=== PATIENT | female | born 1950 | race Caucasian/White ===

== ENCOUNTER → 2019-01-04 | Outpatient (CLI) | payer MEDICARE, OTHER ==
--- NOTE | 2019-01-04 16:18 | XR ---
EXAMINATION TYPE: XR chest 2V DATE OF EXAM: 01/04/2019 COMPARISON: NONE HISTORY: COPD TECHNIQUE: Frontal and lateral views of the chest are obtained. FINDINGS: There is no heart failure nor confluent pneumonic infiltrate. Costophrenic angles are marilee r. Bony thorax is intact. Thoracic aorta is atheromatous. There is small linear density at the right lung base that is probably right middle lobe scarring. IMPRESSION: No active cardiopulmonary disease. Normal heart.
== END | disposition home or self-care (01) ==
LOC: RADXRMAIN 15:12
PROVIDERS: ATTEND Family Medicine
DX: Z00.01 Encounter for general adult medical examination with abnormal findings (principal); F17.210 Nicotine dependence, cigarettes, uncomplicated
CPT/HCPCS: 71046

== ENCOUNTER → 2019-02-19 | Outpatient (CLI) | payer MEDICARE, OTHER ==
[2019-02-19 14:37] LABS: African American GFR (CKD) >90 (>60 ml/min/1.73 sqM); Blood Urea Nitrogen 8 mg/dL (7-17); Non-African American GFR(CKD) 78 (>60 ml/min/1.73 sqM)
--- NOTE | 2019-02-19 16:02 | CT ---
EXAMINATION TYPE: CT brain wo/w con DATE OF EXAM: 02/19/2019 COMPARISON: None INDICATION: syncopal episodes, dizziness DLP: 2031.5 mGycm, Automated exposure control for dose reduction was used. CONTRAST: None CT of the brain is performed utilizing 3 mm thick sections through the posterior fossa and 3 mm thick sections through the remaining calvarium. Study is performed within 24 hours of arrival to the hosp [facility]. No abnormal hyperdensity is present to suggest an acute intracranial hemorrhage. No mass lesion is evident. No acute infarcts are evident. Ventricles and sulci are appropriate for the patient age. There is a small retention cyst within the left maxillary sinus. Remaining paranasal sinuses and mast oid air cells are clear. IMPRESSIONS: 1. No acute intracranial processes pre or postcontrast
--- NOTE | 2019-02-19 17:35 | CT ---
EXAMINATION TYPE: CT chest w con DATE OF EXAM: 02/19/2019 COMPARISON: Chest x-ray 01/04/2019 HISTORY: abnormal cxr CT DLP: 409.8 mGycm, Automated exposure control for dose reduction was used. CONTRAST: Performed injected with 100 mL of Isovue 300. TECHNIQUE: Axial images were obtained at 5 mm thick sections. Reconstructed images are reviewed on [place] computer in the coronal plane. FINDINGS: Portion of the thyroid visualized is normal. No suspicious lung nodules or focal infiltrates are present. Emphysematous changes are present. Adjac ent to the major fissure at the right lung base is some linear density which could correlate with ate lectasis or scarring. No enlarged mediastinal or hilar adenopathy is evident. The ascending aorta diameter at the level o f the main pulmonary artery is 3.1 cm. The main pulmonary artery diameter at the bifurcation is 2.6 cm. Moderate coronary artery calcification is present. Limited CT sections are obtained through the upper abdomen. Cholelithiasis is noted. IMPRESSIONS: 1. No suspicious acute changes. Some atelectasis or scarring may be adjacent to the major fissure on the right which could account for the findings on chest x-ray.
== END | disposition home or self-care (01) ==
LOC: RADCTMAIN 13:10
PROVIDERS: ATTEND Family Medicine
DX: R91.8 Other nonspecific abnormal finding of lung field (principal); R55 Syncope and collapse; Z88.0 Allergy status to penicillin
CPT/HCPCS: 82565; 84520; 70470; 71260; 36415; Q9967

== ENCOUNTER 2019-05-16 15:34 | Inpatient (IN) | payer MEDICARE, OTHER ==
[2019-05-16] MEDS ORDERED: ALBUTEROL NEBULIZED 2.5 MG/3 ML INHALATION STA (16:12)
[2019-05-16] MEDS ORDERED: IPRATROPIUM 0.5 MG/2.5 ML NEBU INHALATION STA (16:12)
[2019-05-16] MEDS ORDERED: methylPREDNISolone SOD SUCCI 125 MG/2 ML VIAL IV STA (16:12)
--- NOTE | 2019-05-16 16:41 | ED ---
General Adult HPI - General Chief complaint: Shortness of Breath Stated complaint: SOB/Wheezing Time Seen by Provider: 05/16/19 16:06 Source: patient, RN notes reviewed, old records reviewed Mode of arrival: wheelchair Limitations: no limitations - History of Present Illness Initial comments: 76-year-old female history of COPD presenting for evaluation of cough and dyspnea. Symptoms have been present for approximately 2 weeks. Patient has had some intermittent left-sided chest pain starting approximately one week ago which is associated with cough but pleasant constantly. She is not currently on home oxygen. She states her cough is productive of brown sputum. Denies fever. Denies URI symptoms. Denies central radiating chest pain. - Related Data Allergies Allergy/AdvReac Type Severity Reaction Status Date / Time No Known Allergies Allergy Verified 05/16/19 15:38 Review of Systems ROS Statement: Those systems with pertinent positive or pertinent negative responses have been documented in the HPI. ROS Other: All systems not noted in ROS Statement are negative. Past Medical History Past Medical History: Cancer, COPD, Thyroid Disorder Additional Past Medical History / Comment(s): breast ca History of Any Multi-Drug Resistant Organisms: None Reported Past Surgical History: Appendectomy Additional Past Surgical History / Comment(s): lumpectomy, Past Psychological History: No Psychological Hx Reported Smoking Status: Former smoker Past Alcohol Use History: Occasional Past Drug Use History: None Reported General Exam Limitations: no limitations General appearance: alert, in distress Head exam: Present: atraumatic, normocephalic Eye exam: Present: normal appearance, PERRL ENT exam: Present: mucous membranes dry Neck exam: Present: normal inspection. Absent: tenderness, meningismus Respiratory exam: Present: respiratory distress, wheezes, accessory muscle use, decreased breath sounds, prolonged expiratory Cardiovascular Exam: Present: regular rate, normal rhythm GI/Abdominal exam: Present: soft. Absent: distended, tenderness, guarding Extremities exam: Present: normal inspection, normal capillary refill. Absent: pedal edema Neurological exam: Present: alert, oriented X3, CN II-XII intact. Absent: motor sensory deficit Psychiatric exam: Present: normal affect, normal mood Skin exam: Present: warm, dry, intact. Absent: cyanosis, diaphoretic Course Vital Signs 05/16/19 05/16/19 05/16/19 15:38 16:05 16:24 Temperature 98.5 F Pulse Rate 94 80 Respiratory 22 20 Rate Blood Pressure 131/76 O2 Sat by Pulse 93 L Oximetry 05/16/19 05/16/19 05/16/19 16:37 16:52 17:22 Temperature 98.1 F Pulse Rate 85 89 82 Respiratory 20 Rate Blood Pressure 102/77 O2 Sat by Pulse 93 L Oximetry EKG Findings - EKG Comments: EKG Findings:: EKG: Normal sinus rhythm no ST segment elevation T-wave inversion in the precordial leads, prolonged QT, rate 85, PA interval 152, QRS duration 84, QTC 471 Medical Decision Making - Medical Decision Making 6-year-old female with COPD presenting with 2 weeks of cough and dyspnea, no fever. Cough productive of brown sputum. Chest x-ray negative for focal pneumonia. Mild leukocytosis 11.1, hemoglobin is stable 14.2, normal x-rays, negative BNP, negative troponin, negative influenza. Case is discussed with Dr. Yumi rodarte Except admission. - Lab Data Result diagrams: 05/16/19 16:38 05/16/19 16:38 Lab Results 05/16/19 05/16/19 05/16/19 Range/Units 16:38 16:38 16:38 WBC 11.1 H (3.8-10.6) k/uL RBC 4.26 (3.80-5.40) m/uL Hgb 14.2 (11.4-16.0) gm/dL Hct 43.8 (34.0-46.0) % MCV 102.8 H (80.0-100.0) fL MCH 33.2 (25.0-35.0) pg MCHC 32.3 (31.0-37.0) g/dL RDW 13.1 (11.5-15.5) % Plt Count 439 (150-450) k/uL Neutrophils % 65 % Lymphocytes % 18 % Monocytes % 7 % Eosinophils % 8 % Basophils % 0 % Neutrophils # 7.2 (1.3-7.7) k/uL Lymphocytes # 2.0 (1.0-4.8) k/uL Monocytes # 0.7 (0-1.0) k/uL Eosinophils # 0.9 H (0-0.7) k/uL Basophils # 0.0 (0-0.2) k/uL Macrocytosis Slight PT 9.9 (9.0-12.0) sec INR 0.9 (<1.2) APTT 23.4 (22.0-30.0) sec Sodium 137 (137-145) mmol/L Potassium 4.5 (3.5-5.1) mmol/L Chloride 102 (98-107) mmol/L Carbon Dioxide 29 (22-30) mmol/L Anion Gap 6 mmol/L BUN 9 (7-17) mg/dL Creatinine 0.73 (0.52-1.04) mg/dL Est GFR (CKD-EPI)AfAm >90 (>60 ml/min/1.73 sqM) Est GFR (CKD-EPI)NonAf 84 (>60 ml/min/1.73 sqM) Glucose 109 H (74-99) mg/dL Plasma Lactic Acid Zahng (0.7-2.0) mmol/L Calcium 10.4 H (8.4-10.2) mg/dL Magnesium 1.9 (1.6-2.3) mg/dL Total Bilirubin 0.4 (0.2-1.3) mg/dL AST 26 (14-36) U/L ALT 16 (4-34) U/L Alkaline Phosphatase 79 (38-126) U/L Troponin I (0.000-0.034) ng/mL NT-Pro-B Natriuret Pep pg/mL Total Protein 7.3 (6.3-8.2) g/dL Albumin 4.3 (3.5-5.0) g/dL Influenza Type A RNA (Not Detectd) Influenza Type B (PCR) (Not Detectd) 05/16/19 05/16/19 05/16/19 Range/Units 16:38 16:38 16:38 WBC (3.8-10.6) k/uL RBC (3.80-5.40) m/uL Hgb (11.4-16.0) gm/dL Hct (34.0-46.0) % MCV (80.0-100.0) fL MCH (25.0-35.0) pg MCHC (31.0-37.0) g/dL RDW (11.5-15.5) % Plt Count (150-450) k/uL Neutrophils % % Lymphocytes % % Monocytes % % Eosinophils % % Basophils % % Neutrophils # (1.3-7.7) k/uL Lymphocytes # (1.0-4.8) k/uL Monocytes # (0-1.0) k/uL Eosinophils # (0-0.7) k/uL Basophils # (0-0.2) k/uL Macrocytosis PT (9.0-12.0) sec INR (<1.2) APTT (22.0-30.0) sec Sodium (137-145) mmol/L Potassium (3.5-5.1) mmol/L Chloride (98-107) mmol/L Carbon Dioxide (22-30) mmol/L Anion Gap mmol/L BUN (7-17) mg/dL Creatinine (0.52-1.04) mg/dL Est GFR (CKD-EPI)AfAm (>60 ml/min/1.73 sqM) Est GFR (CKD-EPI)NonAf (>60 ml/min/1.73 sqM) Glucose (74-99) mg/dL Plasma Lactic Acid Zhang 1.4 (0.7-2.0) mmol/L Calcium (8.4-10.2) mg/dL Magnesium (1.6-2.3) mg/dL Total Bilirubin (0.2-1.3) mg/dL AST (14-36) U/L ALT (4-34) U/L Alkaline Phosphatase (38-126) U/L Troponin I <0.012 (0.000-0.034) ng/mL NT-Pro-B Natriuret Pep 100 pg/mL Total Protein (6.3-8.2) g/dL Albumin (3.5-5.0) g/dL Influenza Type A RNA (Not Detectd) Influenza Type B (PCR) (Not Detectd) 05/16/19 Range/Units 16:44 WBC (3.8-10.6) k/uL RBC (3.80-5.40) m/uL Hgb (11.4-16.0) gm/dL Hct (34.0-46.0) % MCV (80.0-100.0) fL MCH (25.0-35.0) pg MCHC (31.0-37.0) g/dL RDW (11.5-15.5) % Plt Count (150-450) k/uL Neutrophils % % Lymphocytes % % Monocytes % % Eosinophils % % Basophils % % Neutrophils # (1.3-7.7) k/uL Lymphocytes # (1.0-4.8) k/uL Monocytes # (0-1.0) k/uL Eosinophils # (0-0.7) k/uL Basophils # (0-0.2) k/uL Macrocytosis PT (9.0-12.0) sec INR (<1.2) APTT (22.0-30.0) sec Sodium (137-145) mmol/L Potassium (3.5-5.1) mmol/L Chloride (98-107) mmol/L Carbon Dioxide (22-30) mmol/L Anion Gap mmol/L BUN (7-17) mg/dL Creatinine (0.52-1.04) mg/dL Est GFR (CKD-EPI)AfAm (>60 ml/min/1.73 sqM) Est GFR (CKD-EPI)NonAf (>60 ml/min/1.73 sqM) Glucose (74-99) mg/dL Plasma Lactic Acid Zhang (0.7-2.0) mmol/L Calcium (8.4-10.2) mg/dL Magnesium (1.6-2.3) mg/dL Total Bilirubin (0.2-1.3) mg/dL AST (14-36) U/L ALT (4-34) U/L Alkaline Phosphatase (38-126) U/L Troponin I (0.000-0.034) ng/mL NT-Pro-B Natriuret Pep pg/mL Total Protein (6.3-8.2) g/dL Albumin (3.5-5.0) g/dL Influenza Type A RNA Not Detected (Not Detectd) Influenza Type B (PCR) Not Detected (Not Detectd) Critical Care Time Critical Care Time: Yes Total Critical Care Time: 35 Disposition Clinical Impression: Acute exacerbation of chronic obstructive pulmonary disease Disposition: ADMITTED IP TO THIS [facility] Condition: Stable Is patient prescribed a controlled substance at d/c from ED?: No Referrals: Deshaun Bolanos DO [Primary Care Provider] - 1-2 days Decision to Admit Reason: Admit from EC Decision Date: 05/16/19 Decision Time: 17:35
[2019-05-16 16:52] LABS: Basophils % (A) 0 %; Eosinophils # (A) 0.9 k/uL (0-0.7); Eosinophils % (A) 8 %; HCT 43.8 % (34.0-46.0); HGB 14.2 gm/dL (11.4-16.0); Lymphocytes % (A) 18 %; MCH 33.2 pg (25.0-35.0); MCHC 32.3 g/dL (31.0-37.0); MCV 102.8 fL (80.0-100.0); Macrocytosis Slight; Mean Platelet Volume 7.7; Monocytes # (A) 0.7 k/uL (0-1.0); Monocytes % (A) 7 %; Neutrophils # (A) 7.2 k/uL (1.3-7.7); Neutrophils % (A) 65 %; Platelet Count 439 k/uL (150-450); RBC 4.26 m/uL (3.80-5.40); RDW 13.1 % (11.5-15.5); WBC 11.1 k/uL (3.8-10.6)
[2019-05-16 17:01] LABS: INR 0.9 (<1.2); Partial Thromboplastin Time 23.4 sec (22.0-30.0); Prothrombin Time 9.9 sec (9.0-12.0)
[2019-05-16 17:02] LABS: ALT 16 U/L (4-34); AST 26 U/L (14-36); African American GFR (CKD) >90 (>60 ml/min/1.73 sqM); Albumin 4.3 g/dL (3.5-5.0); Alkaline Phosphatase 79 U/L (38-126); Anion Gap 6 mmol/L; Blood Urea Nitrogen 9 mg/dL (7-17); Calcium 10.4 mg/dL (8.4-10.2); Carbon Dioxide 29 mmol/L (22-30); Chloride 102 mmol/L (98-107); Glucose 109 mg/dL (74-99); Magnesium 1.9 mg/dL (1.6-2.3); Non-African American GFR(CKD) 84 (>60 ml/min/1.73 sqM); Potassium 4.5 mmol/L (3.5-5.1); Sodium 137 mmol/L (137-145); Total Bilirubin 0.4 mg/dL (0.2-1.3); Total Protein 7.3 g/dL (6.3-8.2)
--- NOTE | 2019-05-16 17:17 | XR ---
EXAMINATION TYPE: XR chest 2V DATE OF EXAM: 05/16/2019 COMPARISON: 01/04/2019 TECHNIQUE: PA and lateral views submitted. HISTORY: Shortness of breath FINDINGS: The lungs are clear and there is no pneumothorax, pleural effusion, or focal pneumonia. Hyperinflat ion suggests COPD. Hypertrophic and degenerative change of the spine. Biapical pleural thickening. At herosclerotic change aorta. IMPRESSION: 1. Correlate for COPD..
[2019-05-16] MEDS: AZITHROMYCIN 500 MG TAB PO SCH (17:46)
[2019-05-16] MEDS: NICOTINE 21MG/24HR PATCH TRANSDERM SCH (17:46)
[2019-05-16] MEDS ORDERED: IBUPROFEN 400 MG TAB PO STA (18:10)
[2019-05-16] MEDS: IPRATROPIUM-ALBUTEROL 3 ML NEB INHALATION PRN (19:20)
[2019-05-16] MEDS ORDERED: ACETAMINOPHEN PO PRN (20:43)
[2019-05-16] MEDS ORDERED: DIPHENHYDRAMINE PO PRN (20:43)
[2019-05-16 21:50] LABS: Glucose,Whole Blood 234 mg/dL (75-99)
[2019-05-16] MEDS: ATORVASTATIN 20 MG TAB PO SCH (21:57)
[2019-05-16] MEDS: BENZONATATE 100 MG CAP PO PRN (21:57)
[2019-05-16] MEDS: guaiFENesin 600 MG TABLET.ER PO SCH (21:57)
[2019-05-16] MEDS: DULoxetine HCL 60 MG CAPSULE.DR PO SCH (21:57)
[2019-05-16] MEDS: INSULIN ASPART (NovoLOG) 100 UNIT/ML VIAL SQ SCH (21:58)
[2019-05-16] MEDS: LETROZOLE 2.5 MG TAB PO SCH (21:58)
[2019-05-16] MEDS: IPRATROPIUM-ALBUTEROL 3 ML NEB INHALATION SCH (22:04)
[2019-05-16] MEDS: ALPRAZolam 0.25 MG TAB PO PRN (23:08)
[2019-05-16] MEDS: methylPREDNISolone SOD SUCCI 125 MG/2 ML VIAL IV SCH (23:08)
[2019-05-17] MEDS: methylPREDNISolone SOD SUCCI 125 MG/2 ML VIAL IV SCH ×4 (05:47→23:32)
[2019-05-17] MEDS: LEVOTHYROXINE 75 MCG TAB PO SCH (05:48)
[2019-05-17 07:02] LABS: Glucose,Whole Blood 145 mg/dL (75-99)
[2019-05-17] MEDS: IPRATROPIUM-ALBUTEROL 3 ML NEB INHALATION SCH ×4 (07:57→20:07)
[2019-05-17] MEDS: INSULIN ASPART (NovoLOG) 100 UNIT/ML VIAL SQ SCH ×4 (08:20→20:26)
[2019-05-17] MEDS: NICOTINE 21MG/24HR PATCH TRANSDERM SCH (08:21)
[2019-05-17] MEDS: guaiFENesin 600 MG TABLET.ER PO SCH ×2 (08:22→20:26)
[2019-05-17] MEDS: DULoxetine HCL 60 MG CAPSULE.DR PO SCH (08:22)
[2019-05-17] MEDS: ATORVASTATIN 20 MG TAB PO SCH (08:22)
[2019-05-17] MEDS: LETROZOLE 2.5 MG TAB PO SCH (08:23)
[2019-05-17] MEDS ORDERED: ACETAMINOPHEN TAB 325 MG TAB PO PRN (08:30)
[2019-05-17] MEDS: BENZONATATE 100 MG CAP PO PRN ×2 (08:34→20:26)
--- NOTE | 2019-05-17 11:15 | P.HPIM ---
History of Present Illness H&P Date: 05/17/19 This is a 76-year-old patient with a history of COPD who presented to the emergency room with evaluation of cough and dyspnea. The symptoms started approximately 2 weeks ago. Patient has had intermittent left-sided chest pain starting approximately 1 week ago that was associated with a cough and constant. Patient does not use home oxygen. Patient states that her cough is productive with brown sputum. Denies any fever. Denies any nasal congestion or upper respiratory symptoms. Denies any central radiating chest pain. Patient sees Dr. Bishop every 6 months. Her last visit was approximately 4 months ago. She sees her primary care doctor every 3-4 months. Patient denies any recent trave l. She does not use a CPAP machine at home. She does have intermittent swelling to the left lower extremity. No history of blood clots. Patient is a 60+ year smoker of at least one pack a day. She has recently been attempting to quit and only smoking 6 cigarettes a day. Patient states her last hospitalization was greater than 10 years ago. At this time patient is resting comfortably in bed. Continues to have shortness of breath with exertion and conversation. Patient also complains of cramping to bilateral lower extremities. Denies any chest pain at this time. Patient has a positive productive cough. She has been afebrile. Influenza swab a and B was negative. RSV was also negative. WC 11.1, hemoglobin 14.2, potassium 4.5, BUN 9 creatinine 0.73, lactic acid 1.4. Review of Systems Review Of Systems: Constitutional: No fever, no chills, no night sweats. No weight change. Report weakness and fatigue no lethargy. No daytime sleepiness. EENT: No headache. No blurred vision or double vision, no loss of vision. No loss of Hearing, no ringing in the ears, no dizziness. No nasal drainage or congestion. No epistaxis. No sore throat. Lungs: Report shortness of breath and cough, report sputum production. Reports wheezing. Cardiovascular: Denies at this time reports prior to admission chest pain, reports intermittently left lower extremity edema. No palpitations. No paroxysmal nocturnal dyspnea. No orthopnea. No lightheadedness or dizziness. No syncopal episodes. Abdominal: no abdominal discomfort. No nausea, vomiting. no diarrhea. No constipation. No bloody or tarry stools. no loss of appetite. Genitourinary: No dysuria, increased frequency, urgency. No urinary retention. Musculoskeletal: No myalgias. No muscle weakness, no gait dysfunction, no frequent falls. No back pain. No neck pain. Reports bilateral leg cramping Integumentary: No wounds, no lesions. No rash or pruritus. No unusual bruising. No change in hair or nails. Neurologic: No aphasia. No facial droop. No change in mentation. No head injury. No headache. No paralysis. No paresthesia. Psychiatric: No depression. No anxiety. No mood swings. Endocrine: No abnormal blood sugars. No weight change. No excessive sweating or thirst. Past Medical History Past Medical History: Cancer, COPD, Thyroid Disorder Additional Past Medical History / Comment(s): breast ca History of Any Multi-Drug Resistant Organisms: None Reported Past Surgical History: Appendectomy Additional Past Surgical History / Comment(s): lumpectomy, Past Psychological History: No Psychological Hx Reported Smoking Status: Current some day smoker Past Alcohol Use History: Occasional Past Drug Use History: None Reported - Past Family History Mother Family Medical History: Coronary Artery Disease (CAD) Father Family Medical History: Coronary Artery Disease (CAD) Additional Family Medical History / Comment(s): 2 sisters one with COPD the other one healthy. No children. Medications and Allergies Home Medications Medication Instructions Recorded Confirmed Type Acetaminophen/Diphenhydramine 2 tab PO HS PRN 05/16/19 05/16/19 History [Tylenol PM 500-25mg] Albuterol Sulfate [Ventolin HFA] 2 puff INHALATION Q6H PRN 05/16/19 05/16/19 History Ascorbic Acid [Vitamin C] 1,000 mg PO DAILY 05/16/19 05/16/19 History Atorvastatin [Lipitor] 20 mg PO DAILY 05/16/19 05/16/19 History Budesonide/Formoterol Fumarate 2 puff INHALATION BID 05/16/19 05/16/19 History [Symbicort 160-4.5 Mcg Inhaler] Calcium Carbonate/Vitamin D3 1 tab PO DAILY 05/16/19 05/16/19 History [Calcium 600-Vit D3 800 Caplet] DULoxetine HCL [Cymbalta] 60 mg PO DAILY 05/16/19 05/16/19 History Letrozole [Femara] 2.5 mg PO DAILY 05/16/19 05/16/19 History Levothyroxine Sodium [Synthroid] 75 mcg PO DAILY 05/16/19 05/16/19 History Nicotine 21Mg/24Hr Patch [Habitrol] 1 patch TRANSDERM DAILY 05/16/19 05/16/19 History Sulfamethoxazole/Trimethoprim 1 tab PO BID 05/16/19 05/16/19 History [Sulfamethoxazole-Tmp Ds Tablet] Ubidecarenone [Co Q-10] 200 mg PO DAILY 05/16/19 05/16/19 History Allergies Allergy/AdvReac Type Severity Reaction Status Date / Time No Known Allergies Allergy Verified 05/16/19 19:12 Physical Exam Vitals: Vital Signs Temp Pulse Pulse Resp BP BP Pulse Ox 05/17/19 08:10 92 05/17/19 07:57 90 05/17/19 04:47 98.5 F 84 20 120/71 91 L 05/16/19 22:16 88 05/16/19 22:05 88 05/16/19 21:22 97.8 F 86 18 114/56 93 L 05/16/19 19:20 88 05/16/19 17:22 98.1 F 82 20 102/77 93 L 05/16/19 16:52 89 05/16/19 16:37 85 05/16/19 16:24 80 05/16/19 16:05 20 05/16/19 15:38 98.5 F 94 22 131/76 93 L Intake and Output 05/16/19 05/17/19 05/17/19 22:59 06:59 14:59 Intake Total 50 Balance 50 Intake: Intake, IV Titration 50 Amount cefTRIAXone 1 gm In 50 Sodium Chloride 0.9% 50 ml @ 100 mls/hr IVPB Q24H [facility] Rx#:[id number] Other: Voiding Method Toilet # Voids 1 1 Weight 71.214 kg General Appearance: Alert, cooperative, no distress, appears stated age. Neck HEENT: Supple, no lymphadenopathy, no thyroid enlargement, no carotid bruits. Lungs: Expiratory wheezes, decreased air sounds and prolonged expiratory, mild distress with conversation Chest Wall: Chest wall normal expansion with deep inspiration no tenderness and no deformity was found on exam, no costochondral pain or discomfort. Heart: Regular rate and rhythm, S1, S2 normal, no murmur, rub or gallop. Back: Symmetric, no curvature, ROM normal, no CVA tenderness. Abdomen: Soft, non-tender, no rebound or rigidity, no hepatosplenomegaly. Extremities: Extremities normal, atraumatic, no cyanosis or edema. Pulses: 2+ and symmetric. Skin: Skin color, texture, tugor normal, no rashes or lesions. Neurologic: Alert oriented x3 cranial nerves II through XII intact, no motor deficit, no abnormal balance or gait Results CBC & Chem 7: 05/16/19 16:38 05/16/19 16:38 Labs: Abnormal Lab Results - Last 24 Hours (Table) 05/16/19 05/16/19 05/16/19 Range/Units 16:38 16:38 21:47 WBC 11.1 H (3.8-10.6) k/uL MCV 102.8 H (80.0-100.0) fL Eosinophils # 0.9 H (0-0.7) k/uL Glucose 109 H (74-99) mg/dL POC Glucose (mg/dL) 234 H (75-99) mg/dL Calcium 10.4 H (8.4-10.2) mg/dL 05/17/19 Range/Units 07:01 WBC (3.8-10.6) k/uL MCV (80.0-100.0) fL Eosinophils # (0-0.7) k/uL Glucose (74-99) mg/dL POC Glucose (mg/dL) 145 H (75-99) mg/dL Calcium (8.4-10.2) mg/dL Thrombosis Risk Factor Assmnt - Choose All That Apply Any of the Below Risk Factors Present?: Yes Each Factor Represents 1 point: Abnormal pulmonary function (COPD) Other Risk Factors: Yes Each Risk Factor Represents 2 Points: Age 61-74 years Other congenital or acquired thrombophilia - If yes, enter type in comment: No Thrombosis Risk Factor Assessment Total Risk Factor Score: 3 Thrombosis Risk Factor Assessment Level: Moderate Risk Assessment and Plan Plan: 1. Acute COPD exacerbation with no recent travel and no visitors except for a niece who brought her to the hospital. Influenza a and B negative. Solu-Medrol 60 mg IV every 6 hours, azithromycin 500 mg by mouth daily, Tessalon Perles 200 mg by mouth 3 times a day, Rocephin 1 g IV piggyback daily, Mucinex 600 mg by mouth every 12 hours. Continue with DuoNeb. Consult pulmonology. Repeat chest x-ray 2. Hypothyroidism. Levothyroxine 75 MCG's by mouth daily 3. History of breast CA. femara 2.5 mg daily 4. Nicotine dependence. Nicotine patch 21 mg daily 24 hours daily 5. Depression continue Cymbalta 60 mg by mouth daily, Xanax 0.25 mg by mouth at bedtime 6. Hyperlipidemia. Continue with atorvastatin 20 mg by mouth daily GI prophylaxis: Protonix DT prophylaxis: Upper and subcu Discharge plan: Minimum of 2 nights day Impression and plan of care have been directed as dictated by the signing physician. Gracia Klein nurse practitioner acting as scribe for signing physician.
[2019-05-17 11:37] LABS: Glucose,Whole Blood 176 mg/dL (75-99)
--- NOTE | 2019-05-17 15:30 | XR ---
EXAMINATION TYPE: XR chest 2V DATE OF EXAM: 05/17/2019 COMPARISON: 05/16/2019 HISTORY: Shortness of breath TECHNIQUE: Frontal and lateral views of the chest are obtained. FINDINGS: Chronic interstitial prominence is unchanged from the prior. Pulmonary hyperinflation relat ing to underlying COPD. Slight elevation left hemidiaphragm as seen on the prior. There is no focal a ir space opacity, pleural effusion, or pneumothorax seen. The cardiac silhouette size is within norm al limits. The osseous structures are intact. IMPRESSION: Chronic interstitial prominence is present that could be related to underlying interstit ial lung disease or chronic bronchitis/reactive airway disease given underlying COPD.
[2019-05-17 17:02] LABS: Glucose,Whole Blood 126 mg/dL (75-99)
--- NOTE | 2019-05-17 17:07 | P.CNPUL ---
History of Present Illness Consult date: 05/17/19 Reason for consult: dyspnea, COPD History of present illness: 76-year-old here patient with known history of COPD with a baseline FEV1 of 33% of predicted has been followed up on outpatient basis for office. The patient is limited on Symbicort. The patient is a chronic smoker and recently she got on her smoking to 6-10 cigarettes on a daily basis. She is not oxygen dependent. The patient had some increased shortness of breath along with congestion and cough and wheezing. She is already feeling better. She has started Bactrim on outpatient basis without any major improvement. No angina. No palpitation. No swelling lower extremities. What second 11. Lactic acid level is at 1.4. Influenza screen is negative. RSV screen is also negative. No hemoptysis no pleurisy. No other complaints otherwise for now. Clinically improving. She is on Zithromax and Rocephin. She is on DuoNeb nebulized treatment [id number]. She is also on IV Solu-Medrol. Review of Systems Constitutional: Reports as per HPI Eyes: denies as per HPI, denies blurred vision, denies bulging eye, denies decreased vision, denies diplopia, denies discharge, denies dry eye, denies irritation, denies itching, denies pain, denies photophobia, denies loss of peripheral vision, denies loss of vision, denies tunnel vision/blind spots Ears: deny: decreased hearing, ear discharge, earache, tinnitus Ears, nose, mouth and throat: Denies headache, Denies sore throat Breasts: absent: as per HPI, change in shape, gynecomastia, masses, nipple discharge, pain, skin changes, swelling Cardiovascular: Reports decreased exercise tolerance, Reports dyspnea on exertion Respiratory: Reports cough, Reports dyspnea, Reports wheezing Gastrointestinal: Reports as per HPI Genitourinary: Reports as per HPI Menstruation: Reports as per HPI Musculoskeletal: Reports as per HPI Musculoskeletal: absent: ankle pain, ankle stiffness, ankle swelling, as per HPI, elbow pain, elbow stiffness, elbow swelling, foot pain, foot stiffness, foot swelling, hand pain, hand stiffness, hand swelling, hip pain, hip stiffness, hip swelling, knee pain, knee stiffness, knee swelling, shoulder pain, shoulder stiffness, shoulder swelling, wrist pain, wrist stiffness, wrist swelling Integumentary: Reports as per HPI Neurological: Reports as per HPI Psychiatric: Reports as per HPI Endocrine: Reports as per HPI Hematologic/Lymphatic: Reports as per HPI Allergic/Immunologic: Reports as per HPI Past Medical History Past Medical History: Cancer, COPD, Thyroid Disorder Additional Past Medical History / Comment(s): History of breast cancer, COPD, hypothyroidism, hyperlipidemia, chronic anxiety and depression History of Any Multi-Drug Resistant Organisms: None Reported Past Surgical History: Appendectomy Additional Past Surgical History / Comment(s): lumpectomy, Past Psychological History: No Psychological Hx Reported Smoking Status: Current some day smoker Past Alcohol Use History: Occasional Past Drug Use History: None Reported - Past Family History Mother Family Medical History: Coronary Artery Disease (CAD) Father Family Medical History: Coronary Artery Disease (CAD) Additional Family Medical History / Comment(s): 2 sisters one with COPD the other one healthy. No children. Medications and Allergies Home Medications Medication Instructions Recorded Confirmed Type Acetaminophen/Diphenhydramine 2 tab PO HS PRN 05/16/19 05/16/19 History [Tylenol PM 500-25mg] Albuterol Sulfate [Ventolin HFA] 2 puff INHALATION Q6H PRN 05/16/19 05/16/19 History Ascorbic Acid [Vitamin C] 1,000 mg PO DAILY 05/16/19 05/16/19 History Atorvastatin [Lipitor] 20 mg PO DAILY 05/16/19 05/16/19 History Budesonide/Formoterol Fumarate 2 puff INHALATION BID 05/16/19 05/16/19 History [Symbicort 160-4.5 Mcg Inhaler] Calcium Carbonate/Vitamin D3 1 tab PO DAILY 05/16/19 05/16/19 History [Calcium 600-Vit D3 800 Caplet] DULoxetine HCL [Cymbalta] 60 mg PO DAILY 05/16/19 05/16/19 History Letrozole [Femara] 2.5 mg PO DAILY 05/16/19 05/16/19 History Levothyroxine Sodium [Synthroid] 75 mcg PO DAILY 05/16/19 05/16/19 History Nicotine 21Mg/24Hr Patch [Habitrol] 1 patch TRANSDERM DAILY 05/16/19 05/16/19 History Sulfamethoxazole/Trimethoprim 1 tab PO BID 05/16/19 05/16/19 History [Sulfamethoxazole-Tmp Ds Tablet] Ubidecarenone [Co Q-10] 200 mg PO DAILY 05/16/19 05/16/19 History Allergies Allergy/AdvReac Type Severity Reaction Status Date / Time No Known Allergies Allergy Verified 05/16/19 19:12 Physical Exam Vitals: Vital Signs Temp Pulse Pulse Resp BP BP Pulse Ox 05/17/19 15:52 82 05/17/19 15:40 80 05/17/19 12:18 92 05/17/19 12:04 90 05/17/19 11:30 97.7 F 91 20 117/59 86 L 05/17/19 08:10 92 05/17/19 07:57 90 05/17/19 04:47 98.5 F 84 20 120/71 91 L 05/16/19 22:16 88 05/16/19 22:05 88 05/16/19 21:22 97.8 F 86 18 114/56 93 L 05/16/19 19:20 88 05/16/19 17:22 98.1 F 82 20 102/77 93 L Intake and Output 05/17/19 05/17/19 05/17/19 06:59 14:59 22:59 Other: Voiding Method Toilet Toilet # Voids 1 2 The patient appeared well nourished and normally developed. Vital signs as documented. Head exam is unremarkable. No scleral icterus or corneal arcus noted. Neck is without jugular venous distension, thyromegaly, or carotid bruits. Carotid upstrokes are brisk bilaterally. Lung sounds are diminished bilaterally along with some few scattered external wheeze Cardiac exam reveals the PMI to be normally sized and situated. Rhythm is regular. First and second heart sounds normal. No murmurs, rubs or gallops. Abdominal exam reveals normal bowel sounds, no masses, no organomegaly and no aortic enlargement. Extremities are nonedematous and both femoral and pedal pulses are normal.Examination of the skin revealed no evidence of significant rashes, suspicious appearing nevi or other concerning lesions. Neurologically awake and alert and there is no focal neurological deficit Results - Laboratory Findings CBC and BMP: 05/16/19 16:38 05/16/19 16:38 PT/INR, D-dimer PT 9.9 sec (9.0-12.0) 05/16/19 16:38 INR 0.9 (<1.2) 05/16/19 16:38 Abnormal lab findings: Abnormal Labs 05/16/19 05/16/19 05/16/19 16:38 16:38 21:47 WBC 11.1 H MCV 102.8 H Eosinophils # 0.9 H Glucose 109 H POC Glucose (mg/dL) 234 H Calcium 10.4 H 05/17/19 05/17/19 05/17/19 07:01 11:35 17:00 WBC MCV Eosinophils # Glucose POC Glucose (mg/dL) 145 H 176 H 126 H Calcium - Diagnostic Findings Chest x-ray: image reviewed Assessment and Plan Plan: 1 acute COPD exacerbation with secondary shortness of breath. Influenza screen is negative. Chest x-ray is within normal limits and there is no evidence of any acute pneumonia. Clinically improving. 2 chronic smoking 3 history of breast cancer with lumpectomy currently off of Merrem 4 hypothyroidism 5 hyperlipidemia 6 anxiety/depression maintain and accommodation of Cymbalta and Xanax Plan Smoking cessation counseling was done Fully agree on the current treatment which includes accommodation bronchodilators, steroids and antibiotics We'll continue to follow. This will likely be a short admission for this patient.
[2019-05-17] MEDS: AZITHROMYCIN 500 MG TAB PO SCH (18:39)
[2019-05-17] MEDS: PANTOPRAZOLE 40 MG TABLET PO SCH (18:39)
[2019-05-17 19:43] LABS: Glucose,Whole Blood 271 mg/dL (75-99)
[2019-05-17] MEDS: HEPARIN SODIUM,PORCINE 5,000 UNIT/ML 1 ML VIAL SQ SCH (20:26)
[2019-05-17] MEDS: ALPRAZolam 0.25 MG TAB PO PRN (21:19)
[2019-05-18] MEDS: IPRATROPIUM-ALBUTEROL 3 ML NEB INHALATION PRN ×2 (04:43→17:05)
[2019-05-18] MEDS: methylPREDNISolone SOD SUCCI 125 MG/2 ML VIAL IV SCH ×3 (05:47→23:45)
[2019-05-18] MEDS: LEVOTHYROXINE 75 MCG TAB PO SCH (05:47)
[2019-05-18 06:53] LABS: Glucose,Whole Blood 150 mg/dL (75-99)
[2019-05-18 07:14] LABS: Calcium 10.6 mg/dL (8.4-10.2); Potassium 5.3 mmol/L (3.5-5.1)
[2019-05-18 08:06] LABS: Basophils % (A) 0 %; Eosinophils % (A) 0 %; HCT 42.6 % (34.0-46.0); HGB 13.9 gm/dL (11.4-16.0); Lymphocytes # (A) 1.1 k/uL (1.0-4.8); Lymphocytes % (A) 4 %; MCH 33.4 pg (25.0-35.0); MCHC 32.6 g/dL (31.0-37.0); MCV 102.6 fL (80.0-100.0); Macrocytosis Slight; Mean Platelet Volume 8.5; Monocytes # (A) 0.7 k/uL (0-1.0); Monocytes % (A) 3 %; Neutrophils # (A) 24.7 k/uL (1.3-7.7); Neutrophils % (A) 93 %; Platelet Count 495 k/uL (150-450); RBC 4.15 m/uL (3.80-5.40); RDW 13.2 % (11.5-15.5); WBC 26.5 k/uL (3.8-10.6)
[2019-05-18] MEDS: INSULIN ASPART (NovoLOG) 100 UNIT/ML VIAL SQ SCH ×4 (08:32→20:23)
[2019-05-18] MEDS: HEPARIN SODIUM,PORCINE 5,000 UNIT/ML 1 ML VIAL SQ SCH ×2 (08:33→20:23)
[2019-05-18] MEDS: PANTOPRAZOLE 40 MG TABLET PO SCH ×2 (08:35→17:29)
[2019-05-18] MEDS: LETROZOLE 2.5 MG TAB PO SCH (08:35)
[2019-05-18] MEDS: guaiFENesin 600 MG TABLET.ER PO SCH ×2 (08:35→20:23)
[2019-05-18] MEDS: ATORVASTATIN 20 MG TAB PO SCH (08:35)
[2019-05-18] MEDS: DULoxetine HCL 60 MG CAPSULE.DR PO SCH (08:35)
[2019-05-18] MEDS: NICOTINE 21MG/24HR PATCH TRANSDERM SCH (08:36)
[2019-05-18] MEDS: BENZONATATE 100 MG CAP PO PRN (08:49)
[2019-05-18] MEDS: IPRATROPIUM-ALBUTEROL 3 ML NEB INHALATION SCH ×4 (09:05→20:43)
--- NOTE | 2019-05-18 10:55 | P.PN ---
Subjective Progress Note Date: 05/18/19 Principal diagnosis: Acute exacerbation of chronic obstructive pulmonary disease 76-year-old here patient with known history of COPD with a baseline FEV1 of 33% of predicted has been followed up on outpatient basis for office. The patient is limited on Symbicort. The patient is a chronic smoker and recently she got on her smoking to 6-10 cigarettes on a daily basis. She is not oxygen dependent. The patient had some increased shortness of breath along with congestion and cough and wheezing. She is already feeling better. She has started Bactrim on outpatient basis without any major improvement. No angina. No palpitation. No swelling lower extremities. What second 11. Lactic acid level is at 1.4. Influenza screen is negative. RSV screen is also negative. No hemoptysis no pleurisy. No other complaints otherwise for now. Clinically improving. She is on Zithromax and Rocephin. She is on DuoNeb nebulized treatment [id number]. She is also on IV Solu-Medrol. The patient is seen today 05/18/2019 in follow-up on the regular medical floor. She is currently resting comfortably in bed. Awake and alert in no acute distress. Maintaining O2 saturations in the 90s on 4 L/m per nasal cannula. She has been afebrile. Blood culture reveals no growth to date. White count 26.5. Hemoglobin 13.9. Sodium 132. Potassium 5.3. Creatinine 0.88. She is continued on DuoNeb inhalations, IV Solu-Medrol, antibiotics in the form of ceftriaxone and azithromycin. NicoDerm patch in place. Objective - Vital Signs Vital signs: Vital Signs Temp 97.9 F 05/18/19 04:22 Pulse 79 05/18/19 09:23 Resp 19 05/18/19 04:22 BP 130/68 05/18/19 04:22 Pulse Ox 90 L 05/18/19 09:06 Intake & Output 05/17/19 05/18/19 05/18/19 18:59 06:59 18:59 Intake Total 50 Balance 50 Intake: Intake, IV Titration 50 Amount cefTRIAXone 1 gm In 50 Sodium Chloride 0.9% 50 ml @ 100 mls/hr IVPB Q24H [facility] Rx#:[id number] Other: Voiding Method Toilet Toilet # Voids 2 1 - Exam GENERAL EXAM: Alert, pleasant 69-year-old female patient, on 4 L nasal cannula, comfortable in no apparent distress. HEAD: Normocephalic. EYES: Normal reaction of pupils, equal size. NOSE: Clear with pink turbinates. THROAT: No erythema or exudates. NECK: No masses, no JVD. CHEST: No chest wall deformity. LUNGS: Equal air entry with bilateral end expiratory wheeze, diminished. CVS: S1 and S2 normal with no audible murmur, regular rhythm. ABDOMEN: No hepatosplenomegaly, normal bowel sounds, no guarding or rigidity. SPINE: No scoliosis or deformity SKIN: No rashes CENTRAL NERVOUS SYSTEM: No focal deficits, tone is normal in all 4 extremities. EXTREMITIES: There is no peripheral edema. No clubbing, no cyanosis. Peripheral pulses are intact. - Labs CBC & Chem 7: 05/18/19 06:30 05/18/19 06:29 Labs: Abnormal Lab Results - Last 24 Hours (Table) 05/17/19 05/17/19 05/17/19 Range/Units 11:35 17:00 19:41 WBC (3.8-10.6) k/uL MCV (80.0-100.0) fL Plt Count (150-450) k/uL Neutrophils # (1.3-7.7) k/uL Sodium (137-145) mmol/L Potassium (3.5-5.1) mmol/L BUN (7-17) mg/dL Glucose (74-99) mg/dL POC Glucose (mg/dL) 176 H 126 H 271 H (75-99) mg/dL Calcium (8.4-10.2) mg/dL 05/18/19 05/18/19 05/18/19 Range/Units 06:29 06:30 06:51 WBC 26.5 H (3.8-10.6) k/uL MCV 102.6 H (80.0-100.0) fL Plt Count 495 H (150-450) k/uL Neutrophils # 24.7 H (1.3-7.7) k/uL Sodium 132 L (137-145) mmol/L Potassium 5.3 H (3.5-5.1) mmol/L BUN 20 H (7-17) mg/dL Glucose 150 H (74-99) mg/dL POC Glucose (mg/dL) 150 H (75-99) mg/dL Calcium 10.6 H (8.4-10.2) mg/dL Microbiology - Last 24 Hours (Table) 05/16/19 16:38 Blood Culture - Preliminary Blood No Growth after 24 hours Assessment and Plan Assessment: 1 acute COPD exacerbation with secondary shortness of breath. Influenza screen is negative. Chest x-ray is within normal limits and there is no evidence of any acute pneumonia. Clinically improving. 2 chronic smoking 3 history of breast cancer with lumpectomy currently off of Merrem 4 hypothyroidism 5 hyperlipidemia 6 anxiety/depression maintain and accommodation of Cymbalta and Xanax Plan: Seen and evaluated by Dr. Mann. Continue current medications Add Symbicort Again educated regarding the importance of complete smoking cessation Continue NicoDerm Titrate down the FiO2 as tolerated Probable discharge in the a.m. I, the cosigning physician, performed a history & physical examination of the patient. Lungs sounds with end expiratory wheeze, diminished. Maintaining good O2 saturations in the 90s on 4 L/m per nasal cannula. I discussed the assessment and plan of care with my nurse practitioner, Helen Gusman. I attest to the above note as dictated by her.
[2019-05-18 11:10] LABS: Glucose,Whole Blood 150 mg/dL (75-99)
--- NOTE | 2019-05-18 11:23 | P.PN ---
Subjective Progress Note Date: 05/18/19 This is a 76-year-old patient with a history of COPD who presented to the emergency room with evaluation of cough and dyspnea. The symptoms started approximately 2 weeks ago. Patient has had intermittent left-sided chest pain starting approximately 1 week ago that was associated with a cough and constant. Patient does not use home oxygen. Patient states that her cough is productive with brown sputum. Denies any fever. Denies any nasal congestion or upper respiratory symptoms. Denies any central radiating chest pain. Patient sees Dr. Bishop every 6 months. Her last visit was approximately 4 months ago. She sees her primary care doctor every 3-4 months. Patient denies any recent travel. She does not use a CPAP machine at home. She does have intermittent swelling to the left lower extremity. No history of blood clots. Patient is a 60+ year smoker of at least one pack a day. She has recently been attempting to quit and only smoking 6 cigarettes a day. Patient states her last hospi talization was greater than 10 years ago. At this time patient is resting comfortably in bed. Continues to have shortness of breath with exertion and conversation. Patient also complains of cramping to bilateral lower extremities. Denies any chest pain at this time. Patient has a positive productive cough. She has been afebrile. Influenza swab a and B was negative. RSV was also negative. WC 11.1, hemoglobin 14.2, potassium 4.5, BUN 9 creatinine 0.73, lactic acid 1.4. 05/17: She is currently resting in bed with complaints of a headache. We will treat her headache with Fioricet. Awake and alert in no acute distress. Patient states her breathing has improved however she continues to have wheezes. Maintaining O2 saturations in the 90s on 4 L/m per nasal cannula. She has been afebrile. Blood culture reveals no growth to date. White count 26.5. Hemoglobin 13.9. Sodium 132. Potassium 5.3. Creatinine 0.88. NicoDerm patch in place. Patient is anxious to go home. Review Of Systems: Constitutional: No fever, no chills, no night sweats. No weight change. Report weakness and fatigue no lethargy. No daytime sleepiness. EENT: No headache. No blurred vision or double vision, no loss of vision. No loss of Hearing, no ringing in the ears, no dizziness. No nasal drainage or congestion. No epistaxis. No sore throat. Lungs: Report shortness of breath and cough, report sputum production. Reports wheezing. Cardiovascular: Denies at this time reports prior to admission chest pain, reports intermittently left lower extremity edema. No palpitations. No paroxysmal nocturnal dyspnea. No orthopnea. No lightheadedness or dizziness. No syncopal episodes. Abdominal: no abdominal discomfort. No nausea, vomiting. no diarrhea. No constipation. No bloody or tarry stools. no loss of appetite. Genitourinary: No dysuria, increased frequency, urgency. No urinary retention. Musculoskeletal: No myalgias. No muscle weakness, no gait dysfunction, no frequent falls. No back pain. No neck pain. Reports bilateral leg cramping Integumentary: No wounds, no lesions. No rash or pruritus. No unusual bruising. No change in hair or nails. Neurologic: No aphasia. No facial droop. No change in mentation. No head injury. No headache. No paralysis. No paresthesia. Psychiatric: No depression. No anxiety. No mood swings. Endocrine: No abnormal blood sugars. No weight change. No excessive sweating or thirst. Objective - Vital Signs Vital signs: Vital Signs Temp 97.9 F 05/18/19 04:22 Pulse 79 05/18/19 09:23 Resp 19 05/18/19 04:22 BP 130/68 05/18/19 04:22 Pulse Ox 90 L 05/18/19 09:06 Intake & Output 05/17/19 05/18/19 05/18/19 18:59 06:59 18:59 Intake Total 50 Balance 50 Intake: Intake, IV Titration 50 Amount cefTRIAXone 1 gm In 50 Sodium Chloride 0.9% 50 ml @ 100 mls/hr IVPB Q24H [facility] Rx#:[id number] Other: Voiding Method Toilet Toilet # Voids 2 1 - Exam General Appearance: Alert, cooperative, no distress, appears stated age. Neck HEENT: Supple, no lymphadenopathy, no thyroid enlargement, no carotid bruits. Lungs: Expiratory wheezes improved, decreased air sounds and prolonged expiratory, mild distress with conversation Chest Wall: Chest wall normal expansion with deep inspiration no tenderness and no deformity was found on exam, no costochondral pain or discomfort. Heart: Regular rate and rhythm, S1, S2 normal, no murmur, rub or gallop. Back: Symmetric, no curvature, ROM normal, no CVA tenderness. Abdomen: Soft, non-tender, no rebound or rigidity, no hepatosplenomegaly. Extremities: Extremities normal, atraumatic, no cyanosis or edema. Pulses: 2+ and symmetric. Skin: Skin color, texture, tugor normal, no rashes or lesions. Neurologic: Alert oriented x3 cranial nerves II through XII intact, no motor deficit, no abnormal balance or gait - Labs CBC & Chem 7: 05/18/19 06:30 05/18/19 06:29 Labs: Abnormal Lab Results - Last 24 Hours (Table) 05/17/19 05/17/19 05/17/19 Range/Units 11:35 17:00 19:41 WBC (3.8-10.6) k/uL MCV (80.0-100.0) fL Plt Count (150-450) k/uL Neutrophils # (1.3-7.7) k/uL Sodium (137-145) mmol/L Potassium (3.5-5.1) mmol/L BUN (7-17) mg/dL Glucose (74-99) mg/dL POC Glucose (mg/dL) 176 H 126 H 271 H (75-99) mg/dL Calcium (8.4-10.2) mg/dL 05/18/19 05/18/19 05/18/19 Range/Units 06:29 06:30 06:51 WBC 26.5 H (3.8-10.6) k/uL MCV 102.6 H (80.0-100.0) fL Plt Count 495 H (150-450) k/uL Neutrophils # 24.7 H (1.3-7.7) k/uL Sodium 132 L (137-145) mmol/L Potassium 5.3 H (3.5-5.1) mmol/L BUN 20 H (7-17) mg/dL Glucose 150 H (74-99) mg/dL POC Glucose (mg/dL) 150 H (75-99) mg/dL Calcium 10.6 H (8.4-10.2) mg/dL 05/18/19 Range/Units 11:08 WBC (3.8-10.6) k/uL MCV (80.0-100.0) fL Plt Count (150-450) k/uL Neutrophils # (1.3-7.7) k/uL Sodium (137-145) mmol/L Potassium (3.5-5.1) mmol/L BUN (7-17) mg/dL Glucose (74-99) mg/dL POC Glucose (mg/dL) 150 H (75-99) mg/dL Calcium (8.4-10.2) mg/dL Microbiology - Last 24 Hours (Table) 05/16/19 16:38 Blood Culture - Preliminary Blood No Growth after 24 hours Assessment and Plan Plan: 1. Acute COPD exacerbation with no recent travel and no visitors except for a niece who brought her to the hospital. Influenza a and B negative. Solu-Medrol 60 mg IV every 8 hours, azithromycin 500 mg by mouth daily, Tessalon Perles 200 mg by mouth 3 times a day, Rocephin 1 g IV piggyback daily, Mucinex 600 mg by mouth every 12 hours. Continue with DuoNeb. Consult pulmonology. Repeat chest x-ray 2. Hypothyroidism. Levothyroxine 75 MCG's by mouth daily 3. History of breast CA. femara 2.5 mg daily 4. Nicotine dependence. Nicotine patch 21 mg daily 24 hours daily 5. Depression continue Cymbalta 60 mg by mouth daily, Xanax 0.25 mg by mouth at bedtime 6. Hyperlipidemia. Continue with atorvastatin 20 mg by mouth daily 7. Headache. Fioricet GI prophylaxis: Protonix DT prophylaxis: Heparin subcu Discharge plan: Minimum of 2 nights day, possible discharge Sunday or Sunday Impression and plan of care have been directed as dictated by the signing physician. Gracia Klein nurse practitioner acting as scribe for signing physician.
[2019-05-18] MEDS: BUTALB/APAP/CAFF 50-325-40MG TAB PO PRN ×2 (12:48→20:23)
[2019-05-18 17:07] LABS: Glucose,Whole Blood 149 mg/dL (75-99)
[2019-05-18] MEDS: AZITHROMYCIN 500 MG TAB PO SCH (17:29)
[2019-05-18] MEDS: ALPRAZolam 0.25 MG TAB PO PRN (20:22)
[2019-05-18 20:48] LABS: Glucose,Whole Blood 151 mg/dL (75-99)
[2019-05-19] MEDS: IPRATROPIUM-ALBUTEROL 3 ML NEB INHALATION PRN ×3 (00:07→23:34)
[2019-05-19] MEDS: LEVOTHYROXINE 75 MCG TAB PO SCH (06:22)
[2019-05-19 06:55] LABS: Glucose,Whole Blood 144 mg/dL (75-99)
[2019-05-19] MEDS: INSULIN ASPART (NovoLOG) 100 UNIT/ML VIAL SQ SCH ×4 (07:43→20:16)
[2019-05-19] MEDS: BENZONATATE 100 MG CAP PO PRN (07:57)
[2019-05-19] MEDS: PANTOPRAZOLE 40 MG TABLET PO SCH ×2 (07:59→17:49)
[2019-05-19] MEDS: HEPARIN SODIUM,PORCINE 5,000 UNIT/ML 1 ML VIAL SQ SCH ×2 (08:00→20:15)
[2019-05-19] MEDS: guaiFENesin 600 MG TABLET.ER PO SCH ×2 (08:00→20:15)
[2019-05-19] MEDS: DULoxetine HCL 60 MG CAPSULE.DR PO SCH (08:00)
[2019-05-19] MEDS: NICOTINE 21MG/24HR PATCH TRANSDERM SCH (08:01)
[2019-05-19] MEDS: methylPREDNISolone SOD SUCCI 125 MG/2 ML VIAL IV SCH (08:15)
[2019-05-19] MEDS: LETROZOLE 2.5 MG TAB PO SCH (08:16)
[2019-05-19] MEDS: BUTALB/APAP/CAFF 50-325-40MG TAB PO PRN (08:16)
[2019-05-19] MEDS: IPRATROPIUM-ALBUTEROL 3 ML NEB INHALATION SCH ×4 (08:29→19:32)
[2019-05-19 11:07] LABS: Glucose,Whole Blood 126 mg/dL (75-99)
--- NOTE | 2019-05-19 11:16 | P.PN ---
Subjective Progress Note Date: 05/19/19 Principal diagnosis: Acute exacerbation of chronic obstructive pulmonary disease 76-year-old here patient with known history of COPD with a baseline FEV1 of 33% of predicted has been followed up on outpatient basis for office. The patient is limited on Symbicort. The patient is a chronic smoker and recently she got on her smoking to 6-10 cigarettes on a daily basis. She is not oxygen dependent. The patient had some increased shortness of breath along with congestion and cough and wheezing. She is already feeling better. She has started Bactrim on outpatient basis without any major improvement. No angina. No palpitation. No swelling lower extremities. What second 11. Lactic acid level is at 1.4. Influenza screen is negative. RSV screen is also negative. No hemoptysis no pleurisy. No other complaints otherwise for now. Clinically improving. She is on Zithromax and Rocephin. She is on DuoNeb nebulized treatment [id number]. She is also on IV Solu-Medrol. The patient is seen today 05/18/2019 in follow-up on the regular medical floor. She is currently resting comfortably in bed. Awake and alert in no acute distress. Maintaining O2 saturations in the 90s on 4 L/m per nasal cannula. She has been afebrile. Blood culture reveals no growth to date. White count 26.5. Hemoglobin 13.9. Sodium 132. Potassium 5.3. Creatinine 0.88. She is continued on DuoNeb inhalations, IV Solu-Medrol, antibiotics in the form of ceftriaxone and azithromycin. NicoDerm patch in place. the patient is seen today 05/19/2019 in follow-up on the regular medical floor. She is currently sitting up in bed. Awake and alert in no acute distress.she did desaturate into the 80s on room air with minimal activity. Currently maintaining O2 saturations in the 90s on 4 Lper minute per nasal cannula. She's a afebrile. Blood cultures reveal no growth. Blood glucose 126. She is continued on DuoNeb inhalations, IV Solu-Medrol, Mucinex,antibiotics in the form of ceftriaxone and azithromycin. NicoDerm patch in place. Objective - Vital Signs Vital signs: Vital Signs Temp 97.8 F 05/19/19 05:00 Pulse 90 03/16/20 09:46 Resp 20 05/19/19 05:00 BP 125/74 05/19/19 05:00 Pulse Ox 93 L 05/19/19 09:46 Intake & Output 05/18/19 05/19/19 05/19/19 18:59 06:59 18:59 Intake Total 590 Balance 590 Intake: Oral 590 Other: Voiding Method Toilet Bedside Commode Bedside Commode # Voids 3 1 - Exam GENERAL EXAM: Alert, pleasant 69-year-old female patient, on 4 L nasal cannula, comfortable in no apparent distress. HEAD: Normocephalic. EYES: Normal reaction of pupils, equal size. NOSE: Clear with pink turbinates. THROAT: No erythema or exudates. NECK: No masses, no JVD. CHEST: No chest wall deformity. LUNGS: Equal air entry with bilateral end expiratory wheeze, diminished. CVS: S1 and S2 normal with no audible murmur, regular rhythm. ABDOMEN: No hepatosplenomegaly, normal bowel sounds, no guarding or rigidity. SPINE: No scoliosis or deformity SKIN: No rashes CENTRAL NERVOUS SYSTEM: No focal deficits, tone is normal in all 4 extremities. EXTREMITIES: There is no peripheral edema. No clubbing, no cyanosis. Peripheral pulses are intact. - Labs CBC & Chem 7: 05/18/19 06:30 05/18/19 06:29 Labs: Abnormal Lab Results - Last 24 Hours (Table) 05/18/19 05/18/19 05/18/19 Range/Units 11:08 17:06 20:12 POC Glucose (mg/dL) 150 H 149 H 151 H (75-99) mg/dL 05/19/19 05/19/19 Range/Units 06:53 11:05 POC Glucose (mg/dL) 144 H 126 H (75-99) mg/dL Microbiology - Last 24 Hours (Table) 05/16/19 16:38 Blood Culture - Preliminary Blood No Growth after 48 hours Assessment and Plan Assessment: 1 acute COPD exacerbation with secondary shortness of breath. Influenza screen is negative. Chest x-ray is within normal limits and there is no evidence of any acute pneumonia. Clinically improving. 2 chronic smoking 3 history of breast cancer with lumpectomy currently off of Merrem 4 hypothyroidism 5 hyperlipidemia 6 anxiety/depression maintain and accommodation of Cymbalta and Xanax Plan: Seen and evaluated by Dr. Coy. Continue current medications Again educated regarding the importance of complete smoking cessation Continue NicoDerm Possible need for home oxygen Probable discharge in the a.m. I, the cosigning physician, performed a history & physical examination of the patient. Lungs sounds with end expiratory wheeze, diminished. Maintaining good O2 saturations in the 90s on 4 L/m per nasal cannula. I discussed the assessment and plan of care with my nurse practitioner, Helen Gusman. I attest to the above note as dictated by her.
--- NOTE | 2019-05-19 13:24 | P.PN ---
Subjective Progress Note Date: 05/19/19 This is a 76-year-old patient with a history of COPD who presented to the emergency room with evaluation of cough and dyspnea. The symptoms started approximately 2 weeks ago. Patient has had intermittent left-sided chest pain starting approximately 1 week ago that was associated with a cough and constant. Patient does not use home oxygen. Patient states that her cough is productive with brown sputum. Denies any fever. Denies any nasal congestion or upper respiratory symptoms. Denies any central radiating chest pain. Patient sees Dr. Bishop every 6 months. Her last visit was approximately 4 months ago. She sees her primary care doctor every 3-4 months. Patient denies any recent travel. She does not use a CPAP machine at home. She does have intermittent swelling to the left lower extremity. No history of blood clots. Patient is a 60+ year smoker of at least one pack a day. She has recently been attempting to quit and only smoking 6 cigarettes a day. Patient states her last hosp italization was greater than 10 years ago. At this time patient is resting comfortably in bed. Continues to have shortness of breath with exertion and conversation. Patient also complains of cramping to bilateral lower extremities. Denies any chest pain at this time. Patient has a positive productive cough. She has been afebrile. Influenza swab a and B was negative. RSV was also negative. WC 11.1, hemoglobin 14.2, potassium 4.5, BUN 9 creatinine 0.73, lactic acid 1.4. 05/17: She is currently resting in bed with complaints of a headache. We will treat her headache with Fioricet. Awake and alert in no acute distress. Patient states her breathing has improved however she continues to have wheezes. Maintaining O2 saturations in the 90s on 4 L/m per nasal cannula. She has been afebrile. Blood culture reveals no growth to date. White count 26.5. Hemoglobin 13.9. Sodium 132. Potassium 5.3. Creatinine 0.88. NicoDerm patch in place. Patient is anxious to go home. 05/18: Patient has been afebrile, heart rate 95, blood pressure 125/74, pulse ox 95% on 4 L nasal cannula. Blood culture no growth at 48 hours. Capillary blood glucose running between 144 and 151. Patient had a drop in her pulse ox done a symptom percent on room air at rest. Oxygen will be necessary for home in protective services case worker will arrange prior to discharge. Patient is currently on Solu-Medrol 60 mg every 6 hours and we will transition her to oral prednisone with anticipation of discharge home tomorrow. The patient will need prescriptions for her nebulizer. Review Of Systems: Constitutional: No fever, no chills, no night sweats. No weight change. Report weakness and fatigue no lethargy. No daytime sleepiness. EENT: No headache. no dizziness. No nasal drainage or congestion. No epistaxis. No sore throat. Lungs: Report shortness of breath and cough, report sputum production. Reports wheezing. Cardiovascular: Denies at this time reports prior to admission chest pain, reports intermittently left lower extremity edema. No palpitations. No paroxysmal nocturnal dyspnea. No orthopnea. No lightheadedness or dizziness. No syncopal episodes. Abdominal: no abdominal discomfort. No nausea, vomiting. no diarrhea. No constipation. No bloody or tarry stools. no loss of appetite. Genitourinary: No dysuria, increased frequency, urgency. No urinary retention. Musculoskeletal: No myalgias. No muscle weakness, no gait dysfunction, no frequent falls. No back pain. No neck pain. Integumentary: No wounds, no lesions. No rash or pruritus. No unusual bruising. No change in hair or nails. Neurologic: No aphasia. No facial droop. No change in mentation. No head injury. No headache. No paralysis. No paresthesia. Psychiatric: No depression. No anxiety. No mood swings. Endocrine: No abnormal blood sugars. No weight change. No excessive sweating or thirst. Objective - Vital Signs Vital signs: Vital Signs Temp 97.8 F 05/19/19 05:00 Pulse 96 05/19/19 08:42 Resp 20 05/19/19 05:00 BP 125/74 05/19/19 05:00 Pulse Ox 95 05/19/19 05:00 Intake & Output 05/18/19 05/19/19 05/19/19 18:59 06:59 18:59 Intake Total 590 Balance 590 Intake: Oral 590 Other: Voiding Method Toilet Bedside Commode # Voids 3 1 - Exam General Appearance: Alert, cooperative, no distress, appears stated age. Patient is resting comfortably in bed. Neck HEENT: Supple, no lymphadenopathy, no thyroid enlargement, no carotid bruits. Lungs: Expiratory wheezes improved, decreased air sounds and prolonged expiratory, mild distress with conversation Chest Wall: Chest wall normal expansion with deep inspiration no tenderness and no deformity was found on exam, no costochondral pain or discomfort. Heart: Regular rate and rhythm, S1, S2 normal, no murmur, rub or gallop. Back: Symmetric, no curvature, ROM normal, no CVA tenderness. Abdomen: Soft, non-tender, no rebound or rigidity, no hepatosplenomegaly. Extremities: Extremities normal, atraumatic, no cyanosis or edema. Pulses: 2+ and symmetric. Skin: Skin color, texture, tugor normal, no rashes or lesions. Neurologic: Alert oriented x3 cranial nerves II through XII intact, no motor deficit, no abnormal balance or gait - Labs CBC & Chem 7: 05/18/19 06:30 05/18/19 06:29 Labs: Abnormal Lab Results - Last 24 Hours (Table) 05/18/19 05/18/19 05/18/19 Range/Units 11:08 17:06 20:12 POC Glucose (mg/dL) 150 H 149 H 151 H (75-99) mg/dL 05/19/19 Range/Units 06:53 POC Glucose (mg/dL) 144 H (75-99) mg/dL Microbiology - Last 24 Hours (Table) 05/16/19 16:38 Blood Culture - Preliminary Blood No Growth after 48 hours Assessment and Plan Plan: 1. Acute COPD exacerbation. Solu-Medrol will be transitioned to oral prednisone. Continue DuoNeb treatments 4 times daily and as needed, azithromycin 500 mg daily, Tessalon Perles, Pulmicort 1 mg twice daily, Perforomist twice daily, Mucinex twice daily. However medicine consult appreciated. Patient will have follow-up with Dr. Valdez as an outpatient. 2. Hypothyroidism. Levothyroxine 75 MCG's by mouth daily 3. History of breast CA. femara 2.5 mg daily 4. Nicotine dependence. Nicotine patch 21 mg daily 24 hours daily 5. Depression continue Cymbalta 60 mg by mouth daily, Xanax 0.25 mg by mouth at bedtime 6. Hyperlipidemia. Continue with atorvastatin 20 mg by mouth daily 7. Headache. Fioricet 8. Chronic hypoxic respiratory failure requiring home oxygen. Pulse ox 97% on room air at rest. zone manager to make arrangements for home oxygen prior to discharge. GI prophylaxis: Protonix DT prophylaxis: Heparin subcu Discharge plan: Home tomorrow Impression and plan of care have been directed as dictated by the signing physician. Fanny Chen nurse practitioner acting as scribe for signing physician.
[2019-05-19 17:11] LABS: Glucose,Whole Blood 191 mg/dL (75-99)
[2019-05-19] MEDS: AZITHROMYCIN 500 MG TAB PO SCH (17:49)
[2019-05-19] MEDS: BUDESONIDE 1 MG/2 ML NEBU INHALATION SCH (19:32)
[2019-05-19] MEDS: FORMOTEROL FUMARATE 20 MCG/2 ML NEBU INHALATION SCH (19:32)
[2019-05-19 20:07] LABS: Glucose,Whole Blood 102 mg/dL (75-99)
[2019-05-19] MEDS: ALPRAZolam 0.25 MG TAB PO PRN (23:37)
[2019-05-20] MEDS: IPRATROPIUM-ALBUTEROL 3 ML NEB INHALATION PRN ×2 (03:15→23:58)
[2019-05-20] MEDS: LEVOTHYROXINE 75 MCG TAB PO SCH (06:08)
[2019-05-20 06:55] LABS: Glucose,Whole Blood 95 mg/dL (75-99)
[2019-05-20] MEDS: INSULIN ASPART (NovoLOG) 100 UNIT/ML VIAL SQ SCH ×4 (07:17→20:47)
[2019-05-20] MEDS: BUDESONIDE 1 MG/2 ML NEBU INHALATION SCH ×2 (08:36→19:31)
[2019-05-20] MEDS: IPRATROPIUM-ALBUTEROL 3 ML NEB INHALATION SCH ×4 (08:36→19:33)
[2019-05-20] MEDS: FORMOTEROL FUMARATE 20 MCG/2 ML NEBU INHALATION SCH ×2 (08:36→19:31)
[2019-05-20] MEDS: guaiFENesin 600 MG TABLET.ER PO SCH ×2 (08:47→20:47)
[2019-05-20] MEDS: NICOTINE 21MG/24HR PATCH TRANSDERM SCH (08:47)
[2019-05-20] MEDS: ATORVASTATIN 20 MG TAB PO SCH (08:47)
[2019-05-20] MEDS: HEPARIN SODIUM,PORCINE 5,000 UNIT/ML 1 ML VIAL SQ SCH ×2 (08:47→20:47)
[2019-05-20] MEDS: predniSONE 20 MG TAB PO SCH (08:47)
[2019-05-20] MEDS: DULoxetine HCL 60 MG CAPSULE.DR PO SCH (08:47)
[2019-05-20] MEDS: PANTOPRAZOLE 40 MG TABLET PO SCH ×2 (08:47→16:56)
[2019-05-20] MEDS: LETROZOLE 2.5 MG TAB PO SCH (08:48)
--- NOTE | 2019-05-20 10:17 | XR ---
EXAMINATION TYPE: XR chest 2V DATE OF EXAM: 05/20/2019 COMPARISON: 05/17/19 HISTORY: Cough TECHNIQUE: Frontal and lateral views of the chest are obtained. FINDINGS: There is no focal air space opacity, pleural effusion, or pneumothorax seen. Pulmonary hyp erinflation of COPD. The cardiac silhouette size is within normal limits. The osseous structures ar e intact. Left axillary surgical clips. There is diffuse osseous demineralization. IMPRESSION: No acute cardiopulmonary process.
[2019-05-20 11:24] LABS: Glucose,Whole Blood 109 mg/dL (75-99)
--- NOTE | 2019-05-20 15:17 | P.PN ---
Subjective Progress Note Date: 05/20/19 This is a 76-year-old patient with a history of COPD who presented to the emergency room with evaluation of cough and dyspnea. The symptoms started approximately 2 weeks ago. Patient has had intermittent left-sided chest pain starting approximately 1 week ago that was associated with a cough and constant. Patient does not use home oxygen. Patient states that her cough is productive with brown sputum. Denies any fever. Denies any nasal congestion or upper respiratory symptoms. Denies any central radiating chest pain. Patient sees Dr. Bishop every 6 months. Her last visit was approximately 4 months ago. She sees her primary care doctor every 3-4 months. Patient denies any recent travel. She does not use a CPAP machine at home. She does have intermittent swelling to the left lower extremity. No history of blood clots. Patient is a 60+ year smoker of at least one pack a day. She has recently been attempting to quit and only smoking 6 cigarettes a day. Patient states her last hosp italization was greater than 10 years ago. At this time patient is resting comfortably in bed. Continues to have shortness of breath with exertion and conversation. Patient also complains of cramping to bilateral lower extremities. Denies any chest pain at this time. Patient has a positive productive cough. She has been afebrile. Influenza swab a and B was negative. RSV was also negative. WC 11.1, hemoglobin 14.2, potassium 4.5, BUN 9 creatinine 0.73, lactic acid 1.4. 05/17: She is currently resting in bed with complaints of a headache. We will treat her headache with Fioricet. Awake and alert in no acute distress. Patient states her breathing has improved however she continues to have wheezes. Maintaining O2 saturations in the 90s on 4 L/m per nasal cannula. She has been afebrile. Blood culture reveals no growth to date. White count 26.5. Hemoglobin 13.9. Sodium 132. Potassium 5.3. Creatinine 0.88. NicoDerm patch in place. Patient is anxious to go home. 05/18: Patient has been afebrile, heart rate 95, blood pressure 125/74, pulse ox 95% on 4 L nasal cannula. Blood culture no growth at 48 hours. Capillary blood glucose running between 144 and 151. Patient had a drop in her pulse ox done a symptom percent on room air at rest. Oxygen will be necessary for home in case management social worker will arrange prior to discharge. Patient is currently on Solu-Medrol 60 mg every 6 hours and we will transition her to oral prednisone with anticipation of discharge home tomorrow. The patient will need prescriptions for her nebulizer. 05/19: Patient continues to have some difficulty breathing requiring 4 and half liters nasal cannula. Previously, patient was not on oxygen. We will add incentive spirometry and flutter valve as well. Repeat chest x-ray has been ordered. Patient has been afebrile, heart rate 100, blood pressure 145/78, pulse ox 93% on 4 and half liters nasal cannula. Review Of Systems: Constitutional: No fever, no chills, no night sweats. No weight change. Report weakness and fatigue no lethargy. No daytime sleepiness. EENT: No headache. no dizziness. No nasal drainage or congestion. No epistaxis. No sore throat. Lungs: Report shortness of breath and cough, report sputum production. Reports wheezing. Cardiovascular: Denies at this time reports prior to admission chest pain, reports intermittently left lower extremity edema. No palpitations. No paroxysmal nocturnal dyspnea. No orthopnea. No lightheadedness or dizziness. No syncopal episodes. Abdominal: no abdominal discomfort. No nausea, vomiting. no diarrhea. No constipation. No bloody or tarry stools. no loss of appetite. Genitourinary: No dysuria, increased frequency, urgency. No urinary retention. Musculoskeletal: No myalgias. No muscle weakness, no gait dysfunction, no frequent falls. No back pain. No neck pain. Integumentary: No wounds, no lesions. No rash or pruritus. No unusual bruising. No change in hair or nails. Neurologic: No aphasia. No facial droop. No change in mentation. No head injury. No headache. No paralysis. Psychiatric: No depression. No anxiety. No mood swings. Endocrine: No abnormal blood sugars. No weight change. No excessive sweating or thirst. Objective - Vital Signs Vital signs: Vital Signs Temp 97.2 F L 05/20/19 04:57 Pulse 95 05/20/19 04:57 Resp 20 05/20/19 04:57 BP 119/70 05/20/19 04:57 Pulse Ox 92 L 05/20/19 04:57 Intake & Output 05/19/19 05/20/19 05/20/19 18:59 06:59 18:59 Intake Total 170 Balance 170 Intake: Intake, IV Titration 50 Amount cefTRIAXone 1 gm In 50 Sodium Chloride 0.9% 50 ml @ 100 mls/hr IVPB Q24H [facility] Rx#:[id number] Oral 120 Other: Voiding Method Bedside Commode Bedside Commode # Voids 2 - Exam General Appearance: Alert, cooperative, no distress, appears stated age. Patient is resting in bed. Neck HEENT: Supple, no lymphadenopathy, no thyroid enlargement, no carotid bruits. Lungs: Expiratory wheezes improved, decreased air sounds and prolonged expiratory, mild distress with conversation Chest Wall: Chest wall normal expansion with deep inspiration no tenderness and no deformity was found on exam, no costochondral pain or discomfort. Heart: Regular rate and rhythm, S1, S2 normal, no murmur, rub or gallop. Abdomen: Soft, non-tender, no rebound or rigidity, no hepatosplenomegaly. Extremities: Extremities normal, atraumatic, no cyanosis or edema. Pulses: 2+ and symmetric. Skin: Skin color, texture, tugor normal, no rashes or lesions. Neurologic: Alert oriented x3 cranial nerves II through XII intact, no motor deficit, no abnormal balance or gait - Labs CBC & Chem 7: 05/18/19 06:30 05/18/19 06:29 Labs: Abnormal Lab Results - Last 24 Hours (Table) 05/19/19 05/19/19 05/19/19 Range/Units 11:05 17:09 20:05 POC Glucose (mg/dL) 126 H 191 H 102 H (75-99) mg/dL Microbiology - Last 24 Hours (Table) 05/16/19 16:38 Blood Culture - Preliminary Blood No Growth after 72 hours Assessment and Plan Plan: 1. Acute COPD exacerbation. Continue oral prednisone. Continue DuoNeb treatments 4 times daily and as needed, azithromycin 500 mg daily, Tessalon Perles, Pulmicort 1 mg twice daily, Perforomist twice daily, Mucinex twice daily. Flutter valve, incentive spirometry and repeat chest x-ray ordered. Artemio españa will have follow-up with Dr. Bishop as an outpatient. 2. Hypothyroidism. Levothyroxine 75 MCG's by mouth daily 3. History of breast CA. femara 2.5 mg daily 4. Nicotine dependence. Nicotine patch 21 mg daily 24 hours daily 5. Depression continue Cymbalta 60 mg by mouth daily, Xanax 0.25 mg by mouth at bedtime 6. Hyperlipidemia. Continue with atorvastatin 20 mg by mouth daily 7. Headache. Fioricet 8. Chronic hypoxic respiratory failure requiring home oxygen. Pulse ox 87% on room air at rest. supply chain logistics manager to make arrangements for home oxygen prior to discharge. GI prophylaxis: Protonix DT prophylaxis: Heparin subcu Discharge plan: Home tomorrow Impression and plan of care have been directed as dictated by the signing physician. Fanny Chen nurse practitioner acting as scribe for signing physician.
[2019-05-20] MEDS: AZITHROMYCIN 500 MG TAB PO SCH (16:56)
[2019-05-20 17:17] LABS: Glucose,Whole Blood 146 mg/dL (75-99)
[2019-05-20 19:56] LABS: Glucose,Whole Blood 160 mg/dL (75-99)
[2019-05-21] MEDS: IPRATROPIUM-ALBUTEROL 3 ML NEB INHALATION PRN (04:22)
[2019-05-21] MEDS: LEVOTHYROXINE 75 MCG TAB PO SCH (06:22)
[2019-05-21 06:55] LABS: Glucose,Whole Blood 94 mg/dL (75-99)
[2019-05-21] MEDS: INSULIN ASPART (NovoLOG) 100 UNIT/ML VIAL SQ SCH ×2 (07:48→12:42)
[2019-05-21 08:03] LABS: HCT 41.5 % (34.0-46.0); HGB 13.6 gm/dL (11.4-16.0); MCH 33.9 pg (25.0-35.0); MCHC 32.7 g/dL (31.0-37.0); MCV 103.6 fL (80.0-100.0); Macrocytosis Slight; Mean Platelet Volume 7.9; Platelet Count 376 k/uL (150-450); RBC 4.01 m/uL (3.80-5.40); RDW 13.1 % (11.5-15.5); WBC 13.2 k/uL (3.8-10.6)
[2019-05-21 08:21] LABS: Calcium 9.8 mg/dL (8.4-10.2); Potassium 4.1 mmol/L (3.5-5.1)
[2019-05-21] MEDS: IPRATROPIUM-ALBUTEROL 3 ML NEB INHALATION SCH ×2 (08:23→11:57)
[2019-05-21] MEDS: FORMOTEROL FUMARATE 20 MCG/2 ML NEBU INHALATION SCH (08:23)
[2019-05-21] MEDS: BUDESONIDE 1 MG/2 ML NEBU INHALATION SCH (08:23)
[2019-05-21] MEDS: NICOTINE 21MG/24HR PATCH TRANSDERM SCH (09:18)
[2019-05-21] MEDS: LETROZOLE 2.5 MG TAB PO SCH (09:19)
[2019-05-21] MEDS: PANTOPRAZOLE 40 MG TABLET PO SCH (09:19)
[2019-05-21] MEDS: DULoxetine HCL 60 MG CAPSULE.DR PO SCH (09:20)
[2019-05-21] MEDS: HEPARIN SODIUM,PORCINE 5,000 UNIT/ML 1 ML VIAL SQ SCH (09:20)
[2019-05-21] MEDS: guaiFENesin 600 MG TABLET.ER PO SCH (09:20)
[2019-05-21] MEDS: predniSONE 20 MG TAB PO SCH (09:20)
[2019-05-21] MEDS: ATORVASTATIN 20 MG TAB PO SCH (09:20)
[2019-05-21 11:39] LABS: Glucose,Whole Blood 109 mg/dL (75-99)
[2019-05-21 12:02] VITALS: BP 130/72; RESP 17; TEMP 98.7
[2019-05-21 13:13] VITALS: PULSE 96
--- NOTE | 2019-05-21 14:01 | P.DS ---
Providers Date of admission: 05/16/19 17:31 Expected date of discharge: 05/21/19 Attending physician: Laura Rivera Consults: 05/16/19 17:31 Consult Physician Routine Consulting Provider: Aroldo Bishop Consult Reason/Comments: COPD Do you want consulting provider notified?: Yes 05/17/19 11:53 Consult Physician Routine Consulting Provider: Negrita Mann Consult Reason/Comments: COPD Do you want consulting provider notified?: Yes Primary care physician: [place] Hospital Course: This is a 76-year-old patient with a history of COPD who presented to the emergency room with evaluation of cough and dyspnea. The symptoms started approximately 2 weeks ago. Patient has had intermittent left-sided chest pain starting approximately 1 week ago that was associated with a cough and constant. Patient does not use home oxygen. Patient states that her cough is productive with brown sputum. Denies any fever. Denies any nasal congestion or upper respiratory symptoms. Denies any central radiating chest pain. Patient sees Dr. Bishop every 6 months. Her last visit was approximately 4 months ago. She sees her primary care doctor every 3-4 months. Patient denies any recent travel. She does not use a CPAP machine at home. She does have intermittent swelling to the left lower extremity. No history of blood clots. Patient is a 60+ year smoker of at least one pack a day. She has recently been attempting to quit and only smoking 6 cigarettes a day. Patient states her last hospitalization was greater than 10 years ago. At this time patient is resting comfortably in bed. Continues to have shortness of breath with exertion and conversation. Patient also complains of cramping to bilateral lower extremities. Denies any chest pain at this time. Patient has a positive productive cough. She has been afebrile. Influenza swab a and B was negative. RSV was also negative. WC 11.1, hemoglobin 14.2, potassium 4.5, BUN 9 creatinine 0.73, lactic acid 1.4. 05/17: She is currently resting in bed with complaints of a headache. We will treat her headache with Fioricet. Awake and alert in no acute distress. Patient states her breathing has improved however she continues to have wheezes. Maintaining O2 saturations in the 90s on 4 L/m per nasal cannula. She has been afebrile. Blood culture reveals no growth to date. White count 26.5. Hemoglo bin 13.9. Sodium 132. Potassium 5.3. Creatinine 0.88. NicoDerm patch in place. Patient is anxious to go home. 05/18: Patient has been afebrile, heart rate 95, blood pressure 125/74, pulse ox 95% on 4 L nasal cannula. Blood culture no growth at 48 hours. Capillary blood glucose running between 144 and 151. Patient had a drop in her pulse ox done a symptom percent on room air at rest. Oxygen will be necessary for home in watch case polisher will arrange prior to discharge. Patient is currently on Solu-Medrol 60 mg every 6 hours and we will transition her to oral prednisone with anticipation of discharge home tomorrow. The patient will need prescriptions for her nebulizer. 05/19: Patient continues to have some difficulty breathing requiring 4 and half liters nasal cannula. Previously, patient was not on oxygen. We will add incentive spirometry and flutter valve as well. Repeat chest x-ray has been ordered. Patient has been afebrile, heart rate 100, blood pressure 145/78, pulse ox 93% on 4 and half liters nasal cannula. 05/20: Patient is afebrile, heart rate 83, blood pressure 113/70, pulse ox 94% on 2 L nasal cannula. Repeat blood work reveals W BC 13.2, sodium 134, sodium 4.1, chloride 98, CO2 32, BUN 23, creatinine 0.9. Blood sugars running between 87 and 160. Repeat chest x-ray shows no acute pulmonary process. Today lungs are clear to auscultation. Breathing status is stable. Patient will be discharged home today in stable condition. Discharge diagnoses: 1. Acute COPD exacerbation 2. Hypothyroidism. 3. History of breast CA. 4. Nicotine dependence. 5. Recurrent depression 6. Hyperlipidemia. 7. Headache. 8. Chronic hypoxic respiratory failure requiring home oxygen. Pulse ox 87% on room air at rest. manager intermediate made arrangements for home oxygen. Discharge plan: Home Impression and plan of care have been directed as dictated by the signing physician. Fanny Chen nurse practitioner acting as scribe for signing physician. Patient Condition at Discharge: Good Plan - Discharge Summary Discharge Rx Participant: Yes New Discharge Prescriptions: New Ipratropium-Albuterol Nebulize [Duoneb 0.5 mg-3 mg/3 ml Soln] 3 ml INHALATION RT-QID #120 ml Cephalexin [Keflex] 500 mg PO Q8HR 5 Days #15 cap guaiFENesin [Mucinex] 600 mg PO Q12HR tablet.er predniSONE 0 mg PO DIRECTED #63 tab Pantoprazole [Protonix] 40 mg PO AC-BRKFST #30 tablet. Budesonide [Pulmicort] 1 mg INHALATION RT-BID #60 dose Benzonatate [Tessalon Perles] 200 mg PO TID PRN #30 cap PRN Reason: Cough Continue Ascorbic Acid [Vitamin C] 1,000 mg PO DAILY Acetaminophen/Diphenhydramine [Tylenol PM 500-25mg] 2 tab PO HS PRN PRN Reason: Pain Calcium Carbonate/Vitamin D3 [Calcium 600-Vit D3 800 Caplet] 1 tab PO DAILY DULoxetine HCL [Cymbalta] 60 mg PO DAILY Atorvastatin [Lipitor] 20 mg PO DAILY Levothyroxine Sodium [Synthroid] 75 mcg PO DAILY Letrozole [Femara] 2.5 mg PO DAILY Albuterol Sulfate [Ventolin HFA] 2 puff INHALATION Q6H PRN PRN Reason: Shortness Of Breath Budesonide/Formoterol Fumarate [Symbicort 160-4.5 Mcg Inhaler] 2 puff INHALATION BID Nicotine 21Mg/24Hr Patch [Habitrol] 1 patch TRANSDERM DAILY Ubidecarenone [Co Q-10] 200 mg PO DAILY Discontinued Sulfamethoxazole/Trimethoprim [Sulfamethoxazole-Tmp Ds Tablet] 1 tab PO BID Discharge Medication List Acetaminophen/Diphenhydramine [Tylenol PM 500-25mg] 2 tab PO HS PRN 05/16/19 [History] Albuterol Sulfate [Ventolin HFA] 2 puff INHALATION Q6H PRN 05/16/19 [History] Ascorbic Acid [Vitamin C] 1,000 mg PO DAILY 05/16/19 [History] Atorvastatin [Lipitor] 20 mg PO DAILY 05/16/19 [History] Budesonide/Formoterol Fumarate [Symbicort 160-4.5 Mcg Inhaler] 2 puff INHALATION BID 05/16/19 [History] Calcium Carbonate/Vitamin D3 [Calcium 600-Vit D3 800 Caplet] 1 tab PO DAILY 05/16/19 [History] DULoxetine HCL [Cymbalta] 60 mg PO DAILY 05/16/19 [History] Letrozole [Femara] 2.5 mg PO DAILY 05/16/19 [History] Levothyroxine Sodium [Synthroid] 75 mcg PO DAILY 05/16/19 [History] Nicotine 21Mg/24Hr Patch [Habitrol] 1 patch TRANSDERM DAILY 05/16/19 [History] Ubidecarenone [Co Q-10] 200 mg PO DAILY 05/16/19 [History] Benzonatate [Tessalon Perles] 200 mg PO TID PRN #30 cap 05/21/19 [Rx] Budesonide [Pulmicort] 1 mg INHALATION RT-BID #60 dose 05/21/19 [Rx] Cephalexin [Keflex] 500 mg PO Q8HR 5 Days #15 cap 05/21/19 [Rx] Ipratropium-Albuterol Nebulize [Duoneb 0.5 mg-3 mg/3 ml Soln] 3 ml INHALATION RT-QID #120 ml 05/21/19 [Rx] Pantoprazole [Protonix] 40 mg PO AC-BRKFST #30 tablet.dr 05/21/19 [Rx] guaiFENesin [Mucinex] 600 mg PO Q12HR tablet.er 05/21/19 [Rx] predniSONE 0 mg PO DIRECTED #63 tab 05/21/19 [Rx] Follow up Appointment(s)/Referral(s): Aroldo Bishop DO [Doctor of Osteopathic Medicine] - 06/06/19 10:00 am Deshaun Bolanos DO [Primary Care Provider] - 1 Week (office is closed ,patient will have to call and schedule own appt.) Patient Instructions/Handouts: Cephalexin (By mouth), Benzonatate (By mouth), Prednisone (By mouth), Ipratropium/Albuterol (By breathing), Pantoprazole (By mouth), Budesonide (By mouth), How to Stop Smoking (DC), Using Oxygen at Home (DC), COPD (Chronic Obstructive Pulmonary Disease) (DC) Activity/Diet/Wound Care/Special Instructions: Activity as tolerated. Discharge Disposition: HOME SELF-CARE
== END 2019-05-21 16:00 | disposition home or self-care (01) | DRG 191 ==
LOC: EC 15:34 → 5NMEDONC 17:31
PROVIDERS: ADMIT Family Medicine; ATTEND Family Medicine
DX: J44.1 Chronic obstructive pulmonary disease with (acute) exacerbation (principal); J96.11 Chronic respiratory failure with hypoxia; F33.9 Major depressive disorder, recurrent, unspecified; F41.9 Anxiety disorder, unspecified; F17.210 Nicotine dependence, cigarettes, uncomplicated; E78.5 Hyperlipidemia, unspecified; E03.9 Hypothyroidism, unspecified; R51 Headache; Z79.51 Long term (current) use of inhaled steroids; Z79.890 Hormone replacement therapy; Z79.899 Other long term (current) drug therapy; Z82.49 Family history of ischemic heart disease and other diseases of the circulatory system; Z82.5 Family history of asthma and other chronic lower respiratory diseases; Z85.3 Personal history of malignant neoplasm of breast; Z99.81 Dependence on supplemental oxygen; Z90.49 Acquired absence of other specified parts of digestive tract; Z98.890 Other specified postprocedural states
CPT/HCPCS: 36415; 71046; 80048; 80053; 83605; 83735; 83880; 84484; 85025; 85027; 85610; 85730; 87040; 87502; 87634; 93005; 94640; 94667; 94760; 96374; 99291

== ENCOUNTER 2019-08-24 20:57 | Inpatient (IN) | payer MEDICARE, OTHER ==
[2019-08-24] MEDS ORDERED: DEXAMETHASONE SOD PHOSPHATE 10 MG/ML 1 ML VIAL IV STA (21:20)
[2019-08-24] MEDS ORDERED: ALBUTEROL NEBULIZED 2.5 MG/3 ML INHALATION STA (21:20)
[2019-08-24] MEDS ORDERED: IPRATROPIUM 0.5 MG/2.5 ML NEBU INHALATION STA (21:20)
[2019-08-24] MEDS ORDERED: SODIUM CHLORIDE 0.9% 500 ML 500 ML IV STA (21:21)
--- NOTE | 2019-08-24 21:23 | ED ---
General Adult HPI - General Chief complaint: Shortness of Breath Stated complaint: TISH Time Seen by Provider: 08/24/19 21:13 Source: patient Mode of arrival: ambulatory Limitations: no limitations - History of Present Illness Initial comments: Dictation was produced using [employer] dictation software. please excuse any grammatical, word or spelling errors. This patient was cared for during a federal and state declared state of emergency secondary to Covid 19 Chief Complaint: 69-year-old female past medical history of COPD presents with dyspnea History of Present Illness: Patient's 69-year-old female she has past medical history of COPD over the last few days patient has been having worsening shortness of breath. Patient continues to smoke. She is accompanied today by her family member who reports that patient is short of breath. Patient was 2 L of nasal cannula oxygen at home on a regular basis. She does have a pulmonolog ist. Patient takes multiple respiratory medications. States she's been taking his medications with no significant relief. She denies any fever, chills or night sweats. She does have a cough that is nonproductive of sputum. The ROS documented in this emergency department record has been reviewed and confirmed by me. Those systems with pertinent positive or negative responses have been documented in the HPI. All other systems are other negative and/or noncontributory. PHYSICAL EXAM: General Impression: Alert and oriented x3, not in acute distress HEENT: Normocephalic atraumatic, extra-ocular movements intact, pupils equal and reactive to light bilaterally, mucous membranes moist. Cardiovascular: Heart regular rate and rhythm Chest: Able to complete full sentences, no retractions, no tachypnea, diffuse wheezing to auscultation of the lungs Abdomen: abdomen soft, non-tender, non-distended, no organomegaly Musculoskeletal: Pulses present and equal in all extremities, no peripheral edema Motor: no focal deficits noted Neurological: CN II-XII grossly intact, no focal motor or sensory deficits noted Skin: Intact with no visualized rashes Psych: Normal affect and mood ED course: 69-year-old female clinical presentation consistent with COPD exacerbation. As upon arrival shows 91% on room air. Patient wears 2 L is a cannula normally at home. Rest of vital signs are within acceptable limits. Laboratory evaluation obtained. Mild leukocytosis 11.3, metabolic panel is within acceptable limits. Patient given Decadron and breathing treatment. Patient still grossly wheezing even after breathing treatment.. She still a little tachypneic and retracting slightly. Patient did not fill comfortable given her current clinical condition. [facility] treatments and pulmonary consultation. EKG interpretation: Ventricular rate 82, normal sinus rhythm,. 146, QRS 86, QTC 422. No CO prolongation, no QTC prolongation, no ST or T-wave changes noted. EKG compared to 05/16/2019 showing no changes. Overall, this EKG is unremarkable - Related Data Home Medications Medication Instructions Recorded Confirmed Acetaminophen/Diphenhydramine 2 tab PO HS PRN 05/16/19 05/16/19 [Tylenol PM 500-25mg] Albuterol Sulfate [Ventolin HFA] 2 puff INHALATION Q6H PRN 05/16/19 05/16/19 Ascorbic Acid [Vitamin C] 1,000 mg PO DAILY 05/16/19 05/16/19 Atorvastatin [Lipitor] 20 mg PO DAILY 05/16/19 05/16/19 Budesonide/Formoterol Fumarate 2 puff INHALATION BID 05/16/19 05/16/19 [Symbicort 160-4.5 Mcg Inhaler] Calcium Carbonate/Vitamin D3 1 tab PO DAILY 05/16/19 05/16/19 [Calcium 600-Vit D3 800 Caplet] DULoxetine HCL [Cymbalta] 60 mg PO DAILY 05/16/19 05/16/19 Letrozole [Femara] 2.5 mg PO DAILY 05/16/19 05/16/19 Levothyroxine Sodium [Synthroid] 75 mcg PO DAILY 05/16/19 05/16/19 Nicotine 21Mg/24Hr Patch [Habitrol] 1 patch TRANSDERM DAILY 05/16/19 05/16/19 Ubidecarenone [Co Q-10] 200 mg PO DAILY 05/16/19 05/16/19 Previous Rx's Medication Instructions Recorded Benzonatate [Tessalon Perles] 200 mg PO TID PRN #30 cap 05/21/19 Budesonide [Pulmicort] 1 mg INHALATION RT-BID #60 dose 05/21/19 Cephalexin [Keflex] 500 mg PO Q8HR 5 Days #15 cap 05/21/19 Ipratropium-Albuterol Nebulize 3 ml INHALATION RT-QID #120 ml 05/21/19 [Duoneb 0.5 mg-3 mg/3 ml Soln] Pantoprazole [Protonix] 40 mg PO AC-BRKFST #30 tablet. 05/21/19 guaiFENesin [Mucinex] 600 mg PO Q12HR tablet.er 05/21/19 predniSONE 0 mg PO DIRECTED #63 tab 05/21/19 Allergies Allergy/AdvReac Type Severity Reaction Status Date / Time No Known Allergies Allergy Verified 08/24/19 21:11 Review of Systems ROS Statement: Those systems with pertinent positive or pertinent negative responses have been documented in the HPI. ROS Other: All systems not noted in ROS Statement are negative. Past Medical History Past Medical History: Cancer, COPD, Thyroid Disorder Additional Past Medical History / Comment(s): History of breast cancer, COPD, hypothyroidism, hyperlipidemia, chronic anxiety and depression History of Any Multi-Drug Resistant Organisms: None Reported Past Surgical History: Appendectomy Additional Past Surgical History / Comment(s): lumpectomy, Past Psychological History: No Psychological Hx Reported Smoking Status: Current some day smoker Past Alcohol Use History: Occasional Past Drug Use History: None Reported - Past Family History Mother Family Medical History: Coronary Artery Disease (CAD) Father Family Medical History: Coronary Artery Disease (CAD) Additional Family Medical History / Comment(s): 2 sisters one with COPD the other one healthy. No children. General Exam Limitations: no limitations Course Vital Signs 08/24/19 08/24/19 08/24/19 21:07 21:33 21:37 Temperature 98.2 F Pulse Rate 72 84 Respiratory 22 24 Rate Blood Pressure 136/85 O2 Sat by Pulse 91 L Oximetry 08/24/19 08/24/19 22:10 22:31 Temperature Pulse Rate 86 81 Respiratory 20 Rate Blood Pressure 131/76 O2 Sat by Pulse 98 Oximetry Medical Decision Making - Lab Data Result diagrams: 08/24/19 21:45 08/24/19 21:45 Lab Results 08/24/19 08/24/19 Range/Units 21:45 21:45 WBC 11.3 H (3.8-10.6) k/uL RBC 3.78 L (3.80-5.40) m/uL Hgb 13.0 (11.4-16.0) gm/dL Hct 39.4 (34.0-46.0) % MCV 104.2 H (80.0-100.0) fL MCH 34.4 (25.0-35.0) pg MCHC 33.0 (31.0-37.0) g/dL RDW 14.0 (11.5-15.5) % Plt Count 344 (150-450) k/uL Neutrophils % 52 % Lymphocytes % 32 % Monocytes % 7 % Eosinophils % 5 % Basophils % 0 % Neutrophils # 5.9 (1.3-7.7) k/uL Lymphocytes # 3.6 (1.0-4.8) k/uL Monocytes # 0.8 (0-1.0) k/uL Eosinophils # 0.6 (0-0.7) k/uL Basophils # 0.1 (0-0.2) k/uL Macrocytosis Slight Sodium 135 L (137-145) mmol/L Potassium 4.1 (3.5-5.1) mmol/L Chloride 101 (98-107) mmol/L Carbon Dioxide 27 (22-30) mmol/L Anion Gap 7 mmol/L BUN 13 (7-17) mg/dL Creatinine 1.16 H (0.52-1.04) mg/dL Est GFR (CKD-EPI)AfAm 55 (>60 ml/min/1.73 sqM) Est GFR (CKD-EPI)NonAf 48 (>60 ml/min/1.73 sqM) Glucose 111 H (74-99) mg/dL Calcium 11.0 H (8.4-10.2) mg/dL Disposition Clinical Impression: COPD exacerbation Disposition: ADMITTED IP TO THIS HOSP Condition: Fair Referrals: Deshaun Bolanos DO [Primary Care Provider] - 1-2 days Decision Time: 22:51
[2019-08-24 21:52] LABS: Basophils # (A) 0.1 k/uL (0-0.2); Basophils % (A) 0 %; Eosinophils # (A) 0.6 k/uL (0-0.7); Eosinophils % (A) 5 %; HCT 39.4 % (34.0-46.0); Lymphocytes # (A) 3.6 k/uL (1.0-4.8); Lymphocytes % (A) 32 %; MCH 34.4 pg (25.0-35.0); MCV 104.2 fL (80.0-100.0); Macrocytosis Slight; Mean Platelet Volume 7.8; Monocytes # (A) 0.8 k/uL (0-1.0); Monocytes % (A) 7 %; Neutrophils # (A) 5.9 k/uL (1.3-7.7); Neutrophils % (A) 52 %; Platelet Count 344 k/uL (150-450); RBC 3.78 m/uL (3.80-5.40); WBC 11.3 k/uL (3.8-10.6)
[2019-08-24 22:16] LABS: Potassium 4.1 mmol/L (3.5-5.1)
--- NOTE | 2019-08-24 22:28 | XR ---
EXAMINATION TYPE: XR chest 2V DATE OF EXAM: 08/24/2019 COMPARISON: 05/20/2019 HISTORY: Short of breath TECHNIQUE: 2 views FINDINGS: Heart is normal. Lungs are clear of consolidation. There are no hilar masses. Thoracic aort a is atheromatous. Bony thorax shows some osteopenia. IMPRESSION: No active cardiopulmonary disease. No change.
[2019-08-24] MEDS ORDERED: AZITHROMYCIN 500 MG in SODIUM CHLORIDE 0.9% 250 ML IVPB STA (22:42)
[2019-08-24] MEDS ORDERED: BENZONATATE 100 MG CAP PO PRN (23:00)
[2019-08-24] MEDS ORDERED: ACETAMINOPHEN PO PRN (23:00)
[2019-08-24] MEDS ORDERED: DIPHENHYDRAMINE PO PRN (23:00)
[2019-08-25] MEDS ORDERED: IPRATROPIUM 0.5 MG/2.5 ML NEBU INHALATION ONE (00:03)
[2019-08-25] MEDS: ALBUTEROL NEBULIZED 2.5 MG/3 ML INHALATION PRN (04:58)
[2019-08-25] MEDS ORDERED: IPRATROPIUM-ALBUTEROL 3 ML NEB INHALATION SCH (08:00)
[2019-08-25] MEDS: IPRATROPIUM-ALBUTEROL 3 ML NEB INHALATION SCH ×4 (08:29→19:33)
[2019-08-25] MEDS: BUDESONIDE 1 MG/2 ML NEBU INHALATION SCH ×2 (08:29→19:33)
[2019-08-25] MEDS: SYMBICORT 160-4.5 MCG INHALER INHALATION SCH ×2 (08:29→19:34)
[2019-08-25] MEDS: guaiFENesin 600 MG TABLET.ER PO SCH ×2 (08:42→20:03)
[2019-08-25] MEDS: PANTOPRAZOLE 40 MG TABLET PO SCH (08:42)
[2019-08-25] MEDS: ASCORBIC ACID 500 MG TAB PO SCH (08:42)
[2019-08-25] MEDS: ATORVASTATIN 20 MG TAB PO SCH (08:42)
[2019-08-25] MEDS: CEPHALEXIN 500 MG CAP PO SCH ×3 (08:42→20:10)
[2019-08-25] MEDS: CALCIUM CARB-VIT D 500MG-200UN 1 EACH TAB PO SCH (08:42)
[2019-08-25] MEDS: DULoxetine HCL 60 MG CAPSULE.DR PO SCH (08:42)
[2019-08-25] MEDS: LEVOTHYROXINE 75 MCG TAB PO SCH (08:42)
[2019-08-25] MEDS: NICOTINE 21MG/24HR PATCH TRANSDERM SCH (08:45)
[2019-08-25] MEDS ORDERED: predniSONE 20 MG TAB PO SCH (09:00)
[2019-08-25] MEDS: LETROZOLE 2.5 MG TAB PO SCH (10:42)
[2019-08-25] MEDS: AZITHROMYCIN 500 MG TAB PO SCH (10:42)
[2019-08-25] MEDS: methylPREDNISolone SOD SUCCI 125 MG/2 ML VIAL IV SCH ×3 (10:46→23:34)
--- NOTE | 2019-08-25 11:47 | P.HPIM ---
History of Present Illness H&P Date: 08/25/19 Chief Complaint: Difficulty breathing This is a 69-year-old female patient of Dr. Bolanos and Dr. Summers with past medical history significant for COPD, chronic hypoxic respiratory failure with home O2 at 2L n/c, hypothyroidism, breast cancer status post lumpectomy, active tobacco use and dependence. Patient presented to the hospital with complaint of difficulty breathing for the past couple days, gradually worsening. She also has a cough but nonproductive. She came into [facility] emergency center for evaluation. She was afebrile, heart rate 72, blood pressure 136/85, pulse ox 91% on room air. WBC 11.3, hemoglobin 13. Sodium 135, creatinine 1.16, blood sugar 111. Calcium 11. EKG is normal sinus rhythm. Chest x-ray shows no active cardiac pulmonary disease. Patient was started on IV steroids, nebulizer treatments and azithromycin. She is status post 500 ML's of normal saline bolus. The patient continued to have difficulty breathing with tachypnea despite treatment and was placed on the observation unit and consult requested with pulmonary medicine. Review of Systems Constitutional: No fever, no chills, no night sweats. No weight change. Reports weakness, fatigue or lethargy. No daytime sleepiness. EENT: No headache. No blurred vision or double vision, no loss of vision. No loss of Hearing, no ringing in the ears, no dizziness. No nasal drainage or congestion. No epistaxis. No sore throat. Lungs: Reports reports shortness of breath, cough, no sputum production. Reports wheezing. Cardiovascular: No chest pain, no lower extremity edema. No palpitations. No paroxysmal nocturnal dyspnea. No orthopnea. No lightheadedness or dizziness. No syncopal episodes. Abdominal: No abdominal pain. No nausea, vomiting. No diarrhea. No constipation. No bloody or tarry stools.. No loss of appetite. Genitourinary: No dysuria, increased frequency, urgency. No urinary retention. Musculoskeletal: No myalgias. No muscle weakness, no gait dysfunction, no frequent falls. No back pain. No neck pain. Integumentary: No wounds, no lesions. No rash or pruritus. No unusual bruisi ng. Neurologic: No aphasia. No facial droop. No change in mentation. No head injury. No headache. No paralysis. No paresthesia. Psychiatric: No depression. No anxiety. No mood swings. Endocrine: No abnormal blood sugars. No weight change. No excessive sweating or thirst. Physical Examination Gen: This is a 69-year-old female. Patient is resting in bed at the time of evaluation appears to be comfortable and in no acute distress. HEENT: Head is atraumatic, normocephalic. Pupils equal, round. Sclerae is anicteric. NECK: Supple. No JVD. No lymphadenopathy. No thyromegaly. LUNGS: Diminished bilaterally with few scattered wheezes. No intercostal ret ractions. No accessory muscle usage. HEART: Regular rate and rhythm. No murmur. ABDOMEN: Soft. Bowel sounds are present. No masses. No tenderness. EXTREMITIES: No pedal edema. No calf tenderness. Dorsalis pedis +2 bilaterally. NEUROLOGICAL: Patient is awake, alert and oriented x3. Cranial nerves 2 through 12 are grossly intact. Assessment and Plan 1. Acute COPD exacerbation. Continue DuoNeb treatments 4 times daily and albuterol as needed, Solu-Medrol 60 mg IV every 6 hours, Pulmicort 1 mg twice daily, oxygen at 2 L nasal cannula, Tessalon Perles, azithromycin. Consult with pulmonary medicine.. 2. Chronic hypoxic respiratory failure on home O2 at 2 L nasal cannula. 3. Hypothyroidism. Continue levothyroxine 75 g daily. 4. Hyperlipidemia. Continue Lipitor 20 mg daily. 5. History of breast cancer status post lumpectomy. Continue Femara 2.5 mg daily. 6. Tobacco use and dependence. Continue nicotine patch. 7. Recurrent depression. Continue Cymbalta 60 mg daily. 8. GI prophylaxis. Protonix. 9. DVT prophylaxis. Lovenox daily subcu. 10. COVID-19 report is pending. Patient will be admitted to the hospital for a minimum of 2 night stay. Discharge plan: Most likely return home. Impression and plan of care have been directed as dictated by the signing physician. Fanny Chen nurse practitioner acting as scribe for signing susu jackson. Past Medical History Past Medical History: Cancer, COPD, Thyroid Disorder Additional Past Medical History / Comment(s): History of breast cancer, COPD, hypothyroidism, hyperlipidemia, chronic anxiety and depression History of Any Multi-Drug Resistant Organisms: None Reported Past Surgical History: Appendectomy Additional Past Surgical History / Comment(s): lumpectomy, Past Anesthesia/Blood Transfusion Reactions: No Reported Reaction Past Psychological History: Anxiety, Depression Smoking Status: Former smoker Past Alcohol Use History: Occasional Past Drug Use History: None Reported Additional Drug Use History / Comment(s): patient states stop smoking for about 50 days - Past Family History Mother Family Medical History: Coronary Artery Disease (CAD) Father Family Medical History: Coronary Artery Disease (CAD) Additional Family Medical History / Comment(s): 2 sisters one with COPD the other one healthy. No children. Medications and Allergies Home Medications Medication Instructions Recorded Confirmed Type Albuterol Sulfate [Ventolin HFA] 2 puff INHALATION Q4H PRN 05/16/19 08/25/19 History Ascorbic Acid [Vitamin C] 1,000 mg PO DAILY 05/16/19 08/25/19 History Atorvastatin [Lipitor] 20 mg PO DAILY 05/16/19 08/25/19 History Budesonide/Formoterol Fumarate 2 puff INHALATION BID 05/16/19 08/25/19 History [Symbicort 160-4.5 Mcg Inhaler] DULoxetine HCL [Cymbalta] 60 mg PO DAILY 05/16/19 08/25/19 History Letrozole [Femara] 2.5 mg PO DAILY 05/16/19 08/25/19 History Levothyroxine Sodium [Synthroid] 75 mcg PO DAILY 05/16/19 08/25/19 History Budesonide [Pulmicort] 1 mg INHALATION RT-BID #60 dose 05/21/19 08/25/19 Rx Ipratropium-Albuterol Nebulize 3 ml INHALATION RT-QID #120 ml 05/21/19 08/25/19 Rx [Duoneb 0.5 mg-3 mg/3 ml Soln] Cholecalciferol [Vitamin D3 (25 1,000 unit PO DAILY 08/25/19 08/25/19 History Mcg = 1000 Iu)] Melatonin 5 mg PO HS PRN 08/25/19 08/25/19 History Allergies Allergy/AdvReac Type Severity Reaction Status Date / Time No Known Allergies Allergy Verified 08/25/19 07:49 Physical Exam Vitals: Vital Signs Temp Pulse Pulse Resp BP BP Pulse Ox 08/25/19 08:46 86 08/25/19 08:30 86 08/25/19 08:00 98.0 F 84 20 133/62 90 L 08/25/19 05:09 88 08/25/19 04:58 84 08/25/19 04:39 96.5 F L 83 16 101/70 96 08/25/19 00:03 20 08/24/19 23:24 97.7 F 81 16 102/71 95 08/24/19 23:04 79 22 116/77 95 08/24/19 22:31 81 20 131/76 98 08/24/19 22:10 86 08/24/19 21:37 84 08/24/19 21:33 24 08/24/19 21:07 98.2 F 72 22 136/85 91 L Intake and Output 08/24/19 08/25/19 08/25/19 22:59 06:59 14:59 Intake Total 100 Balance 100 Intake: Oral 100 Other: Voiding Method Toilet Toilet Weight 72.575 kg 72.575 kg Results CBC & Chem 7: 08/24/19 21:45 08/24/19 21:45 Labs: Abnormal Lab Results - Last 24 Hours (Table) 08/24/19 08/24/19 Range/Units 21:45 21:45 WBC 11.3 H (3.8-10.6) k/uL RBC 3.78 L (3.80-5.40) m/uL MCV 104.2 H (80.0-100.0) fL Sodium 135 L (137-145) mmol/L Creatinine 1.16 H (0.52-1.04) mg/dL Glucose 111 H (74-99) mg/dL Calcium 11.0 H (8.4-10.2) mg/dL Thrombosis Risk Factor Assmnt - Choose All That Apply Each Risk Factor Represents 2 Points: Age 61-74 years Thrombosis Risk Factor Assessment Total Risk Factor Score: 2 Thrombosis Risk Factor Assessment Level: Low Risk
[2019-08-25 11:48] LABS: Glucose,Whole Blood 148 mg/dL (75-99)
[2019-08-25] MEDS: INSULIN ASPART (NovoLOG) 100 UNIT/ML VIAL SQ SCH ×3 (13:03→20:08)
--- NOTE | 2019-08-25 13:34 | P.CNPUL ---
History of Present Illness Consult date: 08/25/19 Reason for consult: dyspnea, COPD History of present illness: 69-year-old female patient with known history of advanced COPD comes in for 40 worsening shortness of breath. The patient has oxygen dependent COPD and she's been maintained on Symbicort on outpatient basis. Her last hospitalization was in May 2023 she came in with an acute COPD exacerbation treated and she was discharged home on Symbicort maintenance. She also has an albuterol nebulizer at home. She was smoking around half pack of cigarettes a day. She comes in with worsening shortness of breath and her symptoms were typical of an acute COPD exacerbation. She had a cough that was nonproductive. No fever. No chills. She was started on bronchodilators and I started on IV Solu-Medrol today. No hemoptysis for now. Her calcium level was 11.0 and this was noted to be elevated persistently and we'll investigate this further. She has previous history of breast cancer postlumpectomy lymph node dissection followed by radiation therapy and the patient is currently on Femara Review of Systems Constitutional: Reports as per HPI Eyes: denies as per HPI, denies blurred vision, denies bulging eye, denies decreased vision, denies diplopia, denies discharge, denies dry eye, denies irritation, denies itching, denies pain, denies photophobia, denies loss of peripheral vision, denies loss of vision, denies tunnel vision/blind spots Ears: deny: decreased hearing, ear discharge, earache, tinnitus Ears, nose, mouth and throat: Denies headache, Denies sore throat Breasts: absent: as per HPI, change in shape, gynecomastia, masses, nipple discharge, pain, skin changes, swelling Cardiovascular: Reports decreased exercise tolerance, Reports dyspnea on exertion Respiratory: Reports cough, Reports dyspnea, Reports wheezing Gastrointestinal: Reports as per HPI Genitourinary: Reports as per HPI Menstruation: Reports as per HPI Musculoskeletal: Reports as per HPI Musculoskeletal: absent: ankle pain, ankle stiffness, ankle swelling, as per HPI, elbow pain, elbow stiffness, elbow swelling, foot pain, foot stiffness, foot swelling, hand pain, hand stiffness, hand swelling, hip pain, hip stiffness, hip swelling, knee pain, knee stiffness, knee swelling, shoulder pain, shoulder stiffness, shoulder swelling, wrist pain, wrist stiffness, wrist swelling Integumentary: Reports as per HPI Neurological: Reports as per HPI Psychiatric: Reports as per HPI Endocrine: Reports as per HPI Hematologic/Lymphatic: Reports as per HPI Allergic/Immunologic: Reports as per HPI Past Medical History Past Medical History: Cancer, COPD, Thyroid Disorder Additional Past Medical History / Comment(s): History of breast cancer, COPD, hypothyroidism, hyperlipidemia, chronic anxiety and depression History of Any Multi-Drug Resistant Organisms: None Reported Past Surgical History: Appendectomy Additional Past Surgical History / Comment(s): lumpectomy, Past Anesthesia/Blood Transfusion Reactions: No Reported Reaction Past Psychological History: Anxiety, Depression Smoking Status: Former smoker Past Alcohol Use History: Occasional Past Drug Use History: None Reported Additional Drug Use History / Comment(s): patient states stop smoking for about 50 days - Past Family History Mother Family Medical History: Coronary Artery Disease (CAD) Father Family Medical History: Coronary Artery Disease (CAD) Additional Family Medical History / Comment(s): 2 sisters one with COPD the other one healthy. No children. Medications and Allergies Home Medications Medication Instructions Recorded Confirmed Type Albuterol Sulfate [Ventolin HFA] 2 puff INHALATION Q4H PRN 05/16/19 08/25/19 History Ascorbic Acid [Vitamin C] 1,000 mg PO DAILY 05/16/19 08/25/19 History Atorvastatin [Lipitor] 20 mg PO DAILY 05/16/19 08/25/19 History Budesonide/Formoterol Fumarate 2 puff INHALATION BID 05/16/19 08/25/19 History [Symbicort 160-4.5 Mcg Inhaler] DULoxetine HCL [Cymbalta] 60 mg PO DAILY 05/16/19 08/25/19 History Letrozole [Femara] 2.5 mg PO DAILY 05/16/19 08/25/19 History Levothyroxine Sodium [Synthroid] 75 mcg PO DAILY 05/16/19 08/25/19 History Budesonide [Pulmicort] 1 mg INHALATION RT-BID #60 dose 05/21/19 08/25/19 Rx Ipratropium-Albuterol Nebulize 3 ml INHALATION RT-QID #120 ml 05/21/19 08/25/19 Rx [Duoneb 0.5 mg-3 mg/3 ml Soln] Cholecalciferol [Vitamin D3 (25 1,000 unit PO DAILY 08/25/19 08/25/19 History Mcg = 1000 Iu)] Melatonin 5 mg PO HS PRN 08/25/19 08/25/19 History Allergies Allergy/AdvReac Type Severity Reaction Status Date / Time No Known Allergies Allergy Verified 08/25/19 07:49 Physical Exam Vitals: Vital Signs Temp Pulse Pulse Resp BP BP Pulse Ox 08/25/19 11:38 88 08/25/19 11:25 84 08/25/19 08:46 86 08/25/19 08:30 86 08/25/19 08:00 98.0 F 84 20 133/62 90 L 08/25/19 05:09 88 08/25/19 04:58 84 08/25/19 04:39 96.5 F L 83 16 101/70 96 08/25/19 00:03 20 08/24/19 23:24 97.7 F 81 16 102/71 95 08/24/19 23:04 79 22 116/77 95 08/24/19 22:31 81 20 131/76 98 08/24/19 22:10 86 08/24/19 21:37 84 08/24/19 21:33 24 08/24/19 21:07 98.2 F 72 22 136/85 91 L Intake and Output 08/24/19 08/25/19 08/25/19 22:59 06:59 14:59 Intake Total 100 Balance 100 Intake: Oral 100 Other: Voiding Method Toilet Toilet Weight 72.575 kg 72.575 kg The patient appeared well nourished and normally developed. Vital signs as documented. Head exam is unremarkable. No scleral icterus or corneal arcus noted. Neck is without jugular venous distension, thyromegaly, or carotid bruits. Carotid upstrokes are brisk bilaterally. Lung sounds are diminished bilaterally along with some few scattered external wheeze Cardiac exam reveals the PMI to be normally sized and situated. Rhythm is regular. First and second heart sounds normal. No murmurs, rubs or gallops. Abdominal exam reveals normal bowel sounds, no masses, no organomegaly and no aortic enlargement. Extremities are nonedematous and both femoral and pedal pulses are normal.Examination of the skin revealed no evidence of significant rashes, suspicious appearing nevi or other concerning lesions. Neurologically awake and alert and there is no focal neurological deficit Results - Laboratory Findings CBC and BMP: 08/24/19 21:45 08/24/19 21:45 Abnormal lab findings: Abnormal Labs 08/24/19 08/24/19 08/25/19 21:45 21:45 11:46 WBC 11.3 H RBC 3.78 L MCV 104.2 H Sodium 135 L Creatinine 1.16 H Glucose 111 H POC Glucose (mg/dL) 148 H Calcium 11.0 H - Diagnostic Findings Chest x-ray: image reviewed Assessment and Plan Plan: 1 acute COPD exacerbation with secondary shortness of breath. Chest x-ray is within normal limits and there is no evidence of any acute pneumonia. Clinically improving. 2 chronic smoking 3 history of breast cancer with lumpectomy currently on Femara 4 hypothyroidism 5 hyperlipidemia 6 anxiety/depression maintain and accommodation of Cymbalta and Xanax 7 hypercalcemia Plan Smoking cessation counseling DuoNeb nebulized treatment 4 times a day and when necessary. IV Solu-Medrol Oral Zithromax Continue Symbicort on outpatient basis and consider the addition of Spiriva Check intact PTH and monitor the calcium level We'll continue to follow
[2019-08-25 16:56] LABS: Glucose,Whole Blood 219 mg/dL (75-99)
[2019-08-25 19:59] LABS: Glucose,Whole Blood 188 mg/dL (75-99)
[2019-08-25] MEDS: ACETAMINOPHEN TAB 500 MG TAB PO PRN (20:01)
[2019-08-26] MEDS: methylPREDNISolone SOD SUCCI 125 MG/2 ML VIAL IV SCH ×4 (05:54→23:33)
[2019-08-26 06:00] LABS: Glucose,Whole Blood 139 mg/dL (75-99)
[2019-08-26] MEDS: INSULIN ASPART (NovoLOG) 100 UNIT/ML VIAL SQ SCH ×4 (07:26→20:54)
[2019-08-26] MEDS: IPRATROPIUM-ALBUTEROL 3 ML NEB INHALATION SCH ×4 (07:30→19:04)
[2019-08-26] MEDS: BUDESONIDE 1 MG/2 ML NEBU INHALATION SCH ×2 (07:30→19:07)
[2019-08-26] MEDS: SYMBICORT 160-4.5 MCG INHALER INHALATION SCH ×2 (07:33→19:05)
--- NOTE | 2019-08-26 07:56 | P.PN ---
Subjective Progress Note Date: 08/26/19 This is a 69-year-old female patient of Dr. Bolanos and Dr. Summers with past medical history significant for COPD, chronic hypoxic respiratory failure with home O2 at 2L n/c, hypothyroidism, breast cancer status post lumpectomy, active tobacco use and dependence. Patient presented to the hosp ital with complaint of difficulty breathing for the past couple days, gradually worsening. She also has a cough but nonproductive. She came into [facility] emergency center for evaluation. She was afebrile, heart rate 72, blood pressure 136/85, pulse ox 91% on room air. WBC 11.3, hemoglobin 13. Sodium 135, creatinine 1.16, blood sugar 111. Calcium 11. EKG is normal sinus rhythm. Chest x-ray shows no active cardiac pulmonary disease. Patient was started on IV steroids, nebulizer treatments and azithromycin. She is status post 500 ML's of normal saline bolus. The patient continued to have difficulty breathing with tachypnea despite treatment and was placed on the observation unit and consult requested with pulmonary medicine. 08/25: Patient continues to have significant difficulty breathing wheezing and tightness. Patient complains of headache and Fioricet will be added. Patient has been seen by Dr. Mann. Patient is continued on IV Solu-Medrol 60 mg sergio ry 6 hours, no change in medications today. Patient is still waiting for bed on the inpatient side. Afebrile, heart rate 84, blood pressure 124/63, pulse ox 95% on 3 L nasal cannula. Blood sugars are running between 139 and 188. Review of Systems Constitutional: No fever, no chills, no night sweats. No weight change. Reports weakness, fatigue or lethargy. No daytime sleepiness. EENT: No headache. No blurred vision or double vision, no loss of vision. No loss of Hearing, no ringing in the ears, no dizziness. No nasal drainage or congestion. No epistaxis. No sore throat. Lungs: Reports reports shortness of breath, cough, no sputum production. Reports wheezing. Cardiovascular: No chest pain, no lower extremity edema. No palpitations. No paroxysmal nocturnal dyspnea. No orthopnea. No lightheadedness or dizziness. No syncopal episodes. Abdominal: No abdominal pain. No nausea, vomiting. No diarrhea. No constipation. No bloody or tarry stools.. No loss of appetite. Genitourinary: No dysuria, increased frequency, urgency. No urinary retention. Musculoskeletal: No myalgias. No muscle weakness, no gait dysfunction, no frequent falls. No back pain. No neck pain. Integumentary: No wounds, no lesions. No rash or pruritus. No unusual bruis ing. Neurologic: No aphasia. No facial droop. No change in mentation. No head injury. No headache. No paralysis. No paresthesia. Psychiatric: No depression. No anxiety. No mood swings. Endocrine: No abnormal blood sugars. No weight change. No excessive sweating or thirst. Physical Examination Gen: This is a 69-year-old female. Patient is resting in bed. HEENT: Head is atraumatic, normocephalic. Pupils equal, round. Sclerae is anicteric. NECK: Supple. No JVD. No lymphadenopathy. No thyromegaly. LUNGS: Diminished bilaterally with scattered expiratory wheezes. Mild intercostal retractions. Mild accessory muscle usage. HEART: Regular rate and rhythm. No murmur. ABDOMEN: Soft. Bowel sounds are present. No masses. No tenderness. EXTREMITIES: No pedal edema. No calf tenderness. Dorsalis pedis +2 bilaterally. NEUROLOGICAL: Patient is awake, alert and oriented x3. Cranial nerves 2 through 12 are grossly intact. Assessment and Plan 1. Acute COPD exacerbation. Continue DuoNeb treatments 4 times daily and albuterol as needed, Solu-Medrol 60 mg IV every 6 hours-no change, Pulmicort 1 mg twice daily, oxygen at 2 L nasal cannula, Tessalon Perles, azithromycin. Consult with pulmonary medicine.. 2. Chronic hypoxic respiratory failure on home O2 at 2 L nasal cannula. 3. Hypothyroidism. Continue levothyroxine 75 g daily. 4. Hyperlipidemia. Continue Lipitor 20 mg daily. 5. History of breast cancer status post lumpectomy. Continue Femara 2.5 mg daily. 6. Tobacco use and dependence. Continue nicotine patch. 7. Recurrent depression. Continue Cymbalta 60 mg daily. 8. GI prophylaxis. Protonix. 9. DVT prophylaxis. Lovenox daily subcu. 10. COVID-19 infection not present. 11. Hyperglycemia secondary to steroids. Continue NovoLog scale. Discharge plan: Most likely return home on . Impression and plan of care have been directed as dictated by the signing physician. Fanny Chen nurse practitioner acting as scribe for signing physician. Objective - Vital Signs Vital signs: Vital Signs Temp 98.5 F 08/26/19 04:33 Pulse 84 08/26/19 07:44 Resp 16 08/26/19 04:33 BP 128/70 08/26/19 04:33 Pulse Ox 93 L 08/26/19 04:33 Intake & Output 08/25/19 08/26/19 08/26/19 18:59 06:59 18:59 Intake Total 322 500 236 Balance 322 500 236 Intake: Oral 322 500 236 Other: Voiding Method Toilet Toilet # Voids 1 - Labs CBC & Chem 7: 08/24/19 21:45 08/24/19 21:45 Labs: Abnormal Lab Results - Last 24 Hours (Table) 08/25/19 08/25/19 08/25/19 Range/Units 11:46 16:52 19:57 POC Glucose (mg/dL) 148 H 219 H 188 H (75-99) mg/dL 08/26/19 Range/Units 05:59 POC Glucose (mg/dL) 139 H (75-99) mg/dL
[2019-08-26] MEDS: ATORVASTATIN 20 MG TAB PO SCH (09:00)
[2019-08-26] MEDS: LEVOTHYROXINE 75 MCG TAB PO SCH (09:00)
[2019-08-26] MEDS: PANTOPRAZOLE 40 MG TABLET PO SCH (09:00)
[2019-08-26] MEDS: CALCIUM CARB-VIT D 500MG-200UN 1 EACH TAB PO SCH (09:00)
[2019-08-26] MEDS: guaiFENesin 600 MG TABLET.ER PO SCH ×2 (09:00→20:54)
[2019-08-26] MEDS: ENOXAPARIN 40 MG/0.4 ML SYRINGE SQ SCH (09:00)
[2019-08-26] MEDS: ASCORBIC ACID 500 MG TAB PO SCH (09:00)
[2019-08-26] MEDS: DULoxetine HCL 60 MG CAPSULE.DR PO SCH (09:00)
[2019-08-26] MEDS: LETROZOLE 2.5 MG TAB PO SCH (09:01)
[2019-08-26] MEDS: AZITHROMYCIN 500 MG TAB PO SCH (09:01)
[2019-08-26] MEDS: NICOTINE 21MG/24HR PATCH TRANSDERM SCH (09:01)
[2019-08-26] MEDS: CEPHALEXIN 500 MG CAP PO SCH ×2 (09:28→20:54)
[2019-08-26] MEDS: BUTALB/APAP/CAFF 50-325-40MG TAB PO PRN (10:41)
--- NOTE | 2019-08-26 11:12 | P.PN ---
Subjective Progress Note Date: 08/26/19 On today's evaluation of 08/25/2019, the patient continues to progress bronchospastic and wheezy and short of breath. Limited improvement compared to yesterday. No hemoptysis. No pleurisy. She remains on IV Solu-Medrol pH is on Symbicort and she is also on DuoNeb the right [id number]. Coronavirus PCR came back negative. The patient also had a suppressed intact PTH and the calcium level was at 11. This is to be monitored very closely for any skeletal results of calcium especially with her history of breast cancer. She is on IV Solu Medrol for now. Objective - Vital Signs Vital signs: Vital Signs Temp 97.5 F L 08/26/19 08:00 Pulse 84 08/26/19 08:00 Resp 18 08/26/19 08:00 BP 124/63 08/26/19 08:00 Pulse Ox 95 08/26/19 08:00 Intake & Output 08/25/19 08/26/19 08/26/19 18:59 06:59 18:59 Intake Total 322 500 236 Balance 322 500 236 Intake: Oral 322 500 236 Other: Voiding Method Toilet Toilet Toilet # Voids 1 1 - Exam The patient appeared well nourished and normally developed. Vital signs as documented. Head exam is unremarkable. No scleral icterus or corneal arcus noted. Neck is without jugular venous distension, thyromegaly, or carotid bruits. Carotid upstrokes are brisk bilaterally. Lung sounds are diminished bilaterally along with some few scattered external wheeze Cardiac exam reveals the PMI to be normally sized and situated. Rhythm is regular. First and second heart sounds normal. No murmurs, rubs or gallops. Abdominal exam reveals normal bowel sounds, no masses, no organomegaly and no aortic enlargement. Extremities are nonedematous and both femoral and pedal pulses are normal.Examination of the skin revealed no evidence of significant rashes, suspicious appearing nevi or other concerning lesions. Neurologically awake and alert and there is no focal neurological deficit - Labs CBC & Chem 7: 08/24/19 21:45 08/24/19 21:45 Labs: Abnormal Lab Results - Last 24 Hours (Table) 08/25/19 08/25/19 08/25/19 Range/Units 11:46 16:52 19:57 POC Glucose (mg/dL) 148 H 219 H 188 H (75-99) mg/dL 08/26/19 Range/Units 05:59 POC Glucose (mg/dL) 139 H (75-99) mg/dL Assessment and Plan Plan: 1 acute COPD exacerbation with secondary shortness of breath. Chest x-ray is within normal limits and there is no evidence of any acute pneumonia. Limited improvement compared to yesterday. Still bronchospastic and wheezy on today's evaluation. 2 chronic smoking 3 history of breast cancer with lumpectomy currently on Femara 4 hypothyroidism 5 hyperlipidemia 6 anxiety/depression maintain and accommodation of Cymbalta and Xanax 7 hypercalcemia, intact PTH is low, consider skeletal metastases. Plan Smoking cessation counseling DuoNeb nebulized treatment 4 times a day and when necessary. IV Solu-Medrol Oral Zithromax Continue Symbicort on outpatient basis and consider the addition of Spiriva Monitor the calcium level We'll continue to follow
[2019-08-26 11:39] LABS: Glucose,Whole Blood 151 mg/dL (75-99)
[2019-08-26 17:12] LABS: Glucose,Whole Blood 162 mg/dL (75-99)
[2019-08-26] MEDS: ACETAMINOPHEN TAB 500 MG TAB PO PRN (19:56)
[2019-08-26 20:36] LABS: Glucose,Whole Blood 193 mg/dL (75-99)
[2019-08-26] MEDS: NYSTATIN 100,000 UNIT/ML SUSP 500,000 UNIT/5 ML CUP PO SCH (20:57)
[2019-08-27] MEDS: methylPREDNISolone SOD SUCCI 125 MG/2 ML VIAL IV SCH ×4 (05:18→19:31)
[2019-08-27 06:20] LABS: Glucose,Whole Blood 137 mg/dL (75-99)
[2019-08-27] MEDS: guaiFENesin 600 MG TABLET.ER PO SCH ×2 (07:50→21:42)
[2019-08-27] MEDS: LEVOTHYROXINE 75 MCG TAB PO SCH ×2 (07:50→07:57)
[2019-08-27] MEDS: DULoxetine HCL 60 MG CAPSULE.DR PO SCH (07:50)
[2019-08-27] MEDS: ATORVASTATIN 20 MG TAB PO SCH (07:50)
[2019-08-27] MEDS: CALCIUM CARB-VIT D 500MG-200UN 1 EACH TAB PO SCH (07:50)
[2019-08-27] MEDS: NICOTINE 21MG/24HR PATCH TRANSDERM SCH (07:51)
[2019-08-27] MEDS: ENOXAPARIN 40 MG/0.4 ML SYRINGE SQ SCH (07:51)
[2019-08-27] MEDS: INSULIN ASPART (NovoLOG) 100 UNIT/ML VIAL SQ SCH ×4 (07:51→21:49)
[2019-08-27] MEDS: PANTOPRAZOLE 40 MG TABLET PO SCH (07:52)
[2019-08-27] MEDS: AZITHROMYCIN 500 MG TAB PO SCH (07:52)
[2019-08-27] MEDS: ASCORBIC ACID 500 MG TAB PO SCH (07:53)
[2019-08-27] MEDS: CEPHALEXIN 500 MG CAP PO SCH ×2 (07:53→21:42)
[2019-08-27] MEDS: LETROZOLE 2.5 MG TAB PO SCH (07:54)
[2019-08-27] MEDS: NYSTATIN 100,000 UNIT/ML SUSP 500,000 UNIT/5 ML CUP PO SCH ×4 (09:03→21:42)
[2019-08-27] MEDS: BUDESONIDE 1 MG/2 ML NEBU INHALATION SCH ×2 (10:51→19:26)
[2019-08-27] MEDS: IPRATROPIUM-ALBUTEROL 3 ML NEB INHALATION SCH ×4 (10:52→19:26)
--- NOTE | 2019-08-27 11:25 | P.PN ---
Subjective Progress Note Date: 08/27/19 This is a 69-year-old female patient of Dr. Bolanos and Dr. Summers with past medical history significant for COPD, chronic hypoxic respiratory failure with home O2 at 2L n/c, hypothyroidism, breast cancer status post lumpectomy, active tobacco use and dependence. Patient presented to the hosp ital with complaint of difficulty breathing for the past couple days, gradually worsening. She also has a cough but nonproductive. She came into [facility] emergency center for evaluation. She was afebrile, heart rate 72, blood pressure 136/85, pulse ox 91% on room air. WBC 11.3, hemoglobin 13. Sodium 135, creatinine 1.16, blood sugar 111. Calcium 11. EKG is normal sinus rhythm. Chest x-ray shows no active cardiac pulmonary disease. Patient was started on IV steroids, nebulizer treatments and azithromycin. She is status post 500 ML's of normal saline bolus. The patient continued to have difficulty breathing with tachypnea despite treatment and was placed on the observation unit and consult requested with pulmonary medicine. 08/25: Patient continues to have significant difficulty breathing wheezing and tightness. Patient complains of headache and Fioricet will be added. Patient has been seen by Dr. Mann. Patient is continued on IV Solu-Medrol 60 mg sergio ry 6 hours, no change in medications today. Patient is still waiting for bed on the inpatient side. Afebrile, heart rate 84, blood pressure 124/63, pulse ox 95% on 3 L nasal cannula. Blood sugars are running between 139 and 188. 08/26: Patient continues to have significant wheezing and no change will be made to Solu-Medrol. She is continued on 60 mg IV every 6 hours. Nystatin was added last night for thrush. She has been afebrile, heart rate 81, blood pressure 113/72, pulse ox 95% on 2 L. Continue same medications for now. Possible discharge by or Sunday of this week. Review of Systems Constitutional: No fever, no chills, no night sweats. No weight change. Reports weakness, fatigue or lethargy. No daytime sleepiness. EENT: No headache. No blurred vision or double vision, no loss of vision. No loss of Hearing, no ringing in the ears, no dizziness. No nasal drainage or congestion. No epistaxis. No sore throat. Lungs: Reports reports shortness of breath, cough, no sputum production. Reports wheezing continues. Cardiovascular: No chest pain, no lower extremity edema. No palpitations. No paroxysmal nocturnal dyspnea. No orthopnea. No lightheadedness or dizziness. No syncopal episodes. Abdominal: No abdominal pain. No nausea, vomiting. No diarrhea. No constipation. No bloody or tarry stools.. No loss of appetite. Genitourinary: No dysuria, increased frequency, urgency. No urinary retention. Musculoskeletal: No myalgias. No muscle weakness, no gait dysfunction, no frequent falls. No back pain. No neck pain. Integumentary: No wounds, no lesions. No rash or pruritus. No unusual bruising. Neurologic: No aphasia. No facial droop. No change in mentation. No head injury. No headache. No paralysis. No paresthesia. Psychiatric: No depression. No anxiety. No mood swings. Endocrine: No abnormal blood sugars. No weight change. No excessive sweating or thirst. Physical Examination Gen: This is a 69-year-old female. Patient is resting in bed and appears comfortable at rest. HEENT: Head is atraumatic, normocephalic. Pupils equal, round. Sclerae is anicteric. NECK: Supple. No JVD. No lymphadenopathy. No thyromegaly. LUNGS: Diminished bilaterally with scattered expiratory wheezes. Mild intercostal retractions. Mild accessory muscle usage. HEART: Regular rate and rhythm. No murmur. ABDOMEN: Soft. Bowel sounds are present. No masses. No tenderness. EXTREMITIES: No pedal edema. No calf tenderness. Dorsalis pedis +2 bilaterally. NEUROLOGICAL: Patient is awake, alert and oriented x3. Cranial nerves 2 through 12 are grossly intact. Assessment and Plan 1. Acute COPD exacerbation. Continue DuoNeb treatments 4 times daily and albut trey as needed, Solu-Medrol 60 mg IV every 6 hours-no change, Pulmicort 1 mg twice daily, oxygen at 2 L nasal cannula, Tessalon Perles, azithromycin. Consult with pulmonary medicine appreciated 2. Chronic hypoxic respiratory failure on home O2 at 2 L nasal cannula. 3. Hypothyroidism. Continue levothyroxine 75 g daily. 4. Hyperlipidemia. Continue Lipitor 20 mg daily. 5. History of breast cancer status post lumpectomy. Continue Femara 2.5 mg daily. 6. Tobacco use and dependence. Continue nicotine patch. 7. Recurrent depression. Continue Cymbalta 60 mg daily. 8. GI prophylaxis. Protonix. 9. DVT prophylaxis. Lovenox daily subcu. 10. COVID-19 infection not present. 11. Hyperglycemia secondary to steroids. Continue NovoLog scale. Discharge plan: Most likely return home on . Impression and plan of care have been directed as dictated by the signing physician. Fanny Chen nurse practitioner acting as scribe for signing physician. Objective - Vital Signs Vital signs: Vital Signs Temp 98.4 F 08/27/19 03:59 Pulse 81 08/27/19 03:59 Resp 18 08/27/19 03:59 BP 113/72 08/27/19 03:59 Pulse Ox 96 08/27/19 03:59 Intake & Output 08/26/19 08/27/19 08/27/19 18:59 06:59 18:59 Intake Total 458 Balance 458 Intake: Oral 458 Other: Voiding Method Toilet Toilet # Voids 1 2 - Labs CBC & Chem 7: 08/24/19 21:45 08/24/19 21:45 Labs: Abnormal Lab Results - Last 24 Hours (Table) 08/26/19 08/26/19 08/26/19 Range/Units 11:37 16:56 20:35 POC Glucose (mg/dL) 151 H 162 H 193 H (75-99) mg/dL 08/27/19 Range/Units 06:17 POC Glucose (mg/dL) 137 H (75-99) mg/dL
[2019-08-27] MEDS: SYMBICORT 160-4.5 MCG INHALER INHALATION SCH (11:46)
--- NOTE | 2019-08-27 11:50 | P.PN ---
Subjective Progress Note Date: 08/27/19 Principal diagnosis: Shortness of breath On today's evaluation of 08/25/2019, the patient continues to progress bronchospastic and wheezy and short of breath. Limited improvement compared to yesterday. No hemoptysis. No pleurisy. She remains on IV Solu-Medrol pH is on Symbicort and she is also on DuoNeb the right [id number]. Coronavirus PCR came back negative. The patient also had a suppressed intact PTH and the calcium level was at 11. This is to be monitored very closely for any skeletal results of calcium especially with her history of breast cancer. She is on IV Solu Medrol for now. On 08/27/2019 patient seen in follow-up on observation unit, she is awake and alert, she states her breathing has not gotten better however has not worsened either, still significantly bronchospastic on today's exam, although seems to be somewhat improved. Patient remains on 2 L of oxygen, pulse ox is 95%, she is afebrile, hemodynamically she stable, lung sounds reveal diffuse wheezes bilaterally. Patient remains on azithromycin, breathing treatments, Pulmicort, Perforomist, and IV steroids. Slowly improving Objective - Vital Signs Vital signs: Vital Signs Temp 97.5 F L 08/27/19 07:50 Pulse 88 08/27/19 11:26 Resp 16 08/27/19 07:50 BP 148/72 08/27/19 07:50 Pulse Ox 95 08/27/19 07:50 Intake & Output 08/26/19 08/27/19 08/27/19 18:59 06:59 18:59 Intake Total 458 Balance 458 Intake: Oral 458 Other: Voiding Method Toilet Toilet Toilet # Voids 1 2 1 - Exam GENERAL EXAM: Alert, very pleasant, 69-year-old white female, on 2 L of oxygen and the pulse ox of 95% comfortable in no apparent distress. HEAD: Normocephalic/atraumatic. EYES: Normal reaction of pupils, equal size. Conjunctiva pink, sclera white. NOSE: Clear with pink turbinates. THROAT: No erythema or exudates. NECK: No masses, no JVD, no thyroid enlargement, no adenopathy. CHEST: No chest wall deformity. Symmetrical expansion. LUNGS: Equal air entry with diffuse wheezes CVS: Regular rate and rhythm, normal S1 and S2, no gallops, no murmurs, no rubs ABDOMEN: Soft, nontender. No hepatosplenomegaly, normal bowel sounds, no guar ding or rigidity. EXTREMITIES: No clubbing, no edema, no cyanosis, 2+ pulses and upper and lower extremities. MUSCULOSKELETAL: Muscle strength and tone normal. SPINE: No scoliosis or deformity SKIN: No rashes CENTRAL NERVOUS SYSTEM: Alert and oriented -3. No focal deficits, tone is normal in all 4 extremities. PSYCHIATRIC: Alert and oriented -3. Appropriate affect. Intact judgment and insight. - Labs CBC & Chem 7: 08/24/19 21:45 08/24/19 21:45 Labs: Abnormal Lab Results - Last 24 Hours (Table) 08/26/19 08/26/19 08/27/19 Range/Units 16:56 20:35 06:17 POC Glucose (mg/dL) 162 H 193 H 137 H (75-99) mg/dL Assessment and Plan Plan: Assessment: 1 acute COPD exacerbation with secondary shortness of breath. Chest x-ray is within normal limits and there is no evidence of any acute pneumonia. Limited improvement compared to yesterday. Still bronchospastic and wheezy on today's evaluation. 2 chronic smoking 3 history of breast cancer with lumpectomy currently on Femara 4 hypothyroidism 5 hyperlipidemia 6 anxiety/depression maintain and accommodation of Cymbalta and Xanax 7 hypercalcemia, intact PTH is low, consider skeletal metastases. Plan: Continue current medical treatment, same dose IV steroids, nebulized bronchodilator's, azithromycin, Pulmicort and Perforomist, slowly improving, still quite bronchospastic, not quite back to baseline, continue medical treatment, will reevaluate in another 24 hours I performed a history & physical examination of the patient and discussed their management with my nurse practitioner, Azra Cullen. I reviewed the nurse practitioner's note and agree with the documented findings and plan of care. Lung sounds are positive for diffuse wheezes throughout the lung macias. The findings and the impression was discussed with the patient. I attest to the documentation by the nurse practitioner. Time with Patient: Less than 30
[2019-08-27 12:47] LABS: Glucose,Whole Blood 175 mg/dL (75-99)
[2019-08-27 18:09] LABS: Glucose,Whole Blood 138 mg/dL (75-99)
[2019-08-27] MEDS: FORMOTEROL FUMARATE 20 MCG/2 ML NEBU INHALATION SCH (19:26)
[2019-08-27 20:31] LABS: Glucose,Whole Blood 251 mg/dL (75-99)
[2019-08-27 21:47] LABS: Glucose,Whole Blood 226 mg/dL (75-99)
[2019-08-27] MEDS: ALBUTEROL NEBULIZED 2.5 MG/3 ML INHALATION PRN (22:21)
[2019-08-28] MEDS: methylPREDNISolone SOD SUCCI 125 MG/2 ML VIAL IV SCH ×5 (00:52→23:57)
[2019-08-28] MEDS: IPRATROPIUM-ALBUTEROL 3 ML NEB INHALATION SCH ×5 (03:41→19:31)
[2019-08-28] MEDS: LEVOTHYROXINE 75 MCG TAB PO SCH (06:43)
[2019-08-28] MEDS: PANTOPRAZOLE 40 MG TABLET PO SCH (06:43)
[2019-08-28 06:44] LABS: Glucose,Whole Blood 145 mg/dL (75-99)
[2019-08-28] MEDS: INSULIN ASPART (NovoLOG) 100 UNIT/ML VIAL SQ SCH ×4 (06:59→20:45)
[2019-08-28] MEDS: BUDESONIDE 1 MG/2 ML NEBU INHALATION SCH ×2 (07:14→19:31)
[2019-08-28] MEDS: FORMOTEROL FUMARATE 20 MCG/2 ML NEBU INHALATION SCH ×2 (07:14→19:31)
[2019-08-28 09:01] LABS: HCT 36.3 % (34.0-46.0); MCH 34.8 pg (25.0-35.0); MCV 105.5 fL (80.0-100.0); Macrocytosis Moderate; Platelet Count 332 k/uL (150-450); RBC 3.44 m/uL (3.80-5.40); RDW 14.1 % (11.5-15.5); WBC 16.4 k/uL (3.8-10.6)
[2019-08-28 09:23] LABS: Albumin 4.3 g/dL (3.5-5.0); Calcium 10.3 mg/dL (8.4-10.2); Potassium 4.4 mmol/L (3.5-5.1); Total Bilirubin 0.6 mg/dL (0.2-1.3); Total Protein 7.2 g/dL (6.3-8.2)
[2019-08-28] MEDS: ATORVASTATIN 20 MG TAB PO SCH (09:41)
[2019-08-28] MEDS: ASCORBIC ACID 500 MG TAB PO SCH (09:41)
[2019-08-28] MEDS: guaiFENesin 600 MG TABLET.ER PO SCH ×2 (09:42→20:45)
[2019-08-28] MEDS: AZITHROMYCIN 500 MG TAB PO SCH (09:42)
[2019-08-28] MEDS: CALCIUM CARB-VIT D 500MG-200UN 1 EACH TAB PO SCH (09:43)
[2019-08-28] MEDS: CEPHALEXIN 500 MG CAP PO SCH ×2 (09:43→20:45)
[2019-08-28] MEDS: DULoxetine HCL 60 MG CAPSULE.DR PO SCH (09:44)
[2019-08-28] MEDS: NYSTATIN 100,000 UNIT/ML SUSP 500,000 UNIT/5 ML CUP PO SCH ×4 (09:44→22:38)
[2019-08-28] MEDS: LETROZOLE 2.5 MG TAB PO SCH (09:45)
[2019-08-28] MEDS: ENOXAPARIN 40 MG/0.4 ML SYRINGE SQ SCH (09:46)
[2019-08-28] MEDS: NICOTINE 21MG/24HR PATCH TRANSDERM SCH (09:56)
--- NOTE | 2019-08-28 12:00 | P.PN ---
Subjective Progress Note Date: 08/28/19 Principal diagnosis: Shortness of breath On today's evaluation of 08/25/2019, the patient continues to progress bronchospastic and wheezy and short of breath. Limited improvement compared to yesterday. No hemoptysis. No pleurisy. She remains on IV Solu-Medrol pH is on Symbicort and she is also on DuoNeb the right [id number]. Coronavirus PCR came back negative. The patient also had a suppressed intact PTH and the calcium level was at 11. This is to be monitored very closely for any skeletal results of calcium especially with her history of breast cancer. She is on IV Solu Medrol for now. On 08/27/2019 patient seen in follow-up on observation unit, she is awake and alert, she states her breathing has not gotten better however has not worsened either, still significantly bronchospastic on today's exam, although seems to be somewhat improved. Patient remains on 2 L of oxygen, pulse ox is 95%, she is afebrile, hemodynamically she stable, lung sounds reveal diffuse wheezes bilaterally. Patient remains on azithromycin, breathing treatments, Pulmicort, Perforomist, and IV steroids. Slowly improving On 08/28/2019 patient seen in follow-up on pediatric unit. She is still quite bronchospastic, occasionally she is able to bring up very small amount of sputum. She is on 2 L of oxygen with pulse ox of 93%, she is been afebrile. Hemodynamically she is stable, CTA chest has been ordered to rule out possibility of pulmonary embolism, she remains on IV steroids, breathing treatment, azithromycin, and despite medical treatment patient is slow to impr ove. Objective - Vital Signs Vital signs: Vital Signs Temp 97.9 F 08/28/19 07:00 Pulse 88 08/28/19 10:56 Resp 20 08/28/19 07:00 BP 136/74 08/28/19 07:00 Pulse Ox 93 L 08/28/19 07:00 Intake & Output 08/27/19 08/28/19 08/28/19 18:59 06:59 18:59 Intake Total 600 1200 Balance 600 1200 Intake: Oral 600 1200 Other: Voiding Method Toilet Toilet # Voids 1 2 - Exam GENERAL EXAM: Alert, very pleasant, 69-year-old white female, on 2 L of oxygen and the pulse ox of 95% comfortable in no apparent distress. HEAD: Normocephalic/atraumatic. EYES: Normal reaction of pupils, equal size. Conjunctiva pink, sclera white. NOSE: Clear with pink turbinates. THROAT: No erythema or exudates. NECK: No masses, no JVD, no thyroid enlargement, no adenopathy. CHEST: No chest wall deformity. Symmetrical expansion. LUNGS: Equal air entry with diffuse wheezes CVS: Regular rate and rhythm, normal S1 and S2, no gallops, no murmurs, no rubs ABDOMEN: Soft, nontender. No hepatosplenomegaly, normal bowel sounds, no guarding or rigidity. EXTREMITIES: No clubbing, no edema, no cyanosis, 2+ pulses and upper and lower extremities. MUSCULOSKELETAL: Muscle strength and tone normal. SPINE: No scoliosis or deformity SKIN: No rashes CENTRAL NERVOUS SYSTEM: Alert and oriented -3. No focal deficits, tone is normal in all 4 extremities. PSYCHIATRIC: Alert and oriented -3. Appropriate affect. Intact judgment and insight. - Labs CBC & Chem 7: 08/28/19 08:46 08/28/19 08:46 Labs: Abnormal Lab Results - Last 24 Hours (Table) 08/27/19 08/27/19 08/27/19 Range/Units 12:38 18:07 20:28 WBC (3.8-10.6) k/uL RBC (3.80-5.40) m/uL MCV (80.0-100.0) fL Sodium (137-145) mmol/L Chloride (98-107) mmol/L BUN (7-17) mg/dL Glucose (74-99) mg/dL POC Glucose (mg/dL) 175 H 138 H 251 H (75-99) mg/dL Calcium (8.4-10.2) mg/dL AST (14-36) U/L ALT (4-34) U/L 08/27/19 08/28/19 08/28/19 Range/Units 21:46 06:42 08:46 WBC 16.4 H (3.8-10.6) k/uL RBC 3.44 L (3.80-5.40) m/uL MCV 105.5 H (80.0-100.0) fL Sodium (137-145) mmol/L Chloride (98-107) mmol/L BUN (7-17) mg/dL Glucose (74-99) mg/dL POC Glucose (mg/dL) 226 H 145 H (75-99) mg/dL Calcium (8.4-10.2) mg/dL AST (14-36) U/L ALT (4-34) U/L // Range/Units 08:46 WBC (3.8-10.6) k/uL RBC (3.80-5.40) m/uL MCV (80.0-100.0) fL Sodium 133 L (137-145) mmol/L Chloride 96 L (98-107) mmol/L BUN 18 H (7-17) mg/dL Glucose 138 H (74-99) mg/dL POC Glucose (mg/dL) (75-99) mg/dL Calcium 10.3 H (8.4-10.2) mg/dL AST 51 H (14-36) U/L ALT 38 H (4-34) U/L Assessment and Plan Plan: Assessment: 1 acute COPD exacerbation with secondary shortness of breath. Chest x-ray is within normal limits and there is no evidence of any acute pneumonia. Limited improvement compared to yesterday. Still bronchospastic and wheezy on today's evaluation. 2 chronic smoking 3 history of breast cancer with lumpectomy currently on Femara 4 hypothyroidism 5 hyperlipidemia 6 anxiety/depression maintain and accommodation of Cymbalta and Xanax 7 hypercalcemia, intact PTH is low, consider skeletal metastases. Plan: Patient is going for CTA chest to rule out possibility of a pulmonary embolism, we'll review, she remains quite bronchospastic, she states she is not able to bring up much sputum. Continue current medical treatment, IV steroids and antibiotics, breathing treatments, may consider possibility of bronchoscopy with BAL tomorrow after we review the results of the CTA chest. Keep nothing by mouth after midnight I performed a history & physical examination of the patient and discussed their management with my nurse practitioner, Azra Cullen. I reviewed the nurse practitioner's note and agree with the documented findings and plan of care. Lung sounds are positive for diffuse wheezes throughout the lung macias. The findings and the impression was discussed with the patient. I attest to the documentation by the nurse practitioner. Time with Patient: Less than 30
[2019-08-28 12:14] LABS: Glucose,Whole Blood 138 mg/dL (75-99)
--- NOTE | 2019-08-28 12:37 | P.PN ---
Subjective Progress Note Date: 08/28/19 This is a 69-year-old female patient of Dr. Bolanos and Dr. Summers with past medical history significant for COPD, chronic hypoxic respiratory failure with home O2 at 2L n/c, hypothyroidism, breast cancer status post lumpectomy, active tobacco use and dependence. Patient presented to the hosp ital with complaint of difficulty breathing for the past couple days, gradually worsening. She also has a cough but nonproductive. She came into [facility] emergency center for evaluation. She was afebrile, heart rate 72, blood pressure 136/85, pulse ox 91% on room air. WBC 11.3, hemoglobin 13. Sodium 135, creatinine 1.16, blood sugar 111. Calcium 11. EKG is normal sinus rhythm. Chest x-ray shows no active cardiac pulmonary disease. Patient was started on IV steroids, nebulizer treatments and azithromycin. She is status post 500 ML's of normal saline bolus. The patient continued to have difficulty breathing with tachypnea despite treatment and was placed on the observation unit and consult requested with pulmonary medicine. 08/25: Patient continues to have significant difficulty breathing wheezing and tightness. Patient complains of headache and Fioricet will be added. Patient has been seen by Dr. Mann. Patient is continued on IV Solu-Medrol 60 mg sergio ry 6 hours, no change in medications today. Patient is still waiting for bed on the inpatient side. Afebrile, heart rate 84, blood pressure 124/63, pulse ox 95% on 3 L nasal cannula. Blood sugars are running between 139 and 188. 08/26: Patient continues to have significant wheezing and no change will be made to Solu-Medrol. She is continued on 60 mg IV every 6 hours. Nystatin was added last night for thrush. She has been afebrile, heart rate 81, blood pressure 113/72, pulse ox 95% on 2 L. Continue same medications for now. Possible discharge by or Sunday of this week. 08/27: Patient is seen today on the pediatric unit. She continues to have significant wheezing and difficulty breathing. She has not had any significant improvement since admission. CTA of the chest will be ordered to rule out pulmonary embolism. Discussed with Dr. Mann for possible bronchoscopy. P atient's had difficulty with IV access and a midline has been ordered. Patient has been afebrile, heart rate 86, blood pressure 136/74, pulse ox 93% on 2 L nasal cannula. Repeat blood work, WBC 16.4, BUN 18 and creatinine 0.94, sodium 133. Blood sugars running between 138 and 226. AST 51, ALT 58. Review of Systems Constitutional: No fever, no chills, no night sweats. No weight change. Reports weakness, fatigue or lethargy. No daytime sleepiness. EENT: No headache. No blurred vision or double vision, no loss of vision. No loss of Hearing, no ringing in the ears, no dizziness. No nasal drainage or congestion. No epistaxis. No sore throat. Lungs: Reports reports shortness of breath unchanged, reports cough, no sputum production. Reports wheezing continues. Cardiovascular: No chest pain, no lower extremity edema. No palpitations. No paroxysmal nocturnal dyspnea. No orthopnea. No lightheadedness or dizziness. No syncopal episodes. Abdominal: No abdominal pain. No nausea, vomiting. No diarrhea. No constipation. No bloody or tarry stools.. No loss of appetite. Genitourinary: No dysuria, increased frequency, urgency. No urinary retention. Musculoskeletal: No myalgias. No muscle weakness, no gait dysfunction, no frequent falls. No back pain. No neck pain. Integumentary: No wounds, no lesions. No rash or pruritus. No unusual bruisin g. Neurologic: No aphasia. No facial droop. No change in mentation. No head injury. No headache. No paralysis. No paresthesia. Psychiatric: No depression. No anxiety. No mood swings. Endocrine: No abnormal blood sugars. No weight change. No excessive sweating or thirst. Physical Examination Gen: This is a 69-year-old female. Patient is resting in bed and appears to be dyspneic with audible wheezing. HEENT: Head is atraumatic, normocephalic. Pupils equal, round. Sclerae is anicteric. NECK: Supple. No JVD. No lymphadenopathy. No thyromegaly. LUNGS: Diminished bilaterally with scattered expiratory wheezes. Mild intercostal retractions. Mild accessory muscle usage. HEART: Regular rate and rhythm. No murmur. ABDOMEN: Soft. Bowel sounds are present. No masses. No tenderness. EXTREMITIES: No pedal edema. No calf tenderness. Dorsalis pedis +2 bilaterally. NEUROLOGICAL: Patient is awake, alert and oriented x3. Cranial nerves 2 through 12 are grossly intact. Assessment and Plan 1. Acute COPD exacerbation. Continue DuoNeb treatments 4 times daily and albuterol as needed, Solu-Medrol 60 mg IV every 6 hours-no change, Pulmicort 1 mg twice daily, oxygen at 2 L nasal cannula, Tessalon Perles, azithromycin. Consult with pulmonary medicine appreciated. CTA of the chest to rule out pulmonary embolism. Possible bronchoscopy tomorrow. Patient to be transferred to the cardiac stepdown unit. 2. Chronic hypoxic respiratory failure on home O2 at 2 L nasal cannula. 3. Hypothyroidism. Continue levothyroxine 75 g daily. 4. Hyperlipidemia. Continue Lipitor 20 mg daily. 5. History of breast cancer status post lumpectomy. Continue Femara 2.5 mg daily. 6. Tobacco use and dependence. Continue nicotine patch. 7. Recurrent depression. Continue Cymbalta 60 mg daily. 8. GI prophylaxis. Protonix. 9. DVT prophylaxis. Lovenox daily subcu. 10. COVID-19 infection not present. 11. Hyperglycemia secondary to steroids. Continue NovoLog scale. Discharge plan: Most likely return home on the weekend. Impression and plan of care have been directed as dictated by the signing physician. Fanny Chen nurse practitioner acting as scribe for signing physician. Objective - Vital Signs Vital signs: Vital Signs Temp 98.2 F 08/28/19 00:45 Pulse 84 08/28/19 07:38 Resp 20 08/27/19 22:32 BP 105/73 08/28/19 00:45 Pulse Ox 95 08/28/19 00:45 Intake & Output 08/27/19 08/28/19 08/28/19 18:59 06:59 18:59 Intake Total 600 1200 Balance 600 1200 Intake: Oral 600 1200 Other: Voiding Method Toilet Toilet # Voids 1 2 - Labs CBC & Chem 7: 08/28/19 08:46 08/28/19 08:46 Labs: Abnormal Lab Results - Last 24 Hours (Table) 08/27/19 08/27/19 08/27/19 Range/Units 12:38 18:07 20:28 POC Glucose (mg/dL) 175 H 138 H 251 H (75-99) mg/dL 08/27/19 08/28/19 Range/Units 21:46 06:42 POC Glucose (mg/dL) 226 H 145 H (75-99) mg/dL
--- NOTE | 2019-08-28 13:12 | CT ---
EXAMINATION TYPE: CT angio chest DATE OF EXAM: 08/28/2019 COMPARISON: CT chest February 19, 2019 HISTORY: cough, congestion, TISH, r/o PE CT DLP: 508 mGycm. Automated Exposure Control for Dose Reduction was Utilized. CONTRAST: CTA scan of the thorax is performed with IV Contrast, patient injected with 100 mL of Isovue 370, pul monary embolism protocol. MIP Images are created on CT scanner and reviewed. FINDINGS: LUNGS: Moderate underlying emphysematous change greatest in the upper lungs is redemonstrated. There is mild bibasilar atelectasis and/or scarring, right lung greater than left just above the diaphragms . No suspicious new focal infiltrate or consolidation. No pleural effusion or pneumothorax noted bila terally. MEDIASTINUM: There is satisfactory enhancement of the pulmonary artery and its branches, there is no CT evidence for pulmonary embolism. There are no greater than 1 cm hilar or mediastinal lymph nodes. Small pericardial effusion is slightly larger versus prior. No cardiomegaly. Coronary artery calcifi cation redemonstrated which is noted marked underlying coronary artery disease. OTHER: No additional significant abnormality is seen. IMPRESSION: No CT evidence for acute pulmonary embolism. Moderate emphysematous change without [place] spicious acute pulmonary process.
[2019-08-28] MEDS: ACETAMINOPHEN TAB 500 MG TAB PO PRN (14:25)
[2019-08-28 17:09] LABS: Glucose,Whole Blood 161 mg/dL (75-99)
[2019-08-28 20:20] LABS: Glucose,Whole Blood 156 mg/dL (75-99)
[2019-08-29] MEDS: IPRATROPIUM-ALBUTEROL 3 ML NEB INHALATION SCH ×5 (00:04→19:11)
[2019-08-29] MEDS: ALBUTEROL NEBULIZED 2.5 MG/3 ML INHALATION PRN ×2 (03:51→23:47)
[2019-08-29] MEDS: methylPREDNISolone SOD SUCCI 125 MG/2 ML VIAL IV SCH ×4 (06:10→23:52)
[2019-08-29 06:24] LABS: Glucose,Whole Blood 151 mg/dL (75-99)
[2019-08-29] MEDS: BUDESONIDE 1 MG/2 ML NEBU INHALATION SCH ×2 (07:55→19:10)
[2019-08-29] MEDS: FORMOTEROL FUMARATE 20 MCG/2 ML NEBU INHALATION SCH ×2 (07:55→19:11)
[2019-08-29] MEDS: INSULIN ASPART (NovoLOG) 100 UNIT/ML VIAL SQ SCH ×4 (08:57→21:28)
[2019-08-29] MEDS: LETROZOLE 2.5 MG TAB PO SCH (09:08)
[2019-08-29] MEDS: ENOXAPARIN 40 MG/0.4 ML SYRINGE SQ SCH (09:08)
[2019-08-29] MEDS: NYSTATIN 100,000 UNIT/ML SUSP 500,000 UNIT/5 ML CUP PO SCH ×4 (09:08→21:26)
[2019-08-29] MEDS: ATORVASTATIN 20 MG TAB PO SCH (09:09)
[2019-08-29] MEDS: DULoxetine HCL 60 MG CAPSULE.DR PO SCH (09:09)
[2019-08-29] MEDS: AZITHROMYCIN 500 MG TAB PO SCH (09:09)
[2019-08-29] MEDS: CALCIUM CARB-VIT D 500MG-200UN 1 EACH TAB PO SCH (09:09)
[2019-08-29] MEDS: PANTOPRAZOLE 40 MG TABLET PO SCH (09:09)
[2019-08-29] MEDS: ASCORBIC ACID 500 MG TAB PO SCH (09:09)
[2019-08-29] MEDS: LEVOTHYROXINE 75 MCG TAB PO SCH (09:10)
[2019-08-29] MEDS: guaiFENesin 600 MG TABLET.ER PO SCH ×2 (09:10→21:26)
[2019-08-29] MEDS: CEPHALEXIN 500 MG CAP PO SCH ×2 (09:10→21:26)
[2019-08-29] MEDS: NICOTINE 21MG/24HR PATCH TRANSDERM SCH (09:13)
[2019-08-29 11:33] LABS: Glucose,Whole Blood 150 mg/dL (75-99)
--- NOTE | 2019-08-29 12:33 | P.PN ---
Subjective Progress Note Date: 08/29/19 This is a 69-year-old female patient of Dr. Bolanos and Dr. Summers with past medical history significant for COPD, chronic hypoxic respiratory failure with home O2 at 2L n/c, hypothyroidism, breast cancer status post lumpectomy, active tobacco use and dependence. Patient presented to the hosp ital with complaint of difficulty breathing for the past couple days, gradually worsening. She also has a cough but nonproductive. She came into [facility] emergency center for evaluation. She was afebrile, heart rate 72, blood pressure 136/85, pulse ox 91% on room air. WBC 11.3, hemoglobin 13. Sodium 135, creatinine 1.16, blood sugar 111. Calcium 11. EKG is normal sinus rhythm. Chest x-ray shows no active cardiac pulmonary disease. Patient was started on IV steroids, nebulizer treatments and azithromycin. She is status post 500 ML's of normal saline bolus. The patient continued to have difficulty breathing with tachypnea despite treatment and was placed on the observation unit and consult requested with pulmonary medicine. 08/25: Patient continues to have significant difficulty breathing wheezing and tightness. Patient complains of headache and Fioricet will be added. Patient has been seen by Dr. Mann. Patient is continued on IV Solu-Medrol 60 mg sergio ry 6 hours, no change in medications today. Patient is still waiting for bed on the inpatient side. Afebrile, heart rate 84, blood pressure 124/63, pulse ox 95% on 3 L nasal cannula. Blood sugars are running between 139 and 188. 08/26: Patient continues to have significant wheezing and no change will be made to Solu-Medrol. She is continued on 60 mg IV every 6 hours. Nystatin was added last night for thrush. She has been afebrile, heart rate 81, blood pressure 113/72, pulse ox 95% on 2 L. Continue same medications for now. Possible discharge by or Sunday of this week. 08/27: Patient is seen today on the pediatric unit. She continues to have significant wheezing and difficulty breathing. She has not had any significant improvement since admission. CTA of the chest will be ordered to rule out pulmonary embolism. Discussed with Dr. Mann for possible bronchoscopy. P atient's had difficulty with IV access and a midline has been ordered. Patient has been afebrile, heart rate 86, blood pressure 136/74, pulse ox 93% on 2 L nasal cannula. Repeat blood work, WBC 16.4, BUN 18 and creatinine 0.94, sodium 133. Blood sugars running between 138 and 226. AST 51, ALT 58. 08/28: Patient is seen in follow-up today she is on the cardiac stepdown unit. Her breathing is much improved from yesterday. She is scheduled for bronchoscopy this afternoon. CTA of the chest done yesterday was negative for pulmonary embolism. There was moderate emphysematous changes without acute pulmonary process. She has been afebrile, heart rate 90, blood pressure 143/80, pulse ox 96% on 3 L nasal cannula. Anticipate she will be ready for discharge next 48-72 hours. Review of Systems Constitutional: No fever, no chills, no night sweats. No weight change. Reports weakness, fatigue or lethargy. No daytime sleepiness. EENT: No headache. No blurred vision or double vision, no loss of vision. No loss of Hearing, no ringing in the ears, no dizziness. No nasal drainage or congestion. No epistaxis. No sore throat. Lungs: Reports reports shortness of breath , reports cough, no sputum production. Reports wheezing. Cardiovascular: No chest pain, no lower extremity edema. No palpitations. No paroxysmal nocturnal dyspnea. No orthopnea. No lightheadedness or dizziness. No syncopal episodes. Abdominal: No abdominal pain. No nausea, vomiting. No diarrhea. No constipation. No bloody or tarry stools.. No loss of appetite. Genitourinary: No dysuria, increased frequency, urgency. No urinary retention. Musculoskeletal: No myalgias. No muscle weakness, no gait dysfunction, no frequent falls. No back pain. No neck pain. Integumentary: No wounds, no lesions. No rash or pruritus. No unusual bruising. Neurologic: No aphasia. No facial droop. No change in mentation. No head injury. No headache. No paralysis. No paresthesia. Psychiatric: No depression. No anxiety. No mood swings. Endocrine: No abnormal blood sugars. No weight change. No excessive sweating or thirst. Physical Examination Gen: This is a 69-year-old female. Patient is resting in bed and appears to be in no acute respiratory distress. HEENT: Head is atraumatic, normocephalic. Pupils equal, round. Sclerae is anicteric. NECK: Supple. No JVD. No lymphadenopathy. No thyromegaly. LUNGS: Diminished bilaterally with few expiratory wheezes. No intercostal retractions. No accessory muscle usage. HEART: Regular rate and rhythm. No murmur. ABDOMEN: Soft. Bowel sounds are present. No masses. No tenderness. EXTREMITIES: No pedal edema. No calf tenderness. Dorsalis pedis +2 bilaterally. NEUROLOGICAL: Patient is awake, alert and oriented x3. Cranial nerves 2 through 12 are grossly intact. Assessment and Plan 1. Acute COPD exacerbation. Continue DuoNeb treatments 4 times daily and albut trey as needed, Solu-Medrol 60 mg IV every 6 hours-no change, Pulmicort 1 mg twice daily, oxygen at 2 L nasal cannula, Tessalon Perles, azithromycin. Consult with pulmonary medicine appreciated. CTA of the chest to ruled out pulmonary embolism. Bronchoscopy this afternoon. Patient has been transferred to the cardiac stepdown unit. Continue Perforomist twice daily. 2. Chronic hypoxic respiratory failure on home O2 at 2 L nasal cannula. 3. Hypothyroidism. Continue levothyroxine 75 g daily. 4. Hyperlipidemia. Continue Lipitor 20 mg daily. 5. History of breast cancer status post lumpectomy. Continue Femara 2.5 mg daily. 6. Tobacco use and dependence. Continue nicotine patch. 7. Recurrent depression. Continue Cymbalta 60 mg daily. 8. GI prophylaxis. Protonix. 9. DVT prophylaxis. Lovenox daily subcu. 10. COVID-19 infection not present. 11. Hyperglycemia secondary to steroids. Continue NovoLog scale. Discharge plan: Most likely return home on Sunday. Impression and plan of care have been directed as dictated by the signing physician. Fanny Chen nurse practitioner acting as scribe for signing physician. Objective - Vital Signs Vital signs: Vital Signs Temp 97.8 F 08/29/19 08:00 Pulse 80 08/29/19 08:20 Resp 16 08/29/19 08:00 BP 143/80 08/29/19 08:00 Pulse Ox 96 08/29/19 08:00 Intake & Output 08/28/19 08/29/19 08/29/19 18:59 06:59 18:59 Intake Total 736 Balance 736 Weight 77.2 kg Intake: Oral 736 Other: Voiding Method Bedside Commode # Voids 1 2 - Labs CBC & Chem 7: 08/28/19 08:46 08/28/19 08:46 Labs: Abnormal Lab Results - Last 24 Hours (Table) 08/28/19 08/28/19 08/28/19 Range/Units 08:46 12:13 17:07 Sodium 133 L (137-145) mmol/L Chloride 96 L (98-107) mmol/L BUN 18 H (7-17) mg/dL Glucose 138 H (74-99) mg/dL POC Glucose (mg/dL) 138 H 161 H (75-99) mg/dL Calcium 10.3 H (8.4-10.2) mg/dL AST 51 H (14-36) U/L ALT 38 H (4-34) U/L 08/28/19 08/29/19 Range/Units 20:18 06:23 Sodium (137-145) mmol/L Chloride (98-107) mmol/L BUN (7-17) mg/dL Glucose (74-99) mg/dL POC Glucose (mg/dL) 156 H 151 H (75-99) mg/dL Calcium (8.4-10.2) mg/dL AST (14-36) U/L ALT (4-34) U/L
--- NOTE | 2019-08-29 13:19 | P.PN ---
Subjective Progress Note Date: 08/29/19 Principal diagnosis: Acute exacerbation of chronic obstructive pulmonary disease The patient is seen today 08/29/2019 in follow-up on the selective care unit. She is awake and alert in no acute distress. Currently sitting up in bed. Still somewhat bronchospastic and wheezy. Not quite back to her baseline. Maintaining O2 saturations in the 90s on 3 L/m per nasal cannula. She is afebrile. She remains on DuoNeb inhalations, Pulmicort and Perforomist inhalations, IV Solu-Medrol, Mucinex and Tessalon Perles. Empiric antibiotics in the form of azithromycin. NicoDerm patch in place. Objective - Vital Signs Vital signs: Vital Signs Temp 97.8 F 08/29/19 08:00 Pulse 78 08/29/19 12:23 Resp 24 08/29/19 08:00 BP 143/80 08/29/19 08:00 Pulse Ox 96 08/29/19 08:00 Intake & Output 08/28/19 08/29/19 08/29/19 18:59 06:59 18:59 Intake Total 736 444 Balance 736 444 Weight 77.2 kg Intake: Oral 736 444 Other: Voiding Method Bedside Commode Bedside Commode # Voids 1 2 1 - Exam GENERAL EXAM: Alert, pleasant 69-year-old female patient, on 3 L nasal cannula, and mild pulmonary distress. HEAD: Normocephalic. EYES: Normal reaction of pupils, equal size. NOSE: Clear with pink turbinates. THROAT: No erythema or exudates. NECK: No masses, no JVD. CHEST: No chest wall deformity. LUNGS: Equal air entry with bilateral end expiratory wheeze, diminished. CVS: S1 and S2 normal with no audible murmur, regular rhythm. ABDOMEN: No hepatosplenomegaly, normal bowel sounds, no guarding or rigidity. SPINE: No scoliosis or deformity SKIN: No rashes CENTRAL NERVOUS SYSTEM: Alert and oriented 3. No focal deficits, tone is normal in all 4 extremities. EXTREMITIES: There is no peripheral edema. No clubbing, no cyanosis. Peripheral pulses are intact. - Labs CBC & Chem 7: 08/28/19 08:46 08/28/19 08:46 Labs: Abnormal Lab Results - Last 24 Hours (Table) 08/28/19 08/28/19 08/29/19 Range/Units 17:07 20:18 06:23 POC Glucose (mg/dL) 161 H 156 H 151 H (75-99) mg/dL 08/29/19 Range/Units 11:31 POC Glucose (mg/dL) 150 H (75-99) mg/dL Assessment and Plan Assessment: 1 acute COPD exacerbation with secondary shortness of breath. Chest x-ray is within normal limits and there is no evidence of any acute pneumonia. Limited improvement compared to yesterday. Still bronchospastic and wheezy on today's evaluation. 2 chronic smoking 3 history of breast cancer with lumpectomy currently on Femara 4 hypothyroidism 5 hyperlipidemia 6 anxiety/depression maintain and accommodation of Cymbalta and Xanax 7 hypercalcemia, intact PTH is low, consider skeletal metastases. Plan: The patient was seen and evaluated by Dr. Mann She is still somewhat bronchospastic and wheezy today Continue the current treatment plan Again educated regarding the importance of complete smoking cessation If no significant improvement may consider bronchoscopy with BAL early next week We'll continue to follow I, the cosigning physician, performed a history & physical examination of the patient. Lungs sounds bilateral end expiratory wheeze, diminished. Maintaining good O2 saturations in the 90s on room air. I discussed the assessment and plan of care with my nurse practitioner, Helen Gusman. I attest to the above note as dictated by her.
[2019-08-29 16:48] LABS: Glucose,Whole Blood 163 mg/dL (75-99)
[2019-08-29 20:13] LABS: Glucose,Whole Blood 191 mg/dL (75-99)
[2019-08-30] MEDS: ALBUTEROL NEBULIZED 2.5 MG/3 ML INHALATION PRN ×2 (04:05→23:42)
[2019-08-30] MEDS: methylPREDNISolone SOD SUCCI 125 MG/2 ML VIAL IV SCH ×4 (05:25→23:03)
[2019-08-30 06:06] LABS: Glucose,Whole Blood 164 mg/dL (75-99)
[2019-08-30] MEDS: INSULIN ASPART (NovoLOG) 100 UNIT/ML VIAL SQ SCH ×4 (06:32→20:58)
[2019-08-30] MEDS: PANTOPRAZOLE 40 MG TABLET PO SCH (06:32)
[2019-08-30] MEDS: FORMOTEROL FUMARATE 20 MCG/2 ML NEBU INHALATION SCH ×2 (07:35→20:14)
[2019-08-30] MEDS: IPRATROPIUM-ALBUTEROL 3 ML NEB INHALATION SCH ×4 (07:35→20:14)
[2019-08-30] MEDS: BUDESONIDE 1 MG/2 ML NEBU INHALATION SCH ×2 (07:35→20:14)
[2019-08-30 08:54] LABS: HCT 34.9 % (34.0-46.0); HGB 11.5 gm/dL (11.4-16.0); MCH 34.4 pg (25.0-35.0); MCV 104.1 fL (80.0-100.0); Macrocytosis Slight; Platelet Count 311 k/uL (150-450); RBC 3.36 m/uL (3.80-5.40); RDW 13.9 % (11.5-15.5)
[2019-08-30 09:03] LABS: Calcium 10.2 mg/dL (8.4-10.2); Potassium 4.1 mmol/L (3.5-5.1)
[2019-08-30] MEDS: CEPHALEXIN 500 MG CAP PO SCH ×2 (09:50→20:58)
[2019-08-30] MEDS: AZITHROMYCIN 500 MG TAB PO SCH (09:50)
[2019-08-30] MEDS: DULoxetine HCL 60 MG CAPSULE.DR PO SCH (09:50)
[2019-08-30] MEDS: ASCORBIC ACID 500 MG TAB PO SCH (09:50)
[2019-08-30] MEDS: NYSTATIN 100,000 UNIT/ML SUSP 500,000 UNIT/5 ML CUP PO SCH ×2 (09:50→17:38)
[2019-08-30] MEDS: ATORVASTATIN 20 MG TAB PO SCH (09:51)
[2019-08-30] MEDS: guaiFENesin 600 MG TABLET.ER PO SCH ×2 (09:51→20:58)
[2019-08-30] MEDS: CALCIUM CARB-VIT D 500MG-200UN 1 EACH TAB PO SCH (09:51)
[2019-08-30] MEDS: LETROZOLE 2.5 MG TAB PO SCH (09:51)
[2019-08-30] MEDS: ENOXAPARIN 40 MG/0.4 ML SYRINGE SQ SCH (09:51)
[2019-08-30] MEDS: NICOTINE 21MG/24HR PATCH TRANSDERM SCH (09:52)
[2019-08-30 11:59] LABS: Glucose,Whole Blood 155 mg/dL (75-99)
[2019-08-30] MEDS: BUTALB/APAP/CAFF 50-325-40MG TAB PO PRN (12:09)
--- NOTE | 2019-08-30 13:22 | P.PN ---
Subjective Progress Note Date: 08/30/19 Principal diagnosis: Acute exacerbation of chronic obstructive pulmonary disease The patient is seen today 08/29/2019 in follow-up on the selective care unit. She is awake and alert in no acute distress. Currently sitting up in bed. Still somewhat bronchospastic and wheezy. Not quite back to her baseline. Maintaining O2 saturations in the 90s on 3 L/m per nasal cannula. She is afebrile. She remains on DuoNeb inhalations, Pulmicort and Perforomist inhalations, IV Solu-Medrol, Mucinex and Tessalon Perles. Empiric antibiotics in the form of azithromycin. NicoDerm patch in place. The patient is seen today 08/30/2019 in follow-up on the selective care unit. She is resting comfortably in bed. Awake and alert in no acute distress. Improved today compared to yesterday but still not back to her baseline. Proximal spastic and wheezy. Maintaining good O2 saturation in the 90s on 2 L/m per nasal cannula. She remains afebrile. Hemodynamically stable. White count 13.0. Hemoglobin 11.5. Sodium 131. Potassium 4.1. Creatinine 0.8. Glucose with 27. Objective - Vital Signs Vital signs: Vital Signs Temp 97.5 F L 08/30/19 08:00 Pulse 76 08/30/19 11:52 Resp 22 08/30/19 08:00 BP 146/82 08/30/19 08:00 Pulse Ox 97 08/30/19 11:41 Intake & Output 08/29/19 08/30/19 08/30/19 18:59 06:59 18:59 Intake Total 666 120 Output Total 200 Balance 666 -80 Intake: Oral 666 120 Output: Urine 200 Other: Voiding Method Bedside Commode Bedside Commode Bedside Commode # Voids 1 1 - Exam GENERAL EXAM: Alert, pleasant 69-year-old female patient, on 2 L nasal cannula, and mild pulmonary distress. HEAD: Normocephalic. EYES: Normal reaction of pupils, equal size. NOSE: Clear with pink turbinates. THROAT: No erythema or exudates. NECK: No masses, no JVD. CHEST: No chest wall deformity. LUNGS: Equal air entry with bilateral end expiratory wheeze, diminished. CVS: S1 and S2 normal with no audible murmur, regular rhythm. ABDOMEN: No hepatosplenomegaly, normal bowel sounds, no guarding or rigidity. SPINE: No scoliosis or deformity SKIN: No rashes CENTRAL NERVOUS SYSTEM: Alert and oriented 3. No focal deficits, tone is normal in all 4 extremities. EXTREMITIES: There is no peripheral edema. No clubbing, no cyanosis. Peripheral pulses are intact. - Labs CBC & Chem 7: 08/30/19 07:42 08/30/19 07:42 Labs: Abnormal Lab Results - Last 24 Hours (Table) 08/29/19 08/29/19 08/30/19 Range/Units 16:47 20:12 06:05 WBC (3.8-10.6) k/uL RBC (3.80-5.40) m/uL MCV (80.0-100.0) fL Sodium (137-145) mmol/L Chloride (98-107) mmol/L BUN (7-17) mg/dL Glucose (74-99) mg/dL POC Glucose (mg/dL) 163 H 191 H 164 H (75-99) mg/dL 08/30/19 08/30/19 08/30/19 Range/Units 07:42 07:42 11:56 WBC 13.0 H (3.8-10.6) k/uL RBC 3.36 L (3.80-5.40) m/uL MCV 104.1 H (80.0-100.0) fL Sodium 131 L (137-145) mmol/L Chloride 95 L (98-107) mmol/L BUN 22 H (7-17) mg/dL Glucose 127 H (74-99) mg/dL POC Glucose (mg/dL) 155 H (75-99) mg/dL Assessment and Plan Assessment: 1 acute COPD exacerbation with secondary shortness of breath. Chest x-ray is within normal limits and there is no evidence of any acute pneumonia. Limited improvement compared to yesterday. 2 chronic smoking 3 history of breast cancer with lumpectomy currently on Femara 4 hypothyroidism 5 hyperlipidemia 6 anxiety/depression maintain and accommodation of Cymbalta and Xanax 7 hypercalcemia, intact PTH is low, consider skeletal metastases. Plan: The patient was seen and evaluated by Dr. Mann Improved today compared to yesterday Continue the current treatment plan Again educated regarding the importance of complete smoking cessation If no significant improvement may consider bronchoscopy with BAL early next week We'll continue to follow I, the cosigning physician, performed a history & physical examination of the patient. Lungs sounds bilateral end expiratory wheeze, diminished. Maintaining good O2 saturations in the 90s on 2 L/m per nasal cannula. I discussed the asse ssment and plan of care with my nurse practitioner, Helen Gusman. I attest to the above note as dictated by her.
--- NOTE | 2019-08-30 15:07 | P.PN ---
Subjective Progress Note Date: 08/30/19 This is a 69-year-old female patient of Dr. Bolanos and Dr. Summers with past medical history significant for COPD, chronic hypoxic respiratory failure with home O2 at 2L n/c, hypothyroidism, breast cancer status post lumpectomy, active tobacco use and dependence. Patient presented to the [facility] with complaint of difficulty breathing for the past couple days, gradually worsening. She also has a cough but nonproductive. She came into [facility] emergency center for evaluation. She was afebrile, heart rate 72, blood pressure 136/85, pulse ox 91% on room air. WBC 11.3, hemoglobin 13. Sodium 135, creatinine 1.16, blood sugar 111. Calcium 11. EKG is normal sinus rhythm. Chest x-ray shows no active cardiac pulmonary disease. Patient was started on IV steroids, nebulizer treatments and azithromycin. She is status post 500 ML's of normal saline bolus. The patient continued to have difficulty breathing with tachypnea despite treatment and was placed on the observation unit and consult requested with pulmonary medicine. 08/25: Patient continues to have significant difficulty breathing wheezing and tightness. Patient complains of headache and Fioricet will be added. Patient has been seen by Dr. Mann. Patient is continued on IV Solu-Medrol 60 mg ev amanda 6 hours, no change in medications today. Patient is still waiting for bed on the inpatient side. Afebrile, heart rate 84, blood pressure 124/63, pulse ox 95% on 3 L nasal cannula. Blood sugars are running between 139 and 188. 08/26: Patient continues to have significant wheezing and no change will be made to Solu-Medrol. She is continued on 60 mg IV every 6 hours. Nystatin was added last night for thrush. She has been afebrile, heart rate 81, blood pressure 113/72, pulse ox 95% on 2 L. Continue same medications for now. Possible discharge by or Sunday of this week. 08/27: Patient is seen today on the pediatric unit. She continues to have significant wheezing and difficulty breathing. She has not had any significant improvement since admission. CTA of the chest will be ordered to rule out pulmonary embolism. Discussed with Dr. Mann for possible bronchoscopy. Patient's had difficulty with IV access and a midline has been ordered. Patient has been afebrile, heart rate 86, blood pressure 136/74, pulse ox 93% on 2 L nasal cannula. Repeat blood work, WBC 16.4, BUN 18 and creatinine 0.94, sodium 133. Blood sugars running between 138 and 226. AST 51, ALT 58. 08/28: Patient is seen in follow-up today she is on the cardiac stepdown unit. Her breathing is much improved from yesterday. She is scheduled for bronchoscopy this afternoon. CTA of the chest done yesterday was negative for pulmonary embolism. There was moderate emphysematous changes without acute pulmonary process. She has been afebrile, heart rate 90, blood pressure 143/80, pulse ox 96% on 3 L nasal cannula. Anticipate she will be ready for discharge next 48-72 hours. 08/29: Patient still has dyspnea and exertion today, audible wheezing, conversational dyspnea, patient has also headaches, and she thinks it's one of her normal migraines, oral use is not any better with nystatin swish and swallow, patient's also informed regarding the high calcium level however D calcium level now has improved at 10.2, doubt malignancy there is mild transaminitis, this will be monitored, double view obesity is 13.0, hemoglobin 7.5, patient has slimy mucus, however has difficulty in expectorating it, no sputum available for review for culture,, patient is on IV steroids Solu-Medrol 60, and nebulized Pulmicort twice a day, hepatitis panel to be done, continue Perforomist medicine next and oral Keflex oral Zithromax Review of Systems Constitutional: No fever, no chills, no night sweats. No weight change. Reports weakness, fatigue or lethargy. No daytime sleepiness. EENT: No headache. No blurred vision or double vision, no loss of vision. No loss of Hearing, no ringing in the ears, no dizziness. No nasal drainage or congestion. No epistaxis. No sore throat. Lungs: Reports reports shortness of breath , reports cough, no sputum production. Reports wheezing. Cardiovascular: No chest pain, no lower extremity edema. No palpitations. No paroxysmal nocturnal dyspnea. No orthopnea. No lightheadedness or dizziness. No syncopal episodes. Abdominal: No abdominal pain. No nausea, vomiting. No diarrhea. No constipation. No bloody or tarry stools.. No loss of appetite. Genitourinary: No dysuria, increased frequency, urgency. No urinary retention. Musculoskeletal: No myalgias. No muscle weakness, no gait dysfunction, no frequent falls. No back pain. No neck pain. Integumentary: No wounds, no lesions. No rash or pruritus. No unusual br uising. Neurologic: No aphasia. No facial droop. No change in mentation. No head injury. No headache. No paralysis. No paresthesia. Psychiatric: No depression. No anxiety. No mood swings. Endocrine: No abnormal blood sugars. No weight change. No excessive sweating or thirst. Objective - Vital Signs Vital signs: Vital Signs Temp 97.5 F L 08/30/19 08:00 Pulse 82 08/30/19 12:00 Resp 22 08/30/19 12:00 BP 155/80 08/30/19 12:00 Pulse Ox 93 L 08/30/19 12:00 Intake & Output 08/29/19 08/30/19 08/30/19 18:59 06:59 18:59 Intake Total 666 120 Output Total 600 Balance 666 -480 Intake: Oral 666 120 Output: Urine 600 Other: Voiding Method Bedside Commode Bedside Commode Bedside Commode # Voids 1 1 - Constitutional General appearance: Present: cooperative, mild distress - EENT Eyes: Present: anicteric sclerae, EOMI, PERRLA, dentition normal, normal appearance ENT: Present: NA/AT, normal oropharynx - Neck Neck: Present: normal ROM - Respiratory Respiratory: bilateral: diminished, wheezing - Cardiovascular Rhythm: regular Abnormal Heart Sounds: Absent: systolic murmur, diastolic murmur, rub, S3 Gall op, S4 Gallop, click, other - Gastrointestinal General gastrointestinal: Present: normal bowel sounds, soft - Integumentary Integumentary: Present: normal, normal turgor - Neurologic Neurologic: Present: CNII-XII intact - Musculoskeletal Musculoskeletal: Present: gait normal, strength equal bilaterally - Labs CBC & Chem 7: 08/30/19 07:42 08/30/19 07:42 Labs: Abnormal Lab Results - Last 24 Hours (Table) 08/29/19 08/29/19 08/30/19 Range/Units 16:47 20:12 06:05 WBC (3.8-10.6) k/uL RBC (3.80-5.40) m/uL MCV (80.0-100.0) fL Sodium (137-145) mmol/L Chloride (98-107) mmol/L BUN (7-17) mg/dL Glucose (74-99) mg/dL POC Glucose (mg/dL) 163 H 191 H 164 H (75-99) mg/dL 08/30/19 08/30/19 08/30/19 Range/Units 07:42 07:42 11:56 WBC 13.0 H (3.8-10.6) k/uL RBC 3.36 L (3.80-5.40) m/uL MCV 104.1 H (80.0-100.0) fL Sodium 131 L (137-145) mmol/L Chloride 95 L (98-107) mmol/L BUN 22 H (7-17) mg/dL Glucose 127 H (74-99) mg/dL POC Glucose (mg/dL) 155 H (75-99) mg/dL Assessment and Plan Plan: Assessment and Plan 1. Acute COPD exacerbation. Continue DuoNeb treatments 4 times daily and albuterol as needed, Solu-Medrol 60 mg IV every 6 hours-no change, Pulmicort 1 mg twice daily, oxygen at 2 L nasal cannula, Tessalon Perles, azithromycin. Consult with pulmonary medicine appreciated. CTA of the chest to ruled out pulmonary embolism. Bronchoscopy still to be done Patient has been transferred to the cardiac stepdown unit. Continue Perforomist twice daily. Patient has thick slimy mucus, patient might need To flutter valve treatments, unsure about the bronchoscopy timing, as the patient is still bronchospastic 2. Chronic hypoxic respiratory failure on home O2 at 2 L nasal cannula. 3. Oral stu, no significant response with nystatin, start clotrimazole thrush 5 times a day 3. Hypothyroidism. Continue levothyroxine 75 g daily. 4. Hyperlipidemia. Continue Lipitor 20 mg daily. 5. History of breast cancer status post lumpectomy. Continue Femara 2.5 mg d aily. 6. Tobacco use and dependence. Continue nicotine patch. 7. Recurrent depression. Continue Cymbalta 60 mg daily. 8. GI prophylaxis. Protonix. 9. DVT prophylaxis. Lovenox daily subcu. 10. COVID-19 infection not present. 11. Hyperglycemia secondary to steroids . Continue NovoLog scale. 12. Mild hypercalcemia resolved, most likely secondary to dehydration, doubt malignancy, continue to monitor . Continue NovoLog scale. Discharge plan: Most likely return home on Sunday.
[2019-08-30 16:57] LABS: Glucose,Whole Blood 150 mg/dL (75-99)
[2019-08-30] MEDS: CLOTRIMAZOLE TROCHE 10 MG TROCHE MUCOUS MEM SCH ×3 (18:26→23:03)
[2019-08-30 20:45] LABS: Glucose,Whole Blood 143 mg/dL (75-99)
[2019-08-31] MEDS: IPRATROPIUM-ALBUTEROL 3 ML NEB INHALATION SCH ×5 (03:40→21:42)
[2019-08-31 06:14] LABS: Glucose,Whole Blood 144 mg/dL (75-99)
[2019-08-31] MEDS: methylPREDNISolone SOD SUCCI 125 MG/2 ML VIAL IV SCH ×4 (06:40→23:03)
[2019-08-31] MEDS: PANTOPRAZOLE 40 MG TABLET PO SCH (06:40)
[2019-08-31] MEDS: INSULIN ASPART (NovoLOG) 100 UNIT/ML VIAL SQ SCH ×4 (06:40→20:22)
[2019-08-31] MEDS: CLOTRIMAZOLE TROCHE 10 MG TROCHE MUCOUS MEM SCH ×5 (06:57→23:03)
[2019-08-31] MEDS: FORMOTEROL FUMARATE 20 MCG/2 ML NEBU INHALATION SCH ×2 (08:21→21:42)
[2019-08-31] MEDS: BUDESONIDE 1 MG/2 ML NEBU INHALATION SCH ×2 (08:21→21:42)
[2019-08-31] MEDS: NICOTINE 21MG/24HR PATCH TRANSDERM SCH (08:44)
[2019-08-31] MEDS ORDERED: FUROSEMIDE 10 MG/ML 4 ML VIAL IV STA (08:52)
[2019-08-31] MEDS: LEVOTHYROXINE 75 MCG TAB PO SCH (09:14)
[2019-08-31] MEDS: AZITHROMYCIN 500 MG TAB PO SCH (09:14)
[2019-08-31] MEDS: LETROZOLE 2.5 MG TAB PO SCH (09:14)
[2019-08-31] MEDS: DULoxetine HCL 60 MG CAPSULE.DR PO SCH (09:15)
[2019-08-31] MEDS: ASCORBIC ACID 500 MG TAB PO SCH (09:15)
[2019-08-31] MEDS: guaiFENesin 600 MG TABLET.ER PO SCH ×2 (09:15→20:22)
[2019-08-31] MEDS: CEPHALEXIN 500 MG CAP PO SCH ×2 (09:15→20:22)
[2019-08-31] MEDS: CALCIUM CARB-VIT D 500MG-200UN 1 EACH TAB PO SCH (09:15)
[2019-08-31] MEDS: ATORVASTATIN 20 MG TAB PO SCH (09:15)
[2019-08-31] MEDS: ENOXAPARIN 40 MG/0.4 ML SYRINGE SQ SCH (09:15)
--- NOTE | 2019-08-31 11:22 | P.PN ---
Subjective Progress Note Date: 08/31/19 On 08/31/2019, the patient remains bronchospastic and wheezy. She is short of breath. Despite aggressive bronchodilator and steroid regimen, the patient remains unchanged. I don't think she can handle a bronchoscopy yet as the patient is quite short of breath and bronchospastic and she can easily link aturate during the procedure. In any rate, the patient will be kept on DuoNeb the last treatment [id number], a combination of Perforomist and Pulmicort neb last treatment twice a day, high-dose IV Solu-Medrol and I'm going to add theophylline today to add some additional bronchodilator dilation as an adjunct for her other medications. She'll be given also dose of diuretics. She is on 3 L of oxygen by nasal cannula. Objective - Vital Signs Vital signs: Vital Signs Temp 98.5 F 08/31/19 08:00 Pulse 92 08/31/19 08:47 Resp 24 08/31/19 08:00 BP 126/87 08/31/19 08:00 Pulse Ox 93 L 08/31/19 08:00 Intake & Output 08/30/19 08/31/19 08/31/19 18:59 06:59 18:59 Intake Total 240 10 120 Output Total 900 300 Balance -660 -290 120 Weight 76.5 kg Intake: IV 10 0.9 10 Oral 240 120 Output: Urine 900 300 Other: Voiding Method Bedside Commode Bedside Commode Bedside Commode # Voids 1 1 0 # Bowel Movements 0 - Exam The patient appeared well nourished and normally developed. Vital signs as documented. Head exam is unremarkable. No scleral icterus or corneal arcus noted. Neck is without jugular venous distension, thyromegaly, or carotid bruits. Carotid upstrokes are brisk bilaterally. Lung sounds are diminished bilaterally along with some few scattered external wheeze Cardiac exam reveals the PMI to be normally sized and situated. Rhythm is regular. First and second heart sounds normal. No murmurs, rubs or gallops. Abdominal exam reveals normal bowel sounds, no masses, no organomegaly and no aortic enlargement. Extremities are nonedematous and both femoral and pedal pulses are normal.Examination of the skin revealed no evidence of significant rashes, suspicious appearing nevi or other concerning lesions. Neurologically awake and alert and there is no focal neurological deficit - Labs CBC & Chem 7: 08/30/19 07:42 08/30/19 07:42 Labs: Abnormal Lab Results - Last 24 Hours (Table) 08/30/19 08/30/19 08/30/19 Range/Units 11:56 16:54 20:28 POC Glucose (mg/dL) 155 H 150 H 143 H (75-99) mg/dL 08/31/19 Range/Units 06:00 POC Glucose (mg/dL) 144 H (75-99) mg/dL Assessment and Plan Plan: 1 acute COPD exacerbation with secondary shortness of breath. Chest x-ray is within normal limits and there is no evidence of any acute pneumonia. Limited improvement compared to yesterday. Still bronchospastic and wheezy on today's evaluation. The CAT scan of the chest showed no acute abnormalities are than COPD. The patient is not ready for bronchoscopy as the patient is quite bronchospastic and wheezy and she can easily go into respiratory failure and decompensated if bronchoscopies attempted. 2 chronic smoking 3 history of breast cancer with lumpectomy currently on Femara 4 hypothyroidism 5 hyperlipidemia 6 anxiety/depression maintain and accommodation of Cymbalta and Xanax 7 hypercalcemia, intact PTH is low, consider skeletal metastases. Plan Smoking cessation counseling DuoNeb nebulized treatment 4 times a day and when necessary. IV Solu-Medrol Oral Zithromax Add theophylline CR 300 mg a day Give Lasix 40 mg IV push We'll continue to follow C
[2019-08-31] MEDS: THEOPHYLLINE 24 HOUR 300 MG CAP.ER.24H PO SCH (11:59)
[2019-08-31 12:00] LABS: Glucose,Whole Blood 175 mg/dL (75-99)
--- NOTE | 2019-08-31 15:39 | P.PN ---
Subjective This is a 69-year-old female patient of Dr. Bolanos and Dr. Summers with past medical history significant for COPD, chronic hypoxic respiratory failure with home O2 at 2L n/c, hypothyroidism, breast cancer status post lumpectomy, active tobacco use and dependence. Patient presented to the hospital with complaint of difficulty breathing for the past couple days, gradually worsening. She also has a cough but nonproductive. She came into [facility] emergency center for evaluation. She was afebrile, heart rate 72, blood pressure 136/85, pulse ox 91% on room air. WBC 11.3, hemoglobin 13. Sodium 135, creatinine 1.16, blood sugar 111. Calcium 11. EKG is normal sinus rhythm. Chest x-ray shows no active cardiac pulmonary disease. Patient was started on IV steroids, nebulizer treatments and azithromycin. She is status post 500 ML's of normal saline bolus. The patient continued to have difficulty breathing with tachypnea despite treatment and was placed on the observation unit and consult requested with pulmonary medicine. 08/25: Patient continues to have significant difficulty breathing wheezing and tightness. Patient complains of headache and Fioricet will be added. Patient has been seen by Dr. Mann. Patient is continued on IV Solu-Medrol 60 mg every 6 hours, no change in medications today. Patient is still waiting for bed on the inpatient side. Afebrile, heart rate 84, blood pressure 124/63, pulse ox 95% on 3 L nasal cannula. Blood sugars are running between 139 and 188. 08/26: Patient continues to have significant wheezing and no change will be made to Solu-Medrol. She is continued on 60 mg IV every 6 hours. Nystatin was added last night for thrush. She has been afebrile, heart rate 81, blood pressure 113/72, pulse ox 95% on 2 L. Continue same medications for now. Possible discharge by or Sunday of this week. 08/27: Patient is seen today on the pediatric unit. She continues to have significant wheezing and difficulty breathing. She has not had any significant improvement since admission. CTA of the chest will be ordered to rule out pulmonary embolism. Discussed with Dr. Mann for possible bronchoscopy. Patient's had difficulty with IV access and a midline has been ordered. Patient has been afebrile, heart rate 86, blood pressure 136/74, pulse ox 93% on 2 L nasal cannula. Repeat blood work, WBC 16.4, BUN 18 and creatinine 0.94, sodium 133. Blood sugars running between 138 and 226. AST 51, ALT 58. 08/28: Patient is seen in follow-up today she is on the cardiac stepdown unit. Her breathing is much improved from yesterday. She is scheduled for bronchoscopy this afternoon. CTA of the chest done yesterday was negative for pulmonary embolism. There was moderate emphysematous changes without acute pulmonary process. She has been afebrile, heart rate 90, blood pressure 143/80, pulse ox 96% on 3 L nasal cannula. Anticipate she will be ready for discharge next 48-72 hours. 08/29: Patient still has dyspnea and exertion today, audible wheezing, conversational dyspnea, patient has also headaches, and she thinks it's one of her normal migraines, oral use is not any better with nystatin swish and swallow, patient's also informed regarding the high calcium level however D calcium level now has improved at 10.2, doubt malignancy there is mild transaminitis, this will be monitored, double view obesity is 13.0, hemoglobin 7.5, patient has slimy mucus, however has difficulty in expectorating it, no sputum available for review for culture,, patient is on IV steroids Solu-Medrol 60, and nebulized Pulmicort twice a day, hepatitis panel to be done, continue Perforomist medicine next and oral Keflex oral Zithromax 08/30: Patient is dyspneic still, with audible wheezing, conversational dyspnea, patient also has some anxiety, no bowel movement for the past 9 days, patient was started on by mouth Olivas in, along with one-time dose of IV Lasix, continued on nebulized treatments, as well as IV Solu-Medrol. Patient has no fever, no dysphagia, and no aspirated events, heart rate 90s, blood pressure in 160s, still with accessory muscle use, and tachypnea. Patient is on a Ventimask, 94% on 35% FiO2 Review of Systems Constitutional: No fever, no chills, no night sweats. No weight change. Reports weakness, fatigue or lethargy. No daytime sleepiness. EENT: No headache. No blurred vision or double vision, no loss of vision. No loss of Hearing, no ringing in the ears, no dizziness. No nasal drainage or congestion. No epistaxis. No sore throat. Lungs: Reports reports shortness of breath , reports cough, no sputum production. Reports wheezing. Cardiovascular: No chest pain, no lower extremity edema. No palpitations. No paroxysmal nocturnal dyspnea. No orthopnea. No lightheadedness or dizziness. No syncopal episodes. Abdominal: No abdominal pain. No nausea, vomiting. No diarrhea. No constipation. No bloody or tarry stools.. No loss of appetite. Genitourinary: No dysuria, increased frequency, urgency. No urinary retention. Musculoskeletal: No myalgias. No muscle weakness, no gait dysfunction, no frequent falls. No back pain. No neck pain. Integumentary: No wounds, no lesions. No rash or pruritus. No unusual bruising. Neurologic: No aphasia. No facial droop. No change in mentation. No head injury. No headache. No paralysis. No paresthesia. Psychiatric: No depression. No anxiety. No mood swings. Endocrine: No abnormal blood sugars. No weight change. No excessive sweating or thirst. Objective - Vital Signs Vital signs: Vital Signs Temp 98.5 F 08/31/19 08:00 Pulse 92 08/31/19 13:12 Resp 20 08/31/19 12:00 BP 162/88 08/31/19 12:00 Pulse Ox 94 L 08/31/19 12:00 Intake & Output 08/30/19 08/31/19 08/31/19 18:59 06:59 18:59 Intake Total 240 10 240 Output Total 900 300 400 Balance -660 -290 -160 Weight 76.5 kg Intake: IV 10 0.9 10 Oral 240 240 Output: Urine 900 300 400 Other: Voiding Method Bedside Commode Bedside Commode Bedside Commode # Voids 1 1 1 # Bowel Movements 0 - Constitutional General appearance: Present: cooperative, mild distress - EENT Eyes: Present: EOMI, PERRLA, dentition normal, normal appearance ENT: Present: NA/AT, normal oropharynx - Neck Neck: Present: normal ROM - Respiratory Respiratory: bilateral: diminished, wheezing, prolonged inspiration, negative: prolonged expiration - Cardiovascular Rhythm: regular Heart sounds: normal: S1, S2 Abnormal Heart Sounds: Absent: systolic murmur, diastolic murmur, rub, S3 Gallop, S4 Gallop, click, other - Gastrointestinal General gastrointestinal: Present: normal bowel sounds, soft - Integumentary Integumentary: Present: normal, normal turgor - Neurologic Neurologic: Present: CNII-XII intact - Musculoskeletal Musculoskeletal: Present: gait normal, strength equal bilaterally - Psychiatric Psychiatric: Present: A&O x's 3, appropriate affect, intact judgment & insight - Labs CBC & Chem 7: 08/30/19 07:42 08/30/19 07:42 Labs: Abnormal Lab Results - Last 24 Hours (Table) 08/30/19 08/30/19 08/31/19 Range/Units 16:54 20:28 06:00 POC Glucose (mg/dL) 150 H 143 H 144 H (75-99) mg/dL 08/31/19 Range/Units 11:52 POC Glucose (mg/dL) 175 H (75-99) mg/dL Assessment and Plan Plan: Assessment and Plan 1. Acute COPD exacerbation. Continue DuoNeb treatments 4 times daily and albuterol as needed, Solu-Medrol 60 mg IV every 6 hours-no change, Pulmicort 1 mg twice daily, oxygen at 2 L nasal cannula, Tessalon Perles, azithromycin. Consult with pulmonary medicine appreciated. CTA of the chest negative pulmonary embolism. Bronchoscopy still to be done Patient has been transferred to the cardiac stepdown unit. Continue Perforomist twice daily. Patient has thick slimy mucus, patient might need To flutter valve treatments, unsure about the bronchoscopy timing, as the patient is still bronchospastic. Theophylline started, 400 every 12 hours, Lasix given, 2. Chronic hypoxic respiratory failure on home O2 at 2 L nasal cannula. 3. Oral stu, no significant response with nystatin, start clotrimazole thrush 5 times a day 3. Hypothyroidism. Continue levothyroxine 75 g daily. 4. Hyperlipidemia. Continue Lipitor 20 mg daily. 5. History of breast cancer status post lumpectomy. Continue Femara 2.5 mg daily. 6. Tobacco use and dependence. Continue nicotine patch. 7. Recurrent depression. Continue Cymbalta 60 mg daily. 8. GI prophylaxis. Protonix. 9. DVT prophylaxis. Lovenox daily subcu. 10. COVID-19 infection not present. 11. Hyperglycemia secondary to steroids . Continue NovoLog scale. 12. Mild hypercalcemia resolved, most likely secondary to dehydration, doubt malignancy, continue to monitor . Continue NovoLog scale. 13. Pulmonary anxiety, Xanax 0.25 twice a day when necessary 14 Constipation, start Nora-Colace daily Discharge plan: Home
[2019-08-31 17:00] LABS: Glucose,Whole Blood 150 mg/dL (75-99)
[2019-08-31] MEDS: SENNOSIDES-DOCUSATE SODIUM 1 EACH TAB PO SCH (18:01)
[2019-08-31 19:59] LABS: Glucose,Whole Blood 189 mg/dL (75-99)
[2019-08-31] MEDS: ALPRAZolam 0.25 MG TAB PO SCH (20:22)
[2019-09-01] MEDS: ACETAMINOPHEN TAB 500 MG TAB PO PRN (03:25)
[2019-09-01 06:09] LABS: Glucose,Whole Blood 143 mg/dL (75-99)
[2019-09-01] MEDS: methylPREDNISolone SOD SUCCI 125 MG/2 ML VIAL IV SCH ×4 (06:26→22:42)
[2019-09-01] MEDS: INSULIN ASPART (NovoLOG) 100 UNIT/ML VIAL SQ SCH ×4 (06:26→20:21)
[2019-09-01] MEDS: PANTOPRAZOLE 40 MG TABLET PO SCH (06:26)
[2019-09-01 06:47] LABS: Albumin 4.4 g/dL (3.5-5.0); Calcium 10.1 mg/dL (8.4-10.2); Potassium 3.9 mmol/L (3.5-5.1); Total Bilirubin 0.5 mg/dL (0.2-1.3)
[2019-09-01 06:56] LABS: Basophils % (A) 0 %; Eosinophils % (A) 0 %; HCT 36.3 % (34.0-46.0); HGB 12.2 gm/dL (11.4-16.0); Lymphocytes # (A) 0.6 k/uL (1.0-4.8); Lymphocytes % (A) 4 %; MCH 35.4 pg (25.0-35.0); MCHC 33.8 g/dL (31.0-37.0); MCV 104.9 fL (80.0-100.0); Macrocytosis Slight; Monocytes # (A) 0.6 k/uL (0-1.0); Monocytes % (A) 4 %; Neutrophils % (A) 91 %; Platelet Count 328 k/uL (150-450); RBC 3.46 m/uL (3.80-5.40); RDW 13.8 % (11.5-15.5); WBC 13.2 k/uL (3.8-10.6)
[2019-09-01] MEDS: BUDESONIDE 1 MG/2 ML NEBU INHALATION SCH ×2 (08:03→20:48)
[2019-09-01] MEDS: IPRATROPIUM-ALBUTEROL 3 ML NEB INHALATION SCH ×4 (08:03→20:48)
[2019-09-01] MEDS: FORMOTEROL FUMARATE 20 MCG/2 ML NEBU INHALATION SCH ×2 (08:03→20:48)
[2019-09-01] MEDS: CLOTRIMAZOLE TROCHE 10 MG TROCHE MUCOUS MEM SCH ×6 (09:18→22:43)
[2019-09-01] MEDS: LETROZOLE 2.5 MG TAB PO SCH (09:21)
[2019-09-01] MEDS: SENNOSIDES-DOCUSATE SODIUM 1 EACH TAB PO SCH (09:21)
[2019-09-01] MEDS: AZITHROMYCIN 500 MG TAB PO SCH (09:22)
[2019-09-01] MEDS: ALPRAZolam 0.25 MG TAB PO SCH ×2 (09:22→20:15)
[2019-09-01] MEDS: CALCIUM CARB-VIT D 500MG-200UN 1 EACH TAB PO SCH (09:22)
[2019-09-01] MEDS: THEOPHYLLINE 24 HOUR 300 MG CAP.ER.24H PO SCH (09:22)
[2019-09-01] MEDS: CEPHALEXIN 500 MG CAP PO SCH ×2 (09:22→20:14)
[2019-09-01] MEDS: LEVOTHYROXINE 75 MCG TAB PO SCH (09:22)
[2019-09-01] MEDS: ENOXAPARIN 40 MG/0.4 ML SYRINGE SQ SCH (09:22)
[2019-09-01] MEDS: DULoxetine HCL 60 MG CAPSULE.DR PO SCH (09:22)
[2019-09-01] MEDS: ATORVASTATIN 20 MG TAB PO SCH (09:22)
[2019-09-01] MEDS: ASCORBIC ACID 500 MG TAB PO SCH (09:22)
[2019-09-01] MEDS: guaiFENesin 600 MG TABLET.ER PO SCH ×2 (09:22→20:14)
[2019-09-01] MEDS: NICOTINE 21MG/24HR PATCH TRANSDERM SCH (09:27)
--- NOTE | 2019-09-01 10:22 | P.PN ---
Subjective This is a 69-year-old female patient of Dr. Bolanos and Dr. Summers with past medical history significant for COPD, chronic hypoxic respiratory failure with home O2 at 2L n/c, hypothyroidism, breast cancer status post lumpectomy, active tobacco use and dependence. Patient presented to the hospital with complaint of difficulty breathing for the past couple days, gradually worsening. She also has a cough but nonproductive. She came into [facility] emergency center for evaluation. She was afebrile, heart rate 72, blood pressure 136/85, pulse ox 91% on room air. WBC 11.3, hemoglobin 13. Sodium 135, creatinine 1.16, blood sugar 111. Calcium 11. EKG is normal sinus rhythm. Chest x-ray shows no active cardiac pulmonary disease. Patient was started on IV steroids, nebulizer treatments and azithromycin. She is status post 500 ML's of normal saline bolus. The patient continued to have difficulty breathing with tachypnea despite treatment and was placed on the observation unit and consult requested with pulmonary medicine. 08/25: Patient continues to have significant difficulty breathing wheezing and ti ghtness. Patient complains of headache and Fioricet will be added. Patient has been seen by Dr. Mann. Patient is continued on IV Solu-Medrol 60 mg every 6 hours, no change in medications today. Patient is still waiting for bed on the inpatient side. Afebrile, heart rate 84, blood pressure 124/63, pulse ox 95% on 3 L nasal cannula. Blood sugars are running between 139 and 188. 08/26: Patient continues to have significant wheezing and no change will be made to Solu-Medrol. She is continued on 60 mg IV every 6 hours. Nystatin was added last night for thrush. She has been afebrile, heart rate 81, blood pressure 113/72, pulse ox 95% on 2 L. Continue same medications for now. Possible discharge by or Sunday of this week. 08/27: Patient is seen today on the pediatric unit. She continues to have significant wheezing and difficulty breathing. She has not had any significant improvement since admission. CTA of the chest will be ordered to rule out pulmonary embolism. Discussed with Dr. Mann for possible bronchoscopy. Patient's had difficulty with IV access and a midline has been ordered. Patient has been afebrile, heart rate 86, blood pressure 136/74, pulse ox 93% on 2 L nasal cannula. Repeat blood work, WBC 16.4, BUN 18 and creatinine 0.94, sodium 133. Blood sugars running between 138 and 226. AST 51, ALT 58. 08/28: Patient is seen in follow-up today she is on the cardiac stepdown unit. Her breathing is much improved from yesterday. She is scheduled for bronchoscopy this afternoon. CTA of the chest done yesterday was negative for pulmonary embolism. There was moderate emphysematous changes without acute pulmonary process. She has been afebrile, heart rate 90, blood pressure 143/80, pulse ox 96% on 3 L nasal cannula. Anticipate she will be ready for discharge next 48-72 hours. 08/29: Patient still has dyspnea and exertion today, audible wheezing, conversational dyspnea, patient has also headaches, and she thinks it's one of her normal migraines, oral use is not any better with nystatin swish and swallow, patient's also informed regarding the high calcium level however D calcium level now has improved at 10.2, doubt malignancy there is mild transaminitis, this will be monitored, double view obesity is 13.0, hemoglobin 7.5, patient has slimy mucus, however has difficulty in expectorating it, no sputum available for review for culture,, patient is on IV steroids Solu-Medrol 60, and nebulized Pulmicort twice a day, hepatitis panel to be done, continue Perforomist medicine next and oral Keflex oral Zithromax 08/30: Patient is dyspneic still, with audible wheezing, conversational dyspnea, patient also has some anxiety, no bowel movement for the past 9 days, patient was started on by mouth Olivas in, along with one-time dose of IV Lasix, continued on nebulized treatments, as well as IV Solu-Medrol. Patient has no fever, no dysphagia, and no aspirated events, heart rate 90s, blood pressure in 160s, still with accessory muscle use, and tachypnea. Patient is on a Ventimask, 94% on 35% FiO2. 08/31: Patient seen as follow-up today, evaluated on morning rounds, sitting up in bed, on nebulizing treatment. Patient still has audible wheezing and conversational dyspnea, has not improved much since admission. She continues on Pulmicort along with Tessalon, Solu-Medrol 60 mg IV push every 6 hours, and theophylline 300 mg daily. Apparently bronchoscopy was held due to patient was still bronchospastic and wheezing. Given that she has not improved since admission, bronchoscopy may be beneficial. Awaiting pulmonary's re commendations. Vital signs are stable, blood pressure 129/79, heart rate 98, afebrile at 96.9 axillary, 98% on the Ventimask with FiO2 35%. Objective - Vital Signs Vital signs: Vital Signs Temp 96.9 F L 09/01/19 08:00 Pulse 102 H 09/01/19 08:27 Resp 20 09/01/19 08:00 BP 129/79 09/01/19 08:00 Pulse Ox 98 09/01/19 08:00 Intake & Output 08/31/19 09/01/19 09/01/19 18:59 06:59 18:59 Intake Total 480 10 200 Output Total 400 1700 Balance 80 -1690 200 Intake: IV 10 0.9 10 Oral 480 200 Output: Urine 400 1700 Other: Voiding Method Bedside Commode Bedside Commode Bedside Commode # Voids 1 1 - Constitutional General appearance: Present: cooperative, mild distress - EENT Eyes: Present: EOMI, PERRLA, normal appearance - Neck Neck: Present: normal ROM. Absent: lymphadenopathy, thyromegaly - Respiratory Respiratory: bilateral: diminished, wheezing (Inspiratory and expiratory), prolonged expiration, prolonged inspiration - Cardiovascular Rhythm: regular Heart sounds: normal: S1, S2 - Gastrointestinal General gastrointestinal: Present: normal bowel sounds, soft. Absent: tenderne ss - Integumentary Integumentary: Present: normal, normal turgor - Neurologic Neurologic: Present: CNII-XII intact. Absent: focal deficits - Musculoskeletal Musculoskeletal: Present: generalized weakness, strength equal bilaterally - Psychiatric Psychiatric: Present: A&O x's 3, appropriate affect, intact judgment & insight - Labs CBC & Chem 7: 09/02/19 09:30 09/02/19 09:30 Labs: Abnormal Lab Results - Last 24 Hours (Table) 08/31/19 08/31/19 08/31/19 Range/Units 11:52 16:56 19:58 WBC (3.8-10.6) k/uL RBC (3.80-5.40) m/uL MCV (80.0-100.0) fL MCH (25.0-35.0) pg Neutrophils # (1.3-7.7) k/uL Lymphocytes # (1.0-4.8) k/uL Sodium (137-145) mmol/L Chloride (98-107) mmol/L Carbon Dioxide (22-30) mmol/L BUN (7-17) mg/dL Glucose (74-99) mg/dL POC Glucose (mg/dL) 175 H 150 H 189 H (75-99) mg/dL AST (14-36) U/L ALT (4-34) U/L 09/01/19 09/01/19 09/01/19 Range/Units 05:58 05:58 06:08 WBC 13.2 H (3.8-10.6) k/uL RBC 3.46 L (3.80-5.40) m/uL MCV 104.9 H (80.0-100.0) fL MCH 35.4 H (25.0-35.0) pg Neutrophils # 12.0 H (1.3-7.7) k/uL Lymphocytes # 0.6 L (1.0-4.8) k/uL Sodium 130 L (137-145) mmol/L Chloride 90 L (98-107) mmol/L Carbon Dioxide 34 H (22-30) mmol/L BUN 32 H (7-17) mg/dL Glucose 130 H (74-99) mg/dL POC Glucose (mg/dL) 143 H (75-99) mg/dL AST 75 H (14-36) U/L ALT 55 H (4-34) U/L Assessment and Plan Plan: 1. Acute COPD exacerbation. Continue DuoNeb treatments 4 times daily and albuterol as needed, Solu-Medrol 60 mg IV every 6 hours, Pulmicort 1 mg twice daily, Tessalon Perles, Theophylline 300mg daily, Mucinex 600mg Q12 hours, and Perforomist 20 mcg's twice daily, course of azithromycin completed. Consult with pulmonary medicine appreciated. CTA of the chest negative pulmonary embolism. Bronchoscopy still to be done, unsure about the bronchoscopy timing, as the patient is still bronchospastic. Patient has been transferred to the cardiac stepdown unit. 2. Chronic hypoxic respiratory failure on home O2 at 2 L nasal cannula. 3. Oral stu, no significant response with nystatin, start clotrimazole thrush 5 times a day 3. Hypothyroidism. Continue levothyroxine 75 g daily. 4. Hyperlipidemia. Continue Lipitor 20 mg daily. 5. History of breast cancer status post lumpectomy. Continue Femara 2.5 mg daily. 6. Tobacco use and dependence. Continue nicotine patch. 7. Recurrent depression. Continue Cymbalta 60 mg daily. 8. GI prophylaxis. Protonix. 9. DVT prophylaxis. Lovenox daily subcu. 10. COVID-19 infection not present. 11. Hyperglycemia secondary to steroids. Continue NovoLog scale. 12. Mild hypercalcemia resolved, most likely secondary to dehydration, doubt malignancy, continue to monitor. Continue NovoLog scale. 13. Pulmonary anxiety, Xanax 0.25 twice a day when necessary 14 Constipation, start Nora-Colace daily Discharge plan: Home The above impression and plan of care have been discussed and directed by signing physician. Mayr Peterson nurse practitioner acting as scribe for signing physician.
[2019-09-01 11:58] VITALS: BMI 25.6
[2019-09-01 12:28] LABS: Glucose,Whole Blood 146 mg/dL (75-99)
--- NOTE | 2019-09-01 15:18 | P.PN ---
Subjective Progress Note Date: 09/01/19 Principal diagnosis: Shortness of breath On today's evaluation of 08/25/2019, the patient continues to progress bronchospastic and wheezy and short of breath. Limited improvement compared to yesterday. No hemoptysis. No pleurisy. She remains on IV Solu-Medrol pH is on Symbicort and she is also on DuoNeb the right [id number]. Coronavirus PCR came back negative. The patient also had a suppressed intact PTH and the calcium level was at 11. This is to be monitored very closely for any skeletal results of calcium especially with her history of breast cancer. She is on IV Solu Medrol for now. On 08/27/2019 patient seen in follow-up on observation unit, she is awake and alert, she states her breathing has not gotten better however has not worsened either, still significantly bronchospastic on today's exam, although seems to be somewhat improved. Patient remains on 2 L of oxygen, pulse ox is 95%, she is afebrile, hemodynamically she stable, lung sounds reveal diffuse wheezes bilaterally. Patient remains on azithromycin, breathing treatments, Pulmicort, Perforomist, and IV steroids. Slowly improving On 08/28/2019 patient seen in follow-up on pediatric unit. She is still quite bronchospastic, occasionally she is able to bring up very small amount of sputum. She is on 2 L of oxygen with pulse ox of 93%, she is been afebrile. Hemodynamically she is stable, CTA chest has been ordered to rule out possibility of pulmonary embolism, she remains on IV steroids, breathing treatment, azithromycin, and despite medical treatment patient is slow to impr ove. On 09/01/2019 patient is still quite bronchospastic, and dyspneic, not bringing up much sputum, reading is labored with any exertion, she remains on 3 L of oxygen, pulse ox 98%, she is on IV steroids, breathing treatments, oral antibiotics, Mucinex, theophylline was added last night. Patient states she doesn't feel that she is much improved. She received a dose of IV Lasix yesterday she diuresed, and she is in -1.6 L over last 24 hours. His labs have been reviewed showing white blood cell count 13.2, hemoglobin is 12.2, sodium is 1:30, potassium 3.9, chloride is 90, CO2 34, BUN is 32, creatinine 0.8. Her bronchoscopy on Sunday last week was canceled related to patient not being quite ready for bronchoscopy related to increased bronchospastic state he and the risk of complications during the procedure Objective - Vital Signs Vital signs: Vital Signs Temp 98.6 F 09/01/19 12:00 Pulse 95 09/01/19 12:00 Resp 20 09/01/19 12:00 BP 149/77 09/01/19 12:00 Pulse Ox 98 09/01/19 08:00 Intake & Output 08/31/19 09/01/19 09/01/19 18:59 06:59 18:59 Intake Total 480 10 200 Output Total 400 1700 600 Balance 80 -1690 -400 Weight 76.5 kg Intake: IV 10 0.9 10 Oral 480 200 Output: Urine 400 1700 600 Other: Voiding Method Bedside Commode Bedside Commode Bedside Commode # Voids 1 1 1 - Exam GENERAL EXAM: Alert, very pleasant, 69-year-old white female, on 3 L of oxygen and the pulse ox of 95% dyspneic with conversation, but no acute distress, comfortable in no apparent distress. HEAD: Normocephalic/atraumatic. EYES: Normal reaction of pupils, equal size. Conjunctiva pink, sclera white. NOSE: Clear with pink turbinates. THROAT: No erythema or exudates. NECK: No masses, no JVD, no thyroid enlargement, no adenopathy. CHEST: No chest wall deformity. Symmetrical expansion. LUNGS: Equal air entry with diffuse wheezes CVS: Regular rate and rhythm, normal S1 and S2, no gallops, no murmurs, no rubs ABDOMEN: Soft, nontender. No hepatosplenomegaly, normal bowel sounds, no guarding or rigidity. EXTREMITIES: No clubbing, no edema, no cyanosis, 2+ pulses and upper and lower extremities. MUSCULOSKELETAL: Muscle strength and tone normal. SPINE: No scoliosis or deformity SKIN: No rashes CENTRAL NERVOUS SYSTEM: Alert and oriented -3. No focal deficits, tone is normal in all 4 extremities. PSYCHIATRIC: Alert and oriented -3. Appropriate affect. Intact judgment and insight. - Labs CBC & Chem 7: 09/01/19 05:58 09/01/19 05:58 Labs: Abnormal Lab Results - Last 24 Hours (Table) 0608/31/19 09/01/19 Range/Units 16:56 19:58 05:58 WBC (3.8-10.6) k/uL RBC (3.80-5.40) m/uL MCV (80.0-100.0) fL MCH (25.0-35.0) pg Neutrophils # (1.3-7.7) k/uL Lymphocytes # (1.0-4.8) k/uL Sodium (137-145) mmol/L Chloride (98-107) mmol/L Carbon Dioxide (22-30) mmol/L BUN (7-17) mg/dL Glucose (74-99) mg/dL POC Glucose (mg/dL) 150 H 189 H (75-99) mg/dL AST (14-36) U/L ALT (4-34) U/L IgE 778.00 H (0.00-114.00) IU/mL 09/01/19 09/01/19 09/01/19 Range/Units 05:58 05:58 06:08 WBC 13.2 H (3.8-10.6) k/uL RBC 3.46 L (3.80-5.40) m/uL MCV 104.9 H (80.0-100.0) fL MCH 35.4 H (25.0-35.0) pg Neutrophils # 12.0 H (1.3-7.7) k/uL Lymphocytes # 0.6 L (1.0-4.8) k/uL Sodium 130 L (137-145) mmol/L Chloride 90 L (98-107) mmol/L Carbon Dioxide 34 H (22-30) mmol/L BUN 32 H (7-17) mg/dL Glucose 130 H (74-99) mg/dL POC Glucose (mg/dL) 143 H (75-99) mg/dL AST 75 H (14-36) U/L ALT 55 H (4-34) U/L IgE (0.00-114.00) IU/mL 09/01/19 Range/Units 12:21 WBC (3.8-10.6) k/uL RBC (3.80-5.40) m/uL MCV (80.0-100.0) fL MCH (25.0-35.0) pg Neutrophils # (1.3-7.7) k/uL Lymphocytes # (1.0-4.8) k/uL Sodium (137-145) mmol/L Chloride (98-107) mmol/L Carbon Dioxide (22-30) mmol/L BUN (7-17) mg/dL Glucose (74-99) mg/dL POC Glucose (mg/dL) 146 H (75-99) mg/dL AST (14-36) U/L ALT (4-34) U/L IgE (0.00-114.00) IU/mL Assessment and Plan Plan: Assessment: 1 acute COPD exacerbation with secondary shortness of breath. Chest x-ray is within normal limits and there is no evidence of any acute pneumonia. Limited improvement compared to yesterday. Still bronchospastic and wheezy on today's evaluation. Bronchoscopy with bronchoalveolar lavage is currently on hold however will be considered once patient shows some improvement in terms of bronchospastic state, and wheezing 2 chronic smoking 3 history of breast cancer with lumpectomy currently on Femara 4 hypothyroidism 5 hyperlipidemia 6 anxiety/depression maintain and accommodation of Cymbalta and Xanax 7 hypercalcemia, intact PTH is low, consider skeletal metastases. Plan: Continue current medical treatment, patient has diuresed overnight, however still bronchospastic, continue theophylline, same dose IV steroids and breathing treatments. If patient does not show improvement in next 24 hours, we may consider bronchoscopy with BAL as long as the patient is not overly bronchospastic and at risk for complications during the procedure. Continue to closely follow. I performed a history & physical examination of the patient and discussed their management with my nurse practitioner, Azra Cullen. I reviewed the nurse practitioner's note and agree with the documented findings and plan of care. Lung sounds are positive for diffuse wheezes throughout the lung macias. The findings and the impression was discussed with the patient. I attest to the documentation by the nurse practitioner. Time with Patient: Less than 30
[2019-09-01 16:56] LABS: Glucose,Whole Blood 139 mg/dL (75-99)
[2019-09-01 20:21] LABS: Glucose,Whole Blood 154 mg/dL (75-99)
[2019-09-02] MEDS: IPRATROPIUM-ALBUTEROL 3 ML NEB INHALATION SCH ×6 (00:11→20:04)
[2019-09-02 06:14] LABS: Glucose,Whole Blood 149 mg/dL (75-99)
[2019-09-02] MEDS: CLOTRIMAZOLE TROCHE 10 MG TROCHE MUCOUS MEM SCH ×5 (06:23→23:07)
[2019-09-02] MEDS: methylPREDNISolone SOD SUCCI 125 MG/2 ML VIAL IV SCH ×4 (06:23→23:06)
[2019-09-02] MEDS: INSULIN ASPART (NovoLOG) 100 UNIT/ML VIAL SQ SCH ×4 (06:24→22:27)
[2019-09-02] MEDS: PANTOPRAZOLE 40 MG TABLET PO SCH (06:24)
[2019-09-02] MEDS: BUDESONIDE 1 MG/2 ML NEBU INHALATION SCH ×2 (07:52→20:04)
[2019-09-02] MEDS: FORMOTEROL FUMARATE 20 MCG/2 ML NEBU INHALATION SCH ×2 (08:08→20:04)
[2019-09-02] MEDS ORDERED: FUROSEMIDE 10 MG/ML 4 ML VIAL IV STA (08:41)
[2019-09-02] MEDS: THEOPHYLLINE 24 HOUR 300 MG CAP.ER.24H PO SCH (09:22)
[2019-09-02] MEDS: DULoxetine HCL 60 MG CAPSULE.DR PO SCH (09:22)
[2019-09-02] MEDS: SENNOSIDES-DOCUSATE SODIUM 1 EACH TAB PO SCH (09:22)
[2019-09-02] MEDS: ALPRAZolam 0.25 MG TAB PO SCH ×2 (09:23→19:46)
[2019-09-02] MEDS: ASCORBIC ACID 500 MG TAB PO SCH (09:23)
[2019-09-02] MEDS: ATORVASTATIN 20 MG TAB PO SCH (09:23)
[2019-09-02] MEDS: LETROZOLE 2.5 MG TAB PO SCH (09:24)
[2019-09-02] MEDS: CALCIUM CARB-VIT D 500MG-200UN 1 EACH TAB PO SCH (09:24)
[2019-09-02] MEDS: LEVOTHYROXINE 75 MCG TAB PO SCH (09:24)
[2019-09-02] MEDS: guaiFENesin 600 MG TABLET.ER PO SCH ×2 (09:26→19:45)
[2019-09-02] MEDS: ENOXAPARIN 40 MG/0.4 ML SYRINGE SQ SCH (09:26)
[2019-09-02] MEDS: NICOTINE 21MG/24HR PATCH TRANSDERM SCH (09:32)
[2019-09-02 10:03] LABS: Basophils % (A) 0 %; Eosinophils # (A) 0.1 k/uL (0-0.7); Eosinophils % (A) 1 %; HCT 40.9 % (34.0-46.0); HGB 13.5 gm/dL (11.4-16.0); Lymphocytes # (A) 0.5 k/uL (1.0-4.8); Lymphocytes % (A) 3 %; MCH 34.5 pg (25.0-35.0); MCV 104.7 fL (80.0-100.0); Macrocytosis Slight; Monocytes # (A) 1.1 k/uL (0-1.0); Monocytes % (A) 7 %; Neutrophils # (A) 13.2 k/uL (1.3-7.7); Neutrophils % (A) 88 %; Platelet Count 359 k/uL (150-450); RBC 3.91 m/uL (3.80-5.40); RDW 13.8 % (11.5-15.5); WBC 15.1 k/uL (3.8-10.6)
[2019-09-02 10:13] LABS: Albumin 4.7 g/dL (3.5-5.0); Calcium 10.6 mg/dL (8.4-10.2); Potassium 4.2 mmol/L (3.5-5.1); Total Bilirubin 0.7 mg/dL (0.2-1.3); Total Protein 7.7 g/dL (6.3-8.2)
[2019-09-02 11:48] LABS: Glucose,Whole Blood 164 mg/dL (75-99)
--- NOTE | 2019-09-02 12:00 | ECHOF ---
Referral Reason:pulmonary HTN MEASUREMENTS -------- HEIGHT: 172.7 cm WEIGHT: 76.2 kg BP: 144/83 IVSd: 1.2 cm (0.6 - 1.1) LVIDd: 3.3 cm (3.9 - 5.3) LVPWd: 1.1 cm (0.6 - 1.1) IVSs: 1.2 cm LVIDs: 2.5 cm LVPWs: 1.4 cm LAESV Index (A-L): 18.64 ml/m Ao Diam: 3.0 cm (2.0 - 3.7) AV Cusp: 1.5 cm (1.5 - 2.6) MV E Chapo: 0.43 m/s MV DecT: 182 ms MV A Chapo: 0.64 m/s MV E/A Ratio: 0.67 FINDINGS -------- This was a technically difficult study with suboptimal views. Pt. Very Sob The left ventricular size is normal. There is mild concentric left ventricular hypertrophy. Overa ll left ventricular systolic function is low-normal with, an EF between 50 - 55 %. The RV was not well visualized. Normal LA size by volume 22+/-6 ml/m2. The right atrium was not well visualized. 5.0mg of Lumason was utilized for enhancement of images Interatrial and interventricular septum intact. The aortic valve was not well visualized. There is no evidence of aortic regurgitation. There is no evidence of aortic stenosis. The mitral valve was not well visualized. Mild mitral regurgitation is present. The tricuspid valve was not well visualized. Unable to estimate RVSP due to inadequate TR jet spect ral doppler profile. The pulmonic valve was not well visualized. The aortic root size is normal. Normal inferior vena cava with normal inspiratory collapse consistent with estimated right atrial pre ssure of 5 mmHg. There is a small, generalized pericardial effusion present. CONCLUSIONS -------- 1. This was a technically difficult study with suboptimal views. 2. Pt. Very Sob 3. The left ventricular size is normal. 4. There is mild concentric left ventricular hypertrophy. 5. Overall left ventricular systolic function is low-normal with, an EF between 50 - 55 %. 6. The RV was not well visualized. 7. Normal LA size by volume 22+/-6 ml/m2. 8. The right atrium was not well visualized. 9. 5.0mg of Lumason was utilized for enhancement of images 10. Interatrial and interventricular septum intact. 11. The aortic valve was not well visualized. 12. There is no evidence of aortic regurgitation. 13. There is no evidence of aortic stenosis. 14. The mitral valve was not well visualized. 15. Mild mitral regurgitation is present. 16. The tricuspid valve was not well visualized. 17. Unable to estimate RVSP due to inadequate TR jet spectral doppler profile. 18. The pulmonic valve was not well visualized. 19. The aortic root size is normal. 20. Normal inferior vena cava with normal inspiratory collapse consistent with estimated right atrial pressure of 5 mmHg. 21. There is a small, generalized pericardial effusion present. [employer]AD[employer] INSPECTOR: Lissy Clark RDCS
--- NOTE | 2019-09-02 12:37 | P.PN ---
Subjective This is a 69-year-old female patient of Dr. Bolanos and Dr. Summers with past medical history significant for COPD, chronic hypoxic respiratory failure with home O2 at 2L n/c, hypothyroidism, breast cancer status post lumpectomy, active tobacco use and dependence. Patient presented to the hospital with complaint of difficulty breathing for the past couple days, gradually worsening. She also has a cough but nonproductive. She came into [facility] emergency [facility] for evaluation. She was afebrile, heart rate 72, blood pressure 136/85, pulse ox 91% on room air. WBC 11.3, hemoglobin 13. Sodium 135, creatinine 1.16, blood sugar 111. Calcium 11. EKG is normal sinus rhythm. Chest x-ray shows no active cardiac pulmonary disease. Patient was started on IV steroids, nebulizer treatments and azithromycin. She is status post 500 ML's of normal saline bolus. The patient continued to have difficulty breathing with tachypnea despite treatment and was placed on the observation unit and consult requested with pulmonary medicine. 08/25: Patient continues to have significant difficulty breathing wheezing and ti ghtness. Patient complains of headache and Fioricet will be added. Patient has been seen by Dr. Mann. Patient is continued on IV Solu-Medrol 60 mg every 6 hours, no change in medications today. Patient is still waiting for bed on the inpatient side. Afebrile, heart rate 84, blood pressure 124/63, pulse ox 95% on 3 L nasal cannula. Blood sugars are running between 139 and 188. 08/26: Patient continues to have significant wheezing and no change will be made to Solu-Medrol. She is continued on 60 mg IV every 6 hours. Nystatin was added last night for thrush. She has been afebrile, heart rate 81, blood pressure 113/72, pulse ox 95% on 2 L. Continue same medications for now. Possible discharge by or Sunday of this week. 08/27: Patient is seen today on the pediatric unit. She continues to have significant wheezing and difficulty breathing. She has not had any significant improvement since admission. CTA of the chest will be ordered to rule out pulmonary embolism. Discussed with Dr. Mann for possible bronchoscopy. Patient's had difficulty with IV access and a midline has been ordered. Patient has been afebrile, heart rate 86, blood pressure 136/74, pulse ox 93% on 2 L nasal cannula. Repeat blood work, WBC 16.4, BUN 18 and creatinine 0.94, sodium 133. Blood sugars running between 138 and 226. AST 51, ALT 58. 08/28: Patient is seen in follow-up today she is on the cardiac stepdown unit. Her breathing is much improved from yesterday. She is scheduled for bronchoscopy this afternoon. CTA of the chest done yesterday was negative for pulmonary embolism. There was moderate emphysematous changes without acute pulmonary process. She has been afebrile, heart rate 90, blood pressure 143/80, pulse ox 96% on 3 L nasal cannula. Anticipate she will be ready for discharge next 48-72 hours. 08/29: Patient still has dyspnea and exertion today, audible wheezing, conversational dyspnea, patient has also headaches, and she thinks it's one of her normal migraines, oral use is not any better with nystatin swish and swallow, patient's also informed regarding the high calcium level however D calcium level now has improved at 10.2, doubt malignancy there is mild transaminitis, this will be monitored, double view obesity is 13.0, hemoglobin 7.5, patient has slimy mucus, however has difficulty in expectorating it, no sputum available for review for culture,, patient is on IV steroids Solu-Medrol 60, and nebulized Pulmicort twice a day, hepatitis panel to be done, continue Perforomist medicine next and oral Keflex oral Zithromax 08/30: Patient is dyspneic still, with audible wheezing, conversational dyspnea, patient also has some anxiety, no bowel movement for the past 9 days, patient was started on by mouth Olivas in, along with one-time dose of IV Lasix, continued on nebulized treatments, as well as IV Solu-Medrol. Patient has no fever, no dysphagia, and no aspirated events, heart rate 90s, blood pressure in 160s, still with accessory muscle use, and tachypnea. Patient is on a Ventimask, 94% on 35% FiO2. 08/31: Patient seen as follow-up today, evaluated on morning rounds, sitting up in bed, on nebulizing treatment. Patient still has audible wheezing and conversational dyspnea, has not improved much since admission. She continues on Pulmicort along with Tessalon, Solu-Medrol 60 mg IV push every 6 hours, and theophylline 300 mg daily. Apparently bronchoscopy was held due to patient was still bronchospastic and wheezing. Given that she has not improved since admission, bronchoscopy may be beneficial. Awaiting pulmonary's re commendations. Vital signs are stable, blood pressure 129/79, heart rate 98, afebrile at 96.9 axillary, 98% on the Ventimask with FiO2 35%. 09/01 Patient is evaluated today at rounds, she is sitting up in bed. Audible wheezing still present, with an expiratory and expiratory wheeze to auscultation . Patient is still short of breath with exertion and conversation, not improving. She is continuing on Pulmicort twice a day, Perforomist, Duoneb, Solu-Medrol 60 mg IV push every 6hours, theophylline 300 mg po daily, and tessalon perles. Patient is using ventolin PRN as well. Bronchoscopy still on hold due to ongoing bronchospams and wheezing. Echocardiogram today revealed an EF of 50 to 55%; mild mitral regurgitation, mild concentric left ventricular hypertrophy, and small, generalized pericardial effusion present. Patient will be given a one time dose of lasix 40 mg IV push, and will be started on lasix 20 mg oral starting tomorrow. Encouraged to continue using IS 10 times per hour. Labs today include WBC of 15.1, AST 74, ALT-66; trending upwards, will continue to monitor. Current vital signs; afebrile at 98.4, heart rate 79, blood pressure 144/83, and patient is 97% on 3L NC. Last documented bowel movement on 08/21, receiving sennakot daily. Objective - Vital Signs Vital signs: Vital Signs Temp 98.4 F 09/02/19 08:00 Pulse 80 09/02/19 11:40 Resp 22 09/02/19 08:00 BP 144/83 09/02/19 08:00 Pulse Ox 93 L 09/02/19 08:00 Intake & Output 09/01/19 09/02/19 09/02/19 18:59 06:59 18:59 Intake Total 862 Output Total 900 500 Balance -38 -500 Weight 76.5 kg Intake: Oral 862 Output: Urine 600 500 Emesis 300 Other: Voiding Method Bedside Commode Bedside Commode Bedside Commode # Voids 1 2 # Bowel Movements 0 - Exam - Constitutional General appearance: Present: cooperative, mild distress - EENT Eyes: Present: EOMI, PERRLA, normal appearance - Neck Neck: Present: normal ROM. Absent: lymphadenopathy, thyromegaly - Respiratory Respiratory: bilateral: diminished, wheezing (Inspiratory and expiratory), prolonged expiration, prolonged inspiration - Cardiovascular Rhythm: regular Heart sounds: normal: S1, S2 - Gastrointestinal General gastrointestinal: Present: normal bowel sounds, soft. Absent: tenderness - Integumentary Integumentary: Present: normal, normal turgor - Neurologic Neurologic: Present: CNII-XII intact. Absent: focal deficits - Musculoskeletal Musculoskeletal: Present: generalized weakness, strength equal bilaterally - Psychiatric Psychiatric: Present: A&O x's 3, appropriate affect, intact judgment & insight - Labs CBC & Chem 7: 09/02/19 09:30 09/02/19 09:30 Labs: Abnormal Lab Results - Last 24 Hours (Table) 09/01/19 09/01/19 09/01/19 Range/Units 05:58 12:21 16:46 WBC (3.8-10.6) k/uL MCV (80.0-100.0) fL Neutrophils # (1.3-7.7) k/uL Lymphocytes # (1.0-4.8) k/uL Monocytes # (0-1.0) k/uL Sodium (137-145) mmol/L Chloride (98-107) mmol/L Carbon Dioxide (22-30) mmol/L BUN (7-17) mg/dL Glucose (74-99) mg/dL POC Glucose (mg/dL) 146 H 139 H (75-99) mg/dL Calcium (8.4-10.2) mg/dL AST (14-36) U/L ALT (4-34) U/L IgE 778.00 H (0.00-114.00) IU/mL 09/01/19 09/02/19 09/02/19 Range/Units 20:20 06:12 09:30 WBC 15.1 H (3.8-10.6) k/uL MCV 104.7 H (80.0-100.0) fL Neutrophils # 13.2 H (1.3-7.7) k/uL Lymphocytes # 0.5 L (1.0-4.8) k/uL Monocytes # 1.1 H (0-1.0) k/uL Sodium (137-145) mmol/L Chloride (98-107) mmol/L Carbon Dioxide (22-30) mmol/L BUN (7-17) mg/dL Glucose (74-99) mg/dL POC Glucose (mg/dL) 154 H 149 H (75-99) mg/dL Calcium (8.4-10.2) mg/dL AST (14-36) U/L ALT (4-34) U/L IgE (0.00-114.00) IU/mL 09/02/19 09/02/19 Range/Units 09:30 11:44 WBC (3.8-10.6) k/uL MCV (80.0-100.0) fL Neutrophils # (1.3-7.7) k/uL Lymphocytes # (1.0-4.8) k/uL Monocytes # (0-1.0) k/uL Sodium 134 L (137-145) mmol/L Chloride 91 L (98-107) mmol/L Carbon Dioxide 35 H (22-30) mmol/L BUN 31 H (7-17) mg/dL Glucose 126 H (74-99) mg/dL POC Glucose (mg/dL) 164 H (75-99) mg/dL Calcium 10.6 H (8.4-10.2) mg/dL AST 74 H (14-36) U/L ALT 66 H (4-34) U/L IgE (0.00-114.00) IU/mL Assessment and Plan Plan: 1. Acute COPD exacerbation. Continue DuoNeb treatments 4 times daily and albuterol as needed, Solu-Medrol 60 mg IV every 6 hours, Pulmicort 1 mg twice daily, Tessalon Perles, Theophylline 300mg daily, Mucinex 600mg Q12 hours, and Perforomist 20 mcg's twice daily, course of azithromycin completed. Consult with pulmonary medicine appreciated. CTA of the chest negative pulmonary embolism. Bronchoscopy still to be done, unsure about the bronchoscopy timing, as the patient is still bronchospastic. Patient will be given a one time dose of IV lasix 40 mg, and will begin lasix 20 mg PO daily. 2. Chronic hypoxic respiratory failure on home O2 at 2 L nasal cannula. 3. Oral stu, no significant response with nystatin, start clotrimazole thrush 5 times a day 3. Hypothyroidism. Continue levothyroxine 75 g daily. 4. Hyperlipidemia. Continue Lipitor 20 mg daily. 5. History of breast cancer status post lumpectomy. Continue Femara 2.5 mg daily. 6. Tobacco use and dependence. Continue nicotine patch. 7. Recurrent depression. Continue Cymbalta 60 mg daily. 8. GI prophylaxis. Protonix. 9. DVT prophylaxis. Lovenox daily subcu. 10. COVID-19 infection not present. 11. Hyperglycemia secondary to steroids. Continue NovoLog scale. 12. Mild hypercalcemia resolved, most likely secondary to dehydration, doubt malignancy, continue to monitor. Continue NovoLog scale. 13. Pulmonary anxiety, Xanax 0.25 twice a day when necessary 14 Constipation, start Nora-Colace daily Discharge plan: Home The above impression and plan of care have been discussed and directed by signing physician. Mary Peterson nurse practitioner acting as scribe for signing physician.
--- NOTE | 2019-09-02 14:44 | P.PN ---
Subjective Progress Note Date: 09/02/19 Principal diagnosis: Shortness of breath On today's evaluation of 08/25/2019, the patient continues to progress bronchospastic and wheezy and short of breath. Limited improvement compared to yesterday. No hemoptysis. No pleurisy. She remains on IV Solu-Medrol pH is on Symbicort and she is also on DuoNeb the right [id number]. Coronavirus PCR came back negative. The patient also had a suppressed intact PTH and the calcium level was at 11. This is to be monitored very closely for any skeletal results of calcium especially with her history of breast cancer. She is on IV Solu Medrol for now. On 08/27/2019 patient seen in follow-up on observation unit, she is awake and alert, she states her breathing has not gotten better however has not worsened either, still significantly bronchospastic on today's exam, although seems to be somewhat improved. Patient remains on 2 L of oxygen, pulse ox is 95%, she is afebrile, hemodynamically she stable, lung sounds reveal diffuse wheezes bilaterally. Patient remains on azithromycin, breathing treatments, Pulmicort, Perforomist, and IV steroids. Slowly improving On 08/28/2019 patient seen in follow-up on pediatric unit. She is still quite bronchospastic, occasionally she is able to bring up very small amount of sputum. She is on 2 L of oxygen with pulse ox of 93%, she is been afebrile. Hemodynamically she is stable, CTA chest has been ordered to rule out possibility of pulmonary embolism, she remains on IV steroids, breathing treatment, azithromycin, and despite medical treatment patient is slow to impr ove. On 09/01/2019 patient is still quite bronchospastic, and dyspneic, not bringing up much sputum, reading is labored with any exertion, she remains on 3 L of oxygen, pulse ox 98%, she is on IV steroids, breathing treatments, oral antibiotics, Mucinex, theophylline was added last night. Patient states she doesn't feel that she is much improved. She received a dose of IV Lasix yesterday she diuresed, and she is in -1.6 L over last 24 hours. His labs have been reviewed showing white blood cell count 13.2, hemoglobin is 12.2, sodium is 1:30, potassium 3.9, chloride is 90, CO2 34, BUN is 32, creatinine 0.8. Her bronchoscopy on Sunday last week was canceled related to patient not being quite ready for bronchoscopy related to increased bronchospastic state he and the risk of complications during the procedure On 09/02/2019 patient seen in follow-up on selective care unit, still dyspneic, but a bit less bronchospastic, and there is some improvement on today's exam. Currently on 3 L of oxygen the pulse ox of 93-97%. Remains significant short of breath with any exertion. No fever or chills, no congestion, no phlegm production, remains on IV steroids, Mucinex, breathing treatments, oral Lasix, Pulmicort and Perforomist. sHe is maintaining negative fluid balance. Echocardiogram showed mild concentric LVH, left surgical systolic function is low normal with EF between 50-55%. No hemoptysis, no complaints of chest pain. Objective - Vital Signs Vital signs: Vital Signs Temp 98.2 F 09/02/19 12:00 Pulse 96 09/02/19 12:00 Resp 18 09/02/19 12:00 BP 123/78 09/02/19 12:00 Pulse Ox 93 L 09/02/19 08:00 Intake & Output 09/01/19 09/02/19 09/02/19 18:59 06:59 18:59 Intake Total 862 Output Total 212 173 9557 Balance -38 -500 -1700 Weight 76.5 kg Intake: Oral 862 Output: Urine 832 558 6158 Emesis 300 Other: Voiding Method Bedside Commode Bedside Commode Bedside Commode # Voids 1 2 # Bowel Movements 0 - Exam GENERAL EXAM: Alert, very pleasant, 69-year-old white female, on 3 L of oxygen and the pulse ox of 97% dyspneic with conversation, but no acute distress, comfortable in no apparent distress. HEAD: Normocephalic/atraumatic. EYES: Normal reaction of pupils, equal size. Conjunctiva pink, sclera white. NOSE: Clear with pink turbinates. THROAT: No erythema or exudates. NECK: No masses, no JVD, no thyroid enlargement, no adenopathy. CHEST: No chest wall deformity. Symmetrical expansion. LUNGS: Equal air entry with diffuse wheezes CVS: Regular rate and rhythm, normal S1 and S2, no gallops, no murmurs, no rubs ABDOMEN: Soft, nontender. No hepatosplenomegaly, normal bowel sounds, no guarding or rigidity. EXTREMITIES: No clubbing, no edema, no cyanosis, 2+ pulses and upper and lower extremities. MUSCULOSKELETAL: Muscle strength and tone normal. SPINE: No scoliosis or deformity SKIN: No rashes CENTRAL NERVOUS SYSTEM: Alert and oriented -3. No focal deficits, tone is normal in all 4 extremities. PSYCHIATRIC: Alert and oriented -3. Appropriate affect. Intact judgment and insight. - Labs CBC & Chem 7: 09/02/19 09:09/02/19 09:30 Labs: Abnormal Lab Results - Last 24 Hours (Table) 09/01/19 09/01/19 09/02/19 Range/Units 16:46 20:20 06:12 WBC (3.8-10.6) k/uL MCV (80.0-100.0) fL Neutrophils # (1.3-7.7) k/uL Lymphocytes # (1.0-4.8) k/uL Monocytes # (0-1.0) k/uL Sodium (137-145) mmol/L Chloride (98-107) mmol/L Carbon Dioxide (22-30) mmol/L BUN (7-17) mg/dL Glucose (74-99) mg/dL POC Glucose (mg/dL) 139 H 154 H 149 H (75-99) mg/dL Calcium (8.4-10.2) mg/dL AST (14-36) U/L ALT (4-34) U/L 09/02/19 09/02/19 09/02/19 Range/Units 09:30 09:30 11:44 WBC 15.1 H (3.8-10.6) k/uL MCV 104.7 H (80.0-100.0) fL Neutrophils # 13.2 H (1.3-7.7) k/uL Lymphocytes # 0.5 L (1.0-4.8) k/uL Monocytes # 1.1 H (0-1.0) k/uL Sodium 134 L (137-145) mmol/L Chloride 91 L (98-107) mmol/L Carbon Dioxide 35 H (22-30) mmol/L BUN 31 H (7-17) mg/dL Glucose 126 H (74-99) mg/dL POC Glucose (mg/dL) 164 H (75-99) mg/dL Calcium 10.6 H (8.4-10.2) mg/dL AST 74 H (14-36) U/L ALT 66 H (4-34) U/L Assessment and Plan Plan: Assessment: 1 acute COPD exacerbation with secondary shortness of breath. Chest x-ray is within normal limits and there is no evidence of any acute pneumonia. Limited improvement compared to yesterday. Still bronchospastic and wheezy on today's e valuation. Bronchoscopy with bronchoalveolar lavage is currently on hold however will be considered once patient shows some improvement in terms of bronchospastic state, and wheezing 2 chronic smoking 3 history of breast cancer with lumpectomy currently on Femara 4 hypothyroidism 5 hyperlipidemia 6 anxiety/depression maintain and accommodation of Cymbalta and Xanax 7 hypercalcemia, intact PTH is low, consider skeletal metastases. Plan: Continue current medical treatment, some improvement noted on today's exam, no significant congestion, no chest pain, no phlegm production, continue same dose IV steroids, theophylline, Lasix. If patient shows further improvement, may consider for discharge home in the next 24-48 hours with close outpatient follow-up. I performed a history & physical examination of the patient and discussed their management with my nurse practitioner, Azra Cullen. I reviewed the nurse practitioner's note and agree with the documented findings and plan of care. Lung sounds are positive for diffuse wheezes throughout the lung macias. The findings and the impression was discussed with the patient. I attest to the documentation by the nurse practitioner. Time with Patient: Less than 30
[2019-09-02 17:00] LABS: Glucose,Whole Blood 148 mg/dL (75-99)
[2019-09-02 21:03] LABS: Glucose,Whole Blood 161 mg/dL (75-99)
[2019-09-03] MEDS: methylPREDNISolone SOD SUCCI 125 MG/2 ML VIAL IV SCH ×4 (05:38→23:14)
[2019-09-03] MEDS: CLOTRIMAZOLE TROCHE 10 MG TROCHE MUCOUS MEM SCH ×5 (05:38→23:14)
[2019-09-03 06:21] LABS: Glucose,Whole Blood 162 mg/dL (75-99)
[2019-09-03] MEDS: PANTOPRAZOLE 40 MG TABLET PO SCH (06:51)
[2019-09-03] MEDS: INSULIN ASPART (NovoLOG) 100 UNIT/ML VIAL SQ SCH ×4 (07:03→23:13)
[2019-09-03] MEDS: FORMOTEROL FUMARATE 20 MCG/2 ML NEBU INHALATION SCH ×2 (07:29→18:51)
[2019-09-03] MEDS: IPRATROPIUM-ALBUTEROL 3 ML NEB INHALATION SCH ×4 (07:29→18:51)
[2019-09-03] MEDS: BUDESONIDE 1 MG/2 ML NEBU INHALATION SCH ×2 (07:29→18:51)
[2019-09-03] MEDS: SENNOSIDES-DOCUSATE SODIUM 1 EACH TAB PO SCH (08:31)
[2019-09-03] MEDS: FUROSEMIDE 20 MG TAB PO SCH (08:31)
[2019-09-03] MEDS: ENOXAPARIN 40 MG/0.4 ML SYRINGE SQ SCH (08:31)
[2019-09-03] MEDS: ALPRAZolam 0.25 MG TAB PO SCH ×2 (08:31→20:29)
[2019-09-03] MEDS: DULoxetine HCL 60 MG CAPSULE.DR PO SCH (08:31)
[2019-09-03] MEDS: ASCORBIC ACID 500 MG TAB PO SCH (08:31)
[2019-09-03] MEDS: ATORVASTATIN 20 MG TAB PO SCH (08:31)
[2019-09-03] MEDS: NICOTINE 21MG/24HR PATCH TRANSDERM SCH (08:31)
[2019-09-03] MEDS: LEVOTHYROXINE 75 MCG TAB PO SCH (08:32)
[2019-09-03] MEDS: CALCIUM CARB-VIT D 500MG-200UN 1 EACH TAB PO SCH (08:32)
[2019-09-03] MEDS: guaiFENesin 600 MG TABLET.ER PO SCH ×2 (08:32→20:29)
[2019-09-03] MEDS: LETROZOLE 2.5 MG TAB PO SCH (08:33)
[2019-09-03] MEDS: THEOPHYLLINE 24 HOUR 300 MG CAP.ER.24H PO SCH (08:33)
--- NOTE | 2019-09-03 09:59 | P.PN ---
Subjective This is a 69-year-old female patient of Dr. Bolanos and Dr. Summers with past medical history significant for COPD, chronic hypoxic respiratory failure with home O2 at 2L n/c, hypothyroidism, breast cancer status post lumpectomy, active tobacco use and dependence. Patient presented to the hospital with complaint of difficulty breathing for the past couple days, gradually worsening. She also has a cough but nonproductive. She came into [facility] emergency center for evaluation. She was afebrile, heart rate 72, blood pressure 136/85, pulse ox 91% on room air. WBC 11.3, hemoglobin 13. Sodium 135, creatinine 1.16, blood sugar 111. Calcium 11. EKG is normal sinus rhythm. Chest x-ray shows no active cardiac pulmonary disease. Patient was started on IV steroids, nebulizer treatments and azithromycin. She is status post 500 ML's of normal saline bolus. The patient continued to have difficulty breathing with tachypnea despite treatment and was placed on the observation unit and consult requested with pulmonary medicine. 08/25: Patient continues to have significant difficulty breathing wheezing and ti ghtness. Patient complains of headache and Fioricet will be added. Patient has been seen by Dr. Mann. Patient is continued on IV Solu-Medrol 60 mg every 6 hours, no change in medications today. Patient is still waiting for bed on the inpatient side. Afebrile, heart rate 84, blood pressure 124/63, pulse ox 95% on 3 L nasal cannula. Blood sugars are running between 139 and 188. 08/26: Patient continues to have significant wheezing and no change will be made to Solu-Medrol. She is continued on 60 mg IV every 6 hours. Nystatin was added last night for thrush. She has been afebrile, heart rate 81, blood pressure 113/72, pulse ox 95% on 2 L. Continue same medications for now. Possible discharge by or Sunday of this week. 08/27: Patient is seen today on the pediatric unit. She continues to have significant wheezing and difficulty breathing. She has not had any significant improvement since admission. CTA of the chest will be ordered to rule out pulmonary embolism. Discussed with Dr. Mann for possible bronchoscopy. Patient's had difficulty with IV access and a midline has been ordered. Patient has been afebrile, heart rate 86, blood pressure 136/74, pulse ox 93% on 2 L nasal cannula. Repeat blood work, WBC 16.4, BUN 18 and creatinine 0.94, sodium 133. Blood sugars running between 138 and 226. AST 51, ALT 58. 08/28: Patient is seen in follow-up today she is on the cardiac stepdown unit. Her breathing is much improved from yesterday. She is scheduled for bronchoscopy this afternoon. CTA of the chest done yesterday was negative for pulmonary embolism. There was moderate emphysematous changes without acute pulmonary process. She has been afebrile, heart rate 90, blood pressure 143/80, pulse ox 96% on 3 L nasal cannula. Anticipate she will be ready for discharge next 48-72 hours. 08/29: Patient still has dyspnea and exertion today, audible wheezing, conversational dyspnea, patient has also headaches, and she thinks it's one of her normal migraines, oral use is not any better with nystatin swish and swallow, patient's also informed regarding the high calcium level however D calcium level now has improved at 10.2, doubt malignancy there is mild transaminitis, this will be monitored, double view obesity is 13.0, hemoglobin 7.5, patient has slimy mucus, however has difficulty in expectorating it, no sputum available for review for culture,, patient is on IV steroids Solu-Medrol 60, and nebulized Pulmicort twice a day, hepatitis panel to be done, continue Perforomist medicine next and oral Keflex oral Zithromax 08/30: Patient is dyspneic still, with audible wheezing, conversational dyspnea, patient also has some anxiety, no bowel movement for the past 9 days, patient was started on by mouth Olivas in, along with one-time dose of IV Lasix, continued on nebulized treatments, as well as IV Solu-Medrol. Patient has no fever, no dysphagia, and no aspirated events, heart rate 90s, blood pressure in 160s, still with accessory muscle use, and tachypnea. Patient is on a Ventimask, 94% on 35% FiO2. 08/31: Patient seen as follow-up today, evaluated on morning rounds, sitting up in bed, on nebulizing treatment. Patient still has audible wheezing and conversational dyspnea, has not improved much since admission. She continues on Pulmicort along with Tessalon, Solu-Medrol 60 mg IV push every 6 hours, and theophylline 300 mg daily. Apparently bronchoscopy was held due to patient was still bronchospastic and wheezing. Given that she has not improved since admission, bronchoscopy may be beneficial. Awaiting pulmonary's re commendations. Vital signs are stable, blood pressure 129/79, heart rate 98, afebrile at 96.9 axillary, 98% on the Ventimask with FiO2 35%. 09/01 Patient is evaluated today at rounds, she is sitting up in bed. Audible wheezing still present, with an expiratory and expiratory wheeze to auscultation . Patient is still short of breath with exertion and conversation, not improving. She is continuing on Pulmicort twice a day, Perforomist, Duoneb, Solu-Medrol 60 mg IV push every 6hours, theophylline 300 mg po daily, and tessalon perles. Patient is using ventolin PRN as well. Bronchoscopy still on hold due to ongoing bronchospams and wheezing. Echocardiogram today revealed an EF of 50 to 55%; mild mitral regurgitation, mild concentric left ventricular hypertrophy, and small, generalized pericardial effusion present. Patient will be given a one time dose of lasix 40 mg IV push, and will be started on lasix 20 mg oral starting tomorrow. Encouraged to continue using IS 10 times per hour. Labs today include WBC of 15.1, AST 74, ALT-66; trending upwards, will continue to monitor. Current vital signs; afebrile at 98.4, heart rate 79, blood pressure 144/83, and patient is 97% on 3L NC. Last documented bowel movement on 08/21, receiving sennakot daily. 09/02: Patient evaluated this morning, noted to be sitting up at the bedside. She reports she is feeling a little bit better this morning, she is still dyspneic but less bronchospastic. She remains on 3 L nasal cannula saturations are 93- 95%. Still having conversational dyspnea and dyspnea upon exertion, but slowly improving. She continues on the DuoNeb's 3 times daily, Tessalon Perles 200 mg 3 times daily, budesonide 1 mg 3 times a day, Perforomist 20 mcg's twice a day, Mucinex 6 mg every 12, Solu-Medrol 60 mg every 6 hours, and theophylline 300 mg daily. Pulmonary on consult, no plans for bronchoscopy at this time. Patient r eports concerns for discharge, patient does not feel she can manage at home. She may benefit from subacute rehab and nursing care, social work consulted as well as PT/OT. Objective - Vital Signs Vital signs: Vital Signs Temp 97.9 F 09/03/19 08:00 Pulse 102 H 09/03/19 08:00 Resp 24 09/03/19 08:00 BP 132/84 09/03/19 08:00 Pulse Ox 94 L 09/03/19 08:00 Intake & Output 09/02/19 09/03/19 09/03/19 18:59 06:59 18:59 Output Total 1700 Balance -1700 Output: Urine 1700 Other: Voiding Method Bedside Commode Bedside Commode # Voids 2 1 # Bowel Movements 0 - Exam - Constitutional General appearance: Present: cooperative, mild distress - EENT Eyes: Present: EOMI, PERRLA, normal appearance - Neck Neck: Present: normal ROM. Absent: lymphadenopathy, thyromegaly - Respiratory Respiratory: bilateral: diminished, wheezing (Inspiratory and expiratory), prolonged expiration, prolonged inspiration - Cardiovascular Rhythm: regular Heart sounds: normal: S1, S2 - Gastrointestinal General gastrointestinal: Present: normal bowel sounds, soft. Absent: tenderness - Integumentary Integumentary: Present: normal, normal turgor - Neurologic Neurologic: Present: CNII-XII intact. Absent: focal deficits - Musculoskeletal Musculoskeletal: Present: generalized weakness, strength equal bilaterally - Psychiatric Psychiatric: Present: A&O x's 3, appropriate affect, intact judgment & insight - Labs CBC & Chem 7: 09/02/19 09:30 09/02/19 09:30 Labs: Abnormal Lab Results - Last 24 Hours (Table) 09/02/19 09/02/19 09/02/19 Range/Units 09: 09:30 11:44 WBC 15.1 H (3.8-10.6) k/uL MCV 104.7 H (80.0-100.0) fL Neutrophils # 13.2 H (1.3-7.7) k/uL Lymphocytes # 0.5 L (1.0-4.8) k/uL Monocytes # 1.1 H (0-1.0) k/uL Sodium 134 L (137-145) mmol/L Chloride 91 L (98-107) mmol/L Carbon Dioxide 35 H (22-30) mmol/L BUN 31 H (7-17) mg/dL Glucose 126 H (74-99) mg/dL POC Glucose (mg/dL) 164 H (75-99) mg/dL Calcium 10.6 H (8.4-10.2) mg/dL AST 74 H (14-36) U/L ALT 66 H (4-34) U/L 09/02/19 09/02/19 09/03/19 Range/Units 16:41 21:02 06:20 WBC (3.8-10.6) k/uL MCV (80.0-100.0) fL Neutrophils # (1.3-7.7) k/uL Lymphocytes # (1.0-4.8) k/uL Monocytes # (0-1.0) k/uL Sodium (137-145) mmol/L Chloride (98-107) mmol/L Carbon Dioxide (22-30) mmol/L BUN (7-17) mg/dL Glucose (74-99) mg/dL POC Glucose (mg/dL) 148 H 161 H 162 H (75-99) mg/dL Calcium (8.4-10.2) mg/dL AST (14-36) U/L ALT (4-34) U/L Assessment and Plan Plan: 1. Acute COPD exacerbation. Continue DuoNeb treatments 4 times daily and albuterol as needed, Solu-Medrol 60 mg IV every 6 hours, Pulmicort 1 mg twice daily, Tessalon Perles, Theophylline 300mg daily, Mucinex 600mg Q12 hours, and Perforomist 20 mcg's twice daily, course of azithromycin completed. Consult with pulmonary medicine appreciated. CTA of the chest negative pulmonary embolism. No plans for Bronchoscopy, at this time. Patient will be given a one time dose of IV lasix 40 mg, and will begin lasix 20 mg PO daily. 2. Chronic hypoxic respiratory failure on home O2 at 3 L nasal cannula. 3. Oral stu, no significant response with nystatin, start clotrimazole thrush 5 times a day 3. Hypothyroidism. Continue levothyroxine 75 g daily. 4. Hyperlipidemia. Continue Lipitor 20 mg daily. 5. History of breast cancer status post lumpectomy. Continue Femara 2.5 mg daily. 6. Tobacco use and dependence. Continue nicotine patch. 7. Recurrent depression. Continue Cymbalta 60 mg daily. 8. GI prophylaxis. Protonix. 9. DVT prophylaxis. Lovenox daily subcu. 10. COVID-19 infection not present. 11. Hyperglycemia secondary to steroids. Continue NovoLog scale. 12. Mild hypercalcemia resolved, most likely secondary to dehydration, doubt malignancy, continue to monitor. Continue NovoLog scale. 13. Pulmonary anxiety, Xanax 0.25 twice a day when necessary 14 Constipation, start Nora-Colace daily Discharge plan: Home The above impression and plan of care have been discussed and directed by signing physician. aMry Peterson nurse practitioner acting as scribe for signing physician.
[2019-09-03 12:04] LABS: Glucose,Whole Blood 144 mg/dL (75-99)
--- NOTE | 2019-09-03 13:28 | P.PN ---
Subjective Progress Note Date: 09/03/19 Principal diagnosis: Acute exacerbation of chronic obstructive pulmonary disease The patient is seen today 09/03/2019 in follow-up on the selective care unit. She is awake and alert in no acute distress. Breathing a bit easier today compared to yesterday. Less bronchospastic and wheezy. She is currently maintaining O2 saturations in the 90s on 3 L/m per nasal cannula. Blood glucose 144. She has been maintained on DuoNeb inhalations, Pulmicort and Perforomist inhalations, IV Solu-Medrol, theophylline, Tessalon Perles. NicoDerm patch in place. Objective - Vital Signs Vital signs: Vital Signs Temp 97.9 F 09/03/19 08:00 Pulse 108 H 09/03/19 11:38 Resp 19 09/03/19 11:44 BP 139/81 09/03/19 11:38 Pulse Ox 100 09/03/19 11:38 Intake & Output 09/02/19 09/03/19 09/03/19 18:59 06:59 18:59 Intake Total 240 Output Total 1700 300 Balance -1700 -60 Intake: Oral 240 Output: Urine 1700 300 Other: Voiding Method Bedside Commode Bedside Commode # Voids 2 1 # Bowel Movements 0 - Exam GENERAL EXAM: Alert, pleasant obese 69-year-old female patient, on 3 L nasal cannula. HEAD: Normocephalic. EYES: Normal reaction of pupils, equal size. NOSE: Clear with pink turbinates. THROAT: No erythema or exudates. NECK: No masses, no JVD. CHEST: No chest wall deformity. LUNGS: Equal air entry with bilateral end expiratory wheeze, diminished. CVS: S1 and S2 normal with no audible murmur, regular rhythm. ABDOMEN: No hepatosplenomegaly, normal bowel sounds, no guarding or rigidity. SPINE: No scoliosis or deformity SKIN: No rashes CENTRAL NERVOUS SYSTEM: Alert and oriented 3. No focal deficits, tone is normal in all 4 extremities. EXTREMITIES: There is no peripheral edema. No clubbing, no cyanosis. Peripheral pulses are intact. - Labs CBC & Chem 7: 09/02/19 09:30 09/02/19 09:30 Labs: Abnormal Lab Results - Last 24 Hours (Table) 09/02/19 09/02/19 09/03/19 Range/Units 16:41 21:02 06:20 POC Glucose (mg/dL) 148 H 161 H 162 H (75-99) mg/dL 09/03/19 Range/Units 11:55 POC Glucose (mg/dL) 144 H (75-99) mg/dL Assessment and Plan Assessment: 1 acute COPD exacerbation with secondary shortness of breath. Chest x-ray is within normal limits and there is no evidence of any acute pneumonia. Improved 2 chronic smoking 3 history of breast cancer with lumpectomy currently on Femara 4 hypothyroidism 5 hyperlipidemia 6 anxiety/depression maintain and accommodation of Cymbalta and Xanax 7 hypercalcemia, intact PTH is low, consider skeletal metastases. Plan: The patient was seen and evaluated by Dr. Coy Cleared for discharge from the pulmonary standpoint Complete prednisone taper Continue her home pulmonary medications Again educated regarding the importance of complete smoking cessation Follow up with Dr. Bishop in 1-2 weeks' time I, the cosigning physician, performed a history & physical examination of the patient. Lungs sounds bilateral end expiratory wheeze, diminished. Maintaining good O2 saturations in the 90s on 3 L/m per nasal cannula. I discussed the assessment and plan of care with my nurse practitioner, Helen Gusman. I attest to the above note as dictated by her.
[2019-09-03 16:57] LABS: Glucose,Whole Blood 145 mg/dL (75-99)
[2019-09-03 21:15] LABS: Glucose,Whole Blood 195 mg/dL (75-99)
[2019-09-04] MEDS: methylPREDNISolone SOD SUCCI 125 MG/2 ML VIAL IV SCH ×2 (05:18→12:52)
[2019-09-04] MEDS: CLOTRIMAZOLE TROCHE 10 MG TROCHE MUCOUS MEM SCH ×2 (05:19→09:53)
[2019-09-04 06:28] LABS: Glucose,Whole Blood 117 mg/dL (75-99)
[2019-09-04] MEDS: PANTOPRAZOLE 40 MG TABLET PO SCH (06:37)
[2019-09-04] MEDS: INSULIN ASPART (NovoLOG) 100 UNIT/ML VIAL SQ SCH ×2 (06:40→13:01)
[2019-09-04] MEDS: BUDESONIDE 1 MG/2 ML NEBU INHALATION SCH (07:12)
[2019-09-04] MEDS: IPRATROPIUM-ALBUTEROL 3 ML NEB INHALATION SCH ×2 (07:13→11:12)
[2019-09-04] MEDS: FORMOTEROL FUMARATE 20 MCG/2 ML NEBU INHALATION SCH (07:13)
[2019-09-04 07:43] LABS: Basophils % (A) 0 %; Eosinophils # (A) 0.1 k/uL (0-0.7); Eosinophils % (A) 0 %; HCT 40.2 % (34.0-46.0); HGB 13.7 gm/dL (11.4-16.0); Lymphocytes # (A) 0.7 k/uL (1.0-4.8); Lymphocytes % (A) 5 %; MCH 35.7 pg (25.0-35.0); MCHC 34.2 g/dL (31.0-37.0); MCV 104.4 fL (80.0-100.0); Macrocytosis Slight; Mean Platelet Volume 8.4; Monocytes # (A) 0.9 k/uL (0-1.0); Monocytes % (A) 6 %; Neutrophils # (A) 11.8 k/uL (1.3-7.7); Neutrophils % (A) 88 %; Platelet Count 285 k/uL (150-450); RBC 3.85 m/uL (3.80-5.40); RDW 13.8 % (11.5-15.5); WBC 13.5 k/uL (3.8-10.6)
[2019-09-04 09:45] LABS: Albumin 4.5 g/dL (3.5-5.0); Calcium 10.5 mg/dL (8.4-10.2); Potassium 3.9 mmol/L (3.5-5.1); Total Bilirubin 0.8 mg/dL (0.2-1.3); Total Protein 7.4 g/dL (6.3-8.2)
[2019-09-04] MEDS: guaiFENesin 600 MG TABLET.ER PO SCH (09:49)
[2019-09-04] MEDS: CALCIUM CARB-VIT D 500MG-200UN 1 EACH TAB PO SCH (09:49)
[2019-09-04] MEDS: LEVOTHYROXINE 75 MCG TAB PO SCH (09:49)
[2019-09-04] MEDS: DULoxetine HCL 60 MG CAPSULE.DR PO SCH (09:50)
[2019-09-04] MEDS: FUROSEMIDE 20 MG TAB PO SCH (09:50)
[2019-09-04] MEDS: ASCORBIC ACID 500 MG TAB PO SCH (09:50)
[2019-09-04] MEDS: ATORVASTATIN 20 MG TAB PO SCH (09:51)
[2019-09-04] MEDS: SENNOSIDES-DOCUSATE SODIUM 1 EACH TAB PO SCH (09:51)
[2019-09-04] MEDS: ALPRAZolam 0.25 MG TAB PO SCH (09:52)
[2019-09-04] MEDS: LETROZOLE 2.5 MG TAB PO SCH (09:52)
[2019-09-04] MEDS: THEOPHYLLINE 24 HOUR 300 MG CAP.ER.24H PO SCH (09:52)
[2019-09-04] MEDS: ENOXAPARIN 40 MG/0.4 ML SYRINGE SQ SCH (09:53)
[2019-09-04] MEDS: NICOTINE 21MG/24HR PATCH TRANSDERM SCH (09:56)
--- NOTE | 2019-09-04 11:15 | P.DS ---
Providers Date of admission: 08/25/19 09:48 Expected date of discharge: 09/04/19 Attending physician: Rolando Norwood Consults: 08/24/19 22:41 Consult Physician Routine Consulting Provider: Aroldo Bishop Reason/Comments: copd exacerbation Do you want consulting provider notified?: Yes Primary care physician: Deshaun HawkinsLuis Miguel [facility] Course: This is a 69-year-old female patient of Dr. Bolanos and Dr. Summers with past medical history significant for COPD, chronic hypoxic respiratory failure with home O2 at 2L n/c, hypothyroidism, breast cancer status post armando mpectomy, active tobacco use and dependence. Patient presented to the hospital with complaint of difficulty breathing for the past couple days, gradually worsening. She also has a cough but nonproductive. She came into [facility] emergency center for evaluation. She was afebrile, heart rate 72, blood pressure 136/85, pulse ox 91% on room air. WBC 11.3, hemoglobin 13. Sodium 135, creatinine 1.16, blood sugar 111. Calcium 11. EKG is normal sinus rhythm. Chest x-ray shows no active cardiac pulmonary disease. Patient was started on IV steroids, nebulizer treatments and azithromycin. She is status post 500 ML's of normal saline bolus. The patient continued to have difficulty breathing with tachypnea despite treatment and was placed on the observation unit and consult requested with pulmonary medicine. 08/25: Patient continues to have significant difficulty breathing wheezing and tightness. Patient complains of headache and Fioricet will be added. Patient has been seen by Dr. Mann. Patient is continued on IV Solu-Medrol 60 mg every 6 hours, no change in medications today. Patient is still waiting for bed on the inpatient side. Afebrile, heart rate 84, blood pressure 124/63, pulse ox 95% on 3 L nasal cannula. Blood sugars are running between 139 and 188. 08/26: Patient continues to have significant wheezing and no change will be made to Solu-Medrol. She is continued on 60 mg IV every 6 hours. Nystatin was added last night for thrush. She has been afebrile, heart rate 81, blood pressure 113/72, pulse ox 95% on 2 L. Continue same medications for now. Possible discharge by or Sunday of this week. 08/27: Patient is seen today on the pediatric unit. She continues to have significant wheezing and difficulty breathing. She has not had any significant improvement since admission. CTA of the chest will be ordered to rule out pulmonary embolism. Discussed with Dr. Mann for possible bronchoscopy. Patient's had difficulty with IV access and a midline has been ordered. Patient has been afebrile, heart rate 86, blood pressure 136/74, pulse ox 93% on 2 L nasal cannula. Repeat blood work, WBC 16.4, BUN 18 and creatinine 0.94, sodium 133. Blood sugars running between 138 and 226. AST 51, ALT 58. 08/28: Patient is seen in follow-up today she is on the cardiac stepdown unit. Her breathing is much improved from yesterday. She is scheduled for bronchoscopy this afternoon. CTA of the chest done yesterday was negative for pulmonary embolism. There was moderate emphysematous changes without acute pulmonary process. She has been afebrile, heart rate 90, blood pressure 143/80, pulse ox 96% on 3 L nasal cannula. Anticipate she will be ready for discharge next 48-72 hours. 08/29: Patient still has dyspnea and exertion today, audible wheezing, conversational dyspnea, patient has also headaches, and she thinks it's one of her normal migraines, oral use is not any better with nystatin swish and swallow, patient's also informed regarding the high calcium level however D calcium level now has improved at 10.2, doubt malignancy there is mild transaminitis, this will be monitored, double view obesity is 13.0, hemoglobin 7.5, patient has slimy mucus, however has difficulty in expectorating it, no sputum available for review for culture,, patient is on IV steroids Solu-Medrol 60, and nebulized Pulmicort twice a day, hepatitis panel to be done, continue Perforomist medicine next and oral Keflex oral Zithromax 08/30: Patient is dyspneic still, with audible wheezing, conversational dyspnea, patient also has some anxiety, no bowel movement for the past 9 days, patient was started on by mouth Olivas in, along with one-time dose of IV Lasix, continued on nebulized treatments, as well as IV Solu-Medrol. Patient has no fever, no dysphagia, and no aspirated events, heart rate 90s, blood pressure in 160s, still with accessory muscle use, and tachypnea. Patient is on a Ventimask, 94% on 35% FiO2. 08/31: Patient seen as follow-up today, evaluated on morning rounds, sitting up in bed, on nebulizing treatment. Patient still has audible wheezing and conversational dyspnea, has not improved much since admission. She continues on Pulmicort along with Tessalon, Solu-Medrol 60 mg IV push every 6 hours, and theophylline 300 mg daily. Apparently bronchoscopy was held due to patient was still bronchospastic and wheezing. Given that she has not improved since admission, bronchoscopy may be beneficial. Awaiting pulmonary's recommendations. Vital signs are stable, blood pressure 129/79, heart rate 98, afebrile at 96.9 axillary, 98% on the Ventimask with FiO2 35%. 09/01 Patient is evaluated today at rounds, she is sitting up in bed. Audible wheezing still present, with an expiratory and expiratory wheeze to auscultation. Patient is still short of breath with exertion and conversation, not improving. She is continuing on Pulmicort twice a day, Perforomist, Duoneb, Solu-Medrol 60 mg IV push every 6hours, theophylline 300 mg po daily, and tessalon perles. Patient is using ventolin PRN as well. Bronchoscopy still on hold due to ongoing bronchospams and wheezing. Echocardiogram today revealed an EF of 50 to 55%; mild mitral regurgitation, mild concentric left ventricular hypertrophy, and small, generalized pericardial effusion present. Patient will be given a one time dose of lasix 40 mg IV push, and will be started on lasix 20 mg oral starting tomorrow. Encouraged to continue using IS 10 times per hour. Labs today include WBC of 15.1, AST 74, ALT-66; trending upwards, will continue to monitor. Current vital signs; afebrile at 98.4, heart rate 79, blood pressure 144/83, and patient is 97% on 3L NC. Last documented bowel movement on 08/21, receiving sennakot daily. 09/02: Patient evaluated this morning, noted to be sitting up at the bedside. She reports she is feeling a little bit better this morning, she is still dyspneic but less bronchospastic. She remains on 3 L nasal cannula saturations are 93- 95%. Still having conversational dyspnea and dyspnea upon exertion, but slowly improving. She continues on the DuoNeb's 3 times daily, Tessalon Perles 200 mg 3 times daily, budesonide 1 mg 3 times a day, Perforomist 20 mcg's twice a day, Mucinex 6 mg every 12, Solu-Medrol 60 mg every 6 hours, and theophylline 300 mg daily. Pulmonary on consult, no plans for bronchoscopy at this time. Patient reports concerns for discharge, patient does not feel she can manage at home. She may benefit from subacute rehab and nursing care, social work consulted as well as PT/OT. 09/03: Patient reports breathing is starting to improve slowly. Oxygen still noted to drop with exertion into the 80s and has exertional dyspnea with very short distances. She is cleared from pulmonary's standpoint. Discussion with family at the bedside that patient would benefit from subacute rehab and and nursing care, due to the high likely burns of return hospitalization, rehab is strongly encouraged. She is still debating to go home or to rehab at this point. Will let social worker psychiatric know what the decision will be, she can be discharged today to either home or rehab, whichever she decides. Discharge diagnoses 1. Acute COPD exacerbation. 2. Chronic hypoxic respiratory failure on home O2 at 3 L nasal cannula. 3. Oral stu 3. Hypothyroidism. 4. Hyperlipidemia. 5. History of breast cancer status post lumpectomy. 6. Tobacco use and dependence. 7. Recurrent depression. 8. COVID-19 infection not present. 9. Hyperglycemia secondary to steroids. 10. Mild hypercalcemia resolved, most likely secondary to dehydration, doubt malignancy, continue to monitor. 11. Pulmonary anxiety 12. Constipation The above impression and plan of care have been discussed and directed by signing physician. Mary Peterson nurse practitioner acting as scribe for signing physician. Patient Condition at Discharge: Fair Plan - Discharge Summary Discharge Rx Participant: No New Discharge Prescriptions: No Action Ascorbic Acid [Vitamin C] 1,000 mg PO DAILY DULoxetine HCL [Cymbalta] 60 mg PO DAILY Atorvastatin [Lipitor] 20 mg PO DAILY Levothyroxine Sodium [Synthroid] 75 mcg PO DAILY Letrozole [Femara] 2.5 mg PO DAILY Albuterol Sulfate [Ventolin HFA] 2 puff INHALATION Q4H PRN PRN Reason: Shortness Of Breath Budesonide/Formoterol Fumarate [Symbicort 160-4.5 Mcg Inhaler] 2 puff INHALATION BID Ipratropium-Albuterol Nebulize [Duoneb 0.5 mg-3 mg/3 ml Soln] 3 ml INHALATION RT-QID #120 ml Budesonide [Pulmicort] 1 mg INHALATION RT-BID #60 dose Cholecalciferol [Vitamin D3 (25 Mcg = 1000 Iu)] 1,000 unit PO DAILY Melatonin 5 mg PO HS PRN PRN Reason: Insomnia Discharge Medication List Albuterol Sulfate [Ventolin HFA] 2 puff INHALATION Q4H PRN 05/16/19 [History] Ascorbic Acid [Vitamin C] 1,000 mg PO DAILY 05/16/19 [History] Atorvastatin [Lipitor] 20 mg PO DAILY 05/16/19 [History] Budesonide/Formoterol Fumarate [Symbicort 160-4.5 Mcg Inhaler] 2 puff INHALATION BID 05/16/19 [History] DULoxetine HCL [Cymbalta] 60 mg PO DAILY 05/16/19 [History] Letrozole [Femara] 2.5 mg PO DAILY 05/16/19 [History] Levothyroxine Sodium [Synthroid] 75 mcg PO DAILY 05/16/19 [History] Budesonide [Pulmicort] 1 mg INHALATION RT-BID #60 dose 05/21/19 [Rx] Ipratropium-Albuterol Nebulize [Duoneb 0.5 mg-3 mg/3 ml Soln] 3 ml INHALATION RT-QID #120 ml 05/21/19 [Rx] Cholecalciferol [Vitamin D3 (25 Mcg = 1000 Iu)] 1,000 unit PO DAILY 08/25/19 [History] Melatonin 5 mg PO HS PRN 08/25/19 [History] Follow up Appointment(s)/Referral(s): Deshaun Bolanos DO [Primary Care Provider] - 1-2 days
[2019-09-04 11:46] VITALS: PULSE 98; RESP 16
[2019-09-04 12:18] LABS: Glucose,Whole Blood 140 mg/dL (75-99)
--- NOTE | 2019-09-04 13:47 | P.PN ---
Subjective Progress Note Date: 09/04/19 Principal diagnosis: Acute exacerbation of chronic obstructive pulmonary disease The patient is seen today 09/03/2019 in follow-up on the selective care unit. She is awake and alert in no acute distress. Breathing a bit easier today compared to yesterday. Less bronchospastic and wheezy. She is currently maintaining O2 saturations in the 90s on 3 L/m per nasal cannula. Blood glucose 144. She has been maintained on DuoNeb inhalations, Pulmicort and Perforomist inhalations, IV Solu-Medrol, theophylline, Tessalon Perles. NicoDerm patch in place. The patient is seen today 09/04/2019 in follow-up on the selective care unit. She is currently sitting up at the bedside. Awake and alert in no acute distress. She denies any worsening shortness of breath, cough or congestion. Feeling back to her baseline. She is maintaining good O2 saturations in the 90s on 3 L/m per nasal cannula. Plan is for discharge today to extended care facility. Objective - Vital Signs Vital signs: Vital Signs Temp 98.6 F 09/04/19 08:00 Pulse 86 09/04/19 11:23 Resp 16 09/04/19 08:00 BP 141/69 09/04/19 08:00 Pulse Ox 95 09/04/19 03:18 Intake & Output 09/03/19 09/04/19 09/04/19 18:59 06:59 18:59 Intake Total 480 540 444 Output Total 1100 500 Balance -620 40 444 Intake: Oral 480 540 444 Output: Urine 1100 500 Other: Voiding Method Bedside Commode Bedside Commode Bedside Commode # Voids 400 2 - Exam GENERAL EXAM: Alert, pleasant obese 69-year-old female patient, on 3 L nasal cannula. HEAD: Normocephalic. EYES: Normal reaction of pupils, equal size. NOSE: Clear with pink turbinates. THROAT: No erythema or exudates. NECK: No masses, no JVD. CHEST: No chest wall deformity. LUNGS: Equal air entry with bilateral end expiratory wheeze, diminished. CVS: S1 and S2 normal with no audible murmur, regular rhythm. ABDOMEN: No hepatosplenomegaly, normal bowel sounds, no guarding or rigidity. SPINE: No scoliosis or deformity SKIN: No rashes CENTRAL NERVOUS SYSTEM: Alert and oriented 3. No focal deficits, tone is normal in all 4 extremities. EXTREMITIES: There is no peripheral edema. No clubbing, no cyanosis. Peripheral pulses are intact. - Labs CBC & Chem 7: 09/04/19 06:53 09/04/19 09:07 Labs: Abnormal Lab Results - Last 24 Hours (Table) 09/03/19 09/03/19 09/04/19 Range/Units 16:45 21:13 06:28 WBC (3.8-10.6) k/uL MCV (80.0-100.0) fL MCH (25.0-35.0) pg Neutrophils # (1.3-7.7) k/uL Lymphocytes # (1.0-4.8) k/uL Sodium (137-145) mmol/L Chloride (98-107) mmol/L Carbon Dioxide (22-30) mmol/L BUN (7-17) mg/dL Glucose (74-99) mg/dL POC Glucose (mg/dL) 145 H 195 H 117 H (75-99) mg/dL Calcium (8.4-10.2) mg/dL AST (14-36) U/L ALT (4-34) U/L 09/04/19 09/04/19 09/04/19 Range/Units 06:53 09:07 12:17 WBC 13.5 H (3.8-10.6) k/uL MCV 104.4 H (80.0-100.0) fL MCH 35.7 H (25.0-35.0) pg Neutrophils # 11.8 H (1.3-7.7) k/uL Lymphocytes # 0.7 L (1.0-4.8) k/uL Sodium 132 L (137-145) mmol/L Chloride 88 L (98-107) mmol/L Carbon Dioxide 36 H (22-30) mmol/L BUN 38 H (7-17) mg/dL Glucose 129 H (74-99) mg/dL POC Glucose (mg/dL) 140 H (75-99) mg/dL Calcium 10.5 H (8.4-10.2) mg/dL AST 58 H (14-36) U/L ALT 60 H (4-34) U/L Assessment and Plan Assessment: 1 acute COPD exacerbation with secondary shortness of breath. Chest x-ray is within normal limits and there is no evidence of any acute pneumonia. Improved 2 chronic smoking 3 history of breast cancer with lumpectomy currently on Femara 4 hypothyroidism 5 hyperlipidemia 6 anxiety/depression maintain and accommodation of Cymbalta and Xanax 7 hypercalcemia, intact PTH is low, consider skeletal metastases. Plan: Cleared for discharge from the pulmonary standpoint Complete prednisone taper Continue her home pulmonary medications Again educated regarding the importance of complete smoking cessation Follow up with Dr. Bishop in 1-2 weeks' time I, the cosigning physician, performed a history & physical examination of the patient. Lungs sounds bilateral end expiratory wheeze, diminished. Maintaining good O2 saturations in the 90s on 3 L/m per nasal cannula. I discussed the assessment and plan of care with my nurse practitioner, Helen Gusman. I attest to the above note as dictated by her.
[2019-09-04 14:06] VITALS: BP 125/68; TEMP 97.7
[2019-09-04] MEDS ORDERED: SYMBICORT 160-4.5 MCG INHALER INHALATION SCH (20:00)
== END 2019-09-04 14:37 | DRG 191 ==
LOC: EC 20:57 → 1SOBS 22:50 → OBSVTOIN 08-25 09:48 → 6PED 08-27 11:10 → 3SCARD 08-28 13:44
PROVIDERS: ADMIT Internal Medicine Geriatric Medicine; ATTEND Internal Medicine Geriatric Medicine
DX: J44.1 Chronic obstructive pulmonary disease with (acute) exacerbation (principal); F33.9 Major depressive disorder, recurrent, unspecified; J96.11 Chronic respiratory failure with hypoxia; B37.0 Candidal stomatitis; I31.3 Pericardial effusion (noninflammatory); E03.9 Hypothyroidism, unspecified; F41.9 Anxiety disorder, unspecified; E78.5 Hyperlipidemia, unspecified; F17.210 Nicotine dependence, cigarettes, uncomplicated; E83.52 Hypercalcemia; Z20.828 Contact with and (suspected) exposure to other viral communicable diseases; T38.0X5A Adverse effect of glucocorticoids and synthetic analogues, initial encounter; G43.909 Migraine, unspecified, not intractable, without status migrainosus; K59.00 Constipation, unspecified; E86.0 Dehydration; I51.7 Cardiomegaly; Z79.890 Hormone replacement therapy; Z79.51 Long term (current) use of inhaled steroids; Z90.49 Acquired absence of other specified parts of digestive tract; Z82.49 Family history of ischemic heart disease and other diseases of the circulatory system; Z82.5 Family history of asthma and other chronic lower respiratory diseases; Z99.81 Dependence on supplemental oxygen; Z85.3 Personal history of malignant neoplasm of breast; Z90.89 Acquired absence of other organs; Z79.899 Other long term (current) drug therapy
CPT/HCPCS: 36415; 71046; 71275; 80048; 80053; 82785; 83880; 83970; 85025; 85027; 93005; 93306; 94640; 94760; 96361; 96374; 99285

== ENCOUNTER → 2020-06-15 | Outpatient (CLI) | payer MEDICARE ==
--- NOTE | 2020-06-15 12:28 | XR ---
EXAMINATION TYPE: XR ankle complete LT DATE OF EXAM: 06/15/2020 COMPARISON: NONE HISTORY: Pain FINDINGS: Three views of the ankle demonstrate the ankle mortise to be intact and symmetric. The joint spaces are preserved. The osseous structures are intact. IMPRESSION: 1. No definite acute fracture or dislocation, if there is concern for stress fracture consider MRI to assess for marrow edema.
--- NOTE | 2020-06-15 13:14 | XR ---
EXAMINATION TYPE: XR foot complete LT DATE OF EXAM: 06/15/2020 COMPARISON: NONE HISTORY: pain TECHNIQUE: Three views are submitted. FINDINGS: Chronic deformity of the fifth metatarsal. Severe arthropathy of the first MTP. Diffuse osteopenia. S oft tissue edema overlying the dorsum of the foot. No definite acute fracture or dislocation. IMPRESSION: 1. Diffuse osteopenia with chronic deformity of the fifth metatarsal. 2. Arthropathy.
[2020-06-16 00:07] LABS: Chol/HDL Ratio 4.44; LDL Cholesterol,Calculated 162.6 mg/dL (0.0-131.0); VLDL Calculation 26.4 mg/dL (5.00-40.00)
[2020-06-16 00:23] LABS: T4, Free (Free Thyroxine) 0.4 ng/dL (0.80-1.80)
== END | disposition home or self-care (01) ==
LOC: LABWHC1 11:36
PROVIDERS: ATTEND Family Medicine
DX: M85.872 Other specified disorders of bone density and structure, left ankle and foot (principal); M19.072 Primary osteoarthritis, left ankle and foot; M84.375A Stress fracture, left foot, initial encounter for fracture; E78.5 Hyperlipidemia, unspecified; E03.9 Hypothyroidism, unspecified
CPT/HCPCS: 36415; 80061; 84439; 84443; 85379

== ENCOUNTER → 2020-06-17 | Outpatient (CLI) | payer MEDICARE ==
--- NOTE | 2020-06-17 15:48 | US ---
EXAMINATION TYPE: US venous doppler duplex LE BI DATE OF EXAM: 06/17/2020 3:31 PM COMPARISON: NONE CLINICAL HISTORY: I82.409 Acute embolism and thrombosis of unspecifi. Bilateral leg edema SIDE PERFORMED: Bilateral TECHNIQUE: The lower extremity deep venous system is examined utilizing real time linear array sonog nela with graded compression, doppler sonography and color-flow sonography. VESSELS IMAGED: Common Femoral Vein Deep Femoral Vein Greater Saphenous Vein * Femoral Vein Popliteal Vein Small Saphenous Vein * Proximal Calf Veins (* superficial vessels) Right Leg: Appears negative for DVT Left Leg: Appears negative for DVT IMPRESSION: 1. Bilateral lower extremity ultrasound negative for deep venous thrombosis
== END | disposition home or self-care (01) ==
LOC: RADUSWWP 14:56
PROVIDERS: ATTEND Family Medicine
DX: R60.0 Localized edema (principal); I82.409 Acute embolism and thrombosis of unspecified deep veins of unspecified lower extremity
CPT/HCPCS: 93970

== ENCOUNTER 2020-06-27 14:37 | Observation (INO) | payer MEDICARE ==
[2020-06-27] MEDS ORDERED: cefTRIAXone IN SWFI 1,000 MG/10 ML SYRINGE IVP STA ×2 (15:13→17:51)
[2020-06-27] MEDS ORDERED: KETOROLAC 15 MG/ML 1 ML VIAL IVP STA (15:14)
[2020-06-27] MEDS ORDERED: SODIUM CHLORIDE 0.9% 500 ML 500 ML IV SCH (15:15)
--- NOTE | 2020-06-27 15:17 | ED ---
General Adult HPI - General Chief complaint: Extremity Problem,Nontraumatic Stated complaint: L Hand/ L Leg Swelling Time Seen by Provider: 06/27/20 14:51 Source: patient Mode of arrival: ambulatory Limitations: no limitations - History of Present Illness Initial comments: 70-year-old female with a past medical history of breast cancer, end-stage COPD requiring 2 L nasal cannula at home, hypothyroidism, hyperlipidemia presents to the emergency room for a chief complaint of left hand swelling. Patient states this started 5 days ago. States it is very painful and swollen. Patient states there is a small abrasion on the left hand a few weeks ago but that it is resolving. Patient states the pain is not getting up to her elbow. Patient also has swelling in the left foot however reports that this has been ongoing for 2 months. She has had negative ultrasounds and is currently following up with her doctor for this.Patient has no other complaints at this time including shortness of breath, chest pain, abdominal pain, nausea or vomiting, headache, or visual changes. - Related Data Home Medications Medication Instructions Recorded Confirmed Albuterol Sulfate [Ventolin HFA] 2 puff INHALATION RT-Q4H PRN 05/16/19 06/27/20 DULoxetine HCL [Cymbalta] 60 mg PO DAILY 05/16/19 06/27/20 Ascorbic Acid [Vitamin C] 500 mg PO DAILY 06/27/20 06/27/20 Aspirin EC [Ecotrin Low Dose] 81 mg PO DAILY 06/27/20 06/27/20 Atorvastatin Calcium [Lipitor] 40 mg PO DAILY 06/27/20 06/27/20 Calcium Carbonate [Calcium] 1,200 mg PO DAILY 06/27/20 06/27/20 Cholecalciferol (Vitamin D3) 125 mcg PO DAILY 06/27/20 06/27/20 [Vitamin D3 (5000 Iu)] Ipratropium-Albuterol Nebulize 3 ml INHALATION RT-QID PRN 06/27/20 06/27/20 [Duoneb 0.5 mg-3 mg/3 ml Soln] Levothyroxine Sodium [Synthroid] 100 mcg PO DAILY 06/27/20 06/27/20 Previous Rx's Medication Instructions Recorded Budesonide-Formot 160-4.5 Mcg 2 puff INHALATION RT-BID puff 09/04/19 [Symbicort 160-4.5 Mcg Inhaler] Allergies Allergy/AdvReac Type Severity Reaction Status Date / Time Penicillins Allergy Rash/Hives Verified 06/27/20 17:26 Review of Systems ROS Statement: Those systems with pertinent positive or pertinent negative responses have been documented in the HPI. ROS Other: All systems not noted in ROS Statement are negative. Past Medical History Past Medical History: Cancer, COPD, Thyroid Disorder Additional Past Medical History / Comment(s): History of breast cancer, COPD, hypothyroidism, hyperlipidemia, chronic anxiety and depression History of Any Multi-Drug Resistant Organisms: None Reported Past Surgical History: Appendectomy Additional Past Surgical History / Comment(s): lumpectomy, Past Anesthesia/Blood Transfusion Reactions: No Reported Reaction Past Psychological History: Anxiety, Depression Smoking Status: Current every day smoker Past Alcohol Use History: Occasional Past Drug Use History: None Reported - Past Family History Mother Family Medical History: Coronary Artery Disease (CAD) Father Family Medical History: Coronary Artery Disease (CAD) Additional Family Medical History / Comment(s): 2 sisters one with COPD the other one healthy. No children. General Exam - General Exam Comments Initial Comments: Left hand: Erythematous and warm, generalized tenderness through left hand and left wrist. Mild edema. Radial pulse 2+. No pain with range of motion. No abscess identified. There is a small abrasion noted to the ulnar aspect of the left hand. Left foot: Non-erythematous mild edema of the left foot and ankle. No increased warmth, no evidence of infection. DP pulse 2+. No tenderness. Full range of motion. Limitations: no limitations General appearance: alert, in no apparent distress Head exam: Present: atraumatic, normocephalic, normal inspection Eye exam: Present: normal appearance, PERRL, EOMI. Absent: scleral icterus, conjunctival injection, periorbital swelling ENT exam: Present: normal exam, mucous membranes moist Neck exam: Present: normal inspection, full ROM. Absent: tenderness, meningismus, lymphadenopathy Respiratory exam: Present: normal lung sounds bilaterally. Absent: respiratory distress, wheezes, rales, rhonchi, stridor Cardiovascular Exam: Present: regular rate, normal rhythm, normal heart sounds. Absent: systolic murmur, diastolic murmur, rubs, gallop, clicks GI/Abdominal exam: Present: soft, normal bowel sounds. Absent: distended, tenderness, guarding, rebound, rigid Course Vital Signs 06/27/20 14:43 Temperature 98.3 F Pulse Rate 110 H Respiratory 20 Rate Blood Pressure 131/78 O2 Sat by Pulse 95 Oximetry Medical Decision Making - Medical Decision Making Vitals are stable. No fever. Patient on oxygen at home normally. Physical exam reveals an erythematous edematous left hand. Infection seems to be more dorsally located. Patient does have pain with movement of the hand and wrist but is able to flex the fingers to 90 and extend to full extension. Slight flexion and extension in the wrist however limited secondary to pain. CBC does show leukocytosis and thrombocytosis. CMP unremarkable. Slight hypokalemia, will be given oral potassium. CRP is elevated, 7.8. X-ray of the left hand does reveal soft tissue swelling. No sign of inflammatory arthritis. Patient likely has a cellulitis of the left hand. I did speak with on-call orthopedics Matteo [facility]. Agreeable to starting antibiotics, admitting to medicine, and consult orthopedics. - Lab Data Result diagrams: 06/27/20 15:35 06/27/20 15:35 Lab Results 06/27/20 06/27/20 06/27/20 Range/Units 15:35 15:35 15:35 WBC 13.8 H (3.8-10.6) k/uL RBC 3.62 L (3.80-5.40) m/uL Hgb 11.8 (11.4-16.0) gm/dL Hct 35.8 (34.0-46.0) % MCV 99.0 (80.0-100.0) fL MCH 32.7 (25.0-35.0) pg MCHC 33.0 (31.0-37.0) g/dL RDW 14.7 (11.5-15.5) % Plt Count 472 H (150-450) k/uL MPV 7.4 Neutrophils % 74 % Lymphocytes % 17 % Monocytes % 6 % Eosinophils % 1 % Basophils % 0 % Neutrophils # 10.2 H (1.3-7.7) k/uL Lymphocytes # 2.3 (1.0-4.8) k/uL Monocytes # 0.9 (0-1.0) k/uL Eosinophils # 0.1 (0-0.7) k/uL Basophils # 0.1 (0-0.2) k/uL Macrocytosis Slight PT 10.2 (9.0-12.0) sec INR 0.9 (<1.2) APTT 24.6 (22.0-30.0) sec Sodium 136 L (137-145) mmol/L Potassium 3.1 L (3.5-5.1) mmol/L Chloride 99 (98-107) mmol/L Carbon Dioxide 33 H (22-30) mmol/L Anion Gap 4 mmol/L BUN 9 (7-17) mg/dL Creatinine 0.75 (0.52-1.04) mg/dL Est GFR (CKD-EPI)AfAm >90 (>60 ml/min/1.73 sqM) Est GFR (CKD-EPI)NonAf 81 (>60 ml/min/1.73 sqM) Glucose 108 H (74-99) mg/dL Plasma Lactic Acid Zhang (0.7-2.0) mmol/L Calcium 10.0 (8.4-10.2) mg/dL Total Bilirubin 0.6 (0.2-1.3) mg/dL AST 17 (14-36) U/L ALT 9 (4-34) U/L Alkaline Phosphatase 80 (38-126) U/L C-Reactive Protein 7.8 H (<1.0) mg/dL Total Protein 6.5 (6.3-8.2) g/dL Albumin 3.6 (3.5-5.0) g/dL 06/27/20 Range/Units 15:35 WBC (3.8-10.6) k/uL RBC (3.80-5.40) m/uL Hgb (11.4-16.0) gm/dL Hct (34.0-46.0) % MCV (80.0-100.0) fL MCH (25.0-35.0) pg MCHC (31.0-37.0) g/dL RDW (11.5-15.5) % Plt Count (150-450) k/uL MPV Neutrophils % % Lymphocytes % % Monocytes % % Eosinophils % % Basophils % % Neutrophils # (1.3-7.7) k/uL Lymphocytes # (1.0-4.8) k/uL Monocytes # (0-1.0) k/uL Eosinophils # (0-0.7) k/uL Basophils # (0-0.2) k/uL Macrocytosis PT (9.0-12.0) sec INR (<1.2) APTT (22.0-30.0) sec Sodium (137-145) mmol/L Potassium (3.5-5.1) mmol/L Chloride (98-107) mmol/L Carbon Dioxide (22-30) mmol/L Anion Gap mmol/L BUN (7-17) mg/dL Creatinine (0.52-1.04) mg/dL Est GFR (CKD-EPI)AfAm (>60 ml/min/1.73 sqM) Est GFR (CKD-EPI)NonAf (>60 ml/min/1.73 sqM) Glucose (74-99) mg/dL Plasma Lactic Acid Zhang 1.3 (0.7-2.0) mmol/L Calcium (8.4-10.2) mg/dL Total Bilirubin (0.2-1.3) mg/dL AST (14-36) U/L ALT (4-34) U/L Alkaline Phosphatase (38-126) U/L C-Reactive Protein (<1.0) mg/dL Total Protein (6.3-8.2) g/dL Albumin (3.5-5.0) g/dL Disposition Clinical Impression: Cellulitis, Hand pain, left, Leukocytosis Disposition: ADMITTED IP TO THIS HOSP Is patient prescribed a controlled substance at d/c from ED?: No Referrals: Deshaun Bolanos DO [Primary Care Provider] - 1-2 days Time of Disposition: 17:58
--- NOTE | 2020-06-27 15:35 | XR ---
EXAMINATION TYPE: XR hand complete LT DATE OF EXAM: 06/27/2020 COMPARISON: NONE HISTORY: Swelling and pain. TECHNIQUE: 3 views FINDINGS: Metacarpals are intact. There is soft tissue swelling on the dorsum of the hand. There are no erosions. There is no subluxation. There is narrowing and spurring at the first carpometacarpal ankit int. There is calcification of the triangular cartilage. IMPRESSION: Soft tissue swelling. There is some osteoarthritis. No fracture seen. No specific sign of inflammatory arthritis.
[2020-06-27 15:51] LABS: Basophils # (A) 0.1 k/uL (0-0.2); Basophils % (A) 0 %; Eosinophils # (A) 0.1 k/uL (0-0.7); Eosinophils % (A) 1 %; HCT 35.8 % (34.0-46.0); HGB 11.8 gm/dL (11.4-16.0); Lymphocytes # (A) 2.3 k/uL (1.0-4.8); Lymphocytes % (A) 17 %; MCH 32.7 pg (25.0-35.0); Macrocytosis Slight; Mean Platelet Volume 7.4; Monocytes # (A) 0.9 k/uL (0-1.0); Monocytes % (A) 6 %; Neutrophils # (A) 10.2 k/uL (1.3-7.7); Neutrophils % (A) 74 %; Platelet Count 472 k/uL (150-450); RBC 3.62 m/uL (3.80-5.40); RDW 14.7 % (11.5-15.5); WBC 13.8 k/uL (3.8-10.6)
[2020-06-27 16:00] LABS: INR 0.9 (<1.2); Partial Thromboplastin Time 24.6 sec (22.0-30.0); Prothrombin Time 10.2 sec (9.0-12.0)
[2020-06-27 16:01] LABS: ALT 9 U/L (4-34); AST 17 U/L (14-36); African American GFR (CKD) >90 (>60 ml/min/1.73 sqM); Albumin 3.6 g/dL (3.5-5.0); Alkaline Phosphatase 80 U/L (38-126); Anion Gap 4 mmol/L; Blood Urea Nitrogen 9 mg/dL (7-17); Carbon Dioxide 33 mmol/L (22-30); Chloride 99 mmol/L (98-107); Glucose 108 mg/dL (74-99); Non-African American GFR(CKD) 81 (>60 ml/min/1.73 sqM); Potassium 3.1 mmol/L (3.5-5.1); Sodium 136 mmol/L (137-145); Total Bilirubin 0.6 mg/dL (0.2-1.3); Total Protein 6.5 g/dL (6.3-8.2)
[2020-06-27 16:21] LABS: C Reactive Protein 7.8 mg/dL (<1.0)
[2020-06-27] MEDS ORDERED: ACETAMINOPHEN TAB 325 MG TAB PO PRN (17:48)
[2020-06-27] MEDS ORDERED: NALOXONE 0.4 MG/ML 1 ML VIAL IV PRN (17:48)
[2020-06-27] MEDS ORDERED: MORPHINE SULFATE 2 MG/ML SYRINGE IV PRN (17:48)
[2020-06-27] MEDS ORDERED: ONDANSETRON 4 MG/2 ML VIAL IVP PRN (17:48)
[2020-06-27] MEDS ORDERED: VANCOMYCIN IV PER PHARMACY 1 EACH MISC MISCELLANE PRN (17:51)
[2020-06-27] MEDS ORDERED: POTASSIUM CHLORIDE ER 20 MEQ TAB.ER PO STA (17:55)
[2020-06-27] MEDS: SODIUM CHLORIDE 0.9% 1,000 ML IV SCH (18:08)
[2020-06-27] MEDS ORDERED: VANCOMYCIN 1,500 MG in SODIUM CHLORIDE 0.9% 250 ML IVPB ONE (18:30)
[2020-06-27] MEDS: IPRATROPIUM-ALBUTEROL 3 ML NEB INHALATION PRN (20:10)
[2020-06-28] MEDS: ALBUTEROL NEBULIZED 2.5 MG/3 ML INHALATION PRN (03:24)
[2020-06-28 05:33] LABS: African American GFR (CKD) >90 (>60 ml/min/1.73 sqM); Non-African American GFR(CKD) 89 (>60 ml/min/1.73 sqM)
[2020-06-28] MEDS ORDERED: VANCOMYCIN 1,250 MG in SODIUM CHLORIDE 0.9% 250 ML IVPB SCH (06:00)
[2020-06-28] MEDS: LEVOTHYROXINE 100 MCG TAB PO SCH (06:25)
--- NOTE | 2020-06-28 06:26 | P.HPIM ---
History of Present Illness H&P Date: 06/27/20 Chief Complaint: Left hand cellulitis and swelling, COPD, hypertension, hyp erlipidemia History of Present Illness H&P Date: 06/27/2020 Chief Complaint: Cellulitis of the left hand This is a 69-year-old female patient of Dr. Bolanos and Dr. Summers with past medical history significant for COPD, chronic hypoxic respiratory failure with home O2 at 2L n/c, hypothyroidism, breast cancer status post lumpectomy, active tobacco use and dependence. She presented to the emergency department at [facility] today complaining of left hand swelling developed for the last 5 days to have a painful swelling with discomfort she had mild abrasion of the left hand a few weeks ago which has resolved but continue having slight discomfort and pain between the hand and elbow. Her had become more swelling breath and painful was seen and evaluated in the emergency department she had overall swelling apparently orthopedic where contacted at the time and sounds to the current symptoms to admit patient for cellulitis and also will be seen her in consultation. White blood cell was mildly elevated patient was started on 1 dose of vancomycin initially continue low dose of diuretics continue ice pack and had elevation will be seen orthopedic and possibly infectious disease. Surprisingly patient mentioned hours duct scratch on the lateral side of her Route wrist area which how the infection started. Despite starting patient on vancomycin patient will be started on clindamycin as well she is ALLERGIC to penicillin will consult infectious disease as well. Review of Systems Constitutional: No fever, no chills, no night sweats. No weight change. Reports weakness, fatigue or lethargy. No daytime sleepiness. EENT: No headache. No blurred vision or double vision, no loss of vision. No loss of Hearing, no ringing in the ears, no dizziness. No nasal drainage or c ongestion. No epistaxis. No sore throat. Lungs: Reports reports shortness of breath, cough, no sputum production. Reports wheezing. Cardiovascular: No chest pain, no lower extremity edema. No palpitations. No paroxysmal nocturnal dyspnea. No orthopnea. No lightheadedness or dizziness. No syncopal episodes. Abdominal: No abdominal pain. No nausea, vomiting. No diarrhea. No constipation. No bloody or tarry stools.. No loss of appetite. Genitourinary: No dysuria, increased frequency, urgency. No urinary retention. Musculoskeletal: No myalgias. No muscle weakness, no gait dysfunction, no frequent falls. No back pain. No neck pain. Integumentary: As cellulitis and swelling of the left hand with redness discomfort Neurologic: No aphasia. No facial droop. No change in mentation. No head injury. No headache. No paralysis. No paresthesia. Psychiatric: No depression. No anxiety. No mood swings. Endocrine: No abnormal blood sugars. No weight change. No excessive sweating or thirst. Physical Examination Gen: This is a 69-year-old female. Patient is resting in bed at the time of evaluation appears to be comfortable and in no acute distress. HEENT: Head is atraumatic, normocephalic. Pupils equal, round. Sclerae is anicteric. NECK: Supple. No JVD. No lymphadenopathy. No thyromegaly. LUNGS: Diminished bilaterally with few scattered wheezes. No intercostal retractions. No accessory muscle usage. HEART: Regular rate and rhythm. No murmur. ABDOMEN: Soft. Bowel sounds are present. No masses. No tenderness. EXTREMITIES: Positive pedal edema. No calf tenderness. Dorsalis pedis +2 bilaterally. Left hand had cellulitis spreading and going up toward the elbow with slight redness discomfort irritation with slight decrease of the function of the wrist as well. NEUROLOGICAL: Patient is awake, alert and oriented x3. Cranial nerves 2 through 12 are grossly intact. Assessment and Plan 1. Acute cellulitis of the left hand, with dog scratch: Patient will be admitted to the hospital continue vancomycin and add clindamycin, continue topical care ice pack and had elevation patient be seen orthopedic hand specialist in case this is become worse he might have to have an open surgery otherwise will continue current antibiotic till we have any culture result. Tdap will be giving today. 2. COPD: Continue DuoNeb treatments 4 times daily and albuterol as needed, Pulmicort 1 mg twice daily, oxygen at 2 L nasal cannula, 3. Hypothyroidism. Continue levothyroxine 75 g daily. 4. Hyperlipidemia. Continue Lipitor 20 mg daily. 5. History of breast cancer status post lumpectomy. Continue Femara 2.5 mg daily. 6. Tobacco use and dependence. Continue nicotine patch. 7. Recurrent depression. Continue Cymbalta 60 mg daily. 8. GI prophylaxis. Protonix. 9. DVT prophylaxis. Lovenox daily subcu. 10. COVID-19 testing were negative, patient was admitted to the hospital and pandemic time. Patient will be admitted to the hospital for a minimum of 2 night stay. Discharge plan: Most likely return home. Past Medical History Past Medical History: Cancer, COPD, Thyroid Disorder Additional Past Medical History / Comment(s): History of breast cancer, COPD, hypothyroidism, hyperlipidemia, chronic anxiety and depression History of Any Multi-Drug Resistant Organisms: None Reported Past Surgical History: Appendectomy Additional Past Surgical History / Comment(s): lumpectomy, Past Anesthesia/Blood Transfusion Reactions: No Reported Reaction Past Psychological History: Anxiety, Depression Smoking Status: Current every day smoker Past Alcohol Use History: Occasional Past Drug Use History: None Reported - Past Family History Mother Family Medical History: Coronary Artery Disease (CAD) Father Family Medical History: Coronary Artery Disease (CAD) Additional Family Medical History / Comment(s): 2 sisters one with COPD the other one healthy. No children. Medications and Allergies Home Medications Medication Instructions Recorded Confirmed Type Albuterol Sulfate [Ventolin HFA] 2 puff INHALATION RT-Q4H PRN 05/16/19 06/27/20 History DULoxetine HCL [Cymbalta] 60 mg PO DAILY 05/16/19 06/27/20 History Budesonide-Formot 160-4.5 Mcg 2 puff INHALATION RT-BID puff 09/04/19 06/27/20 Rx [Symbicort 160-4.5 Mcg Inhaler] Ascorbic Acid [Vitamin C] 500 mg PO DAILY 06/27/20 06/27/20 History Aspirin EC [Ecotrin Low Dose] 81 mg PO DAILY 06/27/20 06/27/20 History Atorvastatin Calcium [Lipitor] 40 mg PO DAILY 06/27/20 06/27/20 History Calcium Carbonate [Calcium] 1,200 mg PO DAILY 06/27/20 06/27/20 History Cholecalciferol (Vitamin D3) 125 mcg PO DAILY 06/27/20 06/27/20 History [Vitamin D3 (5000 Iu)] Ipratropium-Albuterol Nebulize 3 ml INHALATION RT-QID PRN 06/27/20 06/27/20 History [Duoneb 0.5 mg-3 mg/3 ml Soln] Levothyroxine Sodium [Synthroid] 100 mcg PO DAILY 06/27/20 06/27/20 History Allergies Allergy/AdvReac Type Severity Reaction Status Date / Time Penicillins Allergy Rash/Hives Verified 06/27/20 17:26 Physical Exam Vitals: Vital Signs Temp Pulse Resp BP Pulse Ox 06/27/20 20:19 80 06/27/20 20:12 78 06/27/20 20:10 98.0 F 87 18 121/79 98 06/27/20 18:06 78 18 115/72 98 06/27/20 14:43 98.3 F 110 H 20 131/78 95 Intake and Output 06/27/20 06/27/20 06/27/20 06:59 14:59 22:59 Other: Weight 73.482 kg Results CBC & Chem 7: 06/27/20 15:35 06/28/20 04:21 Labs: Abnormal Lab Results - Last 24 Hours (Table) 06/27/20 06/27/20 Range/Units 15:35 15:35 WBC 13.8 H (3.8-10.6) k/uL RBC 3.62 L (3.80-5.40) m/uL Plt Count 472 H (150-450) k/uL Neutrophils # 10.2 H (1.3-7.7) k/uL Sodium 136 L (137-145) mmol/L Potassium 3.1 L (3.5-5.1) mmol/L Carbon Dioxide 33 H (22-30) mmol/L Glucose 108 H (74-99) mg/dL C-Reactive Protein 7.8 H (<1.0) mg/dL
[2020-06-28] MEDS: PANTOPRAZOLE 40 MG TABLET PO SCH (06:42)
[2020-06-28] MEDS: SYMBICORT 160-4.5 MCG INHALER INHALATION SCH ×2 (07:38→20:05)
[2020-06-28] MEDS: IPRATROPIUM-ALBUTEROL 3 ML NEB INHALATION PRN ×4 (07:38→20:01)
[2020-06-28] MEDS: DULoxetine HCL 60 MG CAPSULE.DR PO SCH (09:00)
[2020-06-28] MEDS: ATORVASTATIN 40 MG TAB PO SCH (09:01)
[2020-06-28] MEDS: CHOLECALCIFEROL 25 MCG (1000 IU) TABLET PO SCH (09:01)
[2020-06-28] MEDS: HEPARIN SODIUM,PORCINE/PF 5,000 UNIT/0.5 ML SYRINGE SQ SCH ×2 (09:01→20:15)
[2020-06-28] MEDS: ASCORBIC ACID 500 MG TAB PO SCH (09:01)
[2020-06-28] MEDS: CALCIUM CARBONATE 500 MG CHEWABLE PO SCH (09:01)
[2020-06-28] MEDS ORDERED: DIPH,PERTUS(ACELL)TETVAC-LF 0.5 ML VIAL IM ONE (10:57)
[2020-06-28] MEDS ORDERED: CLINDAMYCIN 600 MG in DEXTROSE 5% IN WATER 50 ML IVPB SCH ×2 (11:00)
--- NOTE | 2020-06-28 12:30 | P.PN ---
Subjective Progress Note Date: 06/28/20 Principal diagnosis: Left hand cellulitis and swelling with Dog scratch, COPD, hypertension and hyperlipidemia History of Present Illness H&P Date: 06/28/2020 Chief Complaint: Cellulitis of the left hand This is a 69-year-old female patient of Dr. Bolanos and Dr. Summers with past medical history significant for COPD, chronic hypoxic respiratory failure with home O2 at 2L n/c, hypothyroidism, breast cancer status post lumpectomy, active tobacco use and dependence. She presented to the emergency d epartment at [facility] today complaining of left hand swelling developed for the last 5 days to have a painful swelling with discomfort she had mild abrasion of the left hand a few weeks ago which has resolved but continue having slight discomfort and pain between the hand and elbow. Her had become more swelling breath and painful was seen and evaluated in the emergency department she had overall swelling apparently orthopedic where contacted at the time and sounds to the current symptoms to admit patient for cellulitis and also will be seen her in consultation. White blood cell was mildly elevated patient was started on 1 dose of vancomycin initially continue low dose of diuretics continue ice pack and had elevation will be seen orthopedic and possibly infectious disease. Surprisingly patient mentioned hours duct scratch on the lateral side of her Route wrist area which how the infection started. Despite starting patient on vancomycin patient will be started on clindamycin as well she is ALLERGIC to penicillin will consult infectious disease as well. 06/28: Patient is feeling slightly better the swelling is down the concerns she had with this started as a dog scratch we will expand antibiotics beside vancomycin patient will be on clindamycin for now the symptoms are better also consult infectious disease swelling edema and pain is much better than yesterday. Review of Systems Constitutional: No fever, no chills, no night sweats. No weight change. Reports weakness, fatigue or lethargy. No daytime sleepiness. EENT: No headache. No blurred vision or double vision, no loss of vision. No loss of Hearing, no ringing in the ears, no dizziness. No nasal drainage or congestion. No epistaxis. No sore throat. Lungs: Reports reports shortness of breath, cough, no sputum production. Reports wheezing. Cardiovascular: No chest pain, no lower extremity edema. No palpitations. No paroxysmal nocturnal dyspnea. No orthopnea. No lightheadedness or dizziness. No syncopal episodes. Abdominal: No abdominal pain. No nausea, vomiting. No diarrhea. No constipation. No bloody or tarry stools.. No loss of appetite. Genitourinary: No dysuria, increased frequency, urgency. No urinary retention. Musculoskeletal: No myalgias. No muscle weakness, no gait dysfunction, no frequent falls. No back pain. No neck pain. Integumentary: As cellulitis and swelling of the left hand with redness discomfort Neurologic: No aphasia. No facial droop. No change in mentation. No head injury. No headache. No paralysis. No paresthesia. Psychiatric: No depression. No anxiety. No mood swings. Endocrine: No abnormal blood sugars. No weight change. No excessive sweating or thirst. Physical Examination Gen: This is a 69-year-old female. Patient is resting in bed at the time of evaluation appears to be comfortable and in no acute distress. HEENT: Head is atraumatic, normocephalic. Pupils equal, round. Sclerae is anicteric. NECK: Supple. No JVD. No lymphadenopathy. No thyromegaly. LUNGS: Diminished bilaterally with few scattered wheezes. No intercostal retractions. No accessory muscle usage. HEART: Regular rate and rhythm. No murmur. ABDOMEN: Soft. Bowel sounds are present. No masses. No tenderness. EXTREMITIES: Positive pedal edema. No calf tenderness. Dorsalis pedis +2 bilaterally. Left hand had cellulitis spreading and going up toward the elbow with slight redness discomfort irritation with slight decrease of the function of the wrist as well. NEUROLOGICAL: Patient is awake, alert and oriented x3. Cranial nerves 2 through 12 are grossly intact. Assessment and Plan 1. Acute cellulitis of the left hand, with dog scratch: Patient will be admitted to the hospital continue vancomycin and add clindamycin, continue topical care ice pack and had elevation patient be seen orthopedic hand specialist in case this is become worse he might have to have an open surgery otherwise will continue current antibiotic till we have any culture result. Tdap will be giving today. Continue current care patient will be possible on IV antibiotic for 24-48 more hours and then switch to oral clindamycin 2. COPD: Continue DuoNeb treatments 4 times daily and albuterol as needed, Pulmicort 1 mg twice daily, oxygen at 2 L nasal cannula, 3. Hypothyroidism. Continue levothyroxine 75 g daily. 4. Hyperlipidemia. Continue Lipitor 20 mg daily. 5. History of breast cancer status post lumpectomy. Continue Femara 2.5 mg daily. 6. Tobacco use and dependence. Continue nicotine patch. 7. Recurrent depression. Continue Cymbalta 60 mg daily. 8. GI prophylaxis. Protonix. 9. DVT prophylaxis. Lovenox daily subcu. 10. COVID-19 testing were negative, patient was admitted to the hospital and pandemic time. Objective - Vital Signs Vital signs: Vital Signs Temp 98.3 F 06/28/20 04:09 Pulse 74 06/28/20 04:09 Resp 20 06/28/20 04:09 BP 97/59 06/28/20 04:09 Pulse Ox 97 06/28/20 04:09 Intake & Output 06/27/20 06/27/20 06/28/20 06:59 18:59 06:59 Weight 73.482 kg - Labs CBC & Chem 7: 06/27/20 15:35 06/28/20 04:21 Labs: Abnormal Lab Results - Last 24 Hours (Table) 06/27/20 06/27/20 Range/Units 15:35 15:35 WBC 13.8 H (3.8-10.6) k/uL RBC 3.62 L (3.80-5.40) m/uL Plt Count 472 H (150-450) k/uL Neutrophils # 10.2 H (1.3-7.7) k/uL Sodium 136 L (137-145) mmol/L Potassium 3.1 L (3.5-5.1) mmol/L Carbon Dioxide 33 H (22-30) mmol/L Glucose 108 H (74-99) mg/dL C-Reactive Protein 7.8 H (<1.0) mg/dL
--- NOTE | 2020-06-28 12:46 | P.CNOR ---
History of Present Illness - [facility] Consult date: 06/28/20 Consult reason: other (Left hand cellulitis) History of present illness: Patient is a 70-year-old female who presented to [facility] yesterday with regards to pain, swelling and redness of her left hand. Apparently the patient was scratched by her dog last Sunday and the redness and swelling has progressively gotten worse. That prompted her to come to the hospital on 06/27/2020. I was contacted initially by the emergency room PA, I was able to discuss the case. I recommended admission under internal medicine with IV antibiotics and we will be consulted. She was evaluated today at bedside in the emergency room, she is resting comfortably. She states that the hand, including both the pain and swelling is improved since yesterday when the IV antibiotics began. She notes no pain in the left elbow or left shoulder. She has no other orthopedic complaints at this time. She denies any fever or chills. She denies any previous surgery to the left upper extremity. She denies any numbness or tingling of the left upper extremity. Review of Systems Constitutional: Reports as per HPI Past Medical History Past Medical History: Cancer, COPD, Thyroid Disorder Additional Past Medical History / Comment(s): History of breast cancer, COPD, hypothyroidism, hyperlipidemia, chronic anxiety and depression History of Any Multi-Drug Resistant Organisms: None Reported Past Surgical History: Appendectomy Additional Past Surgical History / Comment(s): lumpectomy, Past Anesthesia/Blood Transfusion Reactions: No Reported Reaction Past Psychological History: Anxiety, Depression Smoking Status: Current every day smoker Past Alcohol Use History: Occasional Past Drug Use History: None Reported - Past Family History Mother Family Medical History: Coronary Artery Disease (CAD) Additional Family Medical History / Comment(s): Mother had macular degeneration. Father Family Medical History: Coronary Artery Disease (CAD) Additional Family Medical History / Comment(s): 2 sisters one with COPD the other one healthy. No children. Medications and Allergies Home Medications Medication Instructions Recorded Confirmed Type Albuterol Sulfate [Ventolin HFA] 2 puff INHALATION RT-Q4H PRN 05/16/19 06/27/20 History DULoxetine HCL [Cymbalta] 60 mg PO DAILY 05/16/19 06/27/20 History Budesonide-Formot 160-4.5 Mcg 2 puff INHALATION RT-BID puff 09/04/19 06/27/20 Rx [Symbicort 160-4.5 Mcg Inhaler] Ascorbic Acid [Vitamin C] 500 mg PO DAILY 06/27/20 06/27/20 History Aspirin EC [Ecotrin Low Dose] 81 mg PO DAILY 06/27/20 06/27/20 History Atorvastatin Calcium [Lipitor] 40 mg PO DAILY 06/27/20 06/27/20 History Calcium Carbonate [Calcium] 1,200 mg PO DAILY 06/27/20 06/27/20 History Cholecalciferol (Vitamin D3) 125 mcg PO DAILY 06/27/20 06/27/20 History [Vitamin D3 (5000 Iu)] Ipratropium-Albuterol Nebulize 3 ml INHALATION RT-QID PRN 06/27/20 06/27/20 History [Duoneb 0.5 mg-3 mg/3 ml Soln] Levothyroxine Sodium [Synthroid] 100 mcg PO DAILY 06/27/20 06/27/20 History Allergies Allergy/AdvReac Type Severity Reaction Status Date / Time Penicillins Allergy Rash/Hives Verified 06/27/20 17:26 Physical Examination Left upper extremity: There is a small abrasion noted on the dorsum of the hand at the proximal end of the fifth metacarpal. It is scabbed over. There is no obvious drainage appreciated. There is no obvious fluctuance in this area. There is obvious soft tissue swelling and erythema on the dorsum of the hand. With palpation surrounding the rest of the hand, this including both the dorsum and the palmar side, there is no areas of fluctuance. There is no obvious areas of fluctuance present in the wrist on the dorsum of the palmar side. There is no significant swelling appreciated throughout the forearm, both ventral and dorsal. There is no pain with palpation of the upper arm, elbow, shoulder. She can actively wiggle the fingers with no cervical pain reproduced, wrist extension flexion as does reproduce some pain in the hand. The radial and ulnar pulses are 2+. Sensation to light touch is intact about the extremity. Painless range of motion of the elbow and shoulder Results - Labs Labs: Abnormal Lab Results - Last 24 Hours (Table) 06/27/20 06/27/20 Range/Units 15:35 15:35 WBC 13.8 H (3.8-10.6) k/uL RBC 3.62 L (3.80-5.40) m/uL Plt Count 472 H (150-450) k/uL Neutrophils # 10.2 H (1.3-7.7) k/uL Sodium 136 L (137-145) mmol/L Potassium 3.1 L (3.5-5.1) mmol/L Carbon Dioxide 33 H (22-30) mmol/L Glucose 108 H (74-99) mg/dL C-Reactive Protein 7.8 H (<1.0) mg/dL H & H 06/27/20 Range/Units 15:35 Hgb 11.8 (11.4-16.0) gm/dL Hct 35.8 (34.0-46.0) % Coagulation 06/27/20 Range/Units 15:35 INR 0.9 (<1.2) Result Diagrams: 06/27/20 15:35 06/28/20 04:21 - Diagnostic results Wrist/Hand x-ray: report reviewed, image reviewed (Images reviewed of the left hand. Images demonstrated no acute fractures or dislocations. No obvious foreign bodies are appreciated) Assessment and Plan Assessment: Left hand pain and swelling Left hand cellulitis, status post dog scratch Other medical comorbidities Plan: I was able to discuss the case, including the physical exam findings and imaging studies might attending Dr. Talley. No acute evidence at this time of a flexor tenosynovitis or abscess involving the dorsum or palmar side of the hand or wrist. Recommend IV antibiotics at this time for cellulitis of the left hand, would also recommend infectious disease consult Recommend ice and elevation of the hand for some dramatic treatment Internal medicine recommendations GI and DVT prophylaxis per primary medical service we will continue to follow patient during hospital stay Time with Patient: Less than 30
--- NOTE | 2020-06-28 22:53 | CONS ---
CONSULTATION DATE OF SERVICE: 06/28/2020 REASON FOR CONSULTATION: Left hand cellulitis. HISTORY OF PRESENT ILLNESS: The patient is a 70-year-old female who presented to the ER yesterday for evaluation of left hand pain, swelling and redness. Apparently the patient was scratched by her dog last Sunday; that is 4 days before presentation to the hospital. The patient noticed next day it started getting swollen, red. That has progressively gotten worse. The patient was complaining of pain on arrival in the ER to be more of a dull aching to throbbing, intensity 7 to 8 out of 10, and no radiation, with associated swelling and redness. The patient did have scratch medina but no open wound or any drainage. The patient did have some chills, though no fever has been recorded in the hospital. On arrival in the ER, the patient was afebrile. The patient did have a white count of 13.8 with a left shift. Creatinine was normal. Thakkar PCR was negative. Liver enzymes were normal. CRP is 7.8. The patient did have blood cultures obtained which are currently pending. X-rays of the hand did show some soft tissue swelling but no bony abnormality. The patient was started on Rocephin, clindamycin and vancomycin. Infectious Disease was consulted for further management of antibiotic therapy. REVIEW OF SYSTEMS: Positive points have been mentioned in the HPI. Rest of the systems are negative. PAST MEDICAL HISTORY: Breast cancer, COPD, hypothyroidism. PAST SURGICAL HISTORY: Appendectomy and lumpectomy. SOCIAL HISTORY: Current everyday smoker. Occasionally drinks. No drug use. FAMILY HISTORY: Both parents with a history of coronary artery disease. ALLERGIES: PENICILLIN. Has tolerated cephalosporin without any problem. MEDICATIONS: The patient is currently on Tylenol, Ventolin, DuoNeb, vitamin C, Lipitor, Symbicort, Tums, Rocephin 2 grams daily, Cymbalta, Synthroid, morphine sulfate, Narcan, Zofran, Protonix, IV fluid, vancomycin and clindamycin. PHYSICAL EXAMINATION: Her blood pressure is 122/70 with a pulse of 69, temperature 98.7. She is 90% on 2 L nasal cannula. General description is an elderly female up in the bed in no distress. HEENT: Examination shows no pallor or scleral icterus. Oral mucous membrane is dry. NECK: Trachea is central. No thyromegaly. LUNGS: Unlabored breathing. Clear to auscultation anteriorly. No wheeze or crackle. HEART: S1, S2. Regular rate and rhythm. ABDOMEN: Soft. No tenderness. No guarding or rigidity. EXTREMITIES: No edema of the feet. EXAMINATION OF LEFT HAND: It did have some diffuse swelling and redness which seemed to have receded from the line that was placed yesterday. Currently with no evidence of any fluctuation, induration. Tender to touch, though. Neurologically the patient is awake, alert, oriented x3. Mood and affect normal. LABS: Hemoglobin is 11.8, white count 13.8 with a left shift. BUN of 9, creatinine 0.75. DIAGNOSTIC IMPRESSION AND PLAN: 1. Patient with acute left hand cellulitis that started after the patient was scratched by her dog. No evidence of any deep abscess. Will need to cover for the Gram-positive and for any other likely pathogen, less likely Gram-negative infection. 2. Patient with PENICILLIN ALLERGY. That will limit the number of antibiotics safe to use. PLAN: 1. Will keep the patient on Rocephin 2 grams IV piggyback daily. 2. Discontinue clindamycin and vancomycin. 3. If the patient continues to improve with the Rocephin, she will be able to finish therapy with oral Ceftin. Plan of care was discussed in detail with the admitting physician. Thank you for this consultation. Will follow this patient along with you. MMODL / IJN: [id number] /
[2020-06-29] MEDS: SODIUM CHLORIDE 0.9% 1,000 ML IV SCH ×2 (01:11→11:01)
[2020-06-29] MEDS: ALBUTEROL NEBULIZED 2.5 MG/3 ML INHALATION PRN (02:18)
[2020-06-29] MEDS: LEVOTHYROXINE 100 MCG TAB PO SCH (06:06)
[2020-06-29] MEDS: IPRATROPIUM-ALBUTEROL 3 ML NEB INHALATION PRN ×3 (07:03→17:39)
[2020-06-29] MEDS: SYMBICORT 160-4.5 MCG INHALER INHALATION SCH ×2 (07:03→17:36)
[2020-06-29] MEDS: HEPARIN SODIUM,PORCINE/PF 5,000 UNIT/0.5 ML SYRINGE SQ SCH ×2 (08:10→20:21)
[2020-06-29] MEDS: PANTOPRAZOLE 40 MG TABLET PO SCH (08:11)
[2020-06-29] MEDS: ATORVASTATIN 40 MG TAB PO SCH (08:11)
[2020-06-29] MEDS: ASCORBIC ACID 500 MG TAB PO SCH (08:11)
[2020-06-29] MEDS: CALCIUM CARBONATE 500 MG CHEWABLE PO SCH (08:11)
[2020-06-29] MEDS: DULoxetine HCL 60 MG CAPSULE.DR PO SCH (08:11)
[2020-06-29] MEDS: CHOLECALCIFEROL 25 MCG (1000 IU) TABLET PO SCH (08:12)
--- NOTE | 2020-06-29 11:12 | MR ---
EXAMINATION TYPE: MR left hand and wrist wo/w con DATE OF EXAM: 06/29/2020 COMPARISON: X-ray 06/27/2020 HISTORY: Dog scratch lateral left hand, swelling. Marker placed at site of scratch. CONTRAST: Standard multiplanar, multisequence MRI departmental protocol utilizing 7 mL intravenous Gadavist franky olinium contrast. FINDINGS: 1. There is diffuse subcutaneous edema. No abscess identified. Exam severely limited by artifact. No intraosseous abnormal signal suggestive of osteomyelitis. Benign cystic change involving the capitate . Due to technique assessment of the intercarpal ligaments limited. No obvious acute fracture or disloc ation. Grossly the visualized tendinous structures appear to be intact as visualized. Small amount of fluid in the radioulnar joint is nonspecific. IMPRESSION: Limited exam. Diffuse soft tissue edema correlate for cellulitis. No diagnostic evidence of abscess. A small amount of fluid in the radioulnar joint is nonspecific.
--- NOTE | 2020-06-29 12:33 | P.PN ---
Subjective This is a 69-year-old female patient of Dr. Bolanos and Dr. Summers with past medical history significant for COPD, chronic hypoxic respiratory failure with home O2 at 2L n/c, hypothyroidism, breast cancer status post lumpectomy, active tobacco use and dependence. She presented to the emergency department at [facility] today complaining of left hand swelling developed for the last 5 days to have a painful swelling with discomfort she had mild abrasion of the left hand a few weeks ago which has resolved but continue having slight discomfort and pain between the hand and elbow. Her had become more swelling breath and painful was seen and evaluated in the emergency department she had overall swelling apparently orthopedic where contacted at the time and sounds to the current symptoms to admit patient for cellulitis and also will be seen her in consultation. White blood cell was mildly elevated patient was started on 1 dose of vancomycin initially continue low dose of diuretics continue ice pack and had elevation will be seen orthopedic and possibly infectious disease. Surprisingly patient mentioned hours duct scratch on the lateral side of her Route wrist area which how the infection started. Despite starting patient on vancomycin patient will be started on clindamycin as well she is ALLERGIC to penicillin will consult infectious disease as well. 06/28: Patient is feeling slightly better the swelling is down the concerns she had with this started as a dog scratch we will expand antibiotics beside vancom ycin patient will be on clindamycin for now the symptoms are better also consult infectious disease swelling edema and pain is much better than yesterday. 06/29: Patient was evaluated this morning, swelling continues redness has improved. Infectious disease on consult and recommended to discontinue the clindamycin and vancomycin and change antibiotics Rocephin. If the patient continues to improve with Rocephin she'll be switched to oral Ceftin per infectious diseases recommendations. She underwent MRI of the left hand that showed diffuse soft tissue edema no evidence of abscess and small amount of fluid in the radioulnar joint. Blood cultures show no growth to date. Vital signs are stable, she is afebrile. Objective - Vital Signs Vital signs: Vital Signs Temp 98.6 F 06/29/20 02:14 Pulse 78 06/29/20 07:03 Resp 18 06/29/20 07:03 BP 124/80 06/29/20 02:14 Pulse Ox 97 06/29/20 07:03 Intake & Output 06/28/20 06/29/20 06/29/20 18:59 06:59 18:59 Intake Total 690 Balance 690 Weight 73.482 kg Intake: Oral 690 Other: Voiding Method Toilet # Voids 2 2 - Exam Gen: This is a 69-year-old female. Patient is resting in bed at the time of evaluation appears to be comfortable and in no acute distress. HEENT: Head is atraumatic, normocephalic. Pupils equal, round. Sclerae is anicteric. NECK: Supple. No JVD. No lymphadenopathy. No thyromegaly. LUNGS: Diminished bilaterally with few scattered wheezes. No intercostal retractions. No accessory muscle usage. HEART: Regular rate and rhythm. No murmur. ABDOMEN: Soft. Bowel sounds are present. No masses. No tenderness. EXTREMITIES: Positive pedal edema. Dorsalis pedis +2 bilaterally. Left hand had cellulitis improving redness and warmth NEUROLOGICAL: Patient is awake, alert and oriented x3. Cranial nerves 2 through 12 are grossly intact. - Labs CBC & Chem 7: 06/27/20 15:35 06/28/20 04:21 Labs: Microbiology - Last 24 Hours (Table) 06/27/20 15:37 Blood Culture - Preliminary Blood No Growth after 24 hours 06/27/20 15:35 Blood Culture - Preliminary Blood No Growth after 24 hours Assessment and Plan Plan: 1. Acute cellulitis of the left hand, with dog scratch: Infectious disease discontinued vancomycin and clindamycin switched to Rocephin, continue topical care ice pack and had elevation patient be seen orthopedic hand specialist in case this is become worse he might have to have an open surgery otherwise will continue current antibiotic until we have culture results. Tdap will be giving today. Continue current care patient will be possible on IV antibiotic for 24- 48 more hours and then switch to oral Ceftin. MRI completed and did not show any abscess. 2. COPD: Continue DuoNeb treatments 4 times daily and albuterol as needed, Pulmicort 1 mg twice daily, oxygen at 2 L nasal cannula, 3. Hypothyroidism. Continue levothyroxine 75 g daily. 4. Hyperlipidemia. Continue Lipitor 20 mg daily. 5. History of breast cancer status post lumpectomy. Continue Femara 2.5 mg daily. 6. Tobacco use and dependence. Continue nicotine patch. 7. Recurrent depression. Continue Cymbalta 60 mg daily. 8. GI prophylaxis. Protonix. 9. DVT prophylaxis. Lovenox daily subcu. 10. COVID-19 testing were negative, patient was admitted to the hospital and pandemic time. The above impression and plan of care have been discussed and directed by signing physician. Mary Peterson nurse practitioner acting as scribe for signing physician.
--- NOTE | 2020-06-29 13:08 | PN ---
PROGRESS NOTE DATE OF SERVICE: 06/29/2020 REASON FOR FOLLOWUP: Left hand cellulitis. INTERVAL HISTORY: The patient is currently afebrile. Breathing comfortably. Left hand swelling, redness decreased. No chest pain, shortness of breath or cough. No abdominal pain. No diarrhea. PHYSICAL EXAMINATION: Blood pressure 127/56, pulse of 84, temperature 97.7. General description is an elderly female, lying in bed in no distress. RESPIRATORY SYSTEM: Unlabored breathing, clear to auscultation anteriorly. HEART: S1, S2. Regular rate and rhythm. ABDOMEN: Soft, no tenderness. Left hand swelling has decreased. LABS: Creatinine 0.67. MRI did not show any evidence of abscess. DIAGNOSTIC IMPRESSION AND PLAN: Patient with left hand cellulitis clinically not behaving as abscess. The patient is covered with Rocephin 2 grams daily to continue. Plan to transition to oral antibiotic on discharge. Continue supportive care. MMODL / IJN: [id number] /
--- NOTE | 2020-06-29 13:50 | P.PN ---
Subjective Progress Note Date: 06/29/20 Principal diagnosis: Left hand cellulitis Patient was evaluated at bedside today, she is resting comfortably in her hospital bed. She notes slight improvement in the symptoms of the hand and wrist on the left side. She has no fevers or chills at this time. She has no shortness of breath or chest pain. Objective - Vital Signs Vital signs: Vital Signs Temp 97.7 F 06/29/20 08:00 Pulse 88 06/29/20 10:49 Resp 18 06/29/20 10:49 BP 127/56 06/29/20 08:00 Pulse Ox 88 L 06/29/20 08:00 Intake & Output 06/28/20 06/29/20 06/29/20 18:59 06:59 18:59 Intake Total 690 Balance 690 Weight 73.482 kg Intake: Oral 690 Other: Voiding Method Toilet Toilet # Voids 2 2 - Exam Left upper extremity: There is a small abrasion noted on the dorsum of the hand at the proximal end of the fifth metacarpal. It is scabbed over. There is no obvious drainage appreciated. There is no obvious fluctuance in this area. There is obvious soft tissue swelling and erythema on the dorsum of the hand. With palpation surrounding the rest of the hand, this including both the dorsum and the palmar side, there is no areas of fluctuance. There is no obvious areas of fluctuance present in the wrist on the dorsum of the palmar side. There is no significant swelling appreciated throughout the forearm, both ventral and dorsal. There is no pain with palpation of the upper arm, elbow, shoulder. She can actively wiggle the fingers with no cervical pain reproduced, wrist extension flexion as does reproduce some pain in the hand. The radial and ulnar pulses are 2+. Sensation to light touch is intact about the extremity. Painless range of motion of the elbow and shoulder - Labs CBC & Chem 7: 06/27/20 15:35 06/28/20 04:21 Labs: Microbiology - Last 24 Hours (Table) 06/27/20 15:37 Blood Culture - Preliminary Blood No Growth after 24 hours 06/27/20 15:35 Blood Culture - Preliminary Blood No Growth after 24 hours Assessment and Plan Assessment: Left hand pain and swelling Left hand cellulitis, status post dog scratch Other medical comorbidities Plan: MRI was ordered for the hand and wrist today, results demonstrated no obvious abscess present that would benefit from surgical intervention. Continue IV antibiotics at this time, and infectious disease recommendations appreciated Recommend ice and elevation of the hand for some dramatic treatment Internal medicine recommendations GI and DVT prophylaxis per primary medical service We will continue to follow patient during hospital stay Time with Patient: Less than 30
[2020-06-29 14:30] LABS: HGB 10.7 gm/dL (11.4-16.0); MCH 34.4 pg (25.0-35.0); MCHC 34.6 g/dL (31.0-37.0); MCV 99.6 fL (80.0-100.0); Mean Platelet Volume 7.3; Platelet Count 387 k/uL (150-450); RBC 3.11 m/uL (3.80-5.40); RDW 14.1 % (11.5-15.5); WBC 11.9 k/uL (3.8-10.6)
[2020-06-29 14:58] LABS: ALT 10 U/L (4-34); AST 18 U/L (14-36); African American GFR (CKD) >90 (>60 ml/min/1.73 sqM); Albumin 3.1 g/dL (3.5-5.0); Alkaline Phosphatase 73 U/L (38-126); Anion Gap 4 mmol/L; Calcium 9.9 mg/dL (8.4-10.2); Carbon Dioxide 31 mmol/L (22-30); Chloride 103 mmol/L (98-107); Glucose 124 mg/dL (74-99); Non-African American GFR(CKD) 86 (>60 ml/min/1.73 sqM); Potassium 3.8 mmol/L (3.5-5.1); Sodium 138 mmol/L (137-145); Total Bilirubin 0.2 mg/dL (0.2-1.3); Total Protein 5.7 g/dL (6.3-8.2)
[2020-06-29 15:10] LABS: Blood Urea Nitrogen 12 mg/dL (7-17)
[2020-06-29 15:21] LABS: Erythrocyte Sedimentation Rate 94 mm/hr (0-20)
[2020-06-29] MEDS: NICOTINE 14MG/24HR PATCH TRANSDERM SCH (17:11)
[2020-06-30] MEDS: ALBUTEROL NEBULIZED 2.5 MG/3 ML INHALATION PRN ×2 (01:07→05:22)
[2020-06-30] MEDS: SODIUM CHLORIDE 0.9% 1,000 ML IV SCH (01:20)
[2020-06-30] MEDS: LEVOTHYROXINE 100 MCG TAB PO SCH (05:26)
[2020-06-30] MEDS: PANTOPRAZOLE 40 MG TABLET PO SCH (07:27)
[2020-06-30] MEDS: ATORVASTATIN 40 MG TAB PO SCH (08:28)
[2020-06-30] MEDS: CHOLECALCIFEROL 25 MCG (1000 IU) TABLET PO SCH (08:28)
[2020-06-30] MEDS: CALCIUM CARBONATE 500 MG CHEWABLE PO SCH (08:28)
[2020-06-30] MEDS: ASCORBIC ACID 500 MG TAB PO SCH (08:29)
[2020-06-30] MEDS: DULoxetine HCL 60 MG CAPSULE.DR PO SCH (08:29)
[2020-06-30] MEDS: HEPARIN SODIUM,PORCINE/PF 5,000 UNIT/0.5 ML SYRINGE SQ SCH (08:29)
[2020-06-30] MEDS: NICOTINE 14MG/24HR PATCH TRANSDERM SCH (08:30)
[2020-06-30] MEDS: IPRATROPIUM-ALBUTEROL 3 ML NEB INHALATION PRN (08:36)
[2020-06-30] MEDS: SYMBICORT 160-4.5 MCG INHALER INHALATION SCH (08:37)
[2020-06-30 09:01] VITALS: BP 105/66; PULSE 85; TEMP 98.2
--- NOTE | 2020-06-30 09:56 | P.PN ---
Subjective Progress Note Date: 06/30/20 Principal diagnosis: Left hand cellulitis Patient was evaluated at bedside today, she is resting comfortably in her hospital bed. Patient's pain continues to improve. She is having no acute changes and pain. She denies any fever chills. Objective - Vital Signs Vital signs: Vital Signs Temp 98.2 F 06/30/20 08:00 Pulse 84 06/30/20 08:50 Resp 20 06/30/20 01:03 BP 105/66 06/30/20 08:00 Pulse Ox 95 06/30/20 08:00 Intake & Output 06/29/20 06/30/20 06/30/20 18:59 06:59 18:59 Intake Total 240 300 Balance 240 300 Intake: Intake, IV Titration 150 Amount Sodium Chloride 0.9% 1, 150 000 ml @ 75 mls/hr IV . [id number] [facility] Rx#:[id number] Oral 240 150 Other: Voiding Method Toilet # Voids 1 - Exam Left upper extremity: There is a small abrasion noted on the dorsum of the hand at the proximal end of the fifth metacarpal. It is scabbed over. There is no obvious drainage appreciated. There is no obvious fluctuance in this area. With palpation surrounding the rest of the hand, this including both the dorsum and the palmar side, there is no areas of fluctuance. There is no obvious areas of fluctuance present in the wrist on the dorsum of the palmar side. There is no significant swelling appreciated throughout the forearm, both ventral and dorsal. There is no pain with palpation of the upper arm, elbow, shoulder. She can actively wiggle the fingers with no cervical pain reproduced, wrist extension flexion as does reproduce some pain in the hand. The radial and ulnar pulses are 2+. Sensation to light touch is intact about the extremity. Painless range of motion of the elbow and shoulder - Labs CBC & Chem 7: 06/29/20 14:18 06/29/20 14:18 Labs: Abnormal Lab Results - Last 24 Hours (Table) 06/29/20 06/29/20 Range/Units 14:18 14:18 WBC 11.9 H (3.8-10.6) k/uL RBC 3.11 L (3.80-5.40) m/uL Hgb 10.7 L (11.4-16.0) gm/dL Hct 31.0 L (34.0-46.0) % ESR 94 H (0-20) mm/hr Carbon Dioxide 31 H (22-30) mmol/L Glucose 124 H (74-99) mg/dL Total Protein 5.7 L (6.3-8.2) g/dL Albumin 3.1 L (3.5-5.0) g/dL Microbiology - Last 24 Hours (Table) 06/27/20 15:37 Blood Culture - Preliminary Blood No Growth after 48 hours 06/27/20 15:35 Blood Culture - Preliminary Blood No Growth after 48 hours Assessment and Plan Assessment: Left hand pain and swelling Left hand cellulitis, status post dog scratch Other medical comorbidities Plan: Patient symptoms have continued to improve on the IV antibiotics, continue to recommend no orthopedic surgical intervention Continue IV antibiotics at this time, and infectious disease recommendations appreciated Recommend ice and elevation of the hand for some dramatic treatment Internal medicine recommendations GI and DVT prophylaxis per primary medical service We will be available for any further questions regarding this patient Time with Patient: Less than 30
[2020-06-30 10:45] VITALS: RESP 18
--- NOTE | 2020-06-30 12:52 | P.DS ---
Providers Date of admission: 06/27/20 17:49 Expected date of discharge: 06/30/20 Attending physician: Rolando Norwood Consults: 06/27/20 17:50 Consult Physician Routine Consulting Provider: Aren Talley Consult Reason/Comments: hand cellulitis Do you want consulting provider notified?: Already Contacted 06/28/20 08:14 Consult Physician Routine Consulting Provider: Shivam Frias Consult Reason/Comments: Left hand cellulitis, possible abscess Do you want consulting provider notified?: Yes 06/28/20 10:58 Consult Physician Routine Consulting Provider: Shivam Frias Consult Reason/Comments: Cellulitis of the L Wrist Do you want consulting provider notified?: Yes [place] [facility]: This is a 69-year-old female patient of Dr. Bolanos and Dr. Summers with past medical history significant for COPD, chronic hypoxic respiratory failure with home O2 at 2L n/c, hypothyroidism, breast cancer status post lumpectomy, active tobacco use and dependence. She presented to the emergency department at [facility] today complaining of left hand swelling developed for the last 5 days to have a painful swelling with discomfort she had mild abrasion of the left hand a few weeks ago which has resolved but continue having slight discomfort and pain between the hand and elbow. Her had become more swelling breath and painful was seen and evaluated in the emergency department she had overall swelling apparently orthopedic where contacted at the time and sounds to the current symptoms to admit patient for cellulitis and also will be seen her in consultation. White blood cell was mildly elevated patient was started on 1 dose of vancomycin initially continue low dose of diuretics continue ice pack and had elevation will be seen orthopedic and possibly infectious disease. Surprisingly patient mentioned hours duct scratch on the lateral side of her Route wrist area which how the infection started. Despite starting patient on vancomycin patient will be started on clindamycin as well she is ALLERGIC to penicillin will consult infectious disease as well. 06/28: Patient is feeling slightly better the swelling is down the concerns she had with this started as a dog scratch we will expand antibiotics beside vancomycin patient will be on clindamycin for now the symptoms are better also consult infectious disease swelling edema and pain is much better than yesterday. 06/29: Patient was evaluated this morning, swelling continues redness has improved. Infectious disease on consult and recommended to discontinue the clindamycin and vancomycin and change antibiotics Rocephin. If the patient continues to improve with Rocephin she'll be switched to oral Ceftin per infectious diseases recommendations. She underwent MRI of the left hand that showed diffuse soft tissue edema no evidence of abscess and small amount of fluid in the radioulnar joint. Blood cultures show no growth to date. Vital signs are stable, she is afebrile. 06/30: MRI of the hand and wrist showed no acute fracture or dislocation. No evidence of abscess. Patient is currently on Rocephin 2 g daily and followed by Dr. lopez from infectious disease with recommendations for oral antibiotics on discharge. Patient was also seen and followed by orthopedics no plan for any intervention for the patient at this point. Patient has been afebrile, heart rate 84, blood pressure 105/66, pulse ox 95% on 2 L nasal cannula. Patient will be discharged home today in stable condition. DISCHARGE DIAGNOSES 1. Acute cellulitis of the left hand, with dog scratch 2. COPD 3. Hypothyroidism. 4. Hyperlipidemia. 5. History of breast cancer status post lumpectomy. 6. Tobacco use and dependence. 7. Recurrent depression. 8. Chronic hypoxic respiratory failure on home O2 at 2 L nasal cannula. 9. COVID-19 testing were negative, patient was admitted to the hospital and pandemic time. DISCHARGE PLAN Impression and plan of care have been directed as dictated by the signing physician. Fanny Chen nurse practitioner acting as scribe for signing physician. Patient Condition at Discharge: Good Plan - Discharge Summary Discharge Rx Participant: No New Discharge Prescriptions: New Cefuroxime Axetil [Ceftin] 500 mg PO BID 7 Days #14 tab Nicotine 14Mg/24Hr Patch [Habitrol] 1 patch TRANSDERM DAILY #30 patch SILVER sulfADIAZINE CREAM [Silvadene Cream] 1 applic TOPICAL BID #30 gram Continue DULoxetine HCL [Cymbalta] 60 mg PO DAILY Albuterol Sulfate [Ventolin HFA] 2 puff INHALATION RT-Q4H PRN PRN Reason: Shortness Of Breath Budesonide-Formot 160-4.5 Mcg [Symbicort 160-4.5 Mcg Inhaler] 2 puff INHALATION RT-BID puff Levothyroxine Sodium [Synthroid] 100 mcg PO DAILY Cholecalciferol (Vitamin D3) [Vitamin D3 (5000 Iu)] 125 mcg PO DAILY Calcium Carbonate [Calcium] 1,200 mg PO DAILY Ascorbic Acid [Vitamin C] 500 mg PO DAILY Atorvastatin Calcium [Lipitor] 40 mg PO DAILY Ipratropium-Albuterol Nebulize [Duoneb 0.5 mg-3 mg/3 ml Soln] 3 ml INHALATION RT-QID PRN PRN Reason: Shortness Of Breath Aspirin EC [Ecotrin Low Dose] 81 mg PO DAILY Discharge Medication List Albuterol Sulfate [Ventolin HFA] 2 puff INHALATION RT-Q4H PRN 05/16/19 [History] DULoxetine HCL [Cymbalta] 60 mg PO DAILY 05/16/19 [History] Budesonide-Formot 160-4.5 Mcg [Symbicort 160-4.5 Mcg Inhaler] 2 puff INHALATION RT-BID puff 09/04/19 [Rx] Ascorbic Acid [Vitamin C] 500 mg PO DAILY 06/27/20 [History] Aspirin EC [Ecotrin Low Dose] 81 mg PO DAILY 06/27/20 [History] Atorvastatin Calcium [Lipitor] 40 mg PO DAILY 06/27/20 [History] Calcium Carbonate [Calcium] 1,200 mg PO DAILY 06/27/20 [History] Cholecalciferol (Vitamin D3) [Vitamin D3 (5000 Iu)] 125 mcg PO DAILY 06/27/20 [History] Ipratropium-Albuterol Nebulize [Duoneb 0.5 mg-3 mg/3 ml Soln] 3 ml INHALATION RT-QID PRN 06/27/20 [History] Levothyroxine Sodium [Synthroid] 100 mcg PO DAILY 06/27/20 [History] Cefuroxime Axetil [Ceftin] 500 mg PO BID 7 Days #14 tab 06/30/20 [Rx] Nicotine 14Mg/24Hr Patch [Habitrol] 1 patch TRANSDERM DAILY #30 patch 06/30/20 [Rx] SILVER sulfADIAZINE CREAM [Silvadene Cream] 1 applic TOPICAL BID #30 gram 06/30/20 [Rx] Follow up Appointment(s)/Referral(s): Deshaun Bolanos DO [Primary Care Provider] - 1-2 Days Patient Instructions/Handouts: Cefuroxime (By mouth), Silver Sulfadiazine (On the skin), Nicotine (Absorbed through the skin), Cellulitis (DC), Leukocytosis (DC) Discharge Disposition: HOME SELF-CARE
--- NOTE | 2020-06-30 13:30 | PN ---
PROGRESS NOTE DATE OF SERVICE: 06/30/2020 REASON FOR FOLLOWUP: Left hand cellulitis. INTERVAL HISTORY: The patient was seen on rounds this morning. The patient has been afebrile. The patient is breathing comfortably. No chest pain, shortness of breath or cough. No abdominal pain. Did have swelling of the left arm, however, redness has resolved. No drainage. PHYSICAL EXAMINATION: Blood pressure is 105/66, pulse of 85, temperature 98.2. She is 95% on room air. General description is an elderly female lying in bed in no distress. RESPIRATORY SYSTEM: Unlabored breathing, clear to auscultation anteriorly. HEART: S1, S2. Regular rate and rhythm. ABDOMEN: Soft, no tenderness. Left hand swelling and redness has resolved, no drainage. LABS: No new labs have been obtained today. Blood culture negative. DIAGNOSTIC IMPRESSION AND PLAN: Patient with left hand cellulitis. The patient seemed to have shown overall clinical improvement on Rocephin. Finish therapy with oral Ceftin 500 mg twice a day for about a week and close outpatient followup. MMODL / IJN: [id number] /
== END 2020-06-30 12:25 | disposition home or self-care (01) ==
LOC: EC 14:37 → 5NMEDONC 17:49 → INTOOBSV 17:49 → 5NMEDONC 18:29 → 1SOBS 06-28 07:50 → UNDODISIN 06-30 12:25
PROVIDERS: ADMIT Internal Medicine Geriatric Medicine; ATTEND Internal Medicine Geriatric Medicine
PROC: 3E0234Z Introduction of Serum, Toxoid and Vaccine into Muscle, Percutaneous Approach (ICD-10-PCS; principal; 2020-06-28)
DX: L03.114 Cellulitis of left upper limb (principal); F33.9 Major depressive disorder, recurrent, unspecified; J96.11 Chronic respiratory failure with hypoxia; S60.512A Abrasion of left hand, initial encounter; W54.8XXA Other contact with dog, initial encounter; E78.5 Hyperlipidemia, unspecified; F17.200 Nicotine dependence, unspecified, uncomplicated; J44.9 Chronic obstructive pulmonary disease, unspecified; E03.9 Hypothyroidism, unspecified; I10 Essential (primary) hypertension; Z20.822 Contact with and (suspected) exposure to COVID-19; Z23 Encounter for immunization; F41.9 Anxiety disorder, unspecified; Z79.82 Long term (current) use of aspirin; Z79.890 Hormone replacement therapy; Z79.51 Long term (current) use of inhaled steroids; Z79.899 Other long term (current) drug therapy; Z88.0 Allergy status to penicillin; Z90.49 Acquired absence of other specified parts of digestive tract; Z98.890 Other specified postprocedural states; Z87.19 Personal history of other diseases of the digestive system; Z90.10 Acquired absence of unspecified breast and nipple; Z85.3 Personal history of malignant neoplasm of breast; Z82.49 Family history of ischemic heart disease and other diseases of the circulatory system; Z82.5 Family history of asthma and other chronic lower respiratory diseases; Z83.518 Family history of other specified eye disorder
CPT/HCPCS: 96366 ×5; 96367; 96372; 96375 ×3; 96376; 90471; 96361; 96365; 96374; 99285; 36415; 94640 ×6; 94760; 80053 ×2; 85652; 82565; 83605; 85025; 85027; 85610; 85730; 86140; 87040; 87635; 73130; 73220; 73223; 90715; G0378 ×4; S4990 ×2; J3370 ×2; J0696 ×4; J2270; J1885; A9585; J1644 ×3

== ENCOUNTER → 2020-08-11 | Outpatient (CLI) | payer MEDICARE ==
--- NOTE | 2020-08-11 15:46 | XR ---
EXAMINATION TYPE: XR wrist complete LT DATE OF EXAM: 08/11/2020 COMPARISON: NONE HISTORY: Pain TECHNIQUE: Four views submitted. FINDINGS: The osseous structures are intact. Diffuse osteopenia with severe narrowing the first carpal metacarp al joint.. IMPRESSION: 1. No definite acute fracture or dislocation if symptoms persist, follow-up study in 7 to 10 days wo uld be suggested
--- NOTE | 2020-08-11 15:49 | XR ---
EXAMINATION TYPE: XR finger LT DATE OF EXAM: 08/11/2020 COMPARISON: 06/27/2020 HISTORY: Pain TECHNIQUE: Three views are submitted. FINDINGS: The osseous structures are intact. Diffuse osteopenia. Mild narrowing of the MCP joint and severe renae rowing first carpometacarpal joint. And there is no acute fracture or dislocation. IMPRESSION: 1. No definite acute fracture or dislocation if symptoms persist, follow-up study in 7 to 10 days wo uld be suggested. Diffuse osteopenia and arthropathy.
== END | disposition home or self-care (01) ==
LOC: RADXRMAIN 14:45
PROVIDERS: ATTEND Family Medicine
DX: M25.532 Pain in left wrist (principal); M13.842 Other specified arthritis, left hand

== ENCOUNTER → 2020-11-22 | Outpatient (CLI) | payer MEDICARE ==
--- NOTE | 2020-11-22 13:15 | XR ---
Right wrist HISTORY: Pain, trauma one month prior 3 views the right wrist Bone mineralization is reduced which limits evaluation. Alignment is maintained. Some loss of joint s pace, subchondral sclerosis present in the intercarpal row consistent with osteoarthritic change, the re may be some associated geodes in the lunate, capitate. No evident fracture or dislocation. There i s soft tissue swelling. IMPRESSION: Osteopenia or osteoporosis, osteoarthritis, MRI may be of benefit, low bone mineralizatio n may limit evaluation
== END | disposition home or self-care (01) ==
LOC: RADXRMAIN 12:07
PROVIDERS: ATTEND Family Medicine
DX: M19.031 Primary osteoarthritis, right wrist (principal)

== ENCOUNTER → 2021-06-02 | Outpatient (CLI) | payer MEDICARE, OTHER ==
--- NOTE | 2021-06-02 13:42 | XR ---
EXAMINATION TYPE: XR chest 2V DATE OF EXAM: 06/02/2021 COMPARISON: Chest x-ray 08/24/2019, CT 08/28/2019 HISTORY: COPD TECHNIQUE: Frontal and lateral views of the chest are obtained. FINDINGS: There is no focal air space opacity, pleural effusion, or pneumothorax seen. The cardiac silhouette size is within normal limits. Prominent lung volume is present which can be seen in COPD. Heart is small. Aorta is dense. There is flattening the hemidiaphragms. Thoracic spondylosis is prese nt. Surgical clips present in the left axilla as on prior. The osseous structures are intact. IMPRESSION: No acute cardiopulmonary process. There is emphysema.
== END | disposition home or self-care (01) ==
LOC: RADXRMAIN 13:11
PROVIDERS: ATTEND Family Medicine
DX: J43.9 Emphysema, unspecified (principal)
CPT/HCPCS: 71046

== ENCOUNTER → 2021-08-17 | Outpatient (CLI) | payer MEDICARE, OTHER ==
--- NOTE | 2021-08-17 22:28 | CT ---
EXAMINATION TYPE: CT ChestAbdPelvis w con DATE OF EXAM: 08/17/2021 COMPARISON: CT dated 08/28/2019 HISTORY: recent abnormal weight loss. Hx of breast ca CT DLP: 543.70 mGycm Automated exposure control for dose reduction was used. CONTRAST: CT scan of the chest, abdomen and pelvis is performed with Oral Contrast and with IV Contrast, patien t injected with 100 mL of Isovue 300. FINDINGS: LUNGS: Left upper lobe wedge-shaped opacity measuring 17 x 20 mm, not appreciated previously. COPD ch anges with centrilobular emphysematous changes mainly in the upper lobes. Right lower lobe bronchial wall thickening and mild bronchial impaction. Left apical pulmonary fibrotic changes. Patent trachea and main bronchi. No pleural effusion. MEDIASTINUM: There are no greater than 1 cm hilar or mediastinal lymph nodes. No gross organomegaly. Coronary and arterial atherosclerotic calcifications. Minimal pericardial fluid. OTHER: Osteopenia. Anterior wedging of T12 vertebral body with superior sclerotic changes likely sec ondary to osteopenia or previous trauma, and possibly chronic, please correlate clinically. Stable T6 upper endplate depression. No gross aggressive bone lesion otherwise. LIVER/GB: Tiny cyst seen in the left hepatic lobe. No other definite hepatic focal lesion. Suspected cholelithiasis at the gallbladder neck. PANCREAS: No significant abnormality is seen. SPLEEN: No significant abnormality is seen. ADRENALS: No significant abnormality is seen. KIDNEYS: Questionable few bilateral renal calculi measuring up to 3 mm. Tiny cyst in the right kidney , otherwise unremarkable kidneys. BOWEL: Grossly unremarkable stomach, duodenum and small bowel. Segments of mild colonic wall thicken ing, nonspecific. Recommend correlation with colonoscopy results. REPRODUCTIVE ORGANS: No gross uterine or adnexal mass. LYMPH NODES: No greater than 1 cm abdominal or pelvic lymph nodes are appreciated. OSSEOUS STRUCTURES: Osteopenia. Grade 1 anterolisthesis of L4 over L5. Degenerative changes at L4-5 a nd L5-S1 levels. No aggressive bone lesion. OTHER: Arterial atherosclerotic calcifications. 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 In frarenal abdominal aortic aneurysm measuring up to 3.1 cm. No sizable ascites. IMPRESSION: Newly seen wedge-shaped consolidation/infiltration at the anterior aspect of the left upper lung lobe , possibly representing sequela of previous radiation however a neoplastic lesion cannot be excluded. Recommend further PET scan assessment. Alternatively, a follow-up CT scan in 2-3 months can be perfo rmed. Otherwise no evidence of metastatic disease seen in the chest, abdomen or the pelvis. Other findings and interval changes as detailed above.
== END | disposition home or self-care (01) ==
LOC: RADCTMAIN 14:55
PROVIDERS: ATTEND Internal Medicine Hematology & Oncology
DX: R91.8 Other nonspecific abnormal finding of lung field (principal)
CPT/HCPCS: 82565; 84520; 71260; 74177; 36415; Q9967 ×2

== ENCOUNTER → 2021-10-01 | Outpatient (CLI) | payer MEDICARE, OTHER ==
--- NOTE | 2021-10-03 06:07 | PE ---
EXAMINATION TYPE: PET CT fusion skull to thigh DATE OF EXAM: 10/01/2021 COMPARISON: CT catheter August 17, 2021 HISTORY: History of left-sided breast cancer diagnosed 2010 completed chemotherapy 2011. Recent weigh t loss and abnormal CT. Solitary pulmonary nodule. TECHNIQUE: Following the intravenous administration of 11.2 mCi of F-18 FDG, whole body images are p erformed from the skull base to the midthigh. Images are reviewed on the computer in the coronal, ax ial, and sagittal planes. Reconstructed rotating images are created on independent workstation and r eviewed on the computer. A localization and attenuation correction CT is performed in conjunction w ith the PET scan. Blood glucose level equals 107 SCAN: Initial Scan FINDINGS: SKULL BASE AND NECK: No areas of abnormal hypermetabolic uptake. CHEST, MEDIASTINUM, AND HILAR REGION: Mild underlying emphysematous change redemonstrated. Persistent wedge-shaped opacity anterior left mid lung measuring 2.3 x 1.0 cm axial image 91 with mild hypermet abolic uptake, max SUV is 2.47. No additional areas of abnormal hypermetabolic uptake. ABDOMEN AND PELVIS: Normal excretion. No adrenal masses. No abnormal hypermetabolic uptake. OSSEOUS STRUCTURES: No abnormal hypermetabolic uptake. OTHER CT: Nasal septum deviated to right of midline. Moderate to severe coronary artery calcification . Surgical clips left axillary region. Dependent small calcified gallstones in gallbladder. Central renal calculi or vascular calcifications . Uterus surgically absent. Sigmoid colonic diverticula. Patient has little intra-abdominal fat. Foca l AAA up to 3.2 cm axial image 161. IMPRESSION: Mild hypermetabolic uptake left mid lung anterior nodule or nodular consolidation, neopla sm cannot be excluded. Consider short-term CT or PET/CT follow-up in 1-3 months time or attempted mary alice pling. No suspicious adenopathy or metastatic disease seen.
== END | disposition home or self-care (01) ==
LOC: RADPETMAIN 11:59
PROVIDERS: ATTEND Internal Medicine Critical Care Medicine
DX: C50.912 Malignant neoplasm of unspecified site of left female breast (principal)
CPT/HCPCS: 78815; A9552

== ENCOUNTER → 2021-12-07 | Outpatient (CLI) | payer MEDICARE, OTHER ==
--- NOTE | 2021-12-07 20:59 | CT ---
EXAMINATION TYPE: CT chest w con CT DLP: 145.5 mGycm, Automated exposure control for dose reduction was used. DATE OF EXAM: 12/07/2021 5:46 PM COMPARISON: CT chest 08/17/2021. CT/PET 10/01/2021. CLINICAL INDICATION:Female, 71 years old with history of R91.8 Abnormal Lung field; TECHNIQUE: Multiple axial images were obtained through the chest. Sagittal and coronal reformats were created for review. Contrast used:100ml mL of Isovue 300 with IV Contrast, none. Oral contrast used: none. FINDINGS: LUNGS/ PLEURA: There is moderate to severe centrilobular emphysema changes. Left upper lobe pulmonary nodule with more solid center measuring 23 x 12 mm previously 20 x 8 mm on 08/17/2021 and 22 x 10 mm on PET on 10/01/2021. No focal consolidation, pneumothorax or pleural effusion. AIRWAY: Patent and unremarkable. HEART: Size within normal limits. Moderate coronary artery atherosclerosis. MEDIASTINUM: No gross evidence of adenopathy. VASCULATURE: No aortic aneurysm. MUSCULOSKELETAL: No acute osseous abnormalities SOFT TISSUES/LYMPH NODES: Unremarkable. LOWER NECK: No significant findings. UPPER ABDOMEN: No significant findings. IMPRESSION: 1. Increasing in size left upper lobe pulmonary nodule which was mildly FDG avid dating back to 08/17. 2. Moderate to severe emphysema changes.
== END | disposition home or self-care (01) ==
LOC: RADCTMAIN 16:26
PROVIDERS: ATTEND Internal Medicine Critical Care Medicine
DX: J43.2 Centrilobular emphysema (principal); R91.8 Other nonspecific abnormal finding of lung field
CPT/HCPCS: 82565; 84520; 71260; 36415; Q9967

== ENCOUNTER 2021-12-28 11:21 | Inpatient (IN) | payer MEDICARE, OTHER ==
[~2021-12-28 11:21] MED LIST: ATROPINE SULFATE 0.4 MG/ML 1 ML VIAL IM ONE; HYDROmorphone 0.5 MG/0.5 ML SYRINGE IVP PRN; LIDOCAINE VISCOUS 300 MG/15 ML CUP MUCOUS MEM ONE; ONDANSETRON 4 MG/2 ML VIAL IVP ONE
[2021-12-28] MEDS: LACTATED RINGERS 1,000 ML IV SCH (11:57)
[2021-12-28] MEDS ORDERED: LIDOCAINE 1% (10MG/ML) FOR IV START INTRADERMA ONE (11:58)
--- NOTE | 2021-12-28 13:11 | CT ---
EXAMINATION TYPE: CT Chest tre Morris Protocol DATE OF EXAM: 12/28/2021 COMPARISON: Most recent CT December 07, 2021 and older studies HISTORY: Recent abnormal CT CT DLP: 567.2 mGycm Automated exposure control for dose reduction was used. FINDINGS: Exam is for bronchoscopy planning and not for diagnostic purposes. Mild to moderate underlying emphys ematous change greatest in the upper lungs is redemonstrated. Persistent suspicious spiculated near 1 .7 cm nodule in the anterior left midlung is redemonstrated. Severe coronary artery calcification is again seen. IMPRESSION: As above.
[2021-12-28] MEDS ORDERED: ALBUTEROL NEBULIZED 2.5 MG/3 ML INHALATION ONE ×2 (13:55→14:28)
--- NOTE | 2021-12-28 15:05 | XR ---
EXAMINATION TYPE: XR chest 1V portable DATE OF EXAM: 12/28/2021 COMPARISON: 06/02/2021 HISTORY: Status post bronchoscopy TECHNIQUE: Single frontal view of the chest is obtained. FINDINGS: There are overlying leads. Left-sided pneumothorax is developed in the interval. There is underlying emphysema. Patient is rotated. Cardiomediastinal silhouette thought to be stable. . IMPRESSION: Pneumothorax status post bronchoscopy.
--- NOTE | 2021-12-28 16:05 | P.CNPUL ---
History of Present Illness Consult date: 12/28/21 Requesting physician: Deshaun Bolanos Reason for consult: dyspnea, COPD, pneumothorax, abnormal CXR/CT Chief complaint: Left pneumothorax. History of present illness: Pulmonary consult dated 12/28/2021. 71-year-old female who underwent navigational bronchoscopy today. She had a lesion in the left lung, peripherally, and subsequently, after the procedure, had a chest x-ray, which revealed a left-sided pneumothorax. The patient will be admitted to the hospital, hopefully only overnight, with a morning chest x- ray, breathing treatments, and oxygen therapy. She is currently in phase 1 rec overy. She was given a bed in room 524. She has a history of severe COPD, and unfortunately continues to smoke cigarettes. Other medical history includes hypothyroidism, breast cancer, hyperlipidemia, anxiety, and depression. She continues to smoke a pack of cigarettes a day. Important surgical history includes previous lumpectomy. Review of Systems REVIEW OF SYSTEMS: CONSTITUTIONAL: [Negative.] NEUROLOGIC: [ Negative.] HEENT: [ Negative.] CARDIAC: [Negative.] PULMONARY: Chronic shortness of breath, with any exertion. GI: [Negative.] : [Negative.] RHEUMATOLOGIC: [ Negative.] IMMUNOLOGIC: [ Negative.] ENDOCRINE: [Negative. ] DERMATOLOGIC: [Negative.] Past Medical History Past Medical History: Cancer, COPD, Hearing Disorder / Deafness, Hyperlipidemia, Thyroid Disorder Additional Past Medical History / Comment(s): History of left breast cancer in 2009, hypothyroidism, "migraines in eye", hard of hearing. History of Any Multi-Drug Resistant Organisms: None Reported Past Surgical History: Appendectomy, Breast Surgery Additional Past Surgical History / Comment(s): Left breast lumpectomy, "had fallopian tubes cleaned out". Past Anesthesia/Blood Transfusion Reactions: No Reported Reaction Past Psychological History: Anxiety, Depression Smoking Status: Current every day smoker Past Alcohol Use History: Rare Additional Past Alcohol Use History / Comment(s): Started smoking in 1967 and is 3/4 ppd smoker. Past Drug Use History: None Reported - Past Family History Mother Family Medical History: Coronary Artery Disease (CAD), Eye Disorder Additional Family Medical History / Comment(s): Macular degeneration. Father Family Medical History: Coronary Artery Disease (CAD) Additional Family Medical History / Comment(s): No children. Sister(s) Family Medical History: Cancer, COPD Additional Family Medical History / Comment(s): Breast cancer. Medications and Allergies Home Medications Medication Instructions Recorded Confirmed Type Albuterol Sulfate [Ventolin HFA] 2 puff INHALATION Q4H PRN 05/16/19 12/27/21 History DULoxetine HCL [Cymbalta] 60 mg PO QAM 05/16/19 12/27/21 History Atorvastatin Calcium [Lipitor] 40 mg PO DAILY 06/27/20 12/27/21 History Calcium Carbonate [Calcium] 1,200 mg PO DAILY 06/27/20 12/27/21 History Cholecalciferol (Vitamin D3) 125 mcg PO DAILY 06/27/20 12/27/21 History [Vitamin D3 (5000 Iu)] Ipratropium-Albuterol Nebulize 3 ml INHALATION QID 06/27/20 12/27/21 History [Duoneb 0.5 mg-3 mg/3 ml Soln] Budesonide-Formot 160-4.5 Mcg 2 puff INHALATION BID 12/27/21 12/27/21 History [Symbicort 160-4.5 Mcg Inhaler] Levothyroxine Sodium 112 mcg PO QAM 12/27/21 12/27/21 History Water Pill (Unknown Name/Dose) 1 tab PO DAILY 12/27/21 12/27/21 History Allergies Allergy/AdvReac Type Severity Reaction Status Date / Time Penicillins Allergy Rash/Hives Verified 12/27/21 15:07 Physical Exam Osteopathic Statement: *. No significant issues noted on an osteopathic structural exam other than those noted in the History and Physical/Consult. Vitals: Vital Signs Temp Pulse Resp BP Pulse Ox 12/28/21 13:52 89 24 168/79 90 L 12/28/21 13:07 84 22 129/63 90 L 12/28/21 11:44 97 F L 89 20 102/64 94 L Intake and Output 12/28/21 12/28/21 12/28/21 06:59 14:59 22:59 Intake Total 700 Balance 700 Intake: IV 700 Other: Weight 55.2 kg No acute distress, oriented 3. HEENT examination is grossly unremarkable. Neck supple. Full range of motion. No adenopathy thyromegaly or neck vein distention. Cardiovascular examination reveals regular rhythm rate. S1-S2 normal. No S3 or S4. No discernible murmur noted. Heart sounds are distant. Heart rate 89 bpm. Lungs reveal diminished bilateral breath sounds. Scattered rhonchi and wheezes are noted. No crackles. Saturations are 90% on a simple mask. Abdomen soft bowel sounds are heard. No masses or tenderness. Extremities are intact. No cyanosis clubbing or edema. Skin is without rash or lesion. Neurologic examination is brief but nonfocal. Results - Diagnostic Findings Chest x-ray: image reviewed CT scan - chest: image reviewed Assessment and Plan Assessment: Postop day #0, status post electromagnetic navigational bronchoscopy, for a lesion in the periphery of the left upper lobe. Post-procedure left-sided pneumothorax. History of severe COPD, with an FEV1 that is 47% of predicted. History of hyperlipidemia. History of hypothyroidism. History of breast cancer, status post lumpectomy and lymph node dissection. History of anxiety/depression. Plan: Plan dated 12/28/2021. The patient will be admitted to the hospital for observation. Hopefully, this will only be overnight. The patient's currently on phase [address] her on updrafts with albuterol sulfate and ipratropium bromide, and also add Symbicort 160/4.5, 2 puffs twice a day. She will remain on oxygen therapy. In addition, the patient will have a morning chest x-ray. Additional recommendations and suggestions are forthcoming. Time with Patient: Greater than 30
[2021-12-28] MEDS: SODIUM CHLORIDE 0.9% 1,000 ML IV SCH (17:35)
[2021-12-28] MEDS: IPRATROPIUM-ALBUTEROL 3 ML NEB INHALATION SCH ×2 (18:01→20:31)
--- NOTE | 2021-12-28 20:04 | XR ---
EXAMINATION TYPE: XR chest 1V portable DATE OF EXAM: 12/28/2021 COMPARISON: Today HISTORY: Bronchoscopy TECHNIQUE: FINDINGS: There is a moderate sized left pneumothorax which is more than 50%. No evidence of tension. Heart siz e is normal. There is consolidation and atelectasis left lower lobe. Right lung is clear. No heart fa ilure. IMPRESSION infiltrate and atelectasis left lower lobe. No evidence of tension.: There is left-sided p neumothorax without change.
[2021-12-28 20:10] LABS: Basophils # (A) 0.1 k/uL (0-0.2); Basophils % (A) 1 %; Eosinophils # (A) 0.4 k/uL (0-0.7); Eosinophils % (A) 4 %; HCT 39.5 % (34.0-46.0); HGB 13.1 gm/dL (11.4-16.0); Lymphocytes # (A) 2.6 k/uL (1.0-4.8); Lymphocytes % (A) 22 %; MCH 35.1 pg (25.0-35.0); MCHC 33.3 g/dL (31.0-37.0); MCV 105.4 fL (80.0-100.0); Macrocytosis Slight; Mean Platelet Volume 8.5; Monocytes # (A) 0.9 k/uL (0-1.0); Monocytes % (A) 8 %; Neutrophils # (A) 7.4 k/uL (1.3-7.7); Neutrophils % (A) 64 %; Platelet Count 334 k/uL (150-450); RBC 3.74 m/uL (3.80-5.40); RDW 13.1 % (11.5-15.5); WBC 11.5 k/uL (3.8-10.6)
[2021-12-28 20:18] LABS: ALT 20 U/L (4-34); AST 26 U/L (14-36); African American GFR (CKD) 89 (>60 ml/min/1.73 sqM); Albumin 3.7 g/dL (3.5-5.0); Albumin/Globulin Ratio 1.5; Alkaline Phosphatase 62 U/L (38-126); Anion Gap 8 mmol/L; Blood Urea Nitrogen 15 mg/dL (7-17); Calcium 9.9 mg/dL (8.4-10.2); Carbon Dioxide 28 mmol/L (22-30); Chloride 101 mmol/L (98-107); Globulin 2.4 g/dL; Glucose 126 mg/dL (74-99); Non-African American GFR(CKD) 77 (>60 ml/min/1.73 sqM); Potassium 4.6 mmol/L (3.5-5.1); Sodium 137 mmol/L (137-145); Total Bilirubin 0.4 mg/dL (0.2-1.3); Total Protein 6.1 g/dL (6.3-8.2)
[2021-12-28] MEDS: SYMBICORT 160-4.5 MCG INHALER INHALATION SCH (20:31)
[2021-12-28 21:17] LABS: Appearance,BF Slightly Cloudy
[2021-12-29] MEDS: ALBUTEROL NEBULIZED 2.5 MG/3 ML INHALATION PRN ×3 (00:07→23:56)
--- NOTE | 2021-12-29 02:08 | PCN ---
PROCEDURE NOTE PROCEDURE PERFORMED: Electromagnetic navigational bronchoscopy. PREOPERATIVE DIAGNOSIS: Solitary pulmonary nodule, left upper lobe. PET scan positive. POSTOPERATIVE DIAGNOSIS: Solitary pulmonary nodule, left upper lobe. PET scan positive, rule out cancer. OPERATORS: Dr. Bishpo and Dr. Gusman. Dr. Perez provided general anesthesia along with ICD 9 CODER. The patient's procedure took place in room #1. There was informed consent and universal timeout. DESCRIPTION OF PROCEDURE: After the patient was adequately sedated on the effects of general anesthesia, and was intubated, the bronchoscope was placed through the bronchoscope adapter connected to the endotracheal tube. The airways were examined thoroughly including right upper lobe and its 3 segments, right middle lobe and its 2 segments, right lower lobe and its 5 segments, left upper lobe proper and its 2 segments, lingula and its 2 segments, and left lower lobe and its 4 segments. There was mucus within the airways. They were cleansed and removed with saline lavage. Next, we used the electromagnetic mapping system of [employer], to attempt to localize the lesion in the left upper lobe. Unfortunately, we had poor localization in my opinion, really could not get out to the lesion adequately. We did do some transbronchial biopsies in the left upper lobe anterior segment and also some washes in the anterior segment of the left upper lobe. Again, localization was suspicious. The specimens will be sent to the laboratory for analysis. The bronchoscope was withdrawn. The patient will be recovered. I will speak to the patient's family member. We will await the results of the biopsies and washes. MMODL / IJN: [id number] /
[2021-12-29] MEDS ORDERED: ACETAMINOPHEN TAB 325 MG TAB PO PRN (04:44)
--- NOTE | 2021-12-29 04:47 | XR ---
EXAMINATION TYPE: XR chest 1V portable DATE OF EXAM: 12/29/2021 COMPARISON: Yesterday HISTORY: Short of breath TECHNIQUE: Single view FINDINGS: There is some linear density left lower lobe. There is left-sided pneumothorax approximatel y 40% and is improved compared to yesterday. The right lung is clear. No heart failure. IMPRESSION: Left-sided pneumothorax and atelectasis are improved compared to yesterday.
[2021-12-29] MEDS: LEVOTHYROXINE 112 MCG TAB PO SCH (05:34)
[2021-12-29] MEDS: SODIUM CHLORIDE 0.9% 1,000 ML IV SCH (05:34)
[2021-12-29] MEDS: LACTATED RINGERS 1,000 ML IV SCH (06:10)
[2021-12-29] MEDS: IPRATROPIUM-ALBUTEROL 3 ML NEB INHALATION SCH ×4 (07:38→20:33)
[2021-12-29] MEDS: SYMBICORT 160-4.5 MCG INHALER INHALATION SCH ×2 (07:38→20:33)
--- NOTE | 2021-12-29 08:49 | P.PN ---
Subjective Progress Note Date: 12/29/21 Principal diagnosis: Pneumothorax, shortness of breath. Pulmonary consult dated 12/28/2021. 71-year-old female who underwent navigational bronchoscopy today. She had a lesion in the left lung, peripherally, and subsequently, after the procedure, had a chest x-ray, which revealed a left-sided pneumothorax. The patient will be admitted to the hospital, hopefully only overnight, with a morning chest x- ray, breathing treatments, and oxygen therapy. She is currently in phase 1 recovery. She was given a bed in room 524. She has a history of severe COPD, and unfortunately continues to smoke cigarettes. Other medical history includes hypothyroidism, breast cancer, hyperlipidemia, anxiety, and depression. She continues to smoke a pack of cigarettes a day. Important surgical history includes previous lumpectomy. Progress note dated 12/29/2021. 71-year-old female postop day #1, status post navigational bronchoscopy, for a left lung lesion. The lesion was very peripheral, unfortunately, she sustained a pneumothorax. The patient is currently on oxygen at 5 L. She's getting saline at 20 mL an hour. We added Dilaudid for pain control. We also ask cardiothoracic surgery to see our patient, for possible Thora vent/chest tube. I was hoping to get by without an invasive procedure. She does complain of shortness of breath, and pain in the left chest. Lab data from yesterday includes a white count 11.5, and normal hemoglobin, hematocrit, and platelet count. Likewise, the comprehensive metabolic profile is essentially normal. Objective - Vital Signs Vital signs: Vital Signs Temp 98.2 F 12/29/21 04:43 Pulse 84 12/29/21 07:52 Resp 18 12/29/21 05:47 BP 100/61 12/29/21 04:43 Pulse Ox 93 L 12/29/21 05:47 FiO2 Intake & Output 12/28/21 12/29/21 12/29/21 18:59 06:59 18:59 Intake Total 700 Balance 700 Weight 55.2 kg Intake: IV 700 Other: Voiding Method Bedside Commode Bedside Commode # Voids 0 2 - Exam No acute distress, oriented 3. Currently on 5 L oxygen. HEENT examination is grossly unremarkable. Neck supple. Full range of motion. No adenopathy thyromegaly or neck vein distention. Cardiovascular examination reveals regular rhythm rate. S1-S2 normal. No S3 or S4. No discernible murmur noted. Heart sounds are distant. Heart rate 84 bpm. Lungs reveal diminished bilateral breath sounds. Scattered rhonchi and wheezes are noted. No crackles. Saturations are 94% on 5 L nasal cannula. Abdomen soft bowel sounds are heard. No masses or tenderness. Extremities are intact. No cyanosis clubbing or edema. Skin is without rash or lesion. Neurologic examination is brief but nonfocal. - Labs CBC & Chem 7: 12/28/21 19:00 12/28/21 19:00 Labs: Abnormal Lab Results - Last 24 Hours (Table) 12/28/21 12/28/21 Range/Units 19:00 19:00 WBC 11.5 H (3.8-10.6) k/uL RBC 3.74 L (3.80-5.40) m/uL MCV 105.4 H (80.0-100.0) fL MCH 35.1 H (25.0-35.0) pg Glucose 126 H (74-99) mg/dL Total Protein 6.1 L (6.3-8.2) g/dL Microbiology - Last 24 Hours (Table) 12/28/21 12:30 Bronchial Washings Culture - Preliminary Bronchial Washings - Left Assessment and Plan Assessment: Postop day #1, status post electromagnetic navigational bronchoscopy, for a lesion in the periphery of the left upper lobe. Post-procedure left-sided pneumothorax. History of severe COPD, with an FEV1 that is 47% of predicted. History of hyperlipidemia. History of hypothyroidism. History of breast cancer, status post lumpectomy and lymph node dissection. History of anxiety/depression. Plan: Plan dated 12/28/2021. The patient will be admitted to the hospital for observation. Hopefully, this will only be overnight. The patient's currently on phase [address] her on updrafts with albuterol sulfate and ipratropium bromide, and also add Symbicort 160/4.5, 2 puffs twice a day. She will remain on oxygen therapy. In addition, the patient will have a morning chest x-ray. Additional recommendations and suggestions are forthcoming. Plan dated 12/29/2021. 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 Unfortunately, this morning's chest x-ray looks to show a larger left-sided pneumothorax. We added Dilaudid for pain control. She remains on oxygen therapy. Will have a cardiothoracic surgery colleagues see the patient. Additional recommendations and suggestions are forthcoming. She continues on albuterol sulfate and ipratropium bromide, as well as Symbicort. No additional recommendations are made. Time with Patient: Less than 30
--- NOTE | 2021-12-29 09:09 | P.GSCN ---
History of Present Illness Consult date: 12/29/21 Reason for Consult: Left-sided pneumothorax after navigational bronchoscopy Requesting physician: Aroldo Bishop History of present illness: This is a 71-year-old female patient who follows on an outpatient basis with Dr. Bolanos for primary care and Dr. Bishop for pulmonology. She has a previous medical history of severe COPD on home oxygen at night, current tobacco dependence, hypothyroid, anxiety/depression, and breast cancer in 2010 status post lumpectomy. This lady presented to [facility] yesterday for an outpatient navigational bronchoscopy with transbronchial biopsies of the left upper lobe. After the procedure the patient developed a left-sided pneumothorax and was admitted for observation. Multiple chest x-rays were obtained after the procedure as well as this morning, patient continues to have left apical and lateral wall pneumothorax without significant re-expansion. She has been on 4-6 liters per minute oxygen through nasal cannula since her procedure. Due to these findings consultation was placed to cardiothoracic surgery for recommendations. Review of Systems Review of systems was completed and was negative except as noted - Respiratory Reports dyspnea, Reports home oxygen Past Medical History Past Medical History: Cancer, COPD, Hearing Disorder / Deafness, Hyperlipidemia, Thyroid Disorder Additional Past Medical History / Comment(s): History of left breast cancer in 2009, hypothyroidism, "migraines in eye", hard of hearing. History of Any Multi-Drug Resistant Organisms: None Reported Past Surgical History: Appendectomy, Breast Surgery Additional Past Surgical History / Comment(s): Left breast lumpectomy, "had fallopian tubes cleaned out". Past Anesthesia/Blood Transfusion Reactions: No Reported Reaction Past Psychological History: Anxiety, Depression Smoking Status: Current every day smoker Past Alcohol Use History: Rare Additional Past Alcohol Use History / Comment(s): Started smoking in 1967 and is 3/4 ppd smoker. Past Drug Use History: None Reported - Past Family History Mother Family Medical History: Coronary Artery Disease (CAD), Eye Disorder Additional Family Medical History / Comment(s): Macular degeneration. Father Family Medical History: Coronary Artery Disease (CAD) Additional Family Medical History / Comment(s): No children. Sister(s) Family Medical History: Cancer, COPD Additional Family Medical History / Comment(s): Breast cancer. Medications and Allergies Home Medications Medication Instructions Recorded Confirmed Type Albuterol Sulfate [Ventolin HFA] 2 puff INHALATION Q4H PRN 05/16/19 12/27/21 History DULoxetine HCL [Cymbalta] 60 mg PO QAM 05/16/19 12/27/21 History Atorvastatin Calcium [Lipitor] 40 mg PO DAILY 06/27/20 12/27/21 History Calcium Carbonate [Calcium] 1,200 mg PO DAILY 06/27/20 12/27/21 History Cholecalciferol (Vitamin D3) 125 mcg PO DAILY 06/27/20 12/27/21 History [Vitamin D3 (5000 Iu)] Ipratropium-Albuterol Nebulize 3 ml INHALATION QID 06/27/20 12/27/21 History [Duoneb 0.5 mg-3 mg/3 ml Soln] Budesonide-Formot 160-4.5 Mcg 2 puff INHALATION BID 12/27/21 12/27/21 History [Symbicort 160-4.5 Mcg Inhaler] Levothyroxine Sodium 112 mcg PO QAM 12/27/21 12/27/21 History Water Pill (Unknown Name/Dose) 1 tab PO DAILY 12/27/21 12/27/21 History Allergies Allergy/AdvReac Type Severity Reaction Status Date / Time Penicillins Allergy Rash/Hives Verified 12/27/21 15:07 Surgical - Exam Vital Signs Temp Pulse Resp BP Pulse Ox 97 F L 89 20 102/64 94 L 12/28/21 11:44 12/28/21 11:44 12/28/21 11:44 12/28/21 11:44 12/28/21 11:44 CONSTITUTIONAL: Awake and alert, appears somewhat comfortable sitting straight up in bed, cooperative, no acute distress EYES: Pupils equal, round, reactive to light, normal ocular movement ENT: Moist mucous membranes without oral lesions present NECK: No masses, no bruits, trachea midline RESPIRATORY: Lungs sounds diminished bilaterally with expiratory wheezes present. Respirations even, nonlabored. Currently on 5 L nasal cannula with oxygen saturation 86-93%. Strong cough. No chest wall deformities. No clubbing or cyanosis present CARDIOVASCULAR: S1, S2 present. Regular rate and rhythm. Palpable peripheral pulses bilaterally. No edema present. GASTROINTESTINAL: Abdomen soft, nontender, nondistended without masses or organomegaly noted. There is no rebound or guarding present. Active bowel sounds present 4 quadrants. GENITOURINARY: Deferred INTEGUMENTARY: Skin is warm and dry NEUROLOGIC: Cranial nerves II through XII intact, normal coordination, no obvious motor or sensory deficits, speech is normal MUSKULOSKELETAL: Able to move all extremities, strength equal bilaterally, normal posture PSYCHIATRIC: Alert and oriented to person place and time, appropriate affect, intact judgment and insight Results - Labs 12/28/21 19:00 12/28/21 19:00 Abnormal Lab Results - Last 24 Hours (Table) 12/28/21 12/28/21 Range/Units 19:00 19:00 WBC 11.5 H (3.8-10.6) k/uL RBC 3.74 L (3.80-5.40) m/uL MCV 105.4 H (80.0-100.0) fL MCH 35.1 H (25.0-35.0) pg Glucose 126 H (74-99) mg/dL Total Protein 6.1 L (6.3-8.2) g/dL Microbiology - Last 24 Hours (Table) 12/28/21 12:30 Bronchial Washings Culture - Preliminary Bronchial Washings - Left Diabetes panel 12/28/21 Range/Units 19:00 Sodium 137 (137-145) mmol/L Potassium 4.6 (3.5-5.1) mmol/L Chloride 101 (98-107) mmol/L Carbon Dioxide 28 (22-30) mmol/L BUN 15 (7-17) mg/dL Creatinine 0.77 (0.52-1.04) mg/dL Glucose 126 H (74-99) mg/dL Calcium 9.9 (8.4-10.2) mg/dL AST 26 (14-36) U/L ALT 20 (4-34) U/L Alkaline Phosphatase 62 (38-126) U/L Total Protein 6.1 L (6.3-8.2) g/dL Albumin 3.7 (3.5-5.0) g/dL Calcium panel 12/28/21 Range/Units 19:00 Calcium 9.9 (8.4-10.2) mg/dL Albumin 3.7 (3.5-5.0) g/dL Pituitary panel 12/28/21 Range/Units 19:00 Sodium 137 (137-145) mmol/L Potassium 4.6 (3.5-5.1) mmol/L Chloride 101 (98-107) mmol/L Carbon Dioxide 28 (22-30) mmol/L BUN 15 (7-17) mg/dL Creatinine 0.77 (0.52-1.04) mg/dL Glucose 126 H (74-99) mg/dL Calcium 9.9 (8.4-10.2) mg/dL Adrenal panel 12/28/21 Range/Units 19:00 Sodium 137 (137-145) mmol/L Potassium 4.6 (3.5-5.1) mmol/L Chloride 101 (98-107) mmol/L Carbon Dioxide 28 (22-30) mmol/L BUN 15 (7-17) mg/dL Creatinine 0.77 (0.52-1.04) mg/dL Glucose 126 H (74-99) mg/dL Calcium 9.9 (8.4-10.2) mg/dL Total Bilirubin 0.4 (0.2-1.3) mg/dL AST 26 (14-36) U/L ALT 20 (4-34) U/L Alkaline Phosphatase 62 (38-126) U/L Total Protein 6.1 L (6.3-8.2) g/dL Albumin 3.7 (3.5-5.0) g/dL - Imaging Chest x-ray: report reviewed, image reviewed Assessment and Plan Assessment: 1. Left-sided pneumothorax after navigational bronchoscopy with transbronchial biopsies 2. Shortness of breath, multifactorial 3. Severe COPD on home oxygen at night, FEV1 47% of predicted 4. Current tobacco dependence 5. Hypothyroid 6. Anxiety/depression 7. Breast cancer in 2010 status post lumpectomy Plan: The patient was seen and examined on the medical surgical unit sitting up in bed in no acute distress. She does complain of slight pain to the left chest, slightly short of breath, currently on continuous oxygen at a higher dose than she uses at home. The case was discussed in detail with Dr. Akbar. Chest x- ray reviewed, patient has apical as well as lateral wall pneumothorax unlikely to resolve on its own. The patient will need a thoravent to aid re-expansion of the lung. She was counseled regarding smoking cessation. Incentive spirometry will be ordered and encouraged. Wean O2 as tolerated. Increase activity as tolerated. Management of other comorbidities per internal medicine, pulmonology. Thank you Dr. Bishop for this consult. More recommendations to follow once Dr. Akbar has seen the patient. I have personally seen and examined the patient, performed the documentation and the assessment and plan as written. Number of minutes spent on the visit: 30. AILIN Puente
--- NOTE | 2021-12-29 09:32 | XR ---
EXAMINATION TYPE: XR chest 1V portable DATE OF EXAM: 12/29/2021 COMPARISON: Chest x-ray 12/29/2021 at earlier time. HISTORY: Pneumothorax TECHNIQUE: Single frontal view of the chest is obtained. FINDINGS: Moderate left-sided pneumothorax is again seen. No evident mediastinal shift. Surgical cli ps are present in the left axilla. Cardiac mediastinal silhouette is stable. Aorta is dense. Patient is rotated. IMPRESSION: Moderate left-sided pneumothorax.
[2021-12-29] MEDS ORDERED: LIDOCAINE 2% INJ 20 MG/ML (20 ML MDV) SQ ONE (09:52)
[2021-12-29] MEDS: DULoxetine HCL 60 MG CAPSULE.DR PO SCH (10:33)
[2021-12-29] MEDS: ATORVASTATIN 40 MG TAB PO SCH (10:33)
[2021-12-29] MEDS: HYDROmorphone 0.5 MG/0.5 ML SYRINGE IVP PRN ×2 (11:10→14:06)
[2021-12-29 12:26] VITALS: BMI 18.5
--- NOTE | 2021-12-29 12:40 | XR ---
EXAMINATION TYPE: XR chest 1V portable DATE OF EXAM: 12/29/2021 COMPARISON: Chest x-ray 12/29/2021 at earlier time HISTORY: Status post chest tube placement TECHNIQUE: Single frontal view of the chest is obtained. FINDINGS: There is been interval placement of a thoracic vent on the left, catheter tip is coursing medially, superimposed over the mediastinum, catheter entry point likely just caudal to the inferior margin of the first rib. Near complete resolution of patient's left-sided pneumothorax is present, th ere may be some residual lung contusion or atelectasis. No other significant interval change. IMPRESSION: Interval chest tube placement as described.
--- NOTE | 2021-12-29 15:04 | P.CONS ---
History of Present Illness - Reason for Consult Consult date: 12/29/21 Medical management postop bronchoscopy with biopsy - History of Present Illness This is a pleasant 71-year-old female who was recently was in an outpatient procedure for navigational bronchoscopy with a lung biopsy for a lesion noted in the left lung with pulmonary and developed worsening shortness of breath requiring oxygen and developed a left-sided pneumothorax. Patient with a past medical history of cancer, advanced COPD, hyperlipidemia, thyroid disorder, history of left breast cancer and follows with Dr. Somers in the outpatient setting. Patient is currently maintained on 6 L via nasal cannula and card iothoracic surgery was also consulted for this left pneumothorax. Patient is continued on DuoNeb treatments along with Symbicort and will continue. Repeat chest x-ray from this morning showed a moderate left-sided pneumothorax that appeared larger than previous. Plan is for thoravent placement and stabilizing oxygen saturations. Cardiothoracic to perform Thoravent today at bedside. Incentive spirometer at the bedside and encourage the patient to continue using at least 10 times every hour while awake. Patient is maintained on regular diet and we will continue to monitor along with pulmonary and cardiothoracic team. Review Of Systems: Constitutional: No fever, no chills, no night sweats. No weight change. No weakness, fatigue or lethargy. No daytime sleepiness. EENT: No headache. No blurred vision or double vision, no loss of vision. No loss of Hearing, no ringing in the ears, no dizziness. No nasal drainage or congestion. No epistaxis. No sore throat. Lungs: Reports shortness of breath, reports cough, no sputum production. No wheezing. Cardiovascular: No chest pain, no lower extremity edema. No palpitations. No paroxysmal nocturnal dyspnea. No orthopnea. No lightheadedness or dizziness. No syncopal episodes. Abdominal: No abdominal pain. No nausea, vomiting. No diarrhea. No constipation. No bloody or tarry stools.. No loss of appetite. Genitourinary: No dysuria, increased frequency, urgency. No urinary retention. Musculoskeletal: No myalgias. No muscle weakness, no gait dysfunction, no frequent falls. No back pain. No neck pain. Integumentary: No wounds, no lesions. No rash or pruritus. No unusual bruising. No change in hair or nails. Neurologic: No aphasia. No facial droop. No change in mentation. No head injury. No headache. No paralysis. No paresthesia. Psychiatric: No depression. No anxiety. No mood swings. Endocrine: No abnormal blood sugars. No weight change. No excessive sweating or thirst. No cold intolerance. PHYSICAL EXAMINATION: GENERAL: The patient is alert and oriented x4, thin built elderly appearing female HEENT: Pupils are round and equally reacting to light. EOMI. no scleral icterus. No conjunctival pallor. Normocephalic, atraumatic. No pharyngeal erythema. No thyromegaly. CARDIOVASCULAR: S1 and S2 muffled PULMONARY: diminished breath sounds bilaterally more so on the left with no wheezing, scattered rhonchi noted. ABDOMEN: soft. Nontender on exam. non-distended, normoactive bowel sounds. No palpable organomegaly. MUSCULOSKELETAL: No joint swelling or deformity. EXTREMITIES: No cyanosis, clubbing, or pedal edema. NEUROLOGICAL: Gross neurological examination did not reveal any focal deficits. SKIN: No rashes. Assessment: Left-sided pneumothorax post bronchoscopy and biopsy of the left upper lobe History of severe COPD, not currently in exacerbation Hyperlipidemia Hypothyroidism History of left breast cancer in 2009 Continued ongoing nicotine dependence History of anxiety/depression GI prophylaxis DVT prophylaxis Full code Plan: Recommend to continue with current medications and management per pulmonary services. Patient was admitted post bronchoscopy with biopsy of the left upper lung periphery lesion and noted to have a pneumothorax. Repeat chest x-ray this morning shows a larger pneumothorax and cardiothoracic team was consulted and will be placing a Thora vent sometime this morning. Patient is maintained on DuoNeb treatments along with her inhalers and will continue. Other home medications are to have been resumed. Patient was currently requiring 6 L of oxygen at 86% oxygen saturations. Recommend incentive spirometer and continue to use at least 10 times every hour while awake. Encourage increased activity and wean FiO2 as tolerated. Further recommendations to follow based on the clinical course of the patient. We will continue to follow with pulmonary during hospitalization. Thank you kindly for this consultation. The impression and plan of care has been dictated by Liana Wills, nurse practitioner as directed. Dr. Gia MD I have performed a history and examination and MDM of this patient, discussed the same with the dictator, and agree with the dictator's assessment and plan as written ,documented as a scribe. Based on total visit time, I have performed more than 50% of the visit. Any additional findings or plans will be noted. Past Medical History Past Medical History: Cancer, COPD, Hearing Disorder / Deafness, Hyperlipidemia, Thyroid Disorder Additional Past Medical History / Comment(s): History of left breast cancer in 2009, hypothyroidism, "migraines in eye", hard of hearing. History of Any Multi-Drug Resistant Organisms: None Reported Past Surgical History: Appendectomy, Breast Surgery Additional Past Surgical History / Comment(s): Left breast lumpectomy, "had fallopian tubes cleaned out". Past Anesthesia/Blood Transfusion Reactions: No Reported Reaction Past Psychological History: Anxiety, Depression Smoking Status: Current every day smoker Past Alcohol Use History: Rare Additional Past Alcohol Use History / Comment(s): Started smoking in 1967 and is 3/4 ppd smoker. Past Drug Use History: None Reported - Past Family History Mother Family Medical History: Coronary Artery Disease (CAD), Eye Disorder Additional Family Medical History / Comment(s): Macular degeneration. Father Family Medical History: Coronary Artery Disease (CAD) Additional Family Medical History / Comment(s): No children. Sister(s) Family Medical History: Cancer, COPD Additional Family Medical History / Comment(s): Breast cancer. Medications and Allergies Home Medications Medication Instructions Recorded Confirmed Type Albuterol Sulfate [Ventolin HFA] 2 puff INHALATION Q4H PRN 05/16/19 12/27/21 History DULoxetine HCL [Cymbalta] 60 mg PO QAM 05/16/19 12/27/21 History Atorvastatin Calcium [Lipitor] 40 mg PO DAILY 06/27/20 12/27/21 History Calcium Carbonate [Calcium] 1,200 mg PO DAILY 06/27/20 12/27/21 History Cholecalciferol (Vitamin D3) 125 mcg PO DAILY 06/27/20 12/27/21 History [Vitamin D3 (5000 Iu)] Ipratropium-Albuterol Nebulize 3 ml INHALATION QID 06/27/20 12/27/21 History [Duoneb 0.5 mg-3 mg/3 ml Soln] Budesonide-Formot 160-4.5 Mcg 2 puff INHALATION BID 12/27/21 12/27/21 History [Symbicort 160-4.5 Mcg Inhaler] Levothyroxine Sodium 112 mcg PO QAM 12/27/21 12/27/21 History Water Pill (Unknown Name/Dose) 1 tab PO DAILY 12/27/21 12/27/21 History Allergies Allergy/AdvReac Type Severity Reaction Status Date / Time Penicillins Allergy Rash/Hives Verified 12/27/21 15:07 Physical Exam Vitals: Vital Signs Temp Pulse Pulse Resp BP Pulse Ox 12/29/21 08:00 97.6 F 85 14 91/51 86 L 12/29/21 07:52 84 12/29/21 07:40 80 12/29/21 05:47 18 93 L 12/29/21 04:43 98.2 F 83 15 100/61 93 L 12/29/21 04:26 88 L 12/29/21 04:18 84 12/29/21 04:06 86 12/29/21 00:20 88 12/29/21 00:07 87 12/28/21 20:44 80 12/28/21 20:32 84 12/28/21 19:19 97.7 F 79 16 95/49 92 L 12/28/21 18:13 92 12/28/21 18:02 88 12/28/21 16:15 78 16 102/58 91 L 12/28/21 16:00 74 18 118/73 90 L 12/28/21 15:37 75 22 120/72 92 L 12/28/21 15:07 76 22 140/58 89 L 12/28/21 14:52 74 22 143/81 90 L 12/28/21 14:37 74 24 162/79 86 L 12/28/21 14:22 75 22 169/70 88 L 12/28/21 14:07 79 24 163/71 90 L 12/28/21 13:52 89 24 168/79 90 L 12/28/21 11:44 97 F L 89 20 102/64 94 L Intake and Output 12/28/21 12/29/21 12/29/21 22:59 06:59 14:59 Other: Voiding Method Bedside Commode Bedside Commode # Voids 0 2 Results CBC & Chem 7: 12/28/21 19:00 12/28/21 19:00 Labs: Abnormal Lab Results - Last 24 Hours (Table) 12/28/21 12/28/21 Range/Units 19:00 19:00 WBC 11.5 H (3.8-10.6) k/uL RBC 3.74 L (3.80-5.40) m/uL MCV 105.4 H (80.0-100.0) fL MCH 35.1 H (25.0-35.0) pg Glucose 126 H (74-99) mg/dL Total Protein 6.1 L (6.3-8.2) g/dL Microbiology - Last 24 Hours (Table) 12/28/21 12:30 Bronchial Washings Culture - Preliminary Bronchial Washings - Left Assessment and Plan Time with Patient: Less than 30
[2021-12-30] MEDS: ALBUTEROL NEBULIZED 2.5 MG/3 ML INHALATION PRN (04:33)
[2021-12-30] MEDS: LACTATED RINGERS 1,000 ML IV SCH (06:11)
[2021-12-30] MEDS: LEVOTHYROXINE 112 MCG TAB PO SCH (06:19)
[2021-12-30] MEDS: HYDROmorphone 0.5 MG/0.5 ML SYRINGE IVP PRN (06:23)
--- NOTE | 2021-12-30 07:56 | P.PN ---
Subjective Progress Note Date: 12/30/21 Principal diagnosis: Left-sided pneumothorax after navigational bronchoscopy with transbronchial biopsies. History of severe COPD on home oxygen at night, current tobacco dependence, hypothyroid, anxiety/depression, breast cancer in 2010 status post lumpectomy The patient was seen and examined this morning sitting up in bed on the [facility] unit in no acute distress. States her breathing is better than yesterday. Thoravent was placed today by Dr. Akbar with good re-expansion of the lung. This morning there was no air leak present, chest x-ray was stable and the thoravent was discontinued. We will repeat chest x-ray in a couple of hours and if stable patient may be discharged to home from our standpoint. No other new concerns. Objective - Vital Signs Vital signs: Vital Signs Temp 98.1 F 12/30/21 05:00 Pulse 82 12/30/21 05:00 Resp 20 12/30/21 05:00 BP 131/69 12/30/21 05:00 Pulse Ox 92 L 12/30/21 06:26 FiO2 Intake & Output 12/29/21 12/30/21 12/30/21 18:59 06:59 18:59 Intake Total 590 Output Total 0 0 Balance 0 590 Weight 55.2 kg Intake: Oral 590 Output: Drainage 0 0 Left Upper Chest 0 0 Other: Voiding Method Bedside Commode Bedside Commode # Voids 2 3 - Exam CONSTITUTIONAL: Appears comfortable, cooperative, no acute distress RESPIRATORY: Lungs sounds diminished bilaterally with expiratory wheezes present. Respirations even, nonlabored. Currently on 4 L nasal cannula with oxygen saturation 92%. Able to achieve 750 mL on incentive spirometry. Strong cough. CARDIOVASCULAR: S1, S2 present. Regular rate and rhythm. Palpable peripheral pulses bilaterally. No edema present. GASTROINTESTINAL: Abdomen soft, nontender, nondistended. Active bowel sounds present 4 quadrants. Tolerating diet. GENITOURINARY: Continues to void INTEGUMENTARY: Skin is warm and dry NEUROLOGIC: Cranial nerves II through XII intact MUSKULOSKELETAL: Able to move all extremities, strength equal bilaterally, gait normal PSYCHIATRIC: Alert and oriented to person place and time, appropriate affect, intact judgment and insight - Allied health notes Allied health notes reviewed: nursing - Labs CBC & Chem 7: 12/28/21 19:00 12/28/21 19:00 Labs: Microbiology - Last 24 Hours (Table) 12/28/21 12:30 Gram Stain - Preliminary Bronchial Washings - Left Bronchial Washings Culture - Preliminary - Imaging and Cardiology Chest x-ray: image reviewed Assessment and Plan Assessment: 1. Left-sided pneumothorax after navigational bronchoscopy with transbronchial biopsies, status post thoravent placement with good re-expansion of the lung 2. Shortness of breath, multifactorial 3. Severe COPD on home oxygen at night, FEV1 47% of predicted 4. Current tobacco dependence 5. Hypothyroid 6. Anxiety/depression 7. Breast cancer in 2009 status post lumpectomy Plan: 1. Thoravent discontinued. Repeat chest x-ray in 2 hours, if stable will be discharged to home from our standpoint 2. Wean O2 as tolerated. Encourage incentive spirometry use 3. Increase activity as tolerated 4. Smoking cessation counseling and education was again provided, patient should quit smoking completely 5. Management of other comorbidities per internal medicine, pulmonology 6. Will see again on an as-needed basis. Patient does not necessarily need to follow up with us in the office
--- NOTE | 2021-12-30 07:58 | P.PN ---
Subjective Progress Note Date: 12/30/21 Principal diagnosis: Pneumothorax, shortness of breath. Pulmonary consult dated 12/28/2021. 71-year-old female who underwent navigational bronchoscopy today. She had a lesion in the left lung, peripherally, and subsequently, after the procedure, had a chest x-ray, which revealed a left-sided pneumothorax. The patient will be admitted to the hospital, hopefully only overnight, with a morning chest x- ray, breathing treatments, and oxygen therapy. She is currently in phase 1 recovery. She was given a bed in room 524. She has a history of severe COPD, and unfortunately continues to smoke cigarettes. Other medical history includes hypothyroidism, breast cancer, hyperlipidemia, anxiety, and depression. She continues to smoke a pack of cigarettes a day. Important surgical history includes previous lumpectomy. Progress note dated 12/29/2021. 71-year-old female postop day #1, status post navigational bronchoscopy, for a left lung lesion. The lesion was very peripheral, unfortunately, she sustained a pneumothorax. The patient is currently on oxygen at 5 L. She's getting saline at 20 mL an hour. We added Dilaudid for pain control. We also ask cardiothoracic surgery to see our patient, for possible Thora vent/chest tube. I was hoping to get by without an invasive procedure. She does complain of shortness of breath, and pain in the left chest. Lab data from yesterday includes a white count 11.5, and normal hemoglobin, hematocrit, and platelet count. Likewise, the comprehensive metabolic profile is essentially normal. Progress note dated 12/30/2021. 71-year-old female, postop day #2, status post navigational bronchoscopy, for left lung lesion. The patient unfortunately sustained a pneumothorax after the procedure, and required a Thora vent, which was placed by cardiothoracic surgery. Currently, she is on 4 L of oxygen. She's getting saline at 20 mL an hour. She was seen by cardiothoracic surgery this morning, and there was no leak. The Thora vent will be removed. She will have a follow-up x-ray, and should be able to be discharged today. No new labs today. Chest x-ray shows a fully expanded left lung. Objective - Vital Signs Vital signs: Vital Signs Temp 98.1 F 12/30/21 05:00 Pulse 82 12/30/21 05:00 Resp 20 12/30/21 05:00 BP 131/69 12/30/21 05:00 Pulse Ox 92 L 12/30/21 06:26 FiO2 Intake & Output 12/29/21 12/30/21 12/30/21 18:59 06:59 18:59 Intake Total 590 Output Total 0 0 Balance 0 590 Weight 55.2 kg Intake: Oral 590 Output: Drainage 0 0 Left Upper Chest 0 0 Other: Voiding Method Bedside Commode Bedside Commode # Voids 2 3 - Exam No acute distress, oriented 3. Currently on 4 L oxygen. HEENT examination is grossly unremarkable. Neck supple. Full range of motion. No adenopathy thyromegaly or neck vein distention. Cardiovascular examination reveals regular rhythm rate. S1-S2 normal. No S3 or S4. No discernible murmur noted. Heart sounds are distant. Heart rate 88 bpm. Lungs reveal diminished bilateral breath sounds. Scattered rhonchi and wheezes are noted. No crackles. Saturations are 93 % on 4 L nasal cannula. Abdomen soft bowel sounds are heard. No masses or tenderness. Extremities are intact. No cyanosis clubbing or edema. Skin is without rash or lesion. Neurologic examination is brief but nonfocal. - Labs CBC & Chem 7: 12/28/21 19:00 12/28/21 19:00 Labs: Microbiology - Last 24 Hours (Table) 12/28/21 12:30 Gram Stain - Preliminary Bronchial Washings - Left Bronchial Washings Culture - Preliminary Assessment and Plan Assessment: Postop day #2, status post electromagnetic navigational bronchoscopy, for a lesion in the periphery of the left upper lobe. Post-procedure left-sided pneumothorax. History of severe COPD, with an FEV1 that is 47% of predicted. History of hyperlipidemia. History of hypothyroidism. History of breast cancer, status post lumpectomy and lymph node dissection. History of anxiety/depression. Plan: Plan dated 12/28/2021. The patient will be admitted to the hospital for observation. Hopefully, this will only be overnight. The patient's currently on phase [address] her on updrafts with albuterol sulfate and ipratropium bromide, and also add Symbicort 160/4.5, 2 puffs twice a day. She will remain on oxygen therapy. In addition, the patient will have a morning chest x-ray. Additional recommendations and suggestions are forthcoming. Plan dated 12/29/2021. 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 Unfortunately, this morning's chest x-ray looks to show a larger left-sided pneumothorax. We added Dilaudid for pain control. She remains on oxygen therapy. Will have a cardiothoracic surgery colleagues see the patient. Additional recommendations and suggestions are forthcoming. She continues on albuterol sulfate and ip ratropium bromide, as well as Symbicort. No additional recommendations are made. Plan dated 12/30/2021. The patient will have her for that removed by cardiothoracic surgery today. In about an hour or so, the patient can have a follow-up chest x-ray. If the chest x-ray looks okay, the patient could be discharged home. There is currently no leak. The patient will follow-up with me in the office. Additional recommendations and suggestions are forthcoming. Prognosis is guarded. We did not get good localization on the navigational procedure. The patient may be a good candidate for stereotactic body radiotherapy, if we do not have an answer. I don't believe she did good candidate for wedge resection. Time with Patient: Less than 30
--- NOTE | 2021-12-30 08:08 | XR ---
EXAMINATION TYPE: XR chest 1V portable DATE OF EXAM: 12/30/2021 6:37 AM COMPARISON: Chest radiograph from one day prior. TECHNIQUE: XR chest 1V portable Portable AP radiograph of the chest. CLINICAL INDICATION:Female, 71 years old with history of pneumothorax; FINDINGS: Lungs/Pleura: There is blunting of the left costophrenic angle. The right lung is grossly unremarkabl e. The left lung demonstrates atelectasis and likely some degree of pleural effusion. Pulmonary vascularity: Unremarkable. Heart/mediastinum: Cardiomediastinal silhouette is unremarkable. Atherosclerotic calcifications are seen in the aorta. Musculoskeletal: No acute osseous pathology. Other findings: Left axillary surgical clips are present. Subcutaneous gas filling the left lower nec k. Lines/Tubes: Left chest wall thoracotomy tubing in similar position. No obvious pneumothorax. IMPRESSION: 1. New subcutaneous lucencies along the neck and near the axilla consistent with saphenous emphysema .. 2. Thoracotomy tube in significantly changed from prior, no obvious pneumothorax.
[2021-12-30] MEDS: IPRATROPIUM-ALBUTEROL 3 ML NEB INHALATION SCH ×2 (08:17→12:27)
[2021-12-30] MEDS: SYMBICORT 160-4.5 MCG INHALER INHALATION SCH (08:17)
[2021-12-30 08:18] VITALS: BP 117/63; RESP 17; TEMP 97.8
[2021-12-30] MEDS: SODIUM CHLORIDE 0.9% 1,000 ML IV SCH (09:05)
[2021-12-30] MEDS: ATORVASTATIN 40 MG TAB PO SCH (09:25)
[2021-12-30] MEDS: DULoxetine HCL 60 MG CAPSULE.DR PO SCH (09:26)
--- NOTE | 2021-12-30 10:12 | XR ---
EXAMINATION TYPE: XR chest 1V portable DATE OF EXAM: 12/30/2021 COMPARISON: Chest x-ray same dated earlier time HISTORY: Status post chest tube removal TECHNIQUE: Single frontal view of the chest is obtained. FINDINGS: Volume loss is noted in the left hemithorax. Left-sided thoracic vent is no longer seen. S ubcutaneous emphysema is noted, surgical clips again noted in the left axilla. Minimal left apical pn eumothorax noted. Left hemidiaphragm is elevated, patchy basilar atelectatic changes are present. IMPRESSION: No evident complication status post chest tube removal.
[2021-12-30] MEDS ORDERED: SUCCINYLCHOLINE CHLORIDE 200 MG/10 ML VIAL IV ONE (12:46)
[2021-12-30] MEDS ORDERED: LIDOCAINE 2% INJ 20 MG/ML (2 ML VIAL) ONE (12:46)
[2021-12-30] MEDS ORDERED: ROCURONIUM 10 MG/ML (5 ML VIAL) IV ONE (12:46)
[2021-12-30] MEDS ORDERED: PHENYLEPHRINE-0.9% NACL SYG 1,000 MCG/10 ML SYRINGE ONE (12:46)
[2021-12-30] MEDS ORDERED: ALBUTEROL INHALER 60 PUFF/8 GM INHALER (MHU) INHALATION ONE (12:46)
[2021-12-30] MEDS ORDERED: LIDOCAINE 4% LTA KIT (4 ML) TOPICAL ONE (12:46)
[2021-12-30] MEDS ORDERED: PROPOFOL 10 MG/ML 20 ML VIAL IV ONE (12:46)
[2021-12-30 13:37] VITALS: PULSE 83
--- NOTE | 2021-12-31 10:11 | P.DS ---
Providers Date of admission: 12/29/21 15:34 Expected date of discharge: 12/30/21 Attending physician: Aroldo Bishop Consults: 12/28/21 15:19 Consult Physician Routine Consulting Provider: Alissa Rowan Consult Reason/Comments: medical management Do you want consulting provider notified?: Yes 12/29/21 08:10 Consult Physician Routine Consulting Provider: David Sheriff Consult Reason/Comments: Left pneumothorax Do you want consulting provider notified?: Yes Primary care physician: Deshaun Bolanos Hospital Course: Final diagnosis Left-sided pneumothorax post bronchoscopy and biopsy of the left upper lobe History of severe COPD, not currently in exacerbation Hyperlipidemia Hypothyroidism History of left breast cancer in 2009 Continued ongoing nicotine dependence History of anxiety/depression GI prophylaxis DVT prophylaxis Full code Discharge disposition Patient is being discharged in a stable condition with guarded prognosis to home. Patient will follow-up with Dr. Bolanos in the outpatient setting upon discharge. Patient is to follow up with DR. Bishop pulmonary as scheduled. Total time taken is greater than 35 minutes. Hospital course This is a 71-year-old female who was recently admitted after biopsy of the lung was performed and found to have a left pneumothorax. Admitted for observation and was evaluated by cardiothoracic surgery and had thoravent placed. Repeat xray this morning was improved and thoravent removed. Cleared by CT surgery and pulmonary for discharge. Patient will follow up with DR. Bishop this week. Patient is oxygen dependent and currently wearing 4L via [place]. Currently no reports of chest pain, shortness of breath, or palpitations. Patient is afebrile. No reports of nausea or vomiting and patient is tolerating diet. Patient will be discharged home today. Physical exam: Gen: This is a 71 year old female who is awake, alert and oriented x3. Thin built, elderly appearing female. HEENT: Head is atraumatic, normocephalic. Pupils equal, round. Sclerae is anicteric. NECK: Supple. No JVD. No lymphadenopathy. No thyromegaly. LUNGS: diminished breath sounds with no wheezes , some scattered rhonchi noted. No intercostal retractions. HEART: Regular rate and rhythm. No murmur. ABDOMEN: Soft. Bowel sounds are present. No masses. No tenderness. EXTREMITIES: No pedal edema. No calf tenderness. NEUROLOGICAL: Patient is awake, alert and oriented x3. Cranial nerves 2 through 12 are grossly intact. Please refer to medication reconciliation sheet for a list of medications. The impression and plan of care has been dictated by Liana Wills, Nurse Practitioner as directed. MD Dale I have performed a history and examination and MDM of this patient, discussed the same with the dictator, and agree with the dictator's assessment and plan as written ,documented as a scribe. Based on total visit time, I have performed more than 50% of the visit. Patient Condition at Discharge: Fair Plan - Discharge Summary Discharge Rx Participant: No New Discharge Prescriptions: New Acetaminophen Tab [Tylenol] 650 mg PO Q6HR PRN tab PRN Reason: Fever and/ or Mild Pain Continue DULoxetine HCL [Cymbalta] 60 mg PO QAM Albuterol Sulfate [Ventolin HFA] 2 puff INHALATION Q4H PRN PRN Reason: Shortness Of Breath Cholecalciferol (Vitamin D3) [Vitamin D3 (5000 Iu)] 125 mcg PO DAILY Calcium Carbonate [Calcium] 1,200 mg PO DAILY Atorvastatin Calcium [Lipitor] 40 mg PO DAILY Water Pill (Unknown Name/Dose) 1 tab PO DAILY Levothyroxine Sodium 112 mcg PO QAM Ipratropium-Albuterol Nebulize [Duoneb 0.5 mg-3 mg/3 ml Soln] 3 ml INHALATION QID Budesonide-Formot 160-4.5 Mcg [Symbicort 160-4.5 Mcg Inhaler] 2 puff INHALATION BID Discharge Medication List Albuterol Sulfate [Ventolin HFA] 2 puff INHALATION Q4H PRN 05/16/19 [History] DULoxetine HCL [Cymbalta] 60 mg PO QAM 05/16/19 [History] Atorvastatin Calcium [Lipitor] 40 mg PO DAILY 06/27/20 [History] Calcium Carbonate [Calcium] 1,200 mg PO DAILY 06/27/20 [History] Cholecalciferol (Vitamin D3) [Vitamin D3 (5000 Iu)] 125 mcg PO DAILY 06/27/20 [History] Ipratropium-Albuterol Nebulize [Duoneb 0.5 mg-3 mg/3 ml Soln] 3 ml INHALATION QID 06/27/20 [History] Budesonide-Formot 160-4.5 Mcg [Symbicort 160-4.5 Mcg Inhaler] 2 puff INHALATION BID 12/27/21 [History] Levothyroxine Sodium 112 mcg PO QAM 12/27/21 [History] Water Pill (Unknown Name/Dose) 1 tab PO DAILY 12/27/21 [History] Acetaminophen Tab [Tylenol] 650 mg PO Q6HR PRN tab 12/30/21 [Rx] Follow up Appointment(s)/Referral(s): [facility] [NON-STAFF] - 1 Week Aroldo Bishop DO [Doctor of Osteopathic Medicine] - 01/10/22 3:30 pm Deshaun Bolanos DO [Primary Care Provider] - 01/04/22 1:30 pm Patient Instructions/Handouts: Spontaneous Pneumothorax (DC), Using Oxygen at Home (DC) Activity/Diet/Wound Care/Special Instructions: Activity Limited until follow-up Follow-up primary care provider on discharge Follow-up with pulmonary outpatient Continue taking medications as prescribed Continue with oxygen via nasal cannula at 4 L Avoid tobacco use Discharge Disposition: HOME SELF-CARE
== END 2021-12-30 15:09 | disposition home or self-care (01) | DRG 201 ==
LOC: ORWHC2ENDO 11:21 → 5NMEDONC 12:52 → ORWHC2ENDO 12-29 08:14 → 5NMEDONC 12-29 08:14 → OBSVTOIN 12-29 15:34
PROVIDERS: ADMIT Internal Medicine Critical Care Medicine; ATTEND Internal Medicine Critical Care Medicine
PROC: 0B9F8ZX Drainage of Right Lower Lung Lobe, Via Natural or Artificial Opening Endoscopic, Diagnostic (ICD-10-PCS; 2021-12-28 12:30)
PROC: 0B9D8ZX Drainage of Right Middle Lung Lobe, Via Natural or Artificial Opening Endoscopic, Diagnostic (ICD-10-PCS; 2021-12-28 12:30)
PROC: 0B9H8ZX Drainage of Lung Lingula, Via Natural or Artificial Opening Endoscopic, Diagnostic (ICD-10-PCS; 2021-12-28 12:30)
PROC: 0B9J8ZX Drainage of Left Lower Lung Lobe, Via Natural or Artificial Opening Endoscopic, Diagnostic (ICD-10-PCS; 2021-12-28 12:30)
PROC: 0B9G8ZX Drainage of Left Upper Lung Lobe, Via Natural or Artificial Opening Endoscopic, Diagnostic (ICD-10-PCS; 2021-12-28 12:30)
PROC: 0B9C8ZX Drainage of Right Upper Lung Lobe, Via Natural or Artificial Opening Endoscopic, Diagnostic (ICD-10-PCS; 2021-12-28 12:30)
PROC: 0BDG8ZX Extraction of Left Upper Lung Lobe, Via Natural or Artificial Opening Endoscopic, Diagnostic (ICD-10-PCS; 2021-12-28 12:30)
PROC: 0W9B30Z Drainage of Left Pleural Cavity with Drainage Device, Percutaneous Approach (ICD-10-PCS; principal; 2021-12-29)
DX: J95.811 Postprocedural pneumothorax (principal); E03.9 Hypothyroidism, unspecified; R91.1 Solitary pulmonary nodule; E78.5 Hyperlipidemia, unspecified; J44.9 Chronic obstructive pulmonary disease, unspecified; F32.A Depression, unspecified; F41.9 Anxiety disorder, unspecified; H91.90 Unspecified hearing loss, unspecified ear; F17.210 Nicotine dependence, cigarettes, uncomplicated; Z71.6 Tobacco abuse counseling; Z99.81 Dependence on supplemental oxygen; Z79.890 Hormone replacement therapy; Z79.891 Long term (current) use of opiate analgesic; Z79.51 Long term (current) use of inhaled steroids; Z79.899 Other long term (current) drug therapy; Z85.3 Personal history of malignant neoplasm of breast; Y84.8 Other medical procedures as the cause of abnormal reaction of the patient, or of later complication, without mention of misadventure at the time of the procedure; Y92.230 Patient room in hospital as the place of occurrence of the external cause; Z88.0 Allergy status to penicillin
CPT/HCPCS: 31624; 31625; 31627; 71045; 71250; 80053; 85025; 87070; 87205; 88108; 88305; 89050; 94640; 94760

== ENCOUNTER → 2022-03-10 | Outpatient (CLI) | payer MEDICARE, OTHER ==
[2022-03-10 12:05] LABS: African American GFR (CKD) >90 (>60 ml/min/1.73 sqM); Blood Urea Nitrogen 12 mg/dL (7-17); Non-African American GFR(CKD) 85 (>60 ml/min/1.73 sqM)
--- NOTE | 2022-03-10 14:23 | CT ---
EXAMINATION TYPE: CT chest w con DATE OF EXAM: 03/10/2022 COMPARISON: 12/07/2021 HISTORY: Abnormal lung macias. CT DLP: 354 mGycm Automated exposure control for dose reduction was used. TECHNIQUE: CT scan of the chest is performed with IV Contrast, patient injected with 70ml mL of Isovue 300. MIP Images are created on CT scanner and reviewed. 3D reconstructed images are created on an independent workstation and reviewed. FINDINGS: In the left upper lobe anterolaterally and a subpleural parenchymal location, there is an ill-define d 27.5 x 18 mm masslike density. It has increased in size compared to the prior study when it measure d 23.2 x 12 mm. It is highly suspicious for neoplasm there is moderate to marked emphysematous change predominantly within the upper lobes bilaterally. There is a focal area of mild interstitial thicken ing in the right lung base which is seen previously and is stable. There is no pleural effusion or pneumothorax. The great vessels chest are normal is no mediastinal, hilar or axillary adenopathy. There is lymphade nectomy in the left axilla. The osseous structures are intact without focal lytic or sclerotic abnormality Limited scanning throu gh the upper abdomen reveals no gross abnormality. IMPRESSION: Left upper lobe mass which has increased in size in the interval and is highly suspicious for neoplas m. Tissue sampling is recommended.
== END | disposition home or self-care (01) ==
LOC: RADCTMAIN 11:18
PROVIDERS: ATTEND Internal Medicine Critical Care Medicine
DX: R91.8 Other nonspecific abnormal finding of lung field (principal)
CPT/HCPCS: 82565; 84520; 71260; 36415; Q9967

== ENCOUNTER → 2023-06-20 | Outpatient (CLI) | payer MEDICARE, OTHER ==
[2023-06-20 12:56] LABS: African American GFR (CKD) >90 (>60 ml/min/1.73 sqM); Blood Urea Nitrogen 15 mg/dL (7-17); Non-African American GFR(CKD) 87 (>60 ml/min/1.73 sqM)
--- NOTE | 2023-06-20 14:49 | CT ---
EXAMINATION TYPE: CT ChestAbdPelvis w con DATE OF EXAM: 06/20/2023 COMPARISON: CT chest 03/10/2022 and 12/07/2021. Body CT 08/17/2021 HISTORY: 73-year-old female C34.12, f/u breast ca TECHNIQUE: Contiguous axial scanning of the chest, abdomen, and pelvis performed with IV Contrast, pa tient injected with 100 mL of Isovue 300. Delayed images through the kidneys were obtained. Coronal/s agittal reconstructions performed. CT DLP: 410.3 mGycm Automated exposure control for dose reduction was used. FINDINGS: CHEST: Post surgical and posttreatment changes left breast. Surgical clips left axilla from axillary node di ssection. There is a new soft tissue mass along the left infraclavicular and upper left parasternal region jay uring 4.4 cm located deep to the pectoralis major and causing some erosion of the costochondral junct ions. Heart normal size without pericardial effusion. LAD and RCA coronary calcifications are present. Mild atherosclerotic arch calcifications with conventional arch vessel branching anatomy. New 1.1 cm pretracheal lymph node. No other thoracic lymphadenopathy seen. Lungs show moderate emphysema. The previous anterior left upper lobe nodule has enlarged now 3.8 cm v ersus 2.4 cm, previously. There are approximately 4 new areas of left upper lobe nodularity ranging i n size from 7 mm up to 2.2 cm No pleural effusion. ABDOMEN: Stable tiny cyst left liver lobe. No other focal liver lesion is seen. Portal venous system is patent . No biliary ductal dilatation. Small layering gallstones. No abnormal gallbladder distention. Mild low density thickening left adrenal gland is unchanged. Tiny, 5 mm bilateral renal cortical cysts. A few small 4 mm and smaller nonobstructive left renal calculi are noted. There is fullness of the le ft renal collecting system which may be transient. No obvious obstructing stone is seen. No dilated small bowel, free fluid, or free air. Oral contrast progressed to the hepatic flexure of the colon. There is moderate overall small burden. No pericolonic inflammatory change. Moderate prostatic calcifications abdominal aorta and iliac arteries with fusiform infrarenal AAA at 3.6 cm previously measuring 3.1 cm. PELVIS: Bladder distended. Small postmenopausal uterus and ovaries. No abnormal fluid collection in the pelvi s or pelvic lymphadenopathy. BONES: Chronic superior endplate rales noted T12 vertebral body. No obvious vertebral compression collapse. Baastrup's disease lumbar spine. Hypertrophic facet arthropathy with degenerative grade 1 anterolisth esis L4-L5. IMPRESSION: 1. EVIDENCE OF DISEASE PROGRESSION/RECURRENCE. THERE IS A NEW 4.4 CM SOFT TISSUE MASS IN THE LEFT INF RACLAVICULAR REGION/LEFT PARASTERNAL CHEST WALL LOCATED DEEP TO THE PECTORALIS MAJOR. 2. THE PREVIOUS ANTERIOR LEFT UPPER LOBE NODULE HAS NOW ENLARGED TO A 3.8 CM MASS (VERSUS 2.4 CM, PRE VIOUSLY). APPROXIMATELY FOUR NEW AREAS OF LEFT UPPER LOBE NODULARITY RANGE IN SIZE FROM 7 MM TO 2.2 C M. 3. NEW 1.1 CM PRETRACHEAL LYMPH NODE. 4. MILD FULLNESS OF THE LEFT RENAL COLLECTING SYSTEM PROBABLY TRANSIENT. CORRELATE FOR ANY LEFT-SIDED RENAL COLIC TO EXCLUDE A RECENTLY PASSED STONE. NONOBSTRUCTIVE LEFT RENAL CALCULI MEASURE UP TO 4 MM . 5. SLIGHT INTERVAL ENLARGEMENT OF THE PATIENT'S INFRARENAL AAA AT 3.6 CM VERSUS 3.1 CM, PREVIOUSLY. 6. COPD WITH MODERATE EMPHYSEMA AND CHOLELITHIASIS.
--- NOTE | 2023-06-21 12:50 | MM ---
Reason for Exam: Screening (asymptomatic). Last mammogram was performed 4 year(s) and 3 month(s) ago. Patient History: Patient has no children. Postmenopausal. Breast cancer, left, age 62. Previous chest radiation therapy at age 62. Previous chemotherapy at age 62. 2012, Lumpectomy on the Left side. Radiation Therapy, left. Chemotherapy. Sister had breast cancer at or over age 50. Prior Study Comparison: 01/07/2018 Bilateral Screening Mammogram, [facility]. 03/10/2019 Bilateral Screening Mammogram, [facility]. Tissue Density: The breasts are heterogeneously dense, which may obscure small masses. Findings: Analyzed By CAD. Right breast: There is no suspicious group of microcalcifications or new suspicious mass. Benign-appearing calcifications right breast. Left breast: There is no suspicious group of microcalcifications or new suspicious mass. Benign-appearing calcifications left breast. Overall Assessment: Benign, BI-RAD 2 Management: Screening Mammogram of both breasts in [address] [facility] will attempt to contact patient to return for supplemental views and ultrasound if indicated. Patient should continue monthly self-breast exams. A clinical breast exam by your physician is recommended on an annual basis. This exam should not preclude additional follow-up of suspicious palpable abnormalities. Note on Suyapa scores and lifetime risk: 1. A Suyapa score greater than 3% is considered moderate risk. If this is the case, consider specialist referral to assess eligibility for a risk reducing agent. 2. If overall lifetime risk for the development of breast cancer is 20% or higher, the patient may qualify for future screening with alternating mammogram and breast MRI. Electronically signed and approved by: Aroldo Escobar DO
== END | disposition home or self-care (01) ==
LOC: RADMAMWWP 12:14
PROVIDERS: ATTEND Internal Medicine Hematology & Oncology
DX: Z12.31 Encounter for screening mammogram for malignant neoplasm of breast (principal); C50.919 Malignant neoplasm of unspecified site of unspecified female breast; C34.12 Malignant neoplasm of upper lobe, left bronchus or lung; N20.0 Calculus of kidney; K80.20 Calculus of gallbladder without cholecystitis without obstruction; M85.9 Disorder of bone density and structure, unspecified; R06.00 Dyspnea, unspecified; R22.2 Localized swelling, mass and lump, trunk; J43.9 Emphysema, unspecified; Z78.0 Asymptomatic menopausal state; Z80.3 Family history of malignant neoplasm of breast
CPT/HCPCS: 82565; 84520; 77067; 77063; 71260; 74177; 36415; Q9967

== ENCOUNTER → 2023-08-04 | Outpatient (CLI) | payer MEDICARE ==
--- NOTE | 2023-08-06 15:17 | PE ---
EXAMINATION TYPE: PET CT fusion skull to thigh DATE OF EXAM: 08/04/2023 COMPARISON: CT chest abdomen pelvis 06/20/2023 Prior PET/CT: 10/01/2021 HISTORY: Breast cancer TECHNIQUE: Following the intravenous administration of 13.14 mCi of F-18 FDG, whole body images are performed from the skull base to the midthigh. Images are reviewed on the computer in the coronal, a xial, and sagittal planes. Reconstructed rotating images are created on independent workstation and reviewed on the computer. A localization and attenuation correction CT is performed in conjunction with the PET scan. DLP: 177.50 mGycm SCAN: Subsequent Blood glucose: 1:15 mg/dL Average Mediastinum SUV: 1.47 Average Liver SUV: 1.68 FINDINGS: NECK: No abnormal uptake THORAX: There is uptake within a left posterior upper left lung nodule with an SUV of 9.3, image 86. A faint density is slightly anterior on image 86 with an SUV of 1.45. This could be related to very small met astatic lesion or inflammatory change. There is uptake within the lateral left lung nodule, image 92, SUV 6.73. There is uptake within the left lung nodule. Image 95, SUV 3.83. Image 101 there is a mass with an SUV of 8.26. There is uptake within the pretracheal space image 89, SUV 8.01. A left peribronchial lymph node may have increased uptake on image 89, SUV 5.59. A left infrahilar lymph node is present measuring 6.95 SUV, image 95. An anterior left hilar lymph node may be present image 101, is a 6.72 ABDOMEN: No abnormal uptake PELVIS: No abnormal uptake OSSEOUS STRUCTURES: Abnormal uptake at the left vertebral sternal junction.Example image 76, SUV 18.[address]: Cholelithiasis is present. COMPARISON: Findings appear to have developed over the interval. IMPRESSION: 1. Small area of uptake within the anterolateral left lung has enlarged over the interval with increa sed SUV level. 2. Multiple additional contents areas of lung uptake suspicious for metastatic disease. 3. Suspicious uptake within the left hilar region and within the mediastinum can be compatible with m etastatic lesions. 4. Uptake at the costo sternal junction compatible with metastatic disease.
== END | disposition home or self-care (01) ==
LOC: RADPETMAIN 14:48
PROVIDERS: ATTEND Internal Medicine Hematology & Oncology
DX: C50.919 Malignant neoplasm of unspecified site of unspecified female breast (principal); J98.4 Other disorders of lung
CPT/HCPCS: 78815; A9552

== ENCOUNTER → 2023-08-28 | Day surgery (SDC) | payer MEDICARE ==
[~2023-08-28] MED LIST changes: -ATROPINE SULFATE 0.4 MG/ML 1 ML VIAL IM ONE; -LIDOCAINE VISCOUS 300 MG/15 ML CUP MUCOUS MEM ONE; -ONDANSETRON 4 MG/2 ML VIAL IVP ONE
[2023-08-28 09:02] LABS: Mean Platelet Volume 7.6; Platelet Count 479 k/uL (150-450)
[2023-08-28] MEDS: ALPRAZolam 0.25 MG TAB PO PRN (09:02)
[2023-08-28 09:05] VITALS: TEMP 97.8
[2023-08-28 11:12] VITALS: PULSE 78
--- NOTE | 2023-08-28 11:30 | CT ---
EXAMINATION TYPE: CT biopsy lung LT DATE OF EXAM: 08/28/2023 10:31 AM CLINICAL INDICATION:Female, 73 years old with history of R91.8 OTHER NONSPECIFIC ABNORMAL FINDING OF LUNG F; COMPARISON: CT DLP: Total CT dose 516 mGycm. Automated exposure control for dose reduction was used. Contrast used: mL of , none Oral contrast used: none ATTENDING: Dr. Aroldo Escobar TECHNIQUE: CT guided percutaneous left upper lung mass using coaxial method. One or more CT dose reduction strat egies were utilized during this examination. FINDINGS: The procedure was explained to the patient including risks of bleeding, bruising, infection, damage t o nearby organs and need for additional therapy including potential surgery. All questions were answ ered and consent was obtained. The previous studies were reviewed. The patient was placed on the CT couch in the supine position. The overlying skin was marked and prepped using sterile method. Timeout was taken per protocol. Follo wing administration of local . The 17-gauge coaxial needle tip was directed into the left upper lung mass with CT guidance. 3 x 18 gauge coaxial biopsies were then obtained. Following the procedure t he needle was removed and sterile dressing was applied to the percutaneous site. Post biopsy imaging demonstrated no evidence of pneumothorax. Patient was taken for postprocedure observation in stable condition. IMPRESSIONS: Status post percutaneous left upper lung mass biopsy as described above. Pathology results pending.
--- NOTE | 2023-08-28 12:23 | XR ---
EXAMINATION TYPE: XR chest 1V portable DATE OF EXAM: 08/28/2023 12:07 PM CLINICAL INDICATION:Female, 73 years old with history of post lung biopsy, assess for pneumothorax; COMPARISON: 12/22/2021 TECHNIQUE: XR chest 1V portable Frontal view of the chest. FINDINGS: Lungs/Pleura: There is no evidence of pleural effusion, focal consolidation, or pneumothorax. Pulmonary vascularity: Unremarkable. Heart/mediastinum: Cardiomediastinal silhouette is unremarkable. Musculoskeletal: No acute osseous pathology. IMPRESSION: 1. Post biopsy change No evidence for left pneumothorax. 2. Left midlung mass unchanged.
[2023-08-28 12:37] VITALS: BP 113/56; RESP 18
== END ==
LOC: RADPROMAIN 08:01
PROVIDERS: ATTEND Internal Medicine Critical Care Medicine
DX: C34.12 Malignant neoplasm of upper lobe, left bronchus or lung (principal); Z85.3 Personal history of malignant neoplasm of breast; Z98.890 Other specified postprocedural states
CPT/HCPCS: 32408; 36415; 71045; 85049; 85610; 88305

== ENCOUNTER → 2023-12-12 | Outpatient (CLI) | payer MEDICARE ==
--- NOTE | 2023-12-12 20:33 | MR ---
INDICATION: Patient age:Female; 73 years old; Reason for study: C34.12; reported history of lung and breast cancer COMPARISON: CT brain 02/19/2019, PET/CT 08/04/2023. TECHNIQUE: Multi planar, multi sequence imaging was performed through the brain. The patient was then given 4.5 cc of Gadavist intravenously and multi planar, T1 fat-saturation images were obtained. FINDINGS: The dixon-white junctions, ventricular system, basal cisterns appear unremarkable. Prominent periphera l sulci consistent with mild cerebral volume loss. Most pronounced involving the bilateral frontal lo bes. Diffusion-weighted imaging shows no evidence of restricted diffusion to suggest acute/subacute i nfarct. Intracranial arterial flow voids are maintained. Midline structures show no abnormality. Patc hy and confluent areas of high T2/FLAIR signal intensity are seen within the periventricular and subc ortical white matter. The susceptibility weighted images do not reveal any evidence for micro-hemorrh age. After administration of gadolinium, no abnormal enhancement is seen. The bone marrow signal is within normal limits. The paranasal sinuses are unremarkable. Bilateral ap hakia. IMPRESSION: 1. No evidence of intracranial mass, acute/subacute infarct, or abnormal enhancement. 2. Nonspecific white matter changes, likely related to small vessel ischemic disease. [facility], , 12/12/2023 8:31 PM
== END | disposition home or self-care (01) ==
LOC: RADMRIMAIN 19:45
PROVIDERS: ATTEND Internal Medicine Hematology & Oncology
DX: C34.12 Malignant neoplasm of upper lobe, left bronchus or lung
CPT/HCPCS: 70553

== ENCOUNTER 2024-02-04 03:36 | Inpatient (IN) | payer MEDICARE ==
[2024-02-04 03:48] VITALS: TEMP 97
[2024-02-04 04:15] LABS: Glucose,Whole Blood 142 mg/dL (70-110)
[2024-02-04] MEDS: ACETAMINOPHEN TAB 500 MG TAB PO STA (04:25)
[2024-02-04] MEDS: methylPREDNISolone SOD SUCCI 125 MG/2 ML VIAL IV STA (04:25)
[2024-02-04] MEDS: SODIUM CHLORIDE 0.9% 1,000 ML IV STA (04:25)
[2024-02-04] MEDS: ALBUTEROL NEBULIZED 2.5 MG/3 ML INHALATION STA (04:31)
[2024-02-04] MEDS: IPRATROPIUM 0.5 MG/2.5 ML NEBU INHALATION STA (04:31)
--- NOTE | 2024-02-04 04:44 | ED ---
General Adult HPI - General Chief complaint: Shortness of Breath Stated complaint: SOB Time Seen by Provider: 02/04/24 03:43 Source: EMS Mode of arrival: EMS - History of Present Illness Initial comments: Patient is a 73-year-old female a past medical history of lung cancer, COPD on 2 and half liters oxygen at night presenting today for generalized weakness, fall at home and shortness of breath. History is limited by acuity of condition and patient's dyspnea. EMS were called by patient's neighbor after the patient had a fall at home. The patient states that she did hit her head but did not lose consciousness. Is not on blood thinners. Believes she was on the ground for a "few hours" but unsure exactly how long. States that she fell because she felt weak. Currently endorses right LQ pain after the fall, denies chest pain or headache. States she is currently receiving treatment for lung CA. Also notes over the last 2 days has had difficulty swallowing. - Related Data Home Medications Medication Instructions Recorded Confirmed Albuterol Sulfate [Ventolin HFA] 2 puff INHALATION Q4H PRN 05/16/19 01/25/24 DULoxetine HCL [Cymbalta] 120 mg PO QAM 05/16/19 01/25/24 Atorvastatin Calcium [Lipitor] 40 mg PO DAILY 06/27/20 01/25/24 Cholecalciferol (Vitamin D3) 125 mcg PO DAILY 06/27/20 01/25/24 [Vitamin D3 (5000 Iu)] Ipratropium-Albuterol Nebulize 3 ml INHALATION QID 06/27/20 01/25/24 [Duoneb 0.5 mg-3 mg/3 ml Soln] Budesonide-Formot 160-4.5 Mcg 2 puff INHALATION BID 12/27/21 01/25/24 [Symbicort 160-4.5 Mcg Inhaler] Levothyroxine Sodium 112 mcg PO QAM 12/27/21 01/25/24 Allergies Allergy/AdvReac Type Severity Reaction Status Date / Time Penicillins Allergy Rash/Hives Verified 02/04/24 03:48 Review of Systems ROS Statement: Those systems with pertinent positive or pertinent negative responses have been documented in the HPI. ROS Other: All systems not noted in ROS Statement are negative. Limitations: ROS unobtainable due to patients medical condition Past Medical History Past Medical History: Cancer, COPD, Hearing Disorder / Deafness, Hyperlipidemia, Thyroid Disorder Additional Past Medical History / Comment(s): History of left breast cancer in 2009, hypothyroidism, "migraines in eye", hard of hearing. Lung biopsy with inconclusive results approx 2021 per patient, unsure of date. History of Any Multi-Drug Resistant Organisms: None Reported Past Surgical History: Appendectomy, Breast Surgery Additional Past Surgical History / Comment(s): Left breast lumpectomy, "had fallopian tubes cleaned out". Past Anesthesia/Blood Transfusion Reactions: No Reported Reaction Past Psychological History: Anxiety, Depression Smoking Status: Former smoker - Past Family History Mother Family Medical History: Coronary Artery Disease (CAD), Eye Disorder Additional Family Medical History / Comment(s): Macular degeneration. Father Family Medical History: Coronary Artery Disease (CAD) Additional Family Medical History / Comment(s): No children. Sister(s) Family Medical History: Cancer, COPD Additional Family Medical History / Comment(s): Breast cancer. General Exam - General Exam Comments Initial Comments: PE: CONSTITUTIONAL: Moderate distress, tachypneic, cachectic, chronically and acutely ill appearing SKIN: [cool, pale, dry, no jaundice, hives or petechiae. Skin tear to the right hand and posterior right shoulder] EYES:[ pupils are equally round, extraocular movements intact without nystagmus, clear conjunctiva, non-icteric sclera] HENT: [normocephalic, small palpable hematoma to the right occiput, dry mucus membranes with crusted exudates, oropharynx otherwise clear] NECK: , [Full range of motion, normal appearance, no midline spinal TTP] PULMONARY: [ Wheezes and rales in bilateral lung macias, worse on the R than the left, decreased excursion, supraclavicular retractions, no stridorclear to auscultation without wheezes, rhonchi, or rales, normal excursion, no accessory muscle use and no stridor] CARDIOVASCULAR:[ regular rate, rhythm, normal S1 and S2. No appreciated murmurs, rubs or gallops. Strong radial pulses with intact distal perfusion. No lower extremity edema] GASTROINTESTINAL: [soft, active bowel sounds throughout, non-tender, non- distended, no palpable masses, no rebound or guarding. No hepatosplenomegaly] GENITOURINARY: MUSCULOSKELETAL: [Extremities have no gross deformity, no edema, redness, or swelling. No calf swelling ] NEUROLOGIC: [_a/o x 3, GCS 15, normal mentation and speech. Moves all extremities x 4 without motor or sensory deficit] PSYCHIATRIC:[ _normal mood and affect, thought process is clear and linear] Course Vital Signs 02/04/24 02/04/24 02/04/24 03:38 03:50 04:00 Temperature 97.0 F L Pulse Rate 129 H 123 H Respiratory 20 20 20 Rate Blood Pressure 88/65 90/48 O2 Sat by Pulse 87 L 91 L Oximetry 02/04/24 02/04/24 02/04/24 04:15 04:30 04:36 Temperature Pulse Rate 112 H 114 H 113 H Respiratory 20 20 Rate Blood Pressure 72/56 85/61 O2 Sat by Pulse 91 L 91 L Oximetry 02/04/24 02/04/24 02/04/24 04:46 05:00 05:30 Temperature Pulse Rate 124 H 108 H 107 H Respiratory 20 20 Rate Blood Pressure 105/89 92/64 O2 Sat by Pulse 92 L 91 L Oximetry 02/04/24 02/04/24 02/04/24 06:00 07:44 09:12 Temperature Pulse Rate 105 H 103 H 98 Respiratory 20 30 H 28 H Rate Blood Pressure 80/34 O2 Sat by Pulse 41 L 38 L 38 L Oximetry EKG Findings - EKG Comments: EKG Findings:: Sinus tachycardia, rate 127 bpm, NE interval 180 ms, QRS duration 94 ms, QT/QTc 335/410 ms, normal axis, artifact present throughout, limiting interpretation, no clear ST elevations or depressions no arrhythmia Medical Decision Making - Medical Decision Making Was pt. sent in by a medical professional or institution (, PA, ORACLE ANALYST, urgent care, hospital, or snf...) When possible be specific @ -[No] Did you speak to anyone other than the patient for history (EMS, parent, family, police, friend...)? What history was obtained from this source @ -[No] Did you review nursing and triage notes (agree or disagree)? Why? @ -[I reviewed and agree with nursing and triage notes] Were old charts reviewed (outside hosp., previous admission, EMS record, old EKG, old radiological studies, urgent care reports/EKG's, snf records)? Report findings @ -[No old charts were reviewed] Differential Diagnosis (chest pain, altered mental status, abdominal pain women, abdominal pain men, vaginal bleeding, weakness, fever, dyspnea, syncope, headache, dizziness, GI bleed, back pain, seizure, CVA, palpatations, mental health, musculoskeletal)? @ -[not applicable] EKG interpreted by me (3pts min.). @ -[As above] X-rays interpreted by me (1pt min.). @ -[None done] CT interpreted by me (1pt min.). @ -[None done] U/S interpreted by me (1pt. min.). @ -[None done] What testing was considered but not performed or refused? (CT, X-rays, U/S, labs)? Why? @ -[None] What meds were considered but not given or refused? Why? @ -[None] Did you discuss the management of the patient with other professionals (professionals i.e. , PA, ORACLE ANALYST, lab, RT, psych nurse, social services designee, manager employee benefits, teacher, financial administration officer, case management manager)? Give summary @ -[No] Was smoking cessation discussed for >3mins.? @ -[No] Was critical care preformed (if so, how long)? @ -[No] Were there social determinants of health that impacted care today? How? (Homelessness, low income, unemployed, alcoholism, drug addiction, transportation, low edu. Level, literacy, decrease access to med. care, long-term, rehab)? @ -[No] Was there de-escalation of care discussed even if they declined (Discuss DNR or withdrawal of care, Hospice)? @ -[No] What co-morbidities impacted this encounter? (DM, HTN, Smoking, COPD, CAD, Cancer, CVA, ARF, Chemo, Hep., AIDS, mental health diagnosis, sleep apnea, morbid obesity)? @ -[None] Was patient admitted / discharged? Hospital course, mention meds given and route, prescriptions, significant lab abnormalities, going to OR and other pertinent info. @Admission for comfort care This is a 73-year-old female the past medical history of lung cancer, asthma on 2 L oxygen nasal cannula at night presenting today for a fall, generalized weakness and shortness of breath. Patient seen and assessed on arrival, ill- appearing, toxic appearing on a nonrebreather mask with audible wheezes. Her mouth does have dry mucous around it and thick secretions are audible with patient's respirations, supraclavicular retractions are noted, wheezes bilaterally. Tachycardia noted. Weak radial pulses bilaterally. Patient is cachectic. Small hematoma to the right posterior occiput, no midline spinal tenderness palpation. Skin tear to the right shoulder blade and right hand. Point tenderness palpation of the right lower quadrant of the abdomen just medial to the right ASIS. No palpable masses or bony tenderness. Plan for steroids, antibiotics, high-dose continuous albuterol, CT brain and C-spine as well as PE study given patient's history of cancer and hypoxemia, CT abdomen pelvis due to abdominal pain after patient's fall. Patient states that she is a DNR/DNI currently. On reassessment patient appears more comfortable after nebulizer treatments. Currently pending labs so that kidney function can be assessed prior to taking patient to CT scans. Called to bedside by RN, patient's pulse ox 49% on nonrebreather mask. Patient does have decreased air movement bilaterally, I did discuss with her bipap and further treatments, patient is a DNR/DNI and ultimately elected for comfort measures only. I discussed with her that this would mean goals would be pain and anxiety control, and no further imaging or aggressive interventions to prolong her life, she is understanding of this. Comfort measures ordered. Called patient's sister and niece as requested. [facility]. Undiagnosed new problem with uncertain prognosis? @ -[No] Drug Therapy requiring intensive monitoring for toxicity (Heparin, Nitro, Insulin, Cardizem)? @ -[No] Were any procedures done? @ -[No] Diagnosis/symptom? @ -[default] Acute, or Chronic, or Acute on Chronic? @ -[default] Uncomplicated (without systemic symptoms) or Complicated (systemic symptoms)? @ -[default] Side effects of treatment? @ -[No] Exacerbation, Progression, or Severe Exacerbation? @ -[No] Poses a threat to life or bodily function? How? (Chest pain, [place], [place], pneumonia, PE, COPD, DKA, ARF, appy, cholecystitis, CVA, Diverticulitis, Homicidal, Suicidal, threat to staff... and all critical care pts) @ -[No] - Lab Data Result diagrams: 02/04/24 04:11 02/04/24 04:11 Lab Results 02/04/24 02/04/24 02/04/24 Range/Units 04:11 04:11 04:11 WBC 0.5 L* (3.8-10.6) k/uL RBC 2.74 L (3.80-5.40) m/uL Hgb 8.8 L (11.4-16.0) gm/dL Hct 27.1 L (34.0-46.0) % MCV 98.9 (80.0-100.0) fL MCH 32.1 (25.0-35.0) pg MCHC 32.4 (31.0-37.0) g/dL RDW 22.8 H (11.5-15.5) % Plt Count 112 L D (150-450) k/uL MPV 7.9 Differential Comment Manual Slide Review Performed Anisocytosis Moderate Macrocytosis Moderate Tear Drop Cells Present PT 10.6 (10.0-12.5) sec INR 1.0 (<1.2) APTT 21.2 L (22.0-30.0) sec Sodium 137 (137-145) mmol/L Potassium 3.6 (3.5-5.1) mmol/L Chloride 103 (98-107) mmol/L Carbon Dioxide 12 L (22-30) mmol/L Anion Gap 22 mmol/L BUN 42 H (7-17) mg/dL Creatinine 2.37 H (0.52-1.04) mg/dL Est GFR (CKD-EPI)AfAm 23 (>60 ml/min/1.73 sqM) Est GFR (CKD-EPI)NonAf 20 (>60 ml/min/1.73 sqM) Glucose 154 H (74-99) mg/dL POC Glucose (mg/dL) (70-110) mg/dL POC Glu Education And Development Manager ID Lactic Ac Sepsis Rflx Plasma Lactic Acid Zhang (0.7-2.0) mmol/L Calcium 9.3 (8.4-10.2) mg/dL Ionized Calcium Fish 4.8 (4.5-5.3) mg/dL Magnesium 1.7 (1.6-2.3) mg/dL Total Bilirubin 0.9 (0.2-1.3) mg/dL AST 45 H (14-36) U/L ALT 57 H (4-34) U/L Alkaline Phosphatase 77 (38-126) U/L Creatine Kinase (30-135) U/L Troponin I (0.000-0.034) ng/mL NT-Pro-B Natriuret Pep 3200 pg/mL Total Protein 6.9 (6.3-8.2) g/dL Albumin 3.7 (3.5-5.0) g/dL TSH 82.800 H (0.465-4.680) mIU/L 02/04/24 02/04/24 02/04/24 Range/Units 04:11 04:11 04:11 WBC (3.8-10.6) k/uL RBC (3.80-5.40) m/uL Hgb (11.4-16.0) gm/dL Hct (34.0-46.0) % MCV (80.0-100.0) fL MCH (25.0-35.0) pg MCHC (31.0-37.0) g/dL RDW (11.5-15.5) % Plt Count (150-450) k/uL MPV Differential Comment Manual Slide Review Anisocytosis Macrocytosis Tear Drop Cells PT (10.0-12.5) sec INR (<1.2) APTT (22.0-30.0) sec Sodium (137-145) mmol/L Potassium (3.5-5.1) mmol/L Chloride (98-107) mmol/L Carbon Dioxide (22-30) mmol/L Anion Gap mmol/L BUN (7-17) mg/dL Creatinine (0.52-1.04) mg/dL Est GFR (CKD-EPI)AfAm (>60 ml/min/1.73 sqM) Est GFR (CKD-EPI)NonAf (>60 ml/min/1.73 sqM) Glucose (74-99) mg/dL POC Glucose (mg/dL) (70-110) mg/dL POC Glu Education And Development Manager ID Lactic Ac Sepsis Rflx Plasma Lactic Acid Zhang 11.4 H* (0.7-2.0) mmol/L Calcium (8.4-10.2) mg/dL Ionized Calcium Fish (4.5-5.3) mg/dL Magnesium (1.6-2.3) mg/dL Total Bilirubin (0.2-1.3) mg/dL AST (14-36) U/L ALT (4-34) U/L Alkaline Phosphatase (38-126) U/L Creatine Kinase 131 (30-135) U/L Troponin I 0.172 H* (0.000-0.034) ng/mL NT-Pro-B Natriuret Pep pg/mL Total Protein (6.3-8.2) g/dL Albumin (3.5-5.0) g/dL TSH (0.465-4.680) mIU/L 02/04/24 02/04/24 Range/Units 04:13 05:50 WBC (3.8-10.6) k/uL RBC (3.80-5.40) m/uL Hgb (11.4-16.0) gm/dL Hct (34.0-46.0) % MCV (80.0-100.0) fL MCH (25.0-35.0) pg MCHC (31.0-37.0) g/dL RDW (11.5-15.5) % Plt Count (150-450) k/uL MPV Differential Comment Manual Slide Review Anisocytosis Macrocytosis Tear Drop Cells PT (10.0-12.5) sec INR (<1.2) APTT (22.0-30.0) sec Sodium (137-145) mmol/L Potassium (3.5-5.1) mmol/L Chloride (98-107) mmol/L Carbon Dioxide (22-30) mmol/L Anion Gap mmol/L BUN (7-17) mg/dL Creatinine (0.52-1.04) mg/dL Est GFR (CKD-EPI)AfAm (>60 ml/min/1.73 sqM) Est GFR (CKD-EPI)NonAf (>60 ml/min/1.73 sqM) Glucose (74-99) mg/dL POC Glucose (mg/dL) 142 H (70-110) mg/dL POC Glu Education And Development Manager ID Pedro Medina Lactic Ac Sepsis Rflx Y Plasma Lactic Acid Zhang (0.7-2.0) mmol/L Calcium (8.4-10.2) mg/dL Ionized Calcium Fish (4.5-5.3) mg/dL Magnesium (1.6-2.3) mg/dL Total Bilirubin (0.2-1.3) mg/dL AST (14-36) U/L ALT (4-34) U/L Alkaline Phosphatase (38-126) U/L Creatine Kinase (30-135) U/L Troponin I (0.000-0.034) ng/mL NT-Pro-B Natriuret Pep pg/mL Total Protein (6.3-8.2) g/dL Albumin (3.5-5.0) g/dL TSH (0.465-4.680) mIU/L Disposition Clinical Impression: Acute hypoxic respiratory failure Disposition: ADMITTED IP TO THIS HOSP Condition: Critical
[2024-02-04 04:47] LABS: Prothrombin Time 10.6 sec (10.0-12.5)
[2024-02-04 04:52] LABS: Ionized Calcium 4.8 mg/dL (4.5-5.3)
[2024-02-04 05:02] LABS: Partial Thromboplastin Time 21.2 sec (22.0-30.0)
[2024-02-04 05:05] LABS: Anisocytosis Moderate; HCT 27.1 % (34.0-46.0); HGB 8.8 gm/dL (11.4-16.0); MCH 32.1 pg (25.0-35.0); MCHC 32.4 g/dL (31.0-37.0); MCV 98.9 fL (80.0-100.0); Macrocytosis Moderate; Mean Platelet Volume 7.9; RBC 2.74 m/uL (3.80-5.40); RDW 22.8 % (11.5-15.5)
[2024-02-04] MEDS: AZITHROMYCIN 500 MG in SODIUM CHLORIDE 0.9% 250 ML IVPB STA (05:17)
[2024-02-04 05:18] LABS: Platelet Count 112 k/uL (150-450); WBC 0.5 k/uL (3.8-10.6)
[2024-02-04 06:01] LABS: Tear Drop Cells Present
[2024-02-04] MEDS ORDERED: ONDANSETRON 4 MG/2 ML VIAL IVP PRN (06:10)
[2024-02-04] MEDS ORDERED: ARTIFICIAL TEARS-HYPROMELLOSE DROPS 15 ML BTL BOTH EYES PRN (06:10)
[2024-02-04] MEDS: SODIUM CHLORIDE 0.9% 1,000 ML IV ONE (06:10)
[2024-02-04] MEDS ORDERED: GLYCOPYRROLATE 0.2 MG/ML 2 ML VIAL IVP PRN (06:10)
[2024-02-04] MEDS ORDERED: DRY MOUTH SPRAY 44.3 SPRAY/44.3 ML SPRAY MUCOUS MEM PRN (06:10)
[2024-02-04] MEDS ORDERED: LORazepam 2 MG/ML INJ IV PRN (06:10)
[2024-02-04] MEDS ORDERED: ATROPINE OPHTH SOLN 1% 5ML BTL SUBLINGUAL PRN (06:10)
[2024-02-04] MEDS ORDERED: MORPHINE SULFATE 4 MG/ML SYRINGE IV PRN (06:10)
[2024-02-04] MEDS ORDERED: HYDROmorphone 1 MG/ML 1 ML SYRINGE IVP PRN (06:10)
[2024-02-04] MEDS: MORPHINE SULFATE 4 MG/ML SYRINGE IVP STA (06:10)
[2024-02-04] MEDS: LORazepam 2 MG/ML INJ IV STA (06:11)
[2024-02-04 06:18] LABS: AST 45 U/L (14-36); African American GFR (CKD) 23 (>60 ml/min/1.73 sqM); Albumin 3.7 g/dL (3.5-5.0); Alkaline Phosphatase 77 U/L (38-126); Anion Gap 22 mmol/L; Blood Urea Nitrogen 42 mg/dL (7-17); Calcium 9.3 mg/dL (8.4-10.2); Carbon Dioxide 12 mmol/L (22-30); Chloride 103 mmol/L (98-107); Glucose 154 mg/dL (74-99); Magnesium 1.7 mg/dL (1.6-2.3); Non-African American GFR(CKD) 20 (>60 ml/min/1.73 sqM); Potassium 3.6 mmol/L (3.5-5.1); Sodium 137 mmol/L (137-145); Total Bilirubin 0.9 mg/dL (0.2-1.3); Total Protein 6.9 g/dL (6.3-8.2)
[2024-02-04 06:23] VITALS: BP 80/34
[2024-02-04 06:24] LABS: ALT 57 U/L (4-34)
[2024-02-04 06:26] LABS: NT-Pro-B-Type Natriuretic Pept 3200 pg/mL
[2024-02-04] MEDS: MORPHINE SULFATE 2 MG/ML SYRINGE IVP ONE (06:41)
[2024-02-04] MEDS: MORPHINE SULFATE (100 MG/2 ML) 100 MG in SODIUM CHLORIDE 0.9% 100 ML IV SCH (06:41)
[2024-02-04] MEDS: SCOPOLAMINE 1 MG/72 HR PATCH TRANSDERM SCH (12:33)
--- NOTE | 2024-02-04 12:43 | P.HPIM ---
History of Present Illness 73-year-old female came in with generalized weakness fall and shortness of breath patient had history of breast cancer metastic disease metastasis to lungs. Patient apparently was not doing well and subsequently decided on hospice by herself and patient was able to make patient by herself. Patient was subsequently admitted for comfort measures. Patient is presently on morphine drip. Comfort measures at this time REVIEW OF SYSTEMS: Unable to obtain PHYSICAL EXAMINATION: GENERAL: Thin built cachectic female patient has slow respirations obtunded because of morphine drip CARDIOVASCULAR: S1 and S2 present. PULMONARY: Rhonchi NEUROLOGICAL: On morphine drip sedated SKIN: No rashes. Assessment and plan -Metastatic breast cancer -COPD -Hyperlipidemia -Hypothyroidism -Pancytopenia -Renal failure unknown whether acute or chronic Plan Patient is under comfort care with the lorazepam morphine drip and scopolamine patch Past Medical History Past Medical History: Cancer, COPD, Hearing Disorder / Deafness, Hyperlipidemia, Thyroid Disorder Additional Past Medical History / Comment(s): History of left breast cancer in 2009, hypothyroidism, "migraines in eye", hard of hearing. Lung biopsy with inconclusive results approx 2021 per patient, unsure of date. History of Any Multi-Drug Resistant Organisms: None Reported Past Surgical History: Appendectomy, Breast Surgery Additional Past Surgical History / Comment(s): Left breast lumpectomy, "had fallopian tubes cleaned out". Past Anesthesia/Blood Transfusion Reactions: No Reported Reaction Past Psychological History: Anxiety, Depression Smoking Status: Former smoker - Past Family History Mother Family Medical History: Coronary Artery Disease (CAD), Eye Disorder Additional Family Medical History / Comment(s): Macular degeneration. Father Family Medical History: Coronary Artery Disease (CAD) Additional Family Medical History / Comment(s): No children. Sister(s) Family Medical History: Cancer, COPD Additional Family Medical History / Comment(s): Breast cancer. Medications and Allergies Home Medications Medication Instructions Recorded Confirmed Type Albuterol Sulfate [Ventolin HFA] 2 puff INHALATION Q4H PRN 05/16/19 01/25/24 History DULoxetine HCL [Cymbalta] 120 mg PO QAM 05/16/19 01/25/24 History Atorvastatin Calcium [Lipitor] 40 mg PO DAILY 06/27/20 01/25/24 History Cholecalciferol (Vitamin D3) 125 mcg PO DAILY 06/27/20 01/25/24 History [Vitamin D3 (5000 Iu)] Ipratropium-Albuterol Nebulize 3 ml INHALATION QID 06/27/20 01/25/24 History [Duoneb 0.5 mg-3 mg/3 ml Soln] Budesonide-Formot 160-4.5 Mcg 2 puff INHALATION BID 12/27/21 01/25/24 History [Symbicort 160-4.5 Mcg Inhaler] Levothyroxine Sodium 112 mcg PO QAM 12/27/21 01/25/24 History Allergies Allergy/AdvReac Type Severity Reaction Status Date / Time Penicillins Allergy Rash/Hives Verified 02/04/24 03:48 Physical Exam Vitals: Vital Signs Temp Pulse Resp BP Pulse Ox 02/04/24 10:57 101 H 23 55 L 02/04/24 09:12 98 28 H 38 L 02/04/24 07:44 103 H 30 H 38 L 02/04/24 06:00 105 H 20 80/34 41 L 02/04/24 05:30 107 H 20 92/64 91 L 02/04/24 05:00 108 H 20 105/89 92 L 02/04/24 04:46 124 H 02/04/24 04:36 113 H 02/04/24 04:30 114 H 20 85/61 91 L 02/04/24 04:15 112 H 20 72/56 91 L 02/04/24 04:00 123 H 20 90/48 91 L 02/04/24 03:50 20 02/04/24 03:38 97.0 F L 129 H 20 88/65 87 L Intake and Output 02/03/24 02/04/24 02/04/24 22:59 06:59 14:59 Intake Total 1.02 Balance 1.02 Intake: Intake, IV Titration 1.02 Amount Morphine Sulfate (100 mg/ 1.02 2 ml) 100 mg In Sodium Chloride 0.9% 100 ml @ 1 MG/HR 1.02 mls/hr IV . Q24H [facility] Rx#:[id number] Other: Weight 36.287 kg Results CBC & Chem 7: 02/04/24 04:11 02/04/24 04:11 Labs: Abnormal Lab Results - Last 24 Hours (Table) 02/04/24 02/04/24 02/04/24 Range/Units 04:11 04:11 04:11 WBC 0.5 L* (3.8-10.6) k/uL RBC 2.74 L (3.80-5.40) m/uL Hgb 8.8 L (11.4-16.0) gm/dL Hct 27.1 L (34.0-46.0) % RDW 22.8 H (11.5-15.5) % Plt Count 112 L D (150-450) k/uL APTT 21.2 L (22.0-30.0) sec Carbon Dioxide 12 L (22-30) mmol/L BUN 42 H (7-17) mg/dL Creatinine 2.37 H (0.52-1.04) mg/dL Glucose 154 H (74-99) mg/dL POC Glucose (mg/dL) (70-110) mg/dL Plasma Lactic Acid Zhang (0.7-2.0) mmol/L AST 45 H (14-36) U/L ALT 57 H (4-34) U/L Troponin I (0.000-0.034) ng/mL TSH 82.800 H (0.465-4.680) mIU/L 02/04/24 02/04/24 02/04/24 Range/Units 04:11 04:11 04:13 WBC (3.8-10.6) k/uL RBC (3.80-5.40) m/uL Hgb (11.4-16.0) gm/dL Hct (34.0-46.0) % RDW (11.5-15.5) % Plt Count (150-450) k/uL APTT (22.0-30.0) sec Carbon Dioxide (22-30) mmol/L BUN (7-17) mg/dL Creatinine (0.52-1.04) mg/dL Glucose (74-99) mg/dL POC Glucose (mg/dL) 142 H (70-110) mg/dL Plasma Lactic Acid Zahng 11.4 H* (0.7-2.0) mmol/L AST (14-36) U/L ALT (4-34) U/L Troponin I 0.172 H* (0.000-0.034) ng/mL TSH (0.465-4.680) mIU/L
[2024-02-04 17:21] VITALS: PULSE 105; RESP 13
== END 2024-02-05 05:40 | disposition expired | DRG 189 ==
LOC: EC 03:36 → 5NMEDONC 06:35
PROVIDERS: ADMIT Internal Medicine; ATTEND Internal Medicine
DX: J96.01 Acute respiratory failure with hypoxia (principal); Z68.1 Body mass index [BMI] 19.9 or less, adult; C78.00 Secondary malignant neoplasm of unspecified lung; D61.818 Other pancytopenia; E88.A Wasting disease (syndrome) due to underlying condition; R13.10 Dysphagia, unspecified; Z51.5 Encounter for palliative care; Z66 Do not resuscitate; Z99.81 Dependence on supplemental oxygen; E03.9 Hypothyroidism, unspecified; J44.89 Other specified chronic obstructive pulmonary disease; N19 Unspecified kidney failure; E78.5 Hyperlipidemia, unspecified; H91.90 Unspecified hearing loss, unspecified ear; S00.93XA Contusion of unspecified part of head, initial encounter; W19.XXXA Unspecified fall, initial encounter; Y92.009 Unspecified place in unspecified non-institutional (private) residence as the place of occurrence of the external cause; Z87.891 Personal history of nicotine dependence; Z85.3 Personal history of malignant neoplasm of breast; Z79.51 Long term (current) use of inhaled steroids; Z79.899 Other long term (current) drug therapy
CPT/HCPCS: 36415; 80053; 82330; 82550; 83605; 83735; 83880; 84443; 84484; 85025; 85610; 85730; 87040; 93005; 94644; 96365; 96366; 96367; 96368; 96375; 99285